=== PATIENT | male | born 1960 | race Caucasian/White ===

== ENCOUNTER → 2020-11-27 10:33 | Outpatient (BNVA) | payer MEDICARE, OTHER, SELFPAY | PROVIDERS: PCP Internal Medicine; Visit Provider Hospitalist | DX: Z13.89 Encounter for screening for other disorder (principal) | CPT/HCPCS: Q3014 ==

== ENCOUNTER → 2021-05-29 10:23 | Outpatient (BNVA) | payer MEDICARE, OTHER, SELFPAY | PROVIDERS: PCP Internal Medicine; Visit Provider Hospitalist | DX: J45.40 Moderate persistent asthma, uncomplicated (principal); G47.33 Obstructive sleep apnea (adult) (pediatric); R06.00 Dyspnea, unspecified; G25.81 Restless legs syndrome | CPT/HCPCS: Q3014 ==

== ENCOUNTER → 2021-11-28 11:20 | Outpatient (BNVA) | payer MEDICARE, OTHER, SELFPAY | PROVIDERS: PCP Internal Medicine; Visit Provider Hospitalist | DX: J45.40 Moderate persistent asthma, uncomplicated (principal); G25.81 Restless legs syndrome; G47.33 Obstructive sleep apnea (adult) (pediatric); R06.00 Dyspnea, unspecified; Z79.899 Other long term (current) drug therapy | CPT/HCPCS: Q3014 ==

== ENCOUNTER 2021-12-07 10:35 | Emergency (ER) | payer MEDICARE, OTHER, SELFPAY ==
--- NOTE | ~2021-12-07 | CT_ITS ---
EXAMINATION: CT ABDOMEN AND PELVIS WITHOUT CONTRAST CLINICAL INFORMATION: Lower abdominal pain COMPARISON: None TECHNIQUE: Multidetector volumetric imaging was performed from the superior aspect of the liver through the pubic symphysis. Sagittal and coronal reformatted images were obtained on the technologist's workstation. This CT examination was performed using dose optimization techniques as appropriate, variously including the following: *Automated exposure control *Adjustment of mA and/or kV according to patient size (this includes techniques or standardized protocols for targeted exams where dose is matched to indication/reason for exam; i.e. extremities or head) *Use of iterative reconstruction technique DLP: 967 mGy-cm FINDINGS: LUNG BASES: The visualized lung bases are unremarkable. No pleural or pericardial effusion. LIVER, GALLBLADDER, AND BILIARY TREE: The liver is normal in size, shape, and attenuation. No focal hepatic lesion or biliary ductal dilatation is present. The gallbladder is unremarkable with no evidence of radiopaque gallstones, gallbladder wall thickening, or obvious pericholecystic inflammatory changes. PANCREAS: Unremarkable. SPLEEN: Unremarkable. ADRENAL GLANDS: There is a 1.2 cm fat density nodule within the left adrenal gland. KIDNEYS AND URETERS: The kidneys are normal in size, shape, and attenuation. No hydronephrosis, hydroureter, or calculi seen. There is perinephric stranding. BLADDER: Thick walled with pericystic fat stranding with the appearance of cystitis. No calculi identified. GASTROINTESTINAL TRACT: No dilated loops of large or small bowel. No free air or free fluid. The appendix appears unremarkable. ABDOMINAL WALL: No significant hernia is appreciated. LYMPH NODES: No lymphadenopathy appreciated. VASCULAR: Unremarkable. PELVIC VISCERA: The inflammatory change around the urinary bladder is also noted to extend to the seminal vesicles bilaterally. OSSEOUS STRUCTURES: No suspicious destructive bony lesion identified. CT/CT abdomen pelvis wo con IMPRESSION: Findings consistent with cystitis with urinary bladder wall thickening and adjacent stranding within fat. No abscess formation identified. 1.2 cm fat density left adrenal gland nodule.
[2021-12-07 10:38] VITALS: BP 146/98; PULSE 93; O2SAT 99
[2021-12-07 10:41] VITALS: BP 138/75; PULSE 88; RESP 18; TEMP 36.8; O2SAT 99; BMI 32.8
--- NOTE | 2021-12-07 11:18 | ED.ABDPAIN ---
HPI - Abdominal Pain General Chief Complaint: Abdominal Pain Stated Complaint: ABD PAIN X'S 3 DAYS Time Seen by Provider: 12/07/21 10:36 Source: patient Mode of arrival: EMS History of Present Illness HPI narrative: 60-year-old male who presents via EMS with complaints of 3 days of lower abdominal discomfort and difficulties with urination, stating that his urine output has gradually decreased, he denies any nausea/vomiting/fevers/chills/history of kidney stones and denies any back pain. Patient otherwise denies any shortness of breath/chest pain/palpitations. Related Data Home Medications Medication Instructions Recorded Confirmed flu vacc [id number] 6mos up(PF) ml IM 05/28/20 11/27/20 glipizide 10 mg tablet 10 mg PO BID 05/28/20 11/27/20 insulin human U-100 NPH-regulr 20 unit SUBCUT BID 05/28/20 11/27/20 70-30 mix 100 unit/mL subcutaneous susp lorazepam 0.5 mg tablet 0 mg PO 05/28/20 11/27/20 losartan 100 mg tablet 100 mg PO DAILY 05/28/20 11/27/20 metformin 500 mg tablet mg PO 05/28/20 11/27/20 metoprolol tartrate 25 mg tablet mg PO 05/28/20 11/27/20 montelukast 10 mg tablet 10 mg PO DAILY 05/28/20 11/27/20 omeprazole 40 mg capsule,delayed 40 mg PO DAILY 05/28/20 11/27/20 release oxygen-air delivery systems #1 05/28/20 11/27/20 pneumoc 13-ruba conj-dip cr(PF) 0.5 ml IM 05/28/20 11/27/20 mL IM syringe venlafaxine 150 mg mg PO 05/28/20 11/27/20 capsule,extended release 24 hr verapamil 120 mg tablet,extended 120 mg PO DAILY 05/28/20 11/27/20 release chromium picolinate 200 mcg tablet 200 mcg PO DAILY 11/27/20 11/27/20 coenzyme Q10 100 mg capsule 100 mg PO DAILY 11/27/20 11/27/20 indapamide 1.25 mg tablet 1.25 mg PO DAILY 11/27/20 11/27/20 lutein 6 mg capsule 6 mg PO DAILY 11/27/20 11/27/20 magnesium oxide,aspartate,citr mg PO 11/27/20 11/27/20 (Triple Magnesium Complex) multivitamin 1 tab PO DAILY 11/27/20 11/27/20 gabapentin 600 mg tablet mg PO 11/28/21 Previous Rx's Medication Instructions Recorded fluticasone 500 mcg-salmeterol 50 1 inh PO BID #180 ea 04/26/21 mcg/dose blistr powdr for inhalation (Advair Diskus) albuterol sulfate 90 mcg/actuation 2 puff PO Q4-6H #20.1 g 11/07/21 aerosol inhaler cefdinir 300 mg capsule 300 mg PO BID 7 Days #14 cap 12/07/21 Allergies Allergy/AdvReac Type Severity Reaction Status Date / Time budesonide [From Symbicort] Allergy Severe Dizziness Verified 11/28/21 11:21 formoterol [From Symbicort] Allergy Severe Dizziness Verified 11/28/21 11:21 lisinopril [LISINOPRIL] Allergy Severe Nausea Verified 11/28/21 11:21 mometasone furoate Allergy Severe Nausea Verified 11/28/21 11:21 [From Dulera] ENVIRONMENTAL Allergy Severe Rash and Uncoded 11/28/21 11:21 Hives Dust Mite Allergy Intermediate Hives Uncoded 11/28/21 11:21 Seasonal Allergies Allergy Intermediate Hives and Uncoded 11/28/21 11:21 Rash Review of Systems Review of Systems Pertinent positives and negatives as stated in HPI 10 point review of systems is otherwise negative. PMFSH Past Medical History Source: nursing notes reviewed Medical History Asthma CAD (coronary artery disease) Dyspnea ASHLIE treated with BiPAP Restless leg syndrome Social History Social History Patient Tobacco Use Status: Never used Tobacco Advance Directives: Yes Advance Directives Information Provided: No Advance Directives on File: No Physical Exam ED Vital Signs: Vital Signs - 24 hr 12/07/21 10:41 Temperature 98.3 F Pulse Rate 88 Respiratory Rate 18 Blood Pressure 138/75 Pulse Oximetry 99 BMI result Body Mass Index 32.8 VITAL SIGNS: Reviewed. GENERAL: Well developed, well nourished, in no acute distress. HEAD: Normocephalic/atraumatic EYES: PERRLA, EOMI EARS: Ext canals without abnormality OROPHARYNX: no oral lesions noted, posterior pharynx clear LUNGS: Normal breath sounds, no wheeze/rhonchi/rales/tachypnea. SpO2<99> CARDIOVASCULAR: Regular rate and rhythm without noted murmurs, no JVD or lower extremity edema. ABDOMEN: Soft, suprapubic tenderness without rebound, non-distended with bowel sounds. MUSCULOSKELETAL: No tenderness, deformities, or effusions noted on gross inspection. EXTREMITIES: No cyanosis, clubbing or edema. SKIN: Inspection of the skin reveals no rashes NEUROLOGIC: Alert and oriented x 4. Strength and sensation to light touch were grossly intact x 4. Course Course Course Narrative: 60-year-old male with history and clinical presentation suggestive of possible urinary retention/BPH/UTI and less likely to be appendicitis or renal colic or diverticulitis at this point. On review of all investigations there is evidence to suggest cystitis with noted RBCs on urinalysis as well as wbc's but otherwise nitrate and leukocyte esterase negative. There is trace bacteria and on re-evaluation patient has good pain control. Patient informed of all results and will be discharged with treatment for cystitis provided with a referral to see Dr. Rivera. MDM - Abdominal Pain Lab Data Result diagrams: 12/07/21 11:32 12/07/21 11:32 Labs: Lab Results 12/07/21 12/07/21 12/07/21 Range/Units 11:32 11:32 12:19 WBC 14.6 H (4.8-10.8) X10*3/uL RBC 3.68 L (4.60-5.80) X10*6/uL Hgb 10.9 L (14.0-18.0) g/dl Hct 33.2 L (42.0-52.0) % MCV 90.2 (80.0-98.0) fL MCH 29.6 (27.0-33.0) pg MCHC 32.8 (31.0-36.0) g/dl RDW 13.1 (11.0-16.0) % Plt Count 261 (160-400) X10*3/uL MPV 9.5 (9.4-12.4) fL Immature Gran % (Auto) 0.5 H (0.0-0.4) % Neut % (Auto) 81.4 H (45-73) % Lymph % (Auto) 9.9 L (20-40) % [place] % (Auto) 7.6 (2-11) % Eos % (Auto) 0.3 (0-4) % Baso % (Auto) 0.3 (0-2) % Lymph # (Auto) 1.4 (1.2-4.9) X10*3/uL [place] # (Auto) 1.1 (0.1-1.2) X10*3/uL Eos # (Auto) 0.1 (0.0-0.4) X10*3/uL Baso # (Auto) 0.0 (0.0-0.2) X10*3/uL Abs Immat Gran (auto) 0.07 H (0.00-0.03) X10*3/uL Absolute Neuts (auto) 11.9 H (2.0-8.3) x10*3/uL Absolute Nucleated RBC 0.000 (0.0-0.012) X10*3/uL Nucleated RBC % (auto) 0.0 (0.0-0.2) /100WBC Sodium 137 (135-145) mmol/L Potassium 4.0 (3.3-5.1) mmol/L Chloride 101 (96-108) mmol/L Carbon Dioxide 26 (22-29) mmol/L Anion Gap 14 (12-20) BUN 11 (9-16) mg/dL Creatinine 0.97 (0.5-1.4) mg/dL Estim Creat Clear Calc 112.8 Estimated GFR > 60 Random Glucose 235 H (60-115) mg/dL Calcium 8.9 (8.4-10.2) mg/dL Total Bilirubin 0.5 (0.0-1.0) mg/dL AST 12 (5-37) U/L ALT 22 (0-40) U/L Alkaline Phosphatase 99 (39-117) U/L Total Protein 6.7 (6.5-8.0) g/dL Albumin 3.8 (3.5-5.0) g/dL Urine Color YELLOW Urine Appearance HAZY Urine pH 7.0 (5.0-8.0) Ur Specific [place] 1.020 (1.005-1.025) Urine Protein 2+ H (NEG-TRACE) MG/DL Urine Glucose (UA) 100 H (NEG) MG/DL Urine Ketones 5 (NEG) MG/DL Urine Blood 1+ H (NEG) Urine Nitrite NEG (NEG) Ur Leukocyte Esterase NEG (NEG) Urine RBC 10-14 H (0) /HPF Urine WBC 15-29 H (0-4) /HPF Ur Squamous Epith Cells NONE /LPF Urine Bacteria TRACE /LPF Urine Mucus 2+ /LPF Discharge Plan Discharge Clinical Impression: Cystitis Patient Disposition: Home, Self-Care Instructions: Urinary Tract Infection in Men (ED) Additional Instructions: 1. Resume all home medications as prescribed. 2. Increase the amount of water that your drinking. 3. Complete the entire course of antibiotics that you have been provided and follow-up with the urologist that we have provided a referral. 4. Follow-up with your primary care provider by calling on Thursday morning. Return to the ER for any worsening of symptoms. Prescriptions: New cefdinir 300 mg capsule 300 mg PO BID 7 Days Qty: 14 0RF No Action fluticasone propion-salmeterol [Advair Diskus] 500-50 mcg/dose blister with device 1 inh PO BID Qty: 180 5RF albuterol sulfate 90 mcg/actuation HFA aerosol inhaler 2 puff PO Q4-6H Qty: 20.1 0RF Novolin 70/30 U-100 Insulin 100 unit/mL (70-30) suspension 20 unit subcut BID 0RF metoprolol tartrate 25 mg tablet PO 0RF losartan 100 mg tablet 100 mg PO DAILY 0RF montelukast 10 mg tablet 10 mg PO DAILY 0RF omeprazole 40 mg capsule,delayed release(DR/EC) 40 mg PO DAILY 0RF venlafaxine 150 mg capsule,extended release 24hr PO 0RF glipizide 10 mg tablet 10 mg PO BID 0RF metformin 500 mg tablet PO 0RF verapamil 120 mg tablet extended release 120 mg PO DAILY 0RF lorazepam 0.5 mg tablet 0 mg PO 0RF Fluzone Quad [id number] (PF) 60 mcg (15 mcg x 4)/0.5 mL syringe IM 0RF Prevnar 13 (PF) 0.5 mL syringe IM 0RF (DME) oxygen-air delivery systems Device See Rx Instructions .ROUTE .MEDSUPPLY Qty: 1 0RF Rx Instructions: As directed indapamide 1.25 mg tablet 1.25 mg PO DAILY 0RF multivitamin Tablet 1 tab PO DAILY 0RF coenzyme Q10 100 mg capsule 100 mg PO DAILY 0RF lutein 6 mg capsule 6 mg PO DAILY 0RF Rx Instructions: give with meal/snack Triple Magnesium Complex 400 mg magnesium capsule PO 0RF chromium picolinate 200 mcg tablet 200 mcg PO DAILY 0RF gabapentin 600 mg tablet PO 0RF Referrals: Iron Garibay III, MD [Primary Care Provider] - Scott Rivera MD [Physician] -
[2021-12-07 11:34] LABS: MANUAL DIFF FLAG NO
[2021-12-07 11:36] LABS: Basophils Percent Auto 0.3 % (0-2); Eosinophils Absolute Auto 0.1 X10*3/uL (0.0-0.4); Eosinophils Percent Auto 0.3 % (0-4); Hematocrit 33.2 % (42.0-52.0); Hemoglobin 10.9 g/dl (14.0-18.0); Imm Gran Abs Auto 0.07 X10*3/uL (0.00-0.03); Imm Gran Pct Auto 0.5 % (0.0-0.4); Lymphocytes Absolute Auto 1.4 X10*3/uL (1.2-4.9); Lymphocytes Percent Auto 9.9 % (20-40); Mean Corpuscular HGB Conc 32.8 g/dl (31.0-36.0); Mean Corpuscular Hemoglobin 29.6 pg (27.0-33.0); Mean Corpuscular Volume 90.2 fL (80.0-98.0); Mean Platelet Volume 9.5 fL (9.4-12.4); Monocytes Absolute Auto 1.1 X10*3/uL (0.1-1.2); Monocytes Percent Auto 7.6 % (2-11); Neutrophils Absolute Auto 11.9 x10*3/uL (2.0-8.3); Neutrophils Percent Auto 81.4 % (45-73); Platelet Count 261 X10*3/uL (160-400); Red Blood Count 3.68 X10*6/uL (4.60-5.80); Red Cell Distribution Width 13.1 % (11.0-16.0); White Blood Count 14.6 X10*3/uL (4.8-10.8)
[2021-12-07] MEDS: 0.9 % Sodium Chloride 1,000 ML 999 ML IV (11:36)
[2021-12-07] MEDS: Ketorolac Tromethamine 30 MG/ML VIAL 15 MG IVPUSH (11:36)
[2021-12-07 11:57] LABS: Alanine Aminotransferase 22 U/L (0-40); Albumin Level 3.8 g/dL (3.5-5.0); Alkaline Phosphatase 99 U/L (39-117); Anion Gap 14 (12-20); Aspartate Amino Transferase 12 U/L (5-37); Bilirubin Total 0.5 mg/dL (0.0-1.0); Blood Urea Nitrogen 11 mg/dL (9-16); Calcium 8.9 mg/dL (8.4-10.2); Carbon Dioxide 26 mmol/L (22-29); Chloride 101 mmol/L (96-108); Creatinine Clr Calc Pharmacy 112.8; Estimated Glomerular Filt Rate > 60; Glucose Random 235 mg/dL (60-115); Sodium 137 mmol/L (135-145); Total Protein 6.7 g/dL (6.5-8.0)
[2021-12-07 12:38] LABS: Appearance Urine HAZY; Color Urine YELLOW; Glucose Urine UA 100 MG/DL (NEG); Leukocyte Esterase Urine NEG (NEG); Nitrite Urine NEG (NEG); UACC Culture Trigger NO; Urine Blood 1+ (NEG); Urine Ketones 5 MG/DL (NEG); Urine Protein 2+ MG/DL (NEG-TRACE)
[2021-12-07 12:46] LABS: Mucus Urine 2+ /LPF; UACC CULT YES
[2021-12-07 12:47] LABS: Bacteria Urine TRACE /LPF
[2021-12-07 14:21] VITALS: BP 117/87; PULSE 88; RESP 20; TEMP 37.1; O2SAT 98
== END 2021-12-07 14:25 | disposition home or self-care (01) ==
PROVIDERS: Emergency Provider Student in an Organized Health Care Education/Training Program; PCP Internal Medicine
DX: N30.90 Cystitis, unspecified without hematuria (principal); R33.9 Retention of urine, unspecified; R10.30 Lower abdominal pain, unspecified; Z79.899 Other long term (current) drug therapy
CPT/HCPCS: 36415; 51798; 74176; 80053; 81001; 85025; 87086; 87088; 87186; 96365; 96376; 99284; J1885

== ENCOUNTER 2021-12-25 19:52 | Emergency (ER) | payer MEDICARE, OTHER, SELFPAY ==
[2021-12-25 20:18] VITALS: BP 160/109; PULSE 98; RESP 16; TEMP 36.7; O2SAT 98; BMI 31.1
[2021-12-25 21:15] LABS: MANUAL DIFF FLAG NO
[2021-12-25 21:18] LABS: Basophils Absolute Auto 0.1 X10*3/uL (0.0-0.2); Basophils Percent Auto 0.5 % (0-2); Eosinophils Absolute Auto 0.3 X10*3/uL (0.0-0.4); Eosinophils Percent Auto 3.1 % (0-4); Hematocrit 35.6 % (42.0-52.0); Hemoglobin 11.7 g/dl (14.0-18.0); Imm Gran Abs Auto 0.03 X10*3/uL (0.00-0.03); Imm Gran Pct Auto 0.3 % (0.0-0.4); Lymphocytes Absolute Auto 2.7 X10*3/uL (1.2-4.9); Mean Corpuscular HGB Conc 32.9 g/dl (31.0-36.0); Mean Corpuscular Hemoglobin 29.9 pg (27.0-33.0); Mean Platelet Volume 10.6 fL (9.4-12.4); Monocytes Absolute Auto 0.7 X10*3/uL (0.1-1.2); Neutrophils Absolute Auto 6.6 x10*3/uL (2.0-8.3); Neutrophils Percent Auto 63.1 % (45-73); Platelet Count 372 X10*3/uL (160-400); Red Blood Count 3.91 X10*6/uL (4.60-5.80); Red Cell Distribution Width 13.5 % (11.0-16.0); White Blood Count 10.5 X10*3/uL (4.8-10.8)
[2021-12-25 21:21] LABS: Appearance Urine HAZY; Color Urine YELLOW; Glucose Urine UA NEG (NEG); Leukocyte Esterase Urine NEG (NEG); Nitrite Urine NEG (NEG); Specific Gravity - Urine >= 1.030 (1.005-1.025); UACC Culture Trigger NO; Urine Blood 3+ (NEG); Urine Ketones 5 MG/DL (NEG); Urine Protein 2+ MG/DL (NEG-TRACE)
[2021-12-25 21:27] LABS: Squamous Epithelial Cell Urine TRACE /LPF
[2021-12-25 21:31] LABS: UACC CULT YES; WBC Urine 30-49 /HPF (0-4)
[2021-12-25 21:33] LABS: Bacteria Urine TRACE /LPF; Calcium Oxalate Crystals Urine 1+ /LPF
[2021-12-25 21:34] LABS: Alanine Aminotransferase 26 U/L (0-40); Albumin Level 4.2 g/dL (3.5-5.0); Alkaline Phosphatase 100 U/L (39-117); Anion Gap 15 (12-20); Aspartate Amino Transferase 16 U/L (5-37); Bilirubin Total 0.3 mg/dL (0.0-1.0); Blood Urea Nitrogen 15 mg/dL (9-16); Calcium 9.8 mg/dL (8.4-10.2); Carbon Dioxide 27 mmol/L (22-29); Chloride 103 mmol/L (96-108); Creatinine Clr Calc Pharmacy 106.4; Estimated Glomerular Filt Rate > 60; Glucose Random 98 mg/dL (60-115); Potassium 4.1 mmol/L (3.3-5.1); Sodium 141 mmol/L (135-145); Total Protein 7.1 g/dL (6.5-8.0)
--- NOTE | 2021-12-26 00:29 | ED.MALEGU ---
HPI - Male Genitourinary General Chief complaint: Urogenital-Male Stated complaint: ? UTI Time Seen by Provider: 12/25/21 22:21 Source: patient Mode of arrival: ambulatory Limitations: no limitations History of Present Illness HPI Narrative: 61-year-old male with a history of diabetes on insulin, ASHLIE on BiPAP, asthma, CAD, restless leg, recent visit to the ER 12/07 for UTI who presents back to the ER with acute onset of dysuria that started yesterday. He reports burning upon urination along with increased frequency and urgency. He states it feels similar to when he had a UTI earlier this month. He did have resolution of his symptoms with the antibiotics that were previously prescribed. He does not usually get UTIs and has never seen a urologist before. He denies any fever or chills at home. He denies any nausea, vomiting, abdominal pain, back pain, flank pain. He is worried about his blood sugar because he has been in the waiting room for 5 hours. He has been compliant with his insulin. MD Complaint: dysuria Onset (ago): day(s) (1) Duration: intermittent Location: penis and abdomen Severity: moderate Severity scale (1-10): 5 Quality: burning Relieving factors: none Exacerbating factors: urination Associated symptoms: Reports dysuria Related Data Sexually active: No Home Medications Medication Instructions Recorded Confirmed flu vacc [id number] 6mos up(PF) ml IM 05/28/20 11/27/20 glipizide 10 mg tablet 10 mg PO BID 05/28/20 11/27/20 insulin human U-100 NPH-regulr 20 unit subcut BID 05/28/20 11/27/20 70-30 mix 100 unit/mL subcutaneous susp lorazepam 0.5 mg tablet 0 mg PO 05/28/20 11/27/20 losartan 100 mg tablet 100 mg PO DAILY 05/28/20 11/27/20 metformin 500 mg tablet mg PO 05/28/20 11/27/20 metoprolol tartrate 25 mg tablet mg PO 05/28/20 11/27/20 montelukast 10 mg tablet 10 mg PO DAILY 05/28/20 11/27/20 omeprazole 40 mg capsule,delayed 40 mg PO DAILY 05/28/20 11/27/20 release oxygen-air delivery systems ##1 05/28/20 11/27/20 pneumoc 13-ruba conj-dip cr(PF) 0.5 ml IM 05/28/20 11/27/20 mL IM syringe venlafaxine 150 mg mg PO 05/28/20 11/27/20 capsule,extended release 24 hr verapamil 120 mg tablet,extended 120 mg PO DAILY 05/28/20 11/27/20 release chromium picolinate 200 mcg tablet 200 mcg PO DAILY 11/27/20 11/27/20 coenzyme Q10 100 mg capsule 100 mg PO DAILY 11/27/20 11/27/20 indapamide 1.25 mg tablet 1.25 mg PO DAILY 11/27/20 11/27/20 lutein 6 mg capsule 6 mg PO DAILY 11/27/20 11/27/20 magnesium oxide,aspartate,citr mg PO 11/27/20 11/27/20 (Triple Magnesium Complex) multivitamin 1 tab PO DAILY 11/27/20 11/27/20 gabapentin 600 mg tablet mg PO 11/28/21 Previous Rx's Medication Instructions Recorded fluticasone 500 mcg-salmeterol 50 1 inh PO BID #180 ea 04/26/21 mcg/dose blistr powdr for inhalation (Advair Diskus) albuterol sulfate 90 mcg/actuation 2 puff PO Q4-6H #20.1 grams 11/07/21 aerosol inhaler cefdinir 300 mg capsule 300 mg PO BID 7 days #14 caps 12/07/21 levofloxacin 750 mg tablet 750 mg PO DAILY #7 tabs 12/26/21 Allergies Allergy/AdvReac Type Severity Reaction Status Date / Time budesonide [From Symbicort] Allergy Severe Dizziness Verified 12/25/21 20:22 formoterol [From Symbicort] Allergy Severe Dizziness Verified 12/25/21 20:22 lisinopril [LISINOPRIL] Allergy Severe Nausea Verified 12/25/21 20:22 mometasone furoate Allergy Severe Nausea Verified 12/25/21 20:22 [From Dulera] ENVIRONMENTAL Allergy Severe Rash and Uncoded 12/25/21 20:22 Hives Dust Mite Allergy Intermediate Hives Uncoded 12/25/21 20:22 Seasonal Allergies Allergy Intermediate Hives and Uncoded 12/25/21 20:22 Rash Review of Systems Review of Systems: Constitutional: No Fever, No Chills ENT/Mouth: No sore throat, No Rhinorrhea Cardiovascular: No Chest Pain, No SOB, No Orthopnea, No Edema Respiratory: No Cough, No Sputum, No Wheezing, No dyspnea Gastrointestinal: No Nausea, No Vomiting, No Diarrhea, No abdominal Pain Genitourinary: + Dysuria, + Urinary Frequency, No Hematuria Musculoskeletal: No joint pain, No Myalgias Skin: No Skin Lesions, No rash Neuro: No Weakness, +Dizziness, No Headache Psych: No Anxiety/Panic, No Depression Heme/Lymph: No Bruising, No Lymphadenopathy Endocrine: No Polyuria, No Polydipsia [facility] Past Medical History Medical History Asthma CAD (coronary artery disease) Dyspnea ASHLIE treated with BiPAP Restless leg syndrome Social History Social History Patient Tobacco Use Status: Never used Tobacco Advance Directives: No Advance Directives Information Provided: Yes Physical Exam Vital Signs: Vital Signs: Last Vital Signs Temp 98.1 F 12/25/21 20:18 Pulse 98 12/25/21 20:18 Resp 16 12/25/21 20:18 BP 160/109 H 12/25/21 20:18 Pulse Ox 98 12/25/21 20:18 O2 Del Method 12/25/21 20:18 BMI result Body Mass Index 31.1 Appearance: Alert. Oriented X3. No acute distress. Eyes: Pupils equal, round and reactive to light. ENT: Pharynx normal. Neck: Normal inspection. Neck supple. CVS: Normal heart rate and rhythm. Pulses normal. Respiratory: No respiratory distress. Breath sounds normal. Abdomen: Soft and nontender. +BS x4. No CVA tenderness. Skin: Skin warm and dry. Normal skin color. Normal skin turgor. No rashes. Extremities: No lower extremity edema. Neuro: Oriented X 3. Grossly normal, nonfocal, steady gait, speech and cognition are normal. Course Course Course Narrative: 61-year-old male with history of asthma, ASHLIE, CAD, recent UTI, DM who presents to the ER with new onset of dysuria and increased urinary frequency that started yesterday. On arrival to the ER he is afebrile, hypertensive 160/100. Basic lab workup in triage shows a normal white blood cell count. He has normal kidney function. His urinalysis is positive for white blood cells and red blood cells. Will plan to treat with oral Levaquin given recurrence. He had a urine culture on 12/07 that grew pansensitive Enterococcus, sensitive to Levaquin. Will check his sugar and give him some juice before discharge. Sugar was 98 at 20:00. MDM - Male Genitourinary Lab Data Result diagrams: 12/25/21 20:26 12/25/21 20: Labs: Lab Results 12/25/21 12/25/21 12/25/21 Range/Units 20:26 20:26 21:06 WBC 10.5 (4.8-10.8) X10*3/uL RBC 3.91 L (4.60-5.80) X10*6/uL Hgb 11.7 L (14.0-18.0) g/dl Hct 35.6 L (42.0-52.0) % MCV 91.0 (80.0-98.0) fL MCH 29.9 (27.0-33.0) pg MCHC 32.9 (31.0-36.0) g/dl RDW 13.5 (11.0-16.0) % Plt Count 372 D (160-400) X10*3/uL MPV 10.6 (9.4-12.4) fL Immature Gran % (Auto) 0.3 (0.0-0.4) % Neut % (Auto) 63.1 (45-73) % Lymph % (Auto) 26.0 (20-40) % [place] % (Auto) 7.0 (2-11) % Eos % (Auto) 3.1 (0-4) % Baso % (Auto) 0.5 (0-2) % Lymph # (Auto) 2.7 (1.2-4.9) X10*3/uL [place] # (Auto) 0.7 (0.1-1.2) X10*3/uL Eos # (Auto) 0.3 (0.0-0.4) X10*3/uL Baso # (Auto) 0.1 (0.0-0.2) X10*3/uL Abs Immat Gran (auto) 0.03 (0.00-0.03) X10*3/uL Absolute Neuts (auto) 6.6 (2.0-8.3) x10*3/uL Absolute Nucleated RBC 0.000 (0.0-0.012) X10*3/uL Nucleated RBC % (auto) 0.0 (0.0-0.2) /100WBC Sodium 141 (135-145) mmol/L Potassium 4.1 (3.3-5.1) mmol/L Chloride 103 (96-108) mmol/L Carbon Dioxide 27 (22-29) mmol/L Anion Gap 15 (12-20) BUN 15 (9-16) mg/dL Creatinine 0.99 (0.5-1.4) mg/dL Estim Creat Clear Calc 106.4 Estimated GFR > 60 Random Glucose 98 D (60-115) mg/dL Calcium 9.8 D (8.4-10.2) mg/dL Total Bilirubin 0.3 (0.0-1.0) mg/dL AST 16 (5-37) U/L ALT 26 (0-40) U/L Alkaline Phosphatase 100 (39-117) U/L Total Protein 7.1 (6.5-8.0) g/dL Albumin 4.2 (3.5-5.0) g/dL Urine Color YELLOW Urine Appearance HAZY Urine pH 6.0 (5.0-8.0) Ur Specific [place] >= 1.030 H (1.005-1.025) Urine Protein 2+ H (NEG-TRACE) MG/DL Urine Glucose (UA) NEG (NEG) MG/DL Urine Ketones 5 (NEG) MG/DL Urine Blood 3+ H (NEG) Urine Nitrite NEG (NEG) Ur Leukocyte Esterase NEG (NEG) Urine RBC 76-150 H (0) /HPF Urine WBC 30-49 H (0-4) /HPF Ur Squamous Epith Cells TRACE /LPF Calcium Oxalate Crystal 1+ /LPF Urine Bacteria TRACE /LPF Critical Care Time Critical Care Time Critical Care Time: No Discharge Plan Discharge Clinical Impression: Urinary tract infection Patient Disposition: Home, Self-Care Instructions: Urinary Tract Infection in Men (ED) Additional Instructions: Your urine test showed evidence of infection. Your given the 1st dose of antibiotics tonight in the emergency department. Recommend starting the next dose late tomorrow before you go to bed. It is once per day. Recommend following up with your primary care doctor within 1 week. Recommend following up with urology for further evaluation of recurrent urinary tract infections. If you develop new or worsening symptoms call 911 or come back to the ER for further evaluation. Prescriptions: New levofloxacin 750 mg tablet 750 mg PO DAILY Qty: 7 0RF No Action fluticasone propion-salmeterol [Advair Diskus] 500-50 mcg/dose blister with device 1 inh PO BID Qty: 180 5RF albuterol sulfate 90 mcg/actuation HFA aerosol inhaler 2 puff PO Q4-6H Qty: 20.1 0RF cefdinir 300 mg capsule 300 mg PO BID 7 Days Qty: 14 0RF Novolin 70/30 U-100 Insulin 100 unit/mL (70-30) suspension 20 unit subcut BID metoprolol tartrate 25 mg tablet PO losartan 100 mg tablet 100 mg PO DAILY montelukast 10 mg tablet 10 mg PO DAILY omeprazole 40 mg capsule,delayed release(DR/EC) 40 mg PO DAILY venlafaxine 150 mg capsule,extended release 24hr PO glipizide 10 mg tablet 10 mg PO BID metformin 500 mg tablet PO verapamil 120 mg tablet extended release 120 mg PO DAILY lorazepam 0.5 mg tablet 0 mg PO Fluzone Quad [id number] (PF) 60 mcg (15 mcg x 4)/0.5 mL syringe IM Prevnar 13 (PF) 0.5 mL syringe IM (DME) oxygen-air delivery systems Device See Rx Instructions .ROUTE .MEDSUPPLY Qty: 1 Rx Instructions: As directed indapamide 1.25 mg tablet 1.25 mg PO DAILY multivitamin Tablet 1 tab PO DAILY coenzyme Q10 100 mg capsule 100 mg PO DAILY lutein 6 mg capsule 6 mg PO DAILY Rx Instructions: give with meal/snack Triple Magnesium Complex 400 mg magnesium capsule PO chromium picolinate 200 mcg tablet 200 mcg PO DAILY gabapentin 600 mg tablet PO Referrals: Scott Rivera MD [Physician] - (recurrent UTIs)
[2021-12-26] MEDS: levoFLOXacin 750 MG TABLET PO (01:11)
[2021-12-26 07:03] LABS: Glucose, Whole Blood 119 mg/dL (60-115)
== END 2021-12-26 01:14 | disposition home or self-care (01) ==
PROVIDERS: Emergency Provider Emergency Medicine Emergency Medical Services; PCP Internal Medicine
DX: N39.0 Urinary tract infection, site not specified (principal); E11.9 Type 2 diabetes mellitus without complications; J45.909 Unspecified asthma, uncomplicated; I25.10 Atherosclerotic heart disease of native coronary artery without angina pectoris; Z79.4 Long term (current) use of insulin
CPT/HCPCS: 36415; 80053; 81001; 82947; 85025; 87086; 87088; 87186; 99283

== ENCOUNTER → 2022-01-27 09:39 | Outpatient (BNVA) | payer MEDICARE, OTHER, SELFPAY | PROVIDERS: PCP Internal Medicine | DX: N39.0 Urinary tract infection, site not specified (principal); A49.9 Bacterial infection, unspecified | CPT/HCPCS: 51798; 99202 ==

== ENCOUNTER 2022-01-27 11:21 | Outpatient (REF) | payer MEDICARE, OTHER, SELFPAY ==
[2022-01-27 14:04] LABS: PSA,Total (Free>4and<10) 1.05 ng/mL (0.00-4.00)
== END 2022-01-27 11:22 | disposition home or self-care (01) ==
LOC: HO.10HDL 11:21
DX: Z12.5 Encounter for screening for malignant neoplasm of prostate (principal); A49.9 Bacterial infection, unspecified; N39.0 Urinary tract infection, site not specified
CPT/HCPCS: 36415; 84153

== ENCOUNTER → 2022-03-11 08:32 | Outpatient (BNVA) | payer MEDICARE, OTHER, SELFPAY | PROVIDERS: PCP Internal Medicine; Visit Provider Hospitalist | DX: J45.40 Moderate persistent asthma, uncomplicated (principal); G47.33 Obstructive sleep apnea (adult) (pediatric); G25.81 Restless legs syndrome; R06.00 Dyspnea, unspecified | CPT/HCPCS: 99212 ==

== ENCOUNTER → 2022-04-30 12:55 | Outpatient (BNVA) | payer MEDICARE, SELFPAY | PROVIDERS: PCP Internal Medicine; Visit Provider Urology | DX: N39.0 Urinary tract infection, site not specified (principal); A49.9 Bacterial infection, unspecified | CPT/HCPCS: 99212 ==

== ENCOUNTER → 2022-08-01 08:14 | Outpatient (BNVA) | payer MEDICARE, MEDICAID, SELFPAY | PROVIDERS: PCP Internal Medicine; Visit Provider Psychiatry & Neurology Neurology | DX: R42 Dizziness and giddiness (principal) | CPT/HCPCS: 99202 ==

== ENCOUNTER → 2022-09-17 09:04 | Outpatient (BNVA) | payer MEDICARE, MEDICAID, SELFPAY | PROVIDERS: PCP Internal Medicine; Visit Provider Hospitalist | DX: J45.40 Moderate persistent asthma, uncomplicated (principal); R06.00 Dyspnea, unspecified; G47.33 Obstructive sleep apnea (adult) (pediatric); G25.81 Restless legs syndrome | CPT/HCPCS: Q3014 ==

== ENCOUNTER → 2022-12-24 10:35 | Outpatient (BNVA) | payer MEDICARE, MEDICAID, SELFPAY | PROVIDERS: PCP Internal Medicine; Visit Provider Psychiatry & Neurology Neurology | DX: R42 Dizziness and giddiness (principal); E11.65 Type 2 diabetes mellitus with hyperglycemia; I10 Essential (primary) hypertension | CPT/HCPCS: 99212 ==

== ENCOUNTER 2023-03-04 12:31 | Outpatient (AMB) | payer MEDICARE, MEDICAID, SELFPAY ==
--- NOTE | 2023-03-04 12:47 | MHC.OFFVIS ---
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/ Intake Note: NPV w/ EKG Prop Worker Required: No Accompanied by: Self / Same As Patient Allergies budesonide [From Symbicort] Allergy (Severe, Verified 03/04/23 12:50) Dizziness formoterol [From Symbicort] Allergy (Severe, Verified 03/04/23 12:50) Dizziness lisinopril [LISINOPRIL] Allergy (Severe, Verified 03/04/23 12:50) Nausea mometasone furoate [From Dulera] Allergy (Severe, Verified 03/04/23 12:50) Nausea amoxicillin Allergy (Mild, Verified 03/04/23 12:50) vertigo gabapentin Allergy (Mild, Verified 03/04/23 12:50) vertigo ENVIRONMENTAL Allergy (Severe, Uncoded 03/04/23 12:50) Rash and Hives Dust Mite Allergy (Intermediate, Uncoded 03/04/23 12:50) Hives Seasonal Allergies Allergy (Intermediate, Uncoded 03/04/23 12:50) Hives and Rash terazosin Allergy (Mild, Uncoded 03/04/23 12:50) vertigo Medication List - Last Reconciled 03/04/23 by Daniel Lubin MD albuterol sulfate 90 mcg/actuation 2 puffs PO Q6H PRN aspirin 81 mg PO DAILY atenolol 50 mg PO DAILY blood sugar diagnostic (Bookeruch Ultra Test strips) As directed chromium picolinate 200 mcg PO DAILY coenzyme Q10 100 mg PO DAILY dulaglutide (Trulicity) mg subcut flu vacc [id number] 6mos up(PF) mL IM fluticasone propion-salmeterol 500-50 mcg/dose (Advair Diskus) 1 inh inhalation BID indapamide 2.5 mg PO BEDTIME insulin NPH and regular human 100 unit/mL (70-30) 20 units subcut BID insulin syringe-needle U-100 As directed isosorbide dinitrate 10 mg PO BID lancets (AnystreamTouch Delica Plus Lancet) As directed lorazepam 0.5 mg PO losartan 100 mg PO DAILY lutein 6 mg PO DAILY magnesium oxide,aspartate,citr (Triple Magnesium Complex) mg PO meclizine 25 mg PO DAILY PRN metformin 1,000 mg PO BID montelukast 10 mg PO DAILY 90 days multivitamin 1 tab PO DAILY omeprazole 40 mg PO DAILY oxygen-air delivery systems As directed pneumoc 13-ruba conj-dip cr(PF) mL IM ropinirole 0.25 mg PO DAILY venlafaxine ER mg PO HPI HPI Comments History of Present Illness Details Bladimir has been referred back for evaluation. He was seen last in 2019. At that time, he was seen regarding shortness of breath. He underwent cardiac workup including cardiac catheterization but there was no significant CAD. Multiple comorbidities including obesity, diabetes, hypertension. He also has a question about on a dysfunction. Overall, main complaint is still some shortness of breath with activity but he also has asthma/COPD overlap syndrome. No angina. Chronic symptoms of vertigo which have been present for many years. They do not really sound orthostatic in nature. However, he does have labile blood pressures and goes nephrology too. 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 kidney complication Vertigo Surgical History H/O adenoidectomy History of cataract surgery Hx of tonsillectomy Family History Father Cancer Mother Cancer Sister Acute Crohn's disease Social History Alcohol intake: never Patient Tobacco Use Status: Never used Tobacco Review of Systems Const Denies chills, Denies daytime sleepiness, Denies fatigue, Denies fever(s), Denies frequent falls, Denies night sweats, Denies snoring, Denies weakness, Denies weight gain and Denies weight loss Eyes Denies loss of vision ENT Denies dizziness and Denies hearing loss Card Denies chest pain, Denies chest pain with activity, Denies syncope, Denies rapid heart rate, Denies edema, Denies claudication, Denies leg edema, Denies lightheadedness, Denies palpitations, Denies dyspnea, Denies dyspnea on exertion and Denies orthopnea Resp Denies cough, Denies excessive phlegm production, Denies dyspnea, Denies dyspnea on exertion, Denies snoring and Denies wheezing GI Denies abdominal pain, Denies hematochezia, Denies change in bowel habits, Denies change in stool character, Denies heartburn, Denies nausea and Denies vomiting Denies hematuria, Denies dysuria and Denies urinary frequency Musc Denies arthralgias, Denies muscle weakness, Denies numbness and Denies tingling Skin/Breast Denies nail changes and Denies rash Neuro Denies Abnormal speech present, Denies dizziness, Denies syncope, Denies frequent falls, Denies loss of vision, Denies memory loss, Denies numbness, Denies tingling and Denies weakness Psych Denies depression and Denies memory loss Endo Denies fatigue and Denies palpitations Aller/Immun Denies wheezing Physical Exam Vital Signs: Last Vital Signs Pulse 87 03/04/23 12:49 BP 100/60 03/04/23 12:49 BMI result Body Mass Index 34.4 Const General: comfortable and no acute distress Orientation/consciousness: patient oriented x3 HEENT Other: Unremarkable Head: Yes normal to inspection Neck Neck: Yes normal visual inspection Chest Chest palpation & inspection: normal inspection of the chest Resp Auscultation: clear to auscultation bilaterally Cardio Palpation: normal PMI Heart sounds: S1 normal heart sound present, S2 normal heart sound present, no gallops, no murmurs and no rubs GI Palpation (GI): Soft to palpation Back/Spine/Pelvis Other: unremarkable Skin General skin exam: no rashes or lesions noted Neuro General: patient oriented x3 Speech: No Abnormal speech present Extrem General: Yes normal to inspection Psych Mental Status: mental status grossly normal Office Procedures EKG Details: EKG with sinus, 87/min, no significant ST-T changes. [id number], Complete Assessment & Plan Assessment & Plan (1) CAD (coronary artery disease): Code(s): I25.10 - Atherosclerotic heart disease of red devil coronary artery without angina pectoris (2) Dyspnea: Comment: Multifactorial, may have a component of autonomic dysfuction Code(s): R06.00 - Dyspnea, unspecified Qualifiers: Dyspnea type: dyspnea on exertion Qualified Code(s): R06.00 - Dyspnea, unspecified (3) Hypertension, essential: Code(s): I10 - Essential (primary) hypertension (4) Type 2 diabetes mellitus with unspecified complications: Code(s): E11.8 - Type 2 diabetes mellitus with unspecified complications Plan Cardiac catheterization reviewed from 2019. Mid LAD with myocardial bridging. RCA with nonobstructive disease. Normal LVEDP. Echocardiogram then with LVEF of 60-65%. Indeterminate diastolic function. No valvular pathology. No evidence of pulmonary hypertension. Based on Pulmonary note, there is a diagnosis of asthma as well as obstructive sleep apnea. More than likely, shortness of breath is from pulmonary etiology. Less likely cardiac in nature. Diastolic dysfunction is possible as he has hypertension and diabetes. We will get another echocardiogram to reassess. With a mild CAD, still benefit from statins. Especially as he has diabetes. Will need to get some lipids from PCP. Then probably start him on Crestor or Lipitor. He has apparently labile hypertension but already has a Nephrology appointment and meds addressed through that. Hence no further changes here. Follow-up after testing. Orders: Orders CA echo transthoracic complete Today R06.02 - Shortness of breath Coding Level of Care Code New Pt Level 4 (49836) Diagnoses CAD (coronary artery disease) I25.10 Dyspnea R06.00 Dyspnea type: dyspnea on exertion Hypertension, essential I10 Type 2 diabetes mellitus with unspecified complications E11.8 CPT Codes EKG - CPT: 82534-[id number], Complete ([id number])
[2023-03-04 12:49] VITALS: BP 100/60; PULSE 87; BMI 34.4
== END 2023-03-04 13:18 | disposition home or self-care (01) ==
PROVIDERS: PCP Internal Medicine; Referring Provider Internal Medicine; Visit Provider Internal Medicine
DX: I25.10 Atherosclerotic heart disease of native coronary artery without angina pectoris (principal); R06.00 Dyspnea, unspecified; I10 Essential (primary) hypertension; E11.8 Type 2 diabetes mellitus with unspecified complications
CPT/HCPCS: 93010; 99204

== ENCOUNTER → 2023-03-04 12:31 | Outpatient (BNVA) | payer MEDICARE, MEDICAID, SELFPAY | PROVIDERS: PCP Internal Medicine; Referring Provider Internal Medicine; Visit Provider Internal Medicine | DX: I25.10 Atherosclerotic heart disease of native coronary artery without angina pectoris (principal); R06.00 Dyspnea, unspecified; I10 Essential (primary) hypertension; E11.8 Type 2 diabetes mellitus with unspecified complications | CPT/HCPCS: 93005; 99202 ==

== ENCOUNTER 2023-03-20 09:47 | Outpatient (AMB) | payer MEDICARE, MEDICAID, SELFPAY ==
[2023-03-20 10:02] VITALS: BP 134/68; PULSE 83; O2SAT 97; BMI 34.9
--- NOTE | 2023-03-20 10:02 | MHC.OFFVIS ---
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: No Allergies budesonide [From Symbicort] Allergy (Severe, Verified 03/20/23 10:05) Dizziness formoterol [From Symbicort] Allergy (Severe, Verified 03/20/23 10:05) Dizziness lisinopril [LISINOPRIL] Allergy (Severe, Verified 03/20/23 10:05) Nausea mometasone furoate [From Dulera] Allergy (Severe, Verified 03/20/23 10:05) Nausea amoxicillin Allergy (Mild, Verified 03/20/23 10:05) vertigo gabapentin Allergy (Mild, Verified 03/20/23 10:05) vertigo ENVIRONMENTAL Allergy (Severe, Uncoded 03/20/23 10:05) Rash and Hives Dust Mite Allergy (Intermediate, Uncoded 03/20/23 10:05) Hives Seasonal Allergies Allergy (Intermediate, Uncoded 03/20/23 10:05) Hives and Rash terazosin Allergy (Mild, Uncoded 03/20/23 10:05) vertigo HPI HPI Comments History of Present Illness Details The patient is a 62-year-old gentleman with known asthma COPD overlap syndrome in addition to obstructive sleep apnea on BiPAP. He has been having issues with significant dyspnea with minimal activity. Usually becomes significantly tachycardic. We did try to perform a cardiopulmonary stress test but only lasted a minute due to heart rates in the 150s. His heart rates have been better. He has been trying to control his sugars from 400 now to 100-200. He has been using the Advair twice a day. Unfortunately, it is very expensive. Will try to switch him over to the generic Advair. Hopefully also we can decrease the dose to just once a day to avoid the beta agonist effect. He is also taking the metoprolol. Will also try to switch the dose to 1 tablet in the morning and half at nighttime to try to regulate his heart rate better with activity. I am hoping that now that his heart rate is better that we can actually we ordered the cardiopulmonary stress test. He has been using his BiPAP at nighttime. The therapy continues to be affecting beneficial. His sugars also appeared to be better. He is tolerating the metoprolol. He recently underwent a 2nd cardiopulmonary exercise test after not able to perform on the 1 due to his significant heart rate. This time he was able to completed. Based on the reports the patient did not have any ventilatory limitations. There appears to be a decrease in the O2 pulse and also a potential metabolic derangement. The patient is not interested at this time in a referral to [place] to further evaluate the metabolic component. He has been followed by Cardiology and did not make any new recommendations based on the CPET. He did have a cardiac catheterization recently demonstrating nonocclusive coronary artery disease. We again went over his imaging studies and pulmonary function studies. He is scheduled to undergo a barium swallow for dysmotility issues and dilation of the esophagus. He also has been dealing with this high sugars. He finally was placed on insulin that he can not afford. He will follow up with his primary care doctor. 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 The may be a component of Autonomic dysfunction resulting his cardiopulmonary derangements in his dyspnea symptoms. In the meantime he is using his BiPAP BiPAP therapy has been affecting beneficial. Sometimes he gets a very dry mouth. He does have a fullface mask already. Will try to woman to water prior to using it. 09/17/2022 the patient has a telehealth visit today. The patient still complaining of significant vertigo. He is working closely with Neurology. In the meantime he continues use the BiPAP every night. He did decrease the pressures down to 10/70 in appears to be tolerating the lower pressures better. I will also request a download to make sure that he is appropriate for him. The patient however has been having some difficulties with the BiPAP. It is not working effectively. He did talk to the [facility] and they did recommend that he is due for a new BiPAP. Therefore I will request a new BiPAP replacement at this time for his mild function machine. He continues uses inhalers with good effect. He has not had to use his rescue inhaler. Otherwise patient is without any other complaints. 03/20/2023 the patient is here for a pulmonary follow-up visit. The patient overall has been doing fairly well from a respiratory status. He has been having more issues with blood pressure and heart rate. In the meantime he continues uses BiPAP. He still using the old BiPAP although is not working correctly. He is already received his new AutoPAP EPAP. The patient needs to start using it. Explained to him that the settings are different so once he start using it he let me now I have need to adjust the machine. He continues use the BiPAP every night the BiPAP therapy has been affecting beneficial he does use it for more than 4 hours a night. In regards of his breathing he does get winded with activity. [id number] severity. He usually uses rescue inhaler before any exercise activity. We did talk about optimizing his respiratory therapy to [place] but the patient at this point for consult with the Advair he does not want make any changes. The patient will continue with current therapy and will follow-up with cardiology and nephrology regarding his labile blood pressure. [facility] Medical History (Updated 03/04/23 @ 15:22 by Daniel Lubin MD) Hypertension, essential Dizziness Vertigo Acute depression Anxiety Benign prostatic hyperplasia without lower urinary tract symptoms Hyperlipidemia Type 2 diabetes mellitus with other diabetic kidney complication Diverticulosis Restless leg syndrome CAD (coronary artery disease) Dyspnea ASHLIE treated with BiPAP Asthma Surgical History History of cataract surgery H/O adenoidectomy Hx of tonsillectomy Family History Father Cancer Mother Cancer Sister Acute Crohn's disease Social History Alcohol intake: never Patient Tobacco Use Status: Never used Tobacco Review of Systems Const Reports difficulty sleeping, Reports fatigue and Denies night sweats ENT Denies change in voice, Reports vertigo, Reports dizziness, Denies lip swelling, Denies mouth pain, Reports nasal congestion, Reports nasal discharge and Denies tongue swelling Card Denies chest pain and Reports dyspnea on exertion Resp Reports cough and Reports dyspnea on exertion GI Denies abdominal pain Musc Denies no additional complaints Neuro Denies Abnormal speech present, Reports vertigo, Reports dizziness and Reports restless legs Psych Denies no additional complaints Endo Reports fatigue Juvenal/Lymph Denies easy bleeding and Denies lymphadenopathy Aller/Immun Denies lip swelling and Denies tongue swelling Physical Exam Vital Signs: Last Vital Signs Pulse 83 03/20/23 10:02 BP 134/68 09/15/23 10:02 Pulse Ox 97 03/20/23 10:02 Oxygen Delivery Method Room Air 03/20/23 10:02 BMI result Body Mass Index 34.9 Const General: comfortable and no acute distress Orientation/consciousness: patient oriented x3 HEENT Other: Unremarkable Head: Yes normal to inspection Neck Neck: Yes normal visual inspection Chest Chest palpation & inspection: normal inspection of the chest Resp Auscultation: clear to auscultation bilaterally Cardio Palpation: normal PMI Heart sounds: S1 normal heart sound present, S2 normal heart sound present, no gallops, no murmurs and no rubs GI Palpation (GI): Soft to palpation Back/Spine/Pelvis Other: unremarkable Skin General skin exam: no rashes or lesions noted Neuro General: patient oriented x3 Speech: No Abnormal speech present Extrem General: Yes normal to inspection Psych Mental Status: mental status grossly normal Assessment & Plan Assessment & Plan (1) ASHLIE treated with BiPAP: Code(s): G47.33 - Obstructive sleep apnea (adult) (pediatric) (2) Asthma: Code(s): J45.909 - Unspecified asthma, uncomplicated Qualifiers: Asthma complication type: uncomplicated Asthma persistence: persistent Asthma severity: moderate Qualified Code(s): J45.40 - Moderate persistent asthma, uncomplicated (3) Restless leg syndrome: Code(s): G25.81 - Restless legs syndrome (4) Dyspnea: Comment: Multifactorial, may have a component of autonomic dysfuction Code(s): R06.00 - Dyspnea, unspecified Qualifiers: Dyspnea type: dyspnea on exertion Qualified Code(s): R06.00 - Dyspnea, unspecified Plan start autoVPAP, will call to adjust Continue Advair 500/50 SARA as needed continue singulair Meclezine as needed F/U 8-12 months Medications: Changed From fluticasone propion-salmeterol 500-50 mcg/dose (Advair Diskus) 1 inh inhalation BID To fluticasone propion-salmeterol 500-50 mcg/dose (Advair Diskus) 1 inh inhalation BID 90 days 3 ea 3RF Refilled albuterol sulfate 90 mcg/actuation 2 puffs PO Q6H PRN 3 ea 3RF shortness of breath or wheezing Coding Level of Care Code Est Pt Level 4 (86354) Diagnoses ASHLIE treated with BiPAP G47.33 Moderate persistent asthma without complication J45.40 Asthma complication type: uncomplicated Asthma persistence: persistent Asthma severity: moderate Restless leg syndrome G25.81 Dyspnea on exertion R06.00 Dyspnea type: dyspnea on exertion Time Spent (min) 17
== END 2023-03-20 10:28 | disposition home or self-care (01) ==
PROVIDERS: PCP Internal Medicine; Visit Provider Hospitalist
DX: G47.33 Obstructive sleep apnea (adult) (pediatric) (principal); J45.40 Moderate persistent asthma, uncomplicated; G25.81 Restless legs syndrome; R06.00 Dyspnea, unspecified
CPT/HCPCS: 99214

== ENCOUNTER → 2023-03-20 09:47 | Outpatient (BNVA) | payer MEDICARE, MEDICAID, SELFPAY | PROVIDERS: Visit Provider Hospitalist | DX: J45.40 Moderate persistent asthma, uncomplicated (principal); G47.33 Obstructive sleep apnea (adult) (pediatric); G25.81 Restless legs syndrome; R06.00 Dyspnea, unspecified; Z79.899 Other long term (current) drug therapy | CPT/HCPCS: 99212 ==

== ENCOUNTER 2023-03-27 09:48 | Outpatient (AMB) | payer MEDICARE, MEDICAID, SELFPAY ==
--- NOTE | 2023-03-27 09:49 | A.OFFVIS_ITS ---
Intake Intake Visit Reasons: Follow [id number] Intake Note: F/U Vertigo Adjunct Philosophy Faculty Required: No Allergies budesonide [From Symbicort] Allergy (Severe, Verified 03/27/23 09:53) Dizziness formoterol [From Symbicort] Allergy (Severe, Verified 03/27/23 09:53) Dizziness lisinopril [LISINOPRIL] Allergy (Severe, Verified 03/27/23 09:53) Nausea mometasone furoate [From Dulera] Allergy (Severe, Verified 03/27/23 09:53) Nausea amoxicillin Allergy (Mild, Verified 03/27/23 09:53) vertigo gabapentin Allergy (Mild, Verified 03/27/23 09:53) vertigo ENVIRONMENTAL Allergy (Severe, Uncoded 03/27/23 09:53) Rash and Hives Dust Mite Allergy (Intermediate, Uncoded 03/27/23 09:53) Hives Seasonal Allergies Allergy (Intermediate, Uncoded 03/27/23 09:53) Hives and Rash terazosin Allergy (Mild, Uncoded 03/27/23 09:53) vertigo HPI HPI Comments History of Present Illness Details 61y/o male calls for follow up of vertig o. . His blood sugars are still fluctuating and porrly controlled and he is usually dizzy when the sugars are high. He follows up with generator man - for HTN He was followed up by Dr. Valenzuela who had closed his practice since. His vertigo started about 8 years ago . He describe sit as spinning sensation with quick change in head position. Its mostly in sitting or standing position . He also reports lightheadedness while standing .According to the patient he had tilt table testing and was diagnosed with orthostatic hypotension. He denies double vision, tinnitus or hearing loss. He did vestibular therapy - but was told that it was not BPV. He has dysphagia thats tarted 5 years ago, evaluate dwith barium swallow and is on therapy now. 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 he is on BiPAP for sleep apnea and followed up by Dr. Meeks. He reports mild generalized weakness. He has diabetes and is poorly controlled. His Hg A 1C 8.9 He sees a psychiatrist for depression and anxiety [facility] Medical History Hypertension, essential Dizziness Vertigo Acute depression Anxiety Benign prostatic hyperplasia without lower urinary tract symptoms Hyperlipidemia Type 2 diabetes mellitus with other diabetic kidney complication Diverticulosis Restless leg syndrome CAD (coronary artery disease) Dyspnea ASHLIE treated with BiPAP Asthma Surgical History History of cataract surgery H/O adenoidectomy Hx of tonsillectomy Family History Father Cancer Mother Cancer Sister Acute Crohn's disease Social History Alcohol intake: former Patient Tobacco Use Status: Never used Tobacco Use of substances other than those prescribed or required for medical reasons: No Physical Exam Const Other: Mood stable speech- normal General: cooperative Orientation/consciousness: patient oriented x3 Neuro General: patient oriented x3 Assessment & Plan Assessment & Plan (1) Vertigo: Comment: ? vestibular or related to mitochondrial disease Code(s): R42 - Dizziness and giddiness (2) Dizziness: Comment: orthostatic, autonomic dysfunction related to diabetes ? mitochondrial disease Code(s): R42 - Dizziness and giddiness Plan REviewed Old records from Suggested to increase meclizine bid Good diabetes control to help with autonomic dysfunction . F/u Hypertension specialist F/u Dr Meeks Telehealth Telehealth Location of provider rendering services: practice address Location of patient: address on file Patient Identification confirmed using: Name, : Yes Telehealth method: voice only Patient verbally consented to treatment: Yes Patient verbally consented to billing insurance company: Yes Patient informed of any privacy concerns related to visit: Yes Coding Level of Care Code Tele Est Pt Level 3 (86683) Diagnoses Vertigo R42 Dizziness R42 Time Spent (min) 15
== END 2023-03-27 11:49 | disposition home or self-care (01) ==
PROVIDERS: PCP Internal Medicine; Visit Provider Psychiatry & Neurology Neurology
DX: R42 Dizziness and giddiness (principal)
CPT/HCPCS: G2252

== ENCOUNTER → 2023-03-27 09:48 | Outpatient (BNVA) | payer MEDICARE, MEDICAID, SELFPAY | PROVIDERS: PCP Internal Medicine; Visit Provider Psychiatry & Neurology Neurology ==

== ENCOUNTER → 2023-04-01 07:39 | Outpatient (REF) | payer MEDICARE, MEDICAID, SELFPAY ==
--- NOTE | 2023-04-01 07:42 | CA_ITS ---
Transthoracic Echocardiogram Patient (Last, First, Middle): Bladimir Orta J Gender: Male Date of : 1960 Age: 62 Procedure Date: 04/01/2023 Procedure Type: Transthoracic Echocardiogram Location: OP Height: 193.04 cm Weight: 119.75 kg BSA: 2.49 m2 Heart Rate: 109 bpm BP: 100 / 64 mmHg Bird Cage Assembler: DANIA/LEXI Referring MD: Daniel Lubin MD Symptoms: R06.02 - Shortness of breath Study Quality: Fair ECG Rhythm: Tachycardia Conclusions: - 1. Hyperdynamic LV systolic function with LVEF of greater than 70% with mild LVH with impaired relaxation filling pattern 2. Normal cardiac valvular Dopplers 3. Mildly dilated ascending aorta at 4.3 cm 4. No gross pericardial effusion Findings Procedure Information Contrast agent, definity, is being given per protocol without apparent complications. Left Ventricle Normal left ventricular cavity size. There is mildly increased left ventricular wall thickness. The left ventricular systolic function is hyperdynamic. Spectral Doppler is indicative of an impaired relaxation filling pattern. Right Ventricle The right ventricle was not well visualized. Atria The left atrium is normal in size. Interatrial shunt cannot be excluded. The right atrium was not well visualized. Aortic Valve There is mild calcification of the aortic valve. There is no aortic valve stenosis. There is no aortic valve regurgitation. Mitral Valve The mitral valve was not well visualized. There is trace mitral valve regurgitation. There is no mitral valve stenosis. Pulmonic Valve The pulmonic valve was not well visualized. Tricuspid Valve The tricuspid valve was not well visualized. Tricuspid regurgitation envelope is inadequate for calculation of right ventricular systolic pressure. Normal right atrial pressure. Great Vessels The pulmonary artery was not well visualized. There is mild dilatation of the ascending aorta measuring 4.30 cm. Venous The inferior vena cava is normal in size and collapses greater than 50% with inspiration. Pericardium/Pleural There is no evidence of pericardial effusion. Prior Study Comparison Changes noted compared to prior study dated: 05/25/2019. Ascending aorta is measured to be enlarged on this study at 4.3 cm. mild LVH is noted Measurements 2D Linear Measurements IVSd: 1.24 0.6-0.9/0.6-1.0 cm LVIDd: 4.80 3.9-5.3/4.2-5.9 cm LVIDd Index: 1.93 2.4-3.2/2.2-3.1 cm/m2 LVIDs: 3.04 2.0-3.6 cm LVPWd: 1.25 0.7-1.1 cm LA Diam: 3.20 2.7-3.8/3.0-4.0 cm LAIDs Index: 1.29 1.5-2.3 cm/m2 LV Mass: 292.90 67-162/88-224 g LV Mass Index: 117.63 43-95/49-115 g/m2 LVOT Diam: 2.50 3.0+(-)1.3 cm 2D Systolic Function EF 4C: 70.60 >55% EF 2C: 72.50 >55% EF BiP: 71.30 >55% Mitral Valve MV Pk E: 0.57 MV PK A: 0.85 MV Decel Time: 102.00 E/A: 0.70 E'Lateral: 4.68 E'Medial: 5.00 E/E' Med: 11.40 E/E' Lat: 12.20 PHT: 30.00 MVA PHT: 7.33 Decel Desha: 5.58 Aortic Valve AoV Pk Eduardo: 1.05 AoV Pk Grad: 4.00 LVOT LVOT Pk Eduardo: 0.84 LVOT Mn Eduardo: 0.58 LVOT VTI: 0.15 LVOT Pk Grad: 3.00 LVOT Mn Grad: 2.00 LVOT Diam: 2.50 LVOT Area: 4.91 Diastolic Function MV Pk E: 0.57 MV Pk A: 0.85 E/A: 0.70 E'Medial: 5.00 E/E' Med: 11.40 E' Laterial: 4.68 E/E' Lat: 12.20 Right Ventricle TAPSE (mm): 19.80 TVS' Eduardo: 19.20 Tricuspid Valve RA Press: 3.00 Great Vessels Aorta Sinus of Valsalva: 3.80 2.0-3.5 cm Ao Asc: 4.30 2.1-3.4 cm Ao Arch: 2.80 Pulmonary Valve PV Pk Eduardo: 0.89 Peak PV Grad: 3.00 Updated in Other Vendor System with Status of Final Robin Villalpando MD electronically signed on 04/01/2023 3:39:55 PM with status of Final
== END ==
LOC: HO.CARD 07:39
PROVIDERS: PCP Internal Medicine; Visit Provider Internal Medicine
DX: R06.02 Shortness of breath (principal)
CPT/HCPCS: 93306; Q9957

== ENCOUNTER → 2023-04-01 07:42 | Outpatient (BNV) | payer MEDICARE, MEDICAID, SELFPAY | PROVIDERS: PCP Internal Medicine; Visit Provider Internal Medicine Cardiovascular Disease | DX: R06.02 Shortness of breath (principal); R00.0 Tachycardia, unspecified | CPT/HCPCS: 93306 ==

== ENCOUNTER 2023-04-28 08:13 | Outpatient (AMB) | payer MEDICARE, MEDICAID, SELFPAY ==
--- NOTE | 2023-04-28 08:17 | MHC.OFFVIS ---
Intake Intake Visit Reasons: 1Y PVR Intake Note: Patient is Present for Telephone Follow Up Urology Med: None Antibiotic Allergy: Amoxicillin Blood Thinner: Aspirin Pharamcy: [facility] Allergies budesonide [From Symbicort] Allergy (Severe, Verified 04/28/23 08:19) Dizziness formoterol [From Symbicort] Allergy (Severe, Verified 04/28/23 08:19) Dizziness lisinopril [LISINOPRIL] Allergy (Severe, Verified 04/28/23 08:19) Nausea mometasone furoate [From Dulera] Allergy (Severe, Verified 04/28/23 08:19) Nausea amoxicillin Allergy (Mild, Verified 04/28/23 08:19) vertigo gabapentin Allergy (Mild, Verified 04/28/23 08:19) vertigo ENVIRONMENTAL Allergy (Severe, Uncoded 04/28/23 08:19) Rash and Hives Dust Mite Allergy (Intermediate, Uncoded 04/28/23 08:19) Hives Seasonal Allergies Allergy (Intermediate, Uncoded 04/28/23 08:19) Hives and Rash terazosin Allergy (Mild, Uncoded 04/28/23 08:19) vertigo Medication List - Last Reconciled 04/28/23 by Scott Rivera MD albuterol sulfate 90 mcg/actuation 2 puffs PO Q6H PRN aspirin 81 mg PO DAILY atenolol 50 mg PO DAILY blood sugar diagnostic (Thumb Readinguch Ultra Test strips) As directed chromium picolinate 200 mcg PO DAILY coenzyme Q10 100 mg PO DAILY flu vacc [id number] 6mos up(PF) mL IM fluticasone propion-salmeterol 500-50 mcg/dose (Advair Diskus) 1 inh inhalation BID 90 days indapamide 2.5 mg PO BEDTIME insulin NPH and regular human 100 unit/mL (70-30) 20 units subcut BID insulin syringe-needle U-100 As directed isosorbide dinitrate 10 mg PO BID lancets (OneTouch Delica Plus Lancet) As directed lorazepam 0.5 mg PO losartan 100 mg PO DAILY lutein 6 mg PO DAILY magnesium oxide,aspartate,citr (Triple Magnesium Complex) mg PO meclizine 25 mg PO DAILY PRN metformin 1,000 mg PO .Am and PM montelukast 10 mg PO DAILY 90 days multivitamin 1 tab PO DAILY omeprazole 40 mg PO DAILY pneumoc 13-ruba conj-dip cr(PF) mL IM ropinirole 0.25 mg PO DAILY venlafaxine ER mg PO HPI HPI Comments History of Present Illness Details Bladimir is a pleasant male. He is a patient of Dr. Garibay. He is seen for the following urologic conditions - recurrent UTI - BPH Telemedicine Evaluation 15 min Consultation Doximity Cristhian Video attempted Minimal issues with urination No for the UTI Has had issues with autonomic dysfunction Poorly managed diabetes BiPAP Will check baseline testosterone labs Recurring UTI Diabetic male Presented to emergency room and was treated with Levaquin 01/24 Had been treated previously with terazosin but unable to tolerate due to vertigo No reported bowel issues Normal CAROLYN PFSH Medical History Hypertension, essential Dizziness Vertigo Acute depression Anxiety Benign prostatic hyperplasia without lower urinary tract symptoms Hyperlipidemia Type 2 diabetes mellitus with other diabetic kidney complication Diverticulosis Restless leg syndrome CAD (coronary artery disease) Dyspnea ASHLIE treated with BiPAP Asthma Surgical History History of cataract surgery H/O adenoidectomy Hx of tonsillectomy Family History Father Cancer Mother Cancer Sister Acute Crohn's disease Social History Alcohol intake: former Patient Tobacco Use Status: Never used Tobacco Review of Systems Const All systems reviewed & are unremarkable except as noted in HPI and below Reports no additional complaints Resp Reports no additional complaints GI Reports no additional complaints Reports as per HPI Musc Reports no additional complaints Physical Exam Telemedicine evaluation Appropriate responses Regular breathing rate and rhythm HEENT Head: Yes normal to inspection Ears: hearing grossly normal bilaterally Eyes General: appearance normal, both eyes and all related structures Neck Neck: Yes normal visual inspection Chest Chest palpation & inspection: normal inspection of the chest Resp Effort & Inspection: normal respiratory effort and able to speak in complete sentences Assessment & Plan Assessment & Plan (1) Low energy: Code(s): R53.83 - Other fatigue (2) UTI (urinary tract infection), bacterial: Code(s): N39.0 - Urinary tract infection, site not specified; A49.9 - Bacterial infection, unspecified Plan Four week follow-up Orders: Orders Testosterone, Free/Total Today R68.82 - Decreased libido Follicle Stimulating Hormone Today R53.83 - Other fatigue, R68.82 - Decreased libido Lutenizing Hormone Today E11.69 - Type 2 diabetes mellitus with other specified complication, N52.1 - Erectile dysfunction due to diseases classified elsewhere, R53.83 - Other fatigue Patient Instructions: Imaging studies, laboratory and physical exam results were discussed and reviewed in detail. No major barriers to patient understanding were identified. An opportunity to ask questions regarding the treatment plan was provided. All questions were answered. The patient expressed understanding and agreement with the above treatment plan. The patient is aware they should contact our office by phone for worsening of their current condition or the appearance of new urologic symptoms. Compliance is encouraged with any medications and followup testing that is ordered. It is a privilege to participate in the urologic care of your patient. If you have any questions or concerns regarding treatment for the above conditions, or other urologic issues, please do not hesitate to contact me. The office telephone contact is [phone]. This note is constructed using voice recognition software. While every effort has been made to ensure accuracy swimming pool maintenance errors may have been included. Yours sincerely, Dr Scott Rivera MD, [facility] - Urology Providers of Expert, Compassionate Care for the Genitourinary System Telehealth Telehealth Location of provider rendering services: practice address Location of patient: address on file Patient Identification confirmed using: Name, : Yes Telehealth method: video Patient verbally consented to treatment: Yes Patient verbally consented to billing insurance company: Yes Patient informed of any privacy concerns related to visit: Yes Coding Level of Care Code Tele Est Pt Level 4 (85855) Diagnoses Low energy R53.83 UTI (urinary tract infection), bacterial N39.0; A49.9
== END 2023-04-28 09:15 | disposition home or self-care (01) ==
LOC: HO.HUSH 08:13
PROVIDERS: PCP Internal Medicine; Visit Provider Urology
DX: R53.83 Other fatigue (principal); N39.0 Urinary tract infection, site not specified; A49.9 Bacterial infection, unspecified
CPT/HCPCS: 99213

== ENCOUNTER → 2023-04-28 08:13 | Outpatient (BNVA) | payer MEDICARE, MEDICAID, SELFPAY | PROVIDERS: PCP Internal Medicine; Visit Provider Urology ==

== ENCOUNTER 2023-06-03 09:04 | Outpatient (AMB) | payer MEDICARE, MEDICAID, SELFPAY ==
--- NOTE | 2023-06-03 09:11 | MHC.OFFVIS ---
Intake Vital Signs 06/03/23 09:12 Height 6 ft 1 in Weight 260 lb 2.327 oz BMI 34.3 BP 126/76 Blood Pressure Location Lt brachial Position Sitting Pulse 66 Pulse Source Palpation Intake Visit Reasons: 3 mth f/up echo Intake Note: 3 month follow up Handkerchief Cutter Required: No Accompanied by: Self / Same As Patient Allergies budesonide [From Symbicort] Allergy (Severe, Verified 06/03/23 09:16) Dizziness formoterol [From Symbicort] Allergy (Severe, Verified 06/03/23 09:16) Dizziness lisinopril [LISINOPRIL] Allergy (Severe, Verified 06/03/23 09:16) Nausea mometasone furoate [From Dulera] Allergy (Severe, Verified 06/03/23 09:16) Nausea amoxicillin Allergy (Mild, Verified 06/03/23 09:16) vertigo gabapentin Allergy (Mild, Verified 06/03/23 09:16) vertigo ENVIRONMENTAL Allergy (Severe, Uncoded 06/03/23 09:16) Rash and Hives Dust Mite Allergy (Intermediate, Uncoded 06/03/23 09:16) Hives Seasonal Allergies Allergy (Intermediate, Uncoded 06/03/23 09:16) Hives and Rash terazosin Allergy (Mild, Uncoded 06/03/23 09:16) vertigo Medication List - Last Reconciled 06/03/23 by Daniel Lubin MD Advair Diskus 500-50 mcg/dose (fluticasone propion-salmeterol) 1 inh inhalation BID 90 days NS albuterol sulfate 90 mcg/actuation 2 puffs PO Q6H PRN aspirin 81 mg PO DAILY atenolol 50 mg PO DAILY blood sugar diagnostic (goviral Ultra Test strips) As directed chromium picolinate 200 mcg PO DAILY coenzyme Q10 100 mg PO DAILY flu vacc [id number] 6mos up(PF) mL IM indapamide 2.5 mg PO BEDTIME insulin NPH and regular human 100 unit/mL (70-30) 20 units subcut BID insulin syringe-needle U-100 As directed isosorbide dinitrate 10 mg PO BID PRN lancets (SiNode SystemsTouch Delica Plus Lancet) As directed lorazepam 0.5 mg PO losartan 100 mg PO DAILY lutein 6 mg PO DAILY magnesium oxide,aspartate,citr (Triple Magnesium Complex) mg PO meclizine 25 mg PO DAILY PRN metformin 2,000 mg PO .Am and PM montelukast 10 mg PO DAILY 90 days multivitamin 1 tab PO DAILY omeprazole 40 mg PO DAILY ropinirole 0.25 mg PO DAILY venlafaxine ER mg PO HPI HPI Comments History of Present Illness Details Bladimir returns for follow-up. He was recently seen and prior to that in 2019. In 2019, he underwent a comprehensive workup including an echocardiogram as well as cardiac catheterization. There is no significant CAD. Many comorbidities including obesity, diabetes, hypertension. He has had chronic shortness of breath with activity but he also has asthma/COPD overlap syndrome. According to him, shortness of breath is actually better now than in the past. No anginal-type symptoms. He also has chronic vertigo. They do not really sound orthostatic in nature. However, he does have labile blood pressures and goes nephrology too. [facility] Medical History Hypertension, essential Dizziness Vertigo Acute depression Anxiety Benign prostatic hyperplasia without lower urinary tract symptoms Hyperlipidemia Type 2 diabetes mellitus with other diabetic kidney complication Diverticulosis Restless leg syndrome CAD (coronary artery disease) Dyspnea ASHLIE treated with BiPAP Asthma Surgical History History of cataract surgery H/O adenoidectomy Hx of tonsillectomy Family History Father Cancer Mother Cancer Sister Acute Crohn's disease Social History Alcohol intake: former Patient Tobacco Use Status: Never used Tobacco Review of Systems Const Denies weakness ENT Denies dizziness Card Denies chest pain, Denies chest pain with activity, Denies syncope, Denies rapid heart rate, Denies pedal edema, Denies edema, Denies leg edema, Denies lightheadedness, Denies palpitations, Denies dyspnea, Denies dyspnea on exertion and Denies orthopnea Resp Denies cough, Denies dyspnea and Denies dyspnea on exertion GI Denies hematochezia and Denies change in stool character Musc Denies abnormal gait, Denies muscle cramps, Denies muscle weakness, Denies numbness, Denies radiating pain into limb and Denies tingling Neuro Denies abnormal gait, Denies dizziness, Denies syncope, Denies numbness, Denies tingling and Denies weakness Endo Denies palpitations Physical Exam Vital Signs: Last Vital Signs Pulse 66 06/03/23 09:12 BP 126/76 06/03/23 09:12 BMI result Body Mass Index 34.3 Const General: comfortable and no acute distress Orientation/consciousness: patient oriented x3 HEENT Other: Unremarkable Head: Yes normal to inspection Neck Neck: Yes normal visual inspection Chest Chest palpation & inspection: normal inspection of the chest Resp Auscultation: clear to auscultation bilaterally Cardio Palpation: normal PMI Heart sounds: S1 normal heart sound present, S2 normal heart sound present, no gallops, no murmurs and no rubs GI Palpation (GI): Soft to palpation Back/Spine/Pelvis Other: unremarkable Skin General skin exam: no rashes or lesions noted Neuro General: patient oriented x3 Extrem General: Yes normal to inspection Psych Mental Status: mental status grossly normal Assessment & Plan Assessment & Plan (1) CAD (coronary artery disease): Code(s): I25.10 - Atherosclerotic heart disease of [place] coronary artery without angina pectoris Qualifiers: Associated angina: without angina Coronary Disease-Associated Artery/Lesion type: [place] artery [place] vs. transplanted heart: [place] heart Qualified Code(s): I25.10 - Atherosclerotic heart disease of [place] coronary artery without angina pectoris (2) Dyspnea: Comment: Multifactorial, may have a component of autonomic dysfuction Code(s): R06.00 - Dyspnea, unspecified Qualifiers: Dyspnea type: dyspnea on exertion Qualified Code(s): R06.00 - Dyspnea, unspecified (3) Hypertension, essential: Code(s): I10 - Essential (primary) hypertension (4) Type 2 diabetes mellitus with unspecified complications: Code(s): E11.8 - Type 2 diabetes mellitus with unspecified complications (5) Ascending aorta dilatation: Code(s): I77.810 - Thoracic aortic ectasia Plan Cardiac data reviewed. Cardiac catheterization reviewed from 2019. Mid LAD with myocardial bridging. RCA with nonobstructive disease. Normal LVEDP. Echocardiogram then with LVEF of 60-65%. Indeterminate diastolic function. No valvular pathology. No evidence of pulmonary hypertension. Repeat echocardiogram with LVEF of > 70%; mild LVH and mild diastolic dysfunction. No significant valvular issues. Ascending aortic size was 4.3 cm. Based on Pulmonary note, there is a diagnosis of asthma as well as obstructive sleep apnea. Overall, based on the above, no clear cardiac basis for his shortness of breath. Exercise induced diastolic dysfunction is possible and may play some role. However, clinically does not have any overt heart failure and hence diuretics probably want help. Aggressive risk factor modification only and if able, lose some weight. With regard to mild CAD, no specific management. Do not see statins listed in his med list but LDL is only 68 mg/dL. He has apparently labile hypertension but already has a Nephrology appointment and meds addressed through that. Hence no further changes here. With regard to the ascending aortic dilatation, probably acceptable considering his height and weight. We can do another echocardiogram in 1 year for follow-up. Total time spent including review of data, counseling, documentation, coordination of care-32 minutes. Orders: Orders CA echo transthoracic complete 51 Weeks I77.810 - Thoracic aortic ectasia Coding Level of Care Code Est Pt Level 4 (21493) Diagnoses Coronary artery disease involving [place] coronary artery of [place] heart without angina pectoris I25.10 Associated angina: without angina Coronary Disease-Associated Artery/Lesion type: [place] artery [place] vs. transplanted heart: [place] heart Dyspnea on exertion R06.00 Dyspnea type: dyspnea on exertion Hypertension, essential I10 Type 2 diabetes mellitus with unspecified complications E11.8 Ascending aorta dilatation I77.810
[2023-06-03 09:12] VITALS: BP 126/76; PULSE 66; BMI 34.3
== END 2023-06-03 09:34 | disposition home or self-care (01) ==
PROVIDERS: PCP Internal Medicine; Visit Provider Internal Medicine
DX: I25.10 Atherosclerotic heart disease of native coronary artery without angina pectoris (principal); R06.00 Dyspnea, unspecified; I10 Essential (primary) hypertension; E11.8 Type 2 diabetes mellitus with unspecified complications; I77.810 Thoracic aortic ectasia
CPT/HCPCS: 99214

== ENCOUNTER → 2023-06-03 09:04 | Outpatient (BNVA) | payer MEDICARE, MEDICAID, SELFPAY | PROVIDERS: PCP Internal Medicine; Visit Provider Internal Medicine | DX: I25.10 Atherosclerotic heart disease of native coronary artery without angina pectoris (principal); I77.810 Thoracic aortic ectasia; I10 Essential (primary) hypertension; R06.00 Dyspnea, unspecified; E11.8 Type 2 diabetes mellitus with unspecified complications | CPT/HCPCS: 99212 ==

== ENCOUNTER 2023-06-05 13:55 | Outpatient (AMB) | payer MEDICARE, MEDICAID, SELFPAY ==
--- NOTE | 2023-06-05 13:56 | A.OFFVIS_ITS ---
Intake Intake Visit Reasons: follow up/labs (muir) Intake Note: Patient is Present for Telephone Follow Up labs Urology Med: Terazosin, Antibiotic Allergy: Amoxicillin, Blood Thinner:Aspirin Allergies budesonide [From Symbicort] Allergy (Severe, Verified 06/03/23 09:16) Dizziness formoterol [From Symbicort] Allergy (Severe, Verified 06/03/23 09:16) Dizziness lisinopril [LISINOPRIL] Allergy (Severe, Verified 06/03/23 09:16) Nausea mometasone furoate [From Dulera] Allergy (Severe, Verified 06/03/23 09:16) Nausea amoxicillin Allergy (Mild, Verified 06/03/23 09:16) vertigo gabapentin Allergy (Mild, Verified 06/03/23 09:16) vertigo ENVIRONMENTAL Allergy (Severe, Uncoded 06/03/23 09:16) Rash and Hives Dust Mite Allergy (Intermediate, Uncoded 06/03/23 09:16) Hives Seasonal Allergies Allergy (Intermediate, Uncoded 06/03/23 09:16) Hives and Rash terazosin Allergy (Mild, Uncoded 06/03/23 09:16) vertigo Medication List - Last Reconciled 06/05/23 by Scott Rivera MD Advair Diskus 500-50 mcg/dose (fluticasone propion-salmeterol) 1 inh inhalation BID 90 days NS albuterol sulfate 90 mcg/actuation 2 puffs PO Q6H PRN aspirin 81 mg PO DAILY atenolol 50 mg PO DAILY blood sugar diagnostic ([employer] Ultra Test strips) As directed chromium picolinate 200 mcg PO DAILY coenzyme Q10 100 mg PO DAILY flu vacc [id number] 6mos up(PF) mL IM indapamide 2.5 mg PO BEDTIME insulin NPH and regular human 100 unit/mL (70-30) 20 units subcut BID insulin syringe-needle U-100 As directed isosorbide dinitrate 10 mg PO BID PRN lancets (OneTouch Delica Plus Lancet) As directed lorazepam 0.5 mg PO losartan 100 mg PO DAILY lutein 6 mg PO DAILY magnesium oxide,aspartate,citr (Triple Magnesium Complex) mg PO meclizine 25 mg PO DAILY PRN metformin 2,000 mg PO .Am and PM montelukast 10 mg PO DAILY 90 days multivitamin 1 tab PO DAILY omeprazole 40 mg PO DAILY ropinirole 0.25 mg PO DAILY tadalafil 5 mg PO DAILY 90 days venlafaxine ER mg PO HPI HPI Comments History of Present Illness Details Bladimir is a pleasant male. He is a patient of Dr. Garibay. He is seen for the following urologic conditions - recurrent UTI - BPH Telemedicine Evaluation 15 min Consultation [facility] attempted Working on his diabetes Testosterone 04/29 191 Will start 5 mg daily tadalafil to stabilized bladder and see if this can help with testosterone levels Poorly managed diabetes Continue with BiPAP Recurring UTI Diabetic male Presented to emergency room and was treated with Levaquin 01/24 Had been treated previously with terazosin but unable to tolerate due to vertigo No reported bowel issues Normal CAR[facility] Medical History (Updated 06/05/23 @ 14:20 by Scott Rivera MD) Hypertension, essential Dizziness Vertigo Acute depression Anxiety Benign prostatic hyperplasia without lower urinary tract symptoms Hyperlipidemia Type 2 diabetes mellitus with other diabetic kidney complication Diverticulosis Restless leg syndrome CAD (coronary artery disease) Dyspnea ASHLIE treated with BiPAP Asthma Surgical History History of cataract surgery H/O adenoidectomy Hx of tonsillectomy Family History Father Cancer Mother Cancer Sister Acute Crohn's disease Social History Alcohol intake: former Patient Tobacco Use Status: Never used Tobacco Review of Systems Const All systems reviewed & are unremarkable except as noted in HPI and below Reports no additional complaints Resp Reports no additional complaints GI Reports no additional complaints Reports as per HPI Musc Reports no additional complaints Physical Exam Telemedicine evaluation Appropriate responses Regular breathing rate and rhythm HEENT Head: Yes normal to inspection Ears: hearing grossly normal bilaterally Eyes General: appearance normal, both eyes and all related structures Neck Neck: Yes normal visual inspection Chest Chest palpation & inspection: normal inspection of the chest Resp Effort & Inspection: normal respiratory effort and able to speak in complete sentences Assessment & Plan Assessment & Plan (1) UTI (urinary tract infection), bacterial: Code(s): N39.0 - Urinary tract infection, site not specified; A49.9 - Bacterial infection, unspecified (2) Benign prostatic hyperplasia without lower urinary tract symptoms: Code(s): N40.0 - Benign prostatic hyperplasia without lower urinary tract symptoms Plan 3 month follow-up labs office Orders: Orders Testosterone, Free/Total 3 Months N40.0 - Benign prostatic hyperplasia without lower urinary tract symptoms Prostate Specific Antigen 3 Months N40.0 - Benign prostatic hyperplasia without lower urinary tract symptoms Medications: New tadalafil 5 mg PO DAILY 90 tabs 1RF sexual activity 90 days N40.0 - Benign prostatic hyperplasia without lower urinary tract symptoms Patient Instructions: Imaging studies, laboratory and physical exam results were discussed and reviewed in detail. No major barriers to patient understanding were identified. An opportunity to ask questions regarding the treatment plan was provided. All questions were answered. The patient expressed understanding and agreement with the above treatment plan. The patient is aware they should contact our office by phone for worsening of their current condition or the appearance of new urologic symptoms. Compliance is encouraged with any medications and followup testing that is ordered. It is a privilege to participate in the urologic care of your patient. If you have any questions or concerns regarding treatment for the above conditions, or other urologic issues, please do not hesitate to contact me. The office telephone contact is [phone]. This note is constructed using voice recognition software. While every effort has been made to ensure accuracy framework developer errors may have been included. Yours sincerely, Dr Scott Rivera MD, [facility] - Urology Providers of Expert, Compassionate Care for the Genitourinary System Telehealth Telehealth Location of provider rendering services: practice address Location of patient: address on file Patient Identification confirmed using: Name, : Yes Telehealth method: video Patient verbally consented to treatment: Yes Patient verbally consented to billing insurance company: Yes Patient informed of any privacy concerns related to visit: Yes Coding Level of Care Code Tele Est Pt Level 4 (28162) Diagnoses UTI (urinary tract infection), bacterial N39.0; A49.9 Benign prostatic hyperplasia without lower urinary tract symptoms N40.0
== END 2023-06-05 14:26 | disposition home or self-care (01) ==
LOC: HO.HUSH 13:55
PROVIDERS: PCP Internal Medicine; Visit Provider Urology
DX: N39.0 Urinary tract infection, site not specified (principal); A49.9 Bacterial infection, unspecified; N40.0 Benign prostatic hyperplasia without lower urinary tract symptoms
CPT/HCPCS: 99214

== ENCOUNTER → 2023-06-05 13:55 | Outpatient (BNVA) | payer MEDICARE, MEDICAID, SELFPAY | PROVIDERS: PCP Internal Medicine; Visit Provider Urology ==

== ENCOUNTER 2023-09-10 09:04 | Outpatient (AMB) | payer MEDICARE, MEDICAID, SELFPAY ==
--- NOTE | 2023-09-10 09:16 | A.OFFVIS_ITS ---
Intake Intake Visit Reasons: 3m psa/Testosterone(set)Portal Confirmed Intake Note: Patient presents today for a follow-up Labs Meds- Tadalafil Allergies to Antibiotic- Amoxicillin Blood Thinner- Aspirin Post Void Residual: 39ml Grey Percher Required: No Accompanied by: Self / Same As Patient Allergies budesonide [From Symbicort] Allergy (Severe, Verified 09/10/23 09:29) Dizziness formoterol [From Symbicort] Allergy (Severe, Verified 09/10/23 09:29) Dizziness lisinopril [LISINOPRIL] Allergy (Severe, Verified 09/10/23 09:29) Nausea mometasone furoate [From Dulera] Allergy (Severe, Verified 09/10/23 09:29) Nausea amoxicillin Allergy (Mild, Verified 09/10/23 09:29) vertigo gabapentin Allergy (Mild, Verified 09/10/23 09:29) vertigo ENVIRONMENTAL Allergy (Severe, Uncoded 09/10/23 09:29) Rash and Hives Dust Mite Allergy (Intermediate, Uncoded 09/10/23 09:29) Hives Seasonal Allergies Allergy (Intermediate, Uncoded 09/10/23 09:29) Hives and Rash terazosin Allergy (Mild, Uncoded 09/10/23 09:29) vertigo Medication List - Last Reconciled 09/10/23 by Scott Rivera MD Advair Diskus 500-50 mcg/dose (fluticasone propion-salmeterol) 1 inh inhalation BID 90 days NS albuterol sulfate 90 mcg/actuation 2 puffs PO Q6H PRN aspirin 81 mg PO DAILY atenolol 50 mg PO DAILY blood sugar diagnostic ([employer] Ultra Test strips) As directed chromium picolinate 200 mcg PO DAILY coenzyme Q10 100 mg PO DAILY flu vacc [id number] 6mos up(PF) mL IM fludrocortisone 0.1 mg PO DAILY indapamide 2.5 mg PO BEDTIME insulin NPH and regular human 100 unit/mL (70-30) 20 units subcut BID insulin syringe-needle U-100 As directed isosorbide dinitrate 10 mg PO BID PRN lancets (OneTouch Delica Plus Lancet) As directed lorazepam 0.5 mg PO losartan 100 mg PO DAILY lutein 6 mg PO DAILY magnesium oxide,aspartate,citr (Triple Magnesium Complex) mg PO meclizine 25 mg PO DAILY PRN metformin 2,000 mg PO .Am and PM montelukast 10 mg PO DAILY 90 days multivitamin 1 tab PO DAILY omeprazole 40 mg PO DAILY ropinirole 0.25 mg PO DAILY tadalafil 5 mg PO DAILY 90 days venlafaxine ER mg PO HPI HPI Comments History of Present Illness Details Bladimir is a pleasant male. He is a patient of Dr. Garibay. He is seen for the following urologic conditions - recurrent UTI - BPH - borderline hypogonadism Working on his diabetes Slow improvement of testosterone with tadalafil Poorly managed diabetes Continue with BiPAP Continue daily tadalafil Hypogonadism Labs - 04/27 190, 08/29 T 200 F 4.8, Bioavaila ble 100 Recurring UTI Diabetic male Presented to emergency room and was treated with Levaquin 01/24 Had been treated previously with terazosin but unable to tolerate due to vertigo No reported bowel issues Normal CAROLYN PF[facility] Medical History Hypertension, essential Dizziness Vertigo Acute depression Anxiety Benign prostatic hyperplasia without lower urinary tract symptoms Hyperlipidemia Type 2 diabetes mellitus with other diabetic kidney complication Diverticulosis Restless leg syndrome CAD (coronary artery disease) Dyspnea ASHLIE treated with BiPAP Asthma Surgical History History of cataract surgery H/O adenoidectomy Hx of tonsillectomy Family History Father Cancer Mother Cancer Sister Acute Crohn's disease Social History Alcohol intake: former Patient Tobacco Use Status: Never used Tobacco Review of Systems Const Denies chills and Denies fever(s) Card Reports no additional complaints and Denies syncope Resp Denies cough GI Denies abdominal pain and Denies heartburn Reports as per HPI and Denies change in libido Neuro Denies syncope Psych Denies change in libido Endo Denies change in libido Physical Exam Const General: cooperative, healthy appearing, comfortable and no acute distress Orientation/consciousness: patient oriented x3 HEENT Face and sinus: Yes normal facial exam Mouth: moist mucous membranes Neck Neck: Yes normal visual inspection, Yes full ROM and Yes trachea midline Chest Chest palpation & inspection: normal inspection of the chest Resp Effort & Inspection: normal respiratory effort, able to speak in complete sentences and no respiratory distress GI Inspection: Yes normal to inspection Back/Spine/Pelvis Cervical Spine: normal cervical lordosis Thoracic/Lumbar Spine: thoracic and lumbar spine normal to inspection Skin General skin exam: no rashes or lesions noted Neuro General: patient oriented x3, gait normal, tone normal and moves all extremities Extrem General: Yes normal to inspection and Yes capillary refill normal Office Procedures Post Void Residual Post Residual Void Post Void Residual (PVR): 39 13825-Bsbi Void Residual by ultrasound Assessment & Plan Assessment & Plan (1) Hypogonadism in male: Code(s): E29.1 - Testicular hypofunction Plan Six-month follow-up lab work Orders: Orders Testosterone, Free/Total 6 Months E29.1 - Testicular hypofunction, R68.82 - Decreased libido AMB Post Void Residual by ultrasound Today R33.9 - Retention of urine, unspecified Medications: Refilled tadalafil 5 mg PO DAILY 90 tabs 1RF sexual activity 90 days N40.0 - Benign prostatic hyperplasia without lower urinary tract symptoms Patient Instructions: Imaging studies, laboratory and physical exam results were discussed and reviewed in detail. No major barriers to patient understanding were identified. An opportunity to ask questions regarding the treatment plan was provided. All questions were answered. The patient expressed understanding and agreement with the above treatment plan. The patient is aware they should contact our office by phone for worsening of their current condition or the appearance of new urologic symptoms. Compliance is encouraged with any medications and followup testing that is ordered. It is a privilege to participate in the urologic care of your patient. If you have any questions or concerns regarding treatment for the above conditions, or other urologic issues, please do not hesitate to contact me. The office telephone contact is [phone]. This note is constructed using voice recognition software. While every effort has been made to ensure accuracy implant coordinator errors may have been included. Yours sincerely, Dr Scott Rivera MD, [facility] - Urology Providers of Expert, Compassionate Care for the Genitourinary System Coding Level of Care Code Est Pt Level 3 (57269) Diagnoses Hypogonadism in male E29.1 CPT Codes Post Residual Void - PVR CPT Code: 28381-Eqkv Void Residual by ultrasound ([id number])
== END 2023-09-10 10:05 | disposition home or self-care (01) ==
PROVIDERS: PCP Internal Medicine; Visit Provider Urology
DX: E29.1 Testicular hypofunction (principal)
CPT/HCPCS: 99213

== ENCOUNTER → 2023-09-10 09:04 | Outpatient (BNVA) | payer MEDICARE, MEDICAID, SELFPAY | PROVIDERS: PCP Internal Medicine; Visit Provider Urology | DX: E29.1 Testicular hypofunction (principal) | CPT/HCPCS: 51798; 99212 ==

== ENCOUNTER → 2023-09-23 08:35 | Outpatient (BNVA) | payer MEDICARE, MEDICAID, SELFPAY | PROVIDERS: PCP Internal Medicine; Visit Provider Psychiatry & Neurology Neurology ==

== ENCOUNTER 2023-09-23 09:09 | Outpatient (AMB) | payer MEDICARE, MEDICAID, SELFPAY ==
--- NOTE | 2023-09-23 08:36 | A.OFFVIS_ITS ---
Intake Intake Visit Reasons: follow up-CONF ([phone]) Intake Note: Pt presents for follow up via telehealth for dizziness. Lye Bath Operator Required: No Allergies budesonide [From Symbicort] Allergy (Severe, Verified 09/10/23 09:29) Dizziness formoterol [From Symbicort] Allergy (Severe, Verified 09/10/23 09:29) Dizziness lisinopril [LISINOPRIL] Allergy (Severe, Verified 09/10/23 09:29) Nausea mometasone furoate [From Dulera] Allergy (Severe, Verified 09/10/23 09:29) Nausea amoxicillin Allergy (Mild, Verified 09/10/23 09:29) vertigo gabapentin Allergy (Mild, Verified 09/10/23 09:29) vertigo ENVIRONMENTAL Allergy (Severe, Uncoded 09/10/23 09:29) Rash and Hives Dust Mite Allergy (Intermediate, Uncoded 09/10/23 09:29) Hives Seasonal Allergies Allergy (Intermediate, Uncoded 09/10/23 09:29) Hives and Rash terazosin Allergy (Mild, Uncoded 09/10/23 09:29) vertigo Medication List - Last Reconciled 09/23/23 by Raven Andrade MD albuterol sulfate 90 mcg/actuation 2 puffs PO Q6H PRN aspirin 81 mg PO DAILY atenolol 50 mg PO DAILY blood sugar diagnostic (OneTouch Ultra Test strips) As directed chromium picolinate 200 mcg PO DAILY coenzyme Q10 100 mg PO DAILY flu vacc [id number] 6mos up(PF) mL IM fludrocortisone 0.1 mg PO DAILY fluticasone propion-salmeterol 500-50 mcg/dose ([employer]) 1 inh inhalation BID 90 days indapamide 2.5 mg PO BEDTIME insulin NPH and regular human 100 unit/mL (70-30) 20 units subcut BID insulin syringe-needle U-100 As directed isosorbide dinitrate 10 mg PO BID PRN lancets (OneTouch Delica Plus Lancet) As directed lorazepam 0.5 mg PO losartan 100 mg PO DAILY lutein 6 mg PO DAILY magnesium oxide,aspartate,citr (Triple Magnesium Complex) mg PO meclizine 25 mg PO DAILY PRN metformin 2,000 mg PO .Am and PM montelukast 10 mg PO DAILY 90 days multivitamin 1 tab PO DAILY omeprazole 40 mg PO DAILY ropinirole 0.25 mg PO DAILY ropinirole 1 tab at betdime and 1 tab at midnight orally 2 times a day; tadalafil 5 mg PO DAILY 90 days venlafaxine ER mg PO HPI HPI Comments History of Present Illness Details 61y/o male calls for follow up of vertig o and restless legs syndrome . His blood sugars are still fluctuating and poorly controlled and he is usually dizzy when the sugars are high.His HgA1C is 9. He still has frequent episodes of vertigo .He takes meclizine 25 mg bid .He cabrera snot notive any difference .He also has restless legs and is on requip 0.5 mg qhs . He still has frequent bedtime arousals . 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 Valenzuela who had closed his practice since. His vertigo started about 8 years ago . He describe sit as spinning sensation with quick change in head position. Its mostly in sitting or standing position . He also reports lightheadedness while standing .According to the patient he had tilt table testing and was diagnosed with orthostatic hypotension. He denies double vision, tinnitus or hearing loss. He did vestibular therapy - but was told that it was not BPV. He has dysphagia thats tarted 5 years ago, evaluate dwith barium swallow and is on therapy now. 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 he is on BiPAP for sleep apnea and followed up by Dr. Meeks. He reports mild generalized weakness. He has diabetes and is poorly controlled. His Hg A 1C 8.9 He sees a psychiatrist for depression and anxiety [facility] Medical History (Updated 09/23/23 @ 09:17 by Ravne Andrade MD) Restless legs syndrome (RLS) Hypertension, essential Dizziness Vertigo Acute depression Anxiety Benign prostatic hyperplasia without lower urinary tract symptoms Hyperlipidemia Type 2 diabetes mellitus with other diabetic kidney complication Diverticulosis Restless leg syndrome CAD (coronary artery disease) Dyspnea ASHLIE treated with BiPAP Asthma Surgical History History of cataract surgery H/O adenoidectomy Hx of tonsillectomy Family History Father Cancer Mother Cancer Sister Acute Crohn's disease Social History Alcohol intake: former Patient Tobacco Use Status: Never used Tobacco Physical Exam Const Other: Mood stable speech- normal General: cooperative Orientation/consciousness: patient oriented x3 Neuro General: patient oriented x3 Assessment & Plan Assessment & Plan (1) Vertigo: Comment: ? vestibular or related to mitochondrial disease Code(s): R42 - Dizziness and giddiness (2) Dizziness: Comment: orthostatic, autonomic dysfunction related to diabetes ? mitochondrial disease Code(s): R42 - Dizziness and giddiness (3) Restless legs syndrome (RLS): Code(s): G25.81 - Restless legs syndrome Plan Increase ropinirole 0.5 mg 1 at bedtime an d1 at midnight Suggested to increase meclizine bid Good diabetes control to help with autonomic dysfunction . F/u Hypertension specialist F/u Dr Meeks Medications: New ropinirole 1 tab at bedtime and 1 tab at midnight orally 2 times a day; 180 tabs 6RF ropinirole 1 tab at betdime and 1 tab at midnight orally 2 times a day; 60 tabs 6RF Coding Level of Care Code Tele Est Pt Level 4 (91072) Diagnoses Vertigo R42 Dizziness R42 Restless legs syndrome (RLS) G25.81 Time Spent (min) 25
== END 2023-09-23 10:27 | disposition home or self-care (01) ==
PROVIDERS: PCP Internal Medicine; Visit Provider Psychiatry & Neurology Neurology
DX: R42 Dizziness and giddiness (principal); G25.81 Restless legs syndrome
CPT/HCPCS: 99442

== ENCOUNTER 2023-11-11 08:25 | Outpatient (AMB) | payer MEDICARE, MEDICAID, SELFPAY ==
--- NOTE | 2023-11-11 08:26 | MHC.OFFVIS ---
Intake Visit Reasons: COPD follow-up Allergies budesonide [From Symbicort] Allergy (Severe, Verified 09/10/23 09:29) Dizziness formoterol [From Symbicort] Allergy (Severe, Verified 09/10/23 09:29) Dizziness lisinopril [LISINOPRIL] Allergy (Severe, Verified 09/10/23 09:29) Nausea mometasone furoate [From Dulera] Allergy (Severe, Verified 09/10/23 09:29) Nausea amoxicillin Allergy (Mild, Verified 09/10/23 09:29) vertigo gabapentin Allergy (Mild, Verified 09/10/23 09:29) vertigo ENVIRONMENTAL Allergy (Severe, Uncoded 09/10/23 09:29) Rash and Hives Dust Mite Allergy (Intermediate, Uncoded 09/10/23 09:29) Hives Seasonal Allergies Allergy (Intermediate, Uncoded 09/10/23 09:29) Hives and Rash terazosin Allergy (Mild, Uncoded 09/10/23 09:29) vertigo HPI Comments Details: The patient is a 62-year-old gentleman with known asthma COPD overlap syndrome in addition to obstructive sleep apnea on BiPAP. He has been having issues with significant dyspnea with minimal activity. Usually becomes significantly tachycardic. We did try to perform a cardiopulmonary stress test but only lasted a minute due to heart rates in the 150s. His heart rates have been better. He has been trying to control his sugars from 400 now to 100-200. He has been using the Advair twice a day. Unfortunately, it is very expensive. Will try to switch him over to the generic Advair. Hopefully also we can decrease the dose to just once a day to avoid the beta agonist effect. He is also taking the metoprolol. Will also try to switch the dose to 1 tablet in the morning and half at nighttime to try to regulate his heart rate better with activity. I am hoping that now that his heart rate is better that we can actually we ordered the cardiopulmonary stress test. He has been using his BiPAP at nighttime. The therapy continues to be affecting beneficial. His sugars also appeared to be better. He is tolerating the metoprolol. He recently underwent a 2nd cardiopulmonary exercise test after not able to perform on the 1 due to his significant heart rate. This time he was able to completed. Based on the reports the patient did not have any ventilatory limitations. There appears to be a decrease in the O2 pulse and also a potential metabolic derangement. The patient is not interested at this time in a referral to [place] to further evaluate the metabolic component. He has been followed by Cardiology and did not make any new recommendations based on the CPET. He did have a cardiac catheterization recently demonstrating nonocclusive coronary artery disease. We again went over his imaging studies and pulmonary function studies. He is scheduled to undergo a barium swallow for dysmotility issues and dilation of the esophagus. He also has been dealing with this high sugars. He finally was placed on insulin that he can not afford. He will follow up with his primary care doctor. 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 The may be a component of Autonomic dysfunction resulting his cardiopulmonary derangements in his dyspnea symptoms. In the meantime he is using his BiPAP BiPAP therapy has been affecting beneficial. Sometimes he gets a very dry mouth. He does have a fullface mask already. Will try to woman to water prior to using it. 09/17/2022 the patient has a telehealth visit today. The patient still complaining of significant vertigo. He is working closely with Neurology. In the meantime he continues use the BiPAP every night. He did decrease the pressures down to 10/70 in appears to be tolerating the lower pressures better. I will also request a download to make sure that he is appropriate for him. The patient however has been having some difficulties with the BiPAP. It is not working effectively. He did talk to the [email or web address] company and they did recommend that he is due for a new BiPAP. Therefore I will request a new BiPAP replacement at this time for his mild function machine. He continues uses inhalers with good effect. He has not had to use his rescue inhaler. Otherwise patient is without any other complaints. 03/20/2023 the patient is here for a pulmonary follow-up visit. The patient overall has been doing fairly well from a respiratory status. He has been having more issues with blood pressure and heart rate. In the meantime he continues uses BiPAP. He still using the old BiPAP although is not working correctly. He is already received his new AutoPAP EPAP. The patient needs to start using it. Explained to him that the settings are different so once he start using it he let me now I have need to adjust the machine. He continues use the BiPAP every night the BiPAP therapy has been affecting beneficial he does use it for more than 4 hours a night. In regards of his breathing he does get winded with activity. [id number] severity. He usually uses rescue inhaler before any exercise activity. We did talk about optimizing his respiratory therapy to [place] but the patient at this point for consult with the Advair he does not want make any changes. The patient will continue with current therapy and will follow-up with cardiology and nephrology regarding his labile blood pressure. 11/11/2023 the patient has a telehealth visit today. Unfortunately he had a bad fall because of his vertigo and filling the kitchen hurting self. Therefore we do a telehealth visit. From a BiPAP standpoint the patient is doing very well. The pressures are currently 10/9 and his AHI is well below 1. Seems to be affecting beneficial. He does use it every night for more than 4 hours. Will continue to use it accordingly. In the meantime he is breathing has been okay. We switched him from Advair to Wixela. He had tried Wixela in the past but did not respond well to it. Although now the insurance company is not making the Advair anymore so we have to try him again on it. He still has some adverse so he will let me know how he responds to this time. If he has any issues he will call we can always changes something else. The patient also barium significant dizziness spells. Significant vertigo. Will try to simplify his medical regimen to make sure is not getting any adverse effects from any medications we are prescribing. Therefore will see about weaning off the singular that has a potential side effect of dizziness. Once he is off that if he continues have dizziness we can work on other medications that he may be taking we can try to simplify his medication regimen. Otherwise patient is doing well from respiratory status will go ahead and follow-up in the springtime. If he has any issues prior to that from call for an earlier assessment. [facility] Medical History (Updated 09/23/23 @ 09:17 by Raven Andrade MD) Restless legs syndrome (RLS) Hypertension, essential Dizziness Vertigo Acute depression Anxiety Benign prostatic hyperplasia without lower urinary tract symptoms Hyperlipidemia Type 2 diabetes mellitus with other diabetic kidney complication Diverticulosis Restless leg syndrome CAD (coronary artery disease) Dyspnea ASHLIE treated with BiPAP Asthma Surgical History History of cataract surgery H/O adenoidectomy Hx of tonsillectomy Family History Father Cancer Mother Cancer Sister Acute Crohn's disease Social History Alcohol intake: former Patient Tobacco Use Status: Never used Tobacco Review of Systems Const Reports difficulty sleeping, Reports fatigue, Reports frequent falls and Denies night sweats ENT Denies change in voice, Reports vertigo, Reports dizziness, Denies lip swelling, Denies mouth pain, Reports nasal congestion, Reports nasal discharge and Denies tongue swelling Card Denies chest pain Resp Reports cough GI Denies abdominal pain Musc Denies no additional complaints Neuro Denies Abnormal speech present, Reports vertigo, Reports dizziness, Reports frequent falls and Reports restless legs Psych Denies no additional complaints Endo Reports fatigue Juvenal/Lymph Denies easy bleeding and Denies lymphadenopathy Aller/Immun Denies lip swelling and Denies tongue swelling Physical Exam Const General: alert Orientation/consciousness: patient oriented x3 Resp Effort & Inspection: normal respiratory effort and able to speak in complete sentences Neuro General: patient oriented x3 Speech: No Abnormal speech present Telehealth Telehealth Telehealth Platform: Telephone Location of provider rendering services: practice address Location of patient: address on file Patient verbally consented to treatment: Yes Patient verbally consented to billing insurance company: Yes Patient informed of any privacy concerns related to visit: Yes Assessment & Plan Assessment & Plan (1) ASHLIE treated with BiPAP: Code(s): G47.33 - Obstructive sleep apnea (adult) (pediatric) Category: Medical (2) Asthma: Code(s): J45.909 - Unspecified asthma, uncomplicated Category: Medical Qualifiers: Asthma complication type: uncomplicated Asthma persistence: persistent Asthma severity: moderate Qualified Code(s): J45.40 - Moderate persistent asthma, uncomplicated (3) Restless leg syndrome: Code(s): G25.81 - Restless legs syndrome Category: Medical (4) Dyspnea: Comment: Multifactorial, may have a component of autonomic dysfuction Code(s): R06.00 - Dyspnea, unspecified Category: Medical Qualifiers: Dyspnea type: dyspnea on exertion Qualified Code(s): R06.00 - Dyspnea, unspecified Plan continue VPAP, will call to adjust Continue Wixela 500/50 SARA as needed wean off singulair Meclezine as needed F/U 8-12 months Coding Level of Care Code Tele Est Pt Level 4 (41828) Diagnoses ASHLIE treated with BiPAP G47.33 Moderate persistent asthma without complication J45.40 Asthma complication type: uncomplicated Asthma persistence: persistent Asthma severity: moderate Restless leg syndrome G25.81 Dyspnea on exertion R06.00 Dyspnea type: dyspnea on exertion Time Spent (min) 15
== END 2023-11-11 08:41 | disposition home or self-care (01) ==
LOC: HO.HPS 08:25
PROVIDERS: PCP Internal Medicine; Visit Provider Hospitalist
DX: G47.33 Obstructive sleep apnea (adult) (pediatric) (principal); J45.40 Moderate persistent asthma, uncomplicated; G25.81 Restless legs syndrome
CPT/HCPCS: G2252

== ENCOUNTER → 2023-11-11 08:25 | Outpatient (BNVA) | payer MEDICARE, MEDICAID, SELFPAY | PROVIDERS: PCP Internal Medicine; Visit Provider Hospitalist ==

== ENCOUNTER 2024-03-29 07:40 | Outpatient (AMB) | payer MEDICARE, MEDICAID, SELFPAY ==
--- NOTE | 2024-03-29 07:41 | MHC.OFFVIS ---
Intake Visit Reasons: 6 months tele per MD Intake Note: Pt presents for 6 month follow up for dizziness via telehealth. Allergies budesonide [From Symbicort] Allergy (Severe, Verified 03/29/24 07:41) Dizziness formoterol [From Symbicort] Allergy (Severe, Verified 03/29/24 07:41) Dizziness lisinopril [LISINOPRIL] Allergy (Severe, Verified 03/29/24 07:41) Nausea mometasone furoate [From Dulera] Allergy (Severe, Verified 03/29/24 07:41) Nausea amoxicillin Allergy (Mild, Verified 03/29/24 07:41) vertigo gabapentin Allergy (Mild, Verified 03/29/24 07:41) vertigo ENVIRONMENTAL Allergy (Severe, Uncoded 03/29/24 07:41) Rash and Hives Dust Mite Allergy (Intermediate, Uncoded 03/29/24 07:41) Hives Seasonal Allergies Allergy (Intermediate, Uncoded 03/29/24 07:41) Hives and Rash terazosin Allergy (Mild, Uncoded 03/29/24 07:41) vertigo Medication List - Last Reconciled 03/29/24 by Raven Andrade MD albuterol sulfate 90 mcg/actuation 2 puffs PO Q6H PRN aspirin 81 mg PO DAILY atenolol 50 mg PO DAILY blood sugar diagnostic ([employer] Ultra Test strips) As directed chromium picolinate 200 mcg PO DAILY coenzyme Q10 100 mg PO DAILY flu vacc [id number] 6mos up(PF) mL IM fludrocortisone 0.1 mg PO DAILY fluticasone propion-salmeterol 500-50 mcg/dose (Wixela Inhub) 1 inh inhalation BID 90 days indapamide 2.5 mg PO BEDTIME insulin NPH and regular human 100 unit/mL (70-30) 20 units subcut BID insulin syringe-needle U-100 As directed isosorbide dinitrate 10 mg PO BID PRN lancets (Star[employer]Touch Delica Plus Lancet) As directed lorazepam 0.5 mg PO losartan 100 mg PO DAILY lutein 6 mg PO DAILY magnesium aspart,citrate,oxide (Triple Magnesium Complex) mg PO meclizine 25 mg PO DAILY PRN metformin 2,000 mg PO .Am and PM montelukast 10 mg PO DAILY 90 days multivitamin 1 tab PO DAILY omeprazole 40 mg PO DAILY ropinirole 1 tab at bedtime and 1 tab at midnight orally 2 times a day; tadalafil 5 mg PO DAILY 90 days venlafaxine ER mg PO HPI Comments Details: 63y/o male calls for follow up of vertigo and restless legs syndrome . . He still has frequent episodes of vertigo .He takes meclizine 25 mg bid .He has poorly controlled diabetes.He does not notice any difference .He has restless legs and is on requip 0.5 mg 1-3 tabs qhs and it helps . 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 Valenzuela who had closed his practice since. His vertigo started about 8 years ago . He describe sit as spinning sensation with quick change in head position. Its mostly in sitting or standing position . He also reports lightheadedness while standing .According to the patient he had tilt table testing and was diagnosed with orthostatic hypotension. He denies double vision, tinnitus or hearing loss. He did vestibular therapy - but was told that it was not BPV. He has dysphagia that started 5 years ago, evaluated with barium swallow and is on therapy now. 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 he is on BiPAP for sleep apnea and followed up by Dr. Meeks. He reports mild generalized weakness. He has diabetes and is poorly controlled. His Hg A 1C 8.9 He sees a psychiatrist for depression and anxiety [facility], [facility] Medical History Restless legs syndrome (RLS) Hypertension, essential Dizziness Vertigo Acute depression Anxiety Benign prostatic hyperplasia without lower urinary tract symptoms Hyperlipidemia Type 2 diabetes mellitus with other diabetic kidney complication Diverticulosis Restless leg syndrome CAD (coronary artery disease) Dyspnea ASHLIE treated with BiPAP Asthma Surgical History History of cataract surgery H/O adenoidectomy Hx of tonsillectomy Family History Father Cancer Mother Cancer Sister Acute Crohn's disease Social History Alcohol intake: former Patient Tobacco Use Status: Never used Tobacco Physical Exam Const Other: Mood stable speech- normal General: cooperative Orientation/consciousness: patient oriented x3 Neuro General: patient oriented x3 Telehealth Telehealth Telehealth Platform: Telephone Location of provider rendering services: practice address Location of patient: address on file Patient Identification confirmed using: Name, : Yes Telehealth method: voice only Patient verbally consented to treatment: Yes Patient verbally consented to billing insurance company: Yes Patient informed of any privacy concerns related to visit: Yes Minutes spent on Phone/Video with Pt.: 18 Assessment & Plan Assessment & Plan (1) Vertigo: Comment: ? vestibular or related to mitochondrial disease Code(s): R42 - Dizziness and giddiness Category: Medical (2) Dizziness: Comment: orthostatic, autonomic dysfunction related to diabetes ? mitochondrial disease Code(s): R42 - Dizziness and giddiness Category: Medical (3) Restless legs syndrome (RLS): Code(s): G25.81 - Restless legs syndrome Category: Medical Plan Increase Ropinirole 0.5 mg 4 tabs qhs meclizine as needed Good diabetes control to help with autonomic dysfunction . F/u Hypertension specialist F/u Dr Meeks Medications: Changed From ropinirole 1 tab at bedtime and 1 tab at midnight orally 2 times a day; 180 tabs 6RF To ropinirole 1 -4 tab at bedtime 360 tabs 6RF Coding Level of Care Code Tele Est Pt Level 4 (99752) Diagnoses Vertigo R42 Dizziness R42 Restless legs syndrome (RLS) G25.81
== END 2024-03-29 12:08 | disposition home or self-care (01) ==
LOC: HO.HSMS 07:40
PROVIDERS: PCP Internal Medicine; Visit Provider Psychiatry & Neurology Neurology
DX: R42 Dizziness and giddiness (principal); G25.81 Restless legs syndrome
CPT/HCPCS: 99442

== ENCOUNTER → 2024-03-29 07:40 | Outpatient (BNVA) | payer MEDICARE, MEDICAID, SELFPAY | PROVIDERS: PCP Internal Medicine; Visit Provider Psychiatry & Neurology Neurology ==

== ENCOUNTER 2024-04-11 12:04 | Outpatient (REF) | payer MEDICARE, MEDICAID, SELFPAY ==
[2024-04-11 12:13] LABS: Appearance Urine Clear; Color Urine Yellow; Glucose Urine UA >=1000 mg/dL (Negative); Leukocyte Esterase Urine Trace (Negative); Nitrite Urine Negative (Negative); PH 6.5 (5.0-9.0); Specific Gravity - Urine >= 1.030 (1.005-1.025); UMIC TRIGGER UA YES; Urine Blood Negative (Negative); Urine Ketones Negative (Negative); Urine Protein 30 (1+) mg/dL (Neg-Trace)
[2024-04-11 12:25] LABS: Bacteria Urine 1+ (None Seen); Hyaline Casts Urine 0-2 /LPF (0-2); RBC Urine 0-2 /HPF (0-2); Squamous Epithelial Cell Urine 0-2 /HPF (0-2); WBC Urine 21-50 /HPF (0-5)
== END 2024-04-11 12:05 | disposition home or self-care (01) ==
LOC: HO.LNP 12:04
PROVIDERS: Visit Provider Nurse Practitioner Family
DX: N39.0 Urinary tract infection, site not specified (principal); A49.9 Bacterial infection, unspecified
CPT/HCPCS: 81001

== ENCOUNTER 2024-05-11 10:11 | Outpatient (AMB) | payer MEDICARE, MEDICAID, SELFPAY ==
--- NOTE | 2024-05-11 10:05 | A.OFFVIS_ITS ---
Intake Visit Reasons: Testosterone Follow Up(set) Intake Note: Patient is present for testosterone f/u Urology Medication:tadalafil Antibiotic Allergy:amoxicillin,gabapentin Blood Thinner:aspirin Cell Tower Climber Required: No Allergies budesonide [From Symbicort] Allergy (Severe, Verified 05/11/24 10:07) Dizziness formoterol [From Symbicort] Allergy (Severe, Verified 05/11/24 10:07) Dizziness lisinopril [LISINOPRIL] Allergy (Severe, Verified 05/11/24 10:07) Nausea mometasone furoate [From Dulera] Allergy (Severe, Verified 05/11/24 10:07) Nausea amoxicillin Allergy (Mild, Verified 05/11/24 10:07) vertigo gabapentin Allergy (Mild, Verified 05/11/24 10:07) vertigo ENVIRONMENTAL Allergy (Severe, Uncoded 05/11/24 10:07) Rash and Hives Dust Mite Allergy (Intermediate, Uncoded 05/11/24 10:07) Hives Seasonal Allergies Allergy (Intermediate, Uncoded 05/11/24 10:07) Hives and Rash terazosin Allergy (Mild, Uncoded 05/11/24 10:07) vertigo Medication List - Last Reconciled 05/11/24 by Scott Rivera MD albuterol sulfate 90 mcg/actuation 2 puffs PO Q6H PRN aspirin 81 mg PO DAILY atenolol 50 mg PO DAILY blood sugar diagnostic ([employer]Touch Ultra Test strips) As directed chromium picolinate 200 mcg PO DAILY coenzyme Q10 100 mg PO DAILY flu vacc [id number] 6mos up(PF) mL IM fludrocortisone 0.1 mg PO DAILY fluticasone propion-salmeterol 500-50 mcg/dose (Wixela Inhub) 1 inh inhalation BID 90 days indapamide 2.5 mg PO BEDTIME insulin NPH and regular human 100 unit/mL (70-30) 20 units subcut BID insulin syringe-needle U-100 As directed isosorbide dinitrate 10 mg PO BID PRN lancets (OneTouch Delica Plus Lancet) As directed lorazepam 0.5 mg PO losartan 100 mg PO DAILY lutein 6 mg PO DAILY magnesium aspart,citrate,oxide (Triple Magnesium Complex) mg PO meclizine 25 mg PO DAILY PRN metformin 2,000 mg PO .Am and PM montelukast 10 mg PO DAILY 90 days multivitamin 1 tab PO DAILY omeprazole 40 mg PO DAILY ropinirole 1 -4 tab at bedtime tadalafil 5 mg PO DAILY 90 days testosterone 1 packet transdermal DAILY 30 days venlafaxine ER mg PO HPI Comments Details: Bladimir is a pleasant male. He is a patient of Dr. Garibay. 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 Telemedicine Evaluation 15 min Consultation [employer] Video Diabetic management challenging Testosterone low and normal range Based on T4DM study will initiate testosterone gel with target 400-600 Prescription provided Continue with BiPAP Continue daily tadalafil Hypogonadism Labs - 04/27 190, 08/29 T 200 F 4.8, Bioavailable 100, 04/28 T 236 Bio 110 Recurring UTI Diabetic male Presented to emergency room and was treated with Levaquin 01/24 Had been treated previously with terazosin but unable to tolerate due to vertigo No reported bowel issues Normal CAROLYN PFSH Medical History Restless legs syndrome (RLS) Hypertension, essential Dizziness Vertigo Acute depression Anxiety Benign prostatic hyperplasia without lower urinary tract symptoms Hyperlipidemia Type 2 diabetes mellitus with other diabetic kidney complication Diverticulosis Restless leg syndrome CAD (coronary artery disease) Dyspnea ASHLIE treated with BiPAP Asthma Surgical History History of cataract surgery H/O adenoidectomy Hx of tonsillectomy Family History Father Cancer Mother Cancer Sister Acute Crohn's disease Social History Alcohol intake: former Patient Tobacco Use Status: Never used Tobacco Review of Systems Const All systems reviewed & are unremarkable except as noted in HPI and below Reports no additional complaints Resp Reports no additional complaints GI Reports no additional complaints Reports as per HPI Musc Reports no additional complaints Physical Exam Telemedicine evaluation Appropriate responses Regular breathing rate and rhythm HEENT Head: Yes normal to inspection Ears: hearing grossly normal bilaterally Eyes General: appearance normal, both eyes and all related structures Neck Neck: Yes normal visual inspection Chest Chest palpation & inspection: normal inspection of the chest Resp Effort & Inspection: normal respiratory effort and able to speak in complete sentences Telehealth Telehealth Location of provider rendering services: practice address Location of patient: address on file Patient Identification confirmed using: Name, : Yes Telehealth method: voice only Patient verbally consented to treatment: Yes Patient verbally consented to billing insurance company: Yes Patient informed of any privacy concerns related to visit: Yes Assessment & Plan Assessment & Plan (1) Benign prostatic hyperplasia without lower urinary tract symptoms: Code(s): N40.0 - Benign prostatic hyperplasia without lower urinary tract symptoms Category: Medical (2) Hypogonadism in male: Code(s): E29.1 - Testicular hypofunction Category: Medical Plan Three-month follow-up lab work Orders: Orders Testosterone, Free/Total 10 Weeks E29.1 - Testicular hypofunction Medications: New testosterone Apply to shoulder and rub in until dry - 1 packet per day 1 packet transdermal DAILY 30 days 150 grams 5RF E29.1 - Testicular hypofunction Patient Instructions: Imaging studies, laboratory and physical exam results were discussed and reviewed in detail. No major barriers to patient understanding were identified. An opportunity to ask questions regarding the treatment plan was provided. All questions were answered. The patient expressed understanding and agreement with the above treatment plan. The patient is aware they should contact our office by phone for worsening of their current condition or the appearance of new urologic symptoms. Compliance is encouraged with any medications and followup testing that is ordered. It is a privilege to participate in the urologic care of your patient. If you have any questions or concerns regarding treatment for the above conditions, or other urologic issues, please do not hesitate to contact me. The office telephone contact is [phone]. This note is constructed using voice recognition software. While every effort has been made to ensure accuracy associate merchant errors may have been included. Yours sincerely, Dr Scott Rivera MD, [facility] - Urology Providers of Expert, Compassionate Care for the Genitourinary System Coding Level of Care Code Tele Est Pt Level 4 (30935) Diagnoses Benign prostatic hyperplasia without lower urinary tract symptoms N40.0 Hypogonadism in male E29.1
== END 2024-05-11 11:20 | disposition home or self-care (01) ==
LOC: HO.HUSH 10:11
PROVIDERS: PCP Internal Medicine; Visit Provider Urology
DX: N40.0 Benign prostatic hyperplasia without lower urinary tract symptoms (principal); E29.1 Testicular hypofunction
CPT/HCPCS: 99442

== ENCOUNTER → 2024-05-25 07:54 | Outpatient (REF) | payer MEDICARE, MEDICAID, SELFPAY ==
--- NOTE | 2024-05-25 07:56 | CA_ITS ---
Transthoracic Echocardiogram Patient (Last, First, Middle): Bladimir Orta J Gender: Male Date of : 1960 Age: 63 Procedure Date: 05/25/2024 Procedure Type: Transthoracic Echocardiogram Location: OP Height: 193.04 cm Weight: 115.67 kg BSA: 2.46 m2 Heart Rate: bpm BP: 130 / 80 mmHg Food Service Team Member: Referring MD: Daniel Lubin MD Curtain Mender: Robin Villalpando MD Symptoms: I77.810 - Thoracic aortic ectasia Study Quality: Adequate ECG Rhythm: Sinus Conclusions: - 1. Normal LV ejection fraction of 60 65% with moderately increased left ventricular wall thickness with impaired relaxation filling pattern 2. Trivial aortic regurgitation 3. Mildly dilated ascending aorta at 4.2 cm 4. Normal RV systolic pressure 5. No gross pericardial effusion Findings Left Ventricle Normal left ventricular size and systolic function. There is moderately increased left ventricular wall thickness. The visually estimated ejection fraction is between 60-65%. Spectral Doppler is indicative of an impaired relaxation filling pattern. E/E prime ratio is between 8 and 15 consistent with indeterminate filling pressures. Right Ventricle Normal right ventricular cavity size and systolic function. Atria The left atrium is normal in size. There is lipomatous hypertrophy of the interatrial septum. There is no evidence of interatrial shunt. The right atrium is normal in size. Aortic Valve Normal aortic valve structure and function. There is no aortic valve stenosis. There is trace (trivial) aortic valve regurgitation. Mitral Valve Likely normal mitral valve structure and function. There is trace mitral valve regurgitation. There is no mitral valve stenosis. Pulmonic Valve The pulmonic valve is likely normal. There is trace pulmonic valve regurgitation. Tricuspid Valve Normal tricuspid valve structure. There is trace tricuspid valve regurgitation. The right ventricular systolic pressure is normal. The right ventricular systolic pressure is 19 mmHg. Normal right atrial pressure. There is no evidence of pulmonary hypertension. Great Vessels The pulmonary artery was not well visualized. There is mild dilatation of the ascending aorta measuring 4.20 cm. There is no evidence of plaque in the aorta. Venous The inferior vena cava is normal in size and collapses greater than 50% with inspiration. Pericardium/Pleural There is no evidence of pericardial effusion. Prior Study Comparison Changes noted compared to prior study dated: 04/01/2023. moderate LVH noted Measurements 2D Linear Measurements IVSd: 1.54 0.6-0.9/0.6-1.0 cm LVIDd: 4.06 3.9-5.3/4.2-5.9 cm LVIDd Index: 1.65 2.4-3.2/2.2-3.1 cm/m2 LVIDs: 2.66 2.0-3.6 cm LVPWd: 1.51 0.7-1.1 cm Ao Root: 3.80 2.1-3.5 cm LA Diam: 3.60 2.7-3.8/3.0-4.0 cm LAIDs Index: 1.46 1.5-2.3 cm/m2 LV Mass: 304.20 67-162/88-224 g LV Mass Index: 123.66 43-95/49-115 g/m2 LVOT Diam: 2.30 3.0+(-)1.3 cm Mitral Valve MV Pk E: 0.53 MV PK A: 0.88 MV Decel Time: 278.00 E/A: 0.60 E'Lateral: 4.79 E'Medial: 5.00 E/E' Med: 10.50 E/E' Lat: 11.00 PHT: 81.00 MVA PHT: 2.72 Decel [place]: 1.90 Aortic Valve AoV Pk Eduardo: 1.28 AoV Mn Eduardo: 0.85 AoV VTI: 0.27 AoV Pk Grad: 7.00 Aov Mn Grad: 3.00 AGATA Cont.VTI: 3.02 LVOT LVOT Pk Eduardo: 0.89 LVOT Mn Eduardo: 0.62 LVOT VTI: 0.20 LVOT Pk Grad: 3.00 LVOT Mn Grad: 2.00 LVOT Diam: 2.30 LVOT Area: 4.15 Diastolic Function MV Pk E: 0.53 MV Pk A: 0.88 E/A: 0.60 E'Medial: 5.00 E/E' Med: 10.50 E' Laterial: 4.79 E/E' Lat: 11.00 Right Ventricle TAPSE (mm): 30.00 TVS' Eduardo: 14.00 Tricuspid Valve TR Pk Eduardo: 2.00 TR Pk Grad: 16.00 RA Press: 3.00 RVSP: 19.00 Great Vessels Aorta Ao Root-2D: 3.80 2.0-3.7 cm Ao Asc: 4.20 2.1-3.4 cm Pulmonary Valve PV Pk Eduardo: 1.24 Peak PV Grad: 6.00 Updated in Other Vendor System with Status of Final Robin Villalpando MD electronically signed on 05/26/2024 4:59:50 PM with status of Final
== END ==
LOC: HO.CARD 07:54
PROVIDERS: PCP Internal Medicine; Visit Provider Internal Medicine
DX: I77.810 Thoracic aortic ectasia (principal)
CPT/HCPCS: 93306

== ENCOUNTER → 2024-05-25 07:56 | Outpatient (BNV) | payer MEDICARE, MEDICAID, SELFPAY | PROVIDERS: PCP Internal Medicine; Visit Provider Internal Medicine Cardiovascular Disease | DX: I35.1 Nonrheumatic aortic (valve) insufficiency (principal) | CPT/HCPCS: 93306 ==

== ENCOUNTER 2024-06-06 07:32 | Outpatient (AMB) | payer MEDICARE, MEDICAID, SELFPAY ==
--- NOTE | 2024-06-06 08:37 | A.OFFVIS_ITS ---
Vital Signs 06/06/24 08:38 Height 6 ft 1 in Weight 268 lb 1.314 oz BMI 35.4 BP 104/68 Blood Pressure Location Rt brachial Position Sitting Pulse 87 Intake Visit Reasons: 1 yr f/up s/p echo Franchise Consultant Required: No Accompanied by: Self / Same As Patient Allergies budesonide [From Symbicort] Allergy (Severe, Verified 05/11/24 10:07) Dizziness formoterol [From Symbicort] Allergy (Severe, Verified 05/11/24 10:07) Dizziness lisinopril [LISINOPRIL] Allergy (Severe, Verified 05/11/24 10:07) Nausea mometasone furoate [From Dulera] Allergy (Severe, Verified 05/11/24 10:07) Nausea amoxicillin Allergy (Mild, Verified 05/11/24 10:07) vertigo gabapentin Allergy (Mild, Verified 05/11/24 10:07) vertigo ENVIRONMENTAL Allergy (Severe, Uncoded 05/11/24 10:07) Rash and Hives Dust Mite Allergy (Intermediate, Uncoded 05/11/24 10:07) Hives Seasonal Allergies Allergy (Intermediate, Uncoded 05/11/24 10:07) Hives and Rash terazosin Allergy (Mild, Uncoded 05/11/24 10:07) vertigo Medication List - Last Reconciled 06/06/24 by Daniel Lubin MD albuterol sulfate 90 mcg/actuation 2 puffs PO Q6H PRN aspirin 81 mg PO DAILY atenolol 50 mg PO DAILY blood sugar diagnostic (Railpoduch Ultra Test strips) As directed chromium picolinate 200 mcg PO DAILY coenzyme Q10 100 mg PO DAILY fludrocortisone 0.1 mg PO DAILY fluticasone propion-salmeterol 500-50 mcg/dose (Wixela Inhub) 1 inh inhalation BID 90 days indapamide 2.5 mg PO BEDTIME insulin NPH and regular human 100 unit/mL (70-30) 20 units subcut BID insulin syringe-needle U-100 As directed isosorbide dinitrate 10 mg PO BID PRN lancets (OneTouch Delica Plus Lancet) As directed lorazepam 0.5 mg PO losartan 100 mg PO DAILY lutein 6 mg PO DAILY magnesium aspart,citrate,oxide (Triple Magnesium Complex) mg PO meclizine 25 mg PO DAILY PRN metformin 2,000 mg PO .Am and PM montelukast 10 mg PO DAILY 90 days multivitamin 1 tab PO DAILY omeprazole 40 mg PO DAILY ropinirole 1 -4 tab at bedtime tadalafil 5 mg PO DAILY 90 days testosterone 1 packet transdermal DAILY 30 days venlafaxine ER mg PO HPI Comments Details: Bladimir returns for follow-up. He was initially seen in 2019 and then again in 2022. In 2019, he underwent a comprehensive workup including an echocardiogram as well as cardiac catheterization. There was no significant CAD. Many comorbidities including obesity, diabetes, hypertension. He has had chronic shortness of breath with activity but he also has asthma/COPD overlap syndrome. He also has chronic vertigo. They do not really sound orthostatic in nature. However, he does have labile blood pressures and goes nephrology too. Otherwise, no new concerns since last seen. [facility] Medical History Restless legs syndrome (RLS) Hypertension, essential Dizziness Vertigo Acute depression Anxiety Benign prostatic hyperplasia without lower urinary tract symptoms Hyperlipidemia Type 2 diabetes mellitus with other diabetic kidney complication Diverticulosis Restless leg syndrome CAD (coronary artery disease) Dyspnea ASHLIE treated with BiPAP Asthma Surgical History History of cataract surgery H/O adenoidectomy Hx of tonsillectomy Family History Father Cancer Mother Cancer Sister Acute Crohn's disease Social History Alcohol intake: former Patient Tobacco Use Status: Never used Tobacco Review of Systems Const Denies chills, Denies fatigue, Denies fever(s), Denies weight gain and Denies weight loss ENT Denies dizziness Card Denies chest pain, Denies leg edema, Denies lightheadedness, Denies palpitations, Denies dyspnea on exertion, Denies orthopnea and Denies other Resp Denies cough and Denies dyspnea on exertion GI Denies hematochezia and Denies change in stool character Musc Denies abnormal gait, Denies muscle weakness, Denies numbness, Denies radiating pain into limb and Denies tingling Neuro Denies abnormal gait, Denies dizziness, Denies numbness and Denies tingling Endo Denies fatigue and Denies palpitations Physical Exam Vital Signs: Last Vital Signs Pulse 87 06/06/24 08:38 BP 104/68 06/06/24 08:38 BMI result Body Mass Index 35.4 Const General: comfortable and no acute distress Orientation/consciousness: patient oriented x3 HEENT Other: Unremarkable Head: Yes normal to inspection Neck Neck: Yes normal visual inspection Chest Chest palpation & inspection: normal inspection of the chest Resp Auscultation: clear to auscultation bilaterally Cardio Palpation: normal PMI Heart sounds: S1 normal heart sound present, S2 normal heart sound present, no gallops, no murmurs and no rubs GI Palpation (GI): Soft to palpation Back/Spine/Pelvis Other: unremarkable Skin General skin exam: no rashes or lesions noted Neuro General: patient oriented x3 Extrem General: Yes normal to inspection Psych Mental Status: mental status grossly normal Office Procedures EKG Details: EKG with underlying sinus rhythm at 87/Min; no significant ST-T changes and otherwise [place]remark[place] [address]-[id number], Complete Assessment & Plan Assessment & Plan (1) CAD (coronary artery disease): Code(s): I25.10 - Atherosclerotic heart disease of [place] coronary artery without angina pectoris Category: Medical Qualifiers: Associated angina: without angina Coronary Disease-Associated Artery/Lesion type: [place] artery [place] vs. transplanted heart: [place] heart Qualified Code(s): I25.10 - Atherosclerotic heart disease of [place] coronary artery without angina pectoris (2) Dyspnea: Code(s): R06.00 - Dyspnea, unspecified Category: Medical Qualifiers: Dyspnea type: dyspnea on exertion Qualified Code(s): R06.00 - Dyspnea, unspecified (3) Hypertension, essential: Code(s): I10 - Essential (primary) hypertension Category: Medical (4) Ascending aorta dilatation: Code(s): I77.810 - Thoracic aortic ectasia Category: Medical (5) Vertigo: Comment: ? vestibular or related to mitochondrial disease Code(s): R42 - Dizziness and giddiness Category: Medical Plan Cardiac data reviewed. Cardiac catheterization reviewed from 2019. Mid LAD with myocardial bridging. RCA with nonobstructive disease. Normal LVEDP. Echocardiogram then with LVEF of 60-65%. Indeterminate diastolic function. No valvular pathology. No evidence of pulmonary hypertension. In the most recent echocardiogram, LVEF 60-65%; mild diastolic dysfunction; ascending aortic size 4.2 cm. In 202, it was 4.3 cm. Based on Pulmonary note, there is a diagnosis of asthma as well as obstructive sleep apnea. Overall, based on the above, no clear cardiac basis for his shortness of breath. Exercise induced diastolic dysfunction is possible and may play some role. However, clinically does not have any overt heart failure and hence diuretics probably won't help. Aggressive risk factor modification only and if able, lose some weight. With regard to mild CAD, no specific management. Do not see statins listed in his med list, but last avaialble LDL is only 68 mg/dL. He has apparently labile hypertension but already has goes to Nephrology and meds addressed through that. Hence no further changes here. With regard to the ascending aortic dilatation, probably acceptable considering his height and weight. We can repeat an echocardiogram in about 2 years for follow-up. If that is also relatively unchanged, then may decrease the monitoring interval further. Coding Level of Care Code Est Pt Level 3 (68236) Diagnoses Coronary artery disease involving [place] coronary artery of [place] heart without angina pectoris I25.10 Associated angina: without angina Coronary Disease-Associated Artery/Lesion type: [place] artery [place] vs. transplanted heart: [place] heart Dyspnea on exertion R06.00 Dyspnea type: dyspnea on exertion Hypertension, essential I10 Ascending aorta dilatation I77.810 Vertigo R42 CPT Codes EKG - CPT: 19665-[id number], Complete ([id number])
[2024-06-06 08:38] VITALS: BP 104/68; PULSE 87; BMI 35.4
== END 2024-06-06 09:11 | disposition home or self-care (01) ==
PROVIDERS: PCP Internal Medicine; Visit Provider Internal Medicine
DX: I25.10 Atherosclerotic heart disease of native coronary artery without angina pectoris (principal); R06.00 Dyspnea, unspecified; I10 Essential (primary) hypertension; I77.810 Thoracic aortic ectasia; R42 Dizziness and giddiness
CPT/HCPCS: 93010; 99213

== ENCOUNTER → 2024-06-06 07:32 | Outpatient (BNVA) | payer MEDICARE, MEDICAID, SELFPAY | PROVIDERS: PCP Internal Medicine; Visit Provider Internal Medicine | DX: I25.10 Atherosclerotic heart disease of native coronary artery without angina pectoris (principal); I10 Essential (primary) hypertension; I77.810 Thoracic aortic ectasia; R42 Dizziness and giddiness; E66.9 Obesity, unspecified; R06.00 Dyspnea, unspecified; Z68.35 Body mass index [BMI] 35.0-35.9, adult | CPT/HCPCS: 93005; 99212 ==

== ENCOUNTER 2024-06-07 12:46 | Outpatient (AMB) | payer MEDICARE, MEDICAID, SELFPAY ==
--- NOTE | 2024-06-07 12:48 | MHC.OFFVIS ---
Vital Signs 06/07/24 12:50 Height 6 ft 1 in Weight 268 lb BMI 35.4 Intake Visit Reasons: ER follow Intake Note: patient presents for follow up. Allergies budesonide [From Symbicort] Allergy (Severe, Verified 06/07/24 12:55) Dizziness formoterol [From Symbicort] Allergy (Severe, Verified 06/07/24 12:55) Dizziness lisinopril [LISINOPRIL] Allergy (Severe, Verified 06/07/24 12:55) Nausea mometasone furoate [From Dulera] Allergy (Severe, Verified 06/07/24 12:55) Nausea amoxicillin Allergy (Mild, Verified 06/07/24 12:55) vertigo gabapentin Allergy (Mild, Verified 06/07/24 12:55) vertigo ENVIRONMENTAL Allergy (Severe, Uncoded 06/07/24 12:55) Rash and Hives Dust Mite Allergy (Intermediate, Uncoded 06/07/24 12:55) Hives Seasonal Allergies Allergy (Intermediate, Uncoded 06/07/24 12:55) Hives and Rash terazosin Allergy (Mild, Uncoded 06/07/24 12:55) vertigo Medication List - Last Reconciled 06/07/24 by Raven Andrade MD albuterol sulfate 90 mcg/actuation 2 puffs PO Q6H PRN aspirin 81 mg PO DAILY atenolol 50 mg PO DAILY blood sugar diagnostic (Wedge BusterTouch Ultra Test strips) As directed chromium picolinate 200 mcg PO DAILY coenzyme Q10 100 mg PO DAILY fludrocortisone 0.1 mg PO DAILY fluticasone propion-salmeterol 500-50 mcg/dose (Wixela Inhub) 1 inh inhalation BID 90 days indapamide 2.5 mg PO BEDTIME insulin NPH and regular human 100 unit/mL (70-30) 20 units subcut BID insulin syringe-needle U-100 As directed isosorbide dinitrate 10 mg PO BID PRN lancets (OneTouch Delica Plus Lancet) As directed lorazepam 0.5 mg PO losartan 100 mg PO DAILY lutein 6 mg PO DAILY magnesium aspart,citrate,oxide (Triple Magnesium Complex) mg PO meclizine 25 mg PO DAILY PRN metformin 2,000 mg PO .Am and PM montelukast 10 mg PO DAILY 90 days multivitamin 1 tab PO DAILY omeprazole 40 mg PO DAILY ropinirole 1 -4 tab at bedtime tadalafil 5 mg PO DAILY 90 days testosterone 1 packet transdermal DAILY 30 days venlafaxine ER mg PO HPI Comments Details: 63y/o male calls for follow up of vertigo and restless legs syndrome.His diabetes is poorly controlled.He reports shooting pain in his head . ( he feels like neuropathy in his head) he went to ER- no diagnosis . . He still has frequent episodes of vertigo .He takes meclizine 25 mg bid .He has restless legs and is on requip 1mg qhs and it helps .His restless legs are moderately controlled. He follows up with airborne and air delivery specialist - for HTN History from his initial visit -He was followed up by Dr. Valenzuela who had closed his practice since. His vertigo started about 8 years ago . He describe sit as spinning sensation with quick change in head position. Its mostly in sitting or standing position . He also reports lightheadedness while standing .According to the patient he had tilt table testing and was diagnosed with orthostatic hypotension. He denies double vision, tinnitus or hearing loss. He did vestibular therapy - but was told that it was not BPV. He has dysphagia that started 5 years ago, evaluated with barium swallow and is on therapy now. 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 he is on BiPAP for sleep apnea and followed up by Dr. Meeks. He reports mild generalized weakness. He has diabetes and is poorly controlled. His Hg A 1C 8.9 He sees a psychiatrist for depression and anxiety [facility] Medical History Restless legs syndrome (RLS) Hypertension, essential Dizziness Vertigo Acute depression Anxiety Benign prostatic hyperplasia without lower urinary tract symptoms Hyperlipidemia Type 2 diabetes mellitus with other diabetic kidney complication Diverticulosis Restless leg syndrome CAD (coronary artery disease) Dyspnea ASHLIE treated with BiPAP Asthma Surgical History History of cataract surgery H/O adenoidectomy Hx of tonsillectomy Family History Father Cancer Mother Cancer Sister Acute Crohn's disease Social History Alcohol intake: former Patient Tobacco Use Status: Never used Tobacco Physical Exam Vital Signs: BMI result Body Mass Index 35.4 Const Other: Mood stable speech- normal General: cooperative, healthy appearing and comfortable Nutritional Appearance: average body habitus Orientation/consciousness: patient oriented x3 Neuro General: patient oriented x3, gait normal, tone normal, moves all extremities and no focal motor deficits Cranial nerves: Yes Facial sensation intact/muscles of mastication intact, Yes Bilaterally intact EOM present, Yes Nystagmus not present, Yes Normal facial strength present and Yes Midline tongue present Gait exam (Neuro): Normal gait present Motor exam (neuro): 5/5 motor strength present throughout and Normal motor muscle tone present throughout Assessment & Plan Assessment & Plan (1) Vertigo: Comment: ? vestibular or related to mitochondrial disease Code(s): R42 - Dizziness and giddiness Category: Medical (2) Dizziness: Comment: orthostatic, autonomic dysfunction related to diabetes ? mitochondrial disease Code(s): R42 - Dizziness and giddiness Category: Medical (3) Restless legs syndrome (RLS): Code(s): G25.81 - Restless legs syndrome Category: Medical Plan Increase Ropinirole 2 mg qhs Vestibular therapy meclizine as needed Good diabetes control to help with autonomic dysfunction . F/u Hypertension specialist F/u Dr Meeks Orders: Orders PT Evaluation and Treatment Today R42 - Dizziness and giddiness Medications: Changed From ropinirole 1 -4 tab at bedtime 360 tabs 6RF To ropinirole 2 mg PO BEDTIME 30 tabs 6RF Coding Level of Care Code Est Pt Level 4 (71559) Complex EM visit Add On G2211 Diagnoses Vertigo R42 Dizziness R42 Restless legs syndrome (RLS) G25.81
[2024-06-07 12:50] VITALS: BMI 35.4
== END 2024-06-07 13:21 | disposition home or self-care (01) ==
PROVIDERS: PCP Internal Medicine; Visit Provider Psychiatry & Neurology Neurology
DX: R42 Dizziness and giddiness (principal); G25.81 Restless legs syndrome
CPT/HCPCS: 99214; G2211

== ENCOUNTER → 2024-06-07 12:46 | Outpatient (BNVA) | payer MEDICARE, MEDICAID, SELFPAY | PROVIDERS: PCP Internal Medicine; Visit Provider Psychiatry & Neurology Neurology | DX: R42 Dizziness and giddiness (principal); G25.81 Restless legs syndrome | CPT/HCPCS: 99212 ==

== ENCOUNTER 2024-08-05 11:00 | Outpatient (RCR) | payer MEDICARE, MEDICAID, SELFPAY ==
[2024-07-08 08:02] VITALS: BP 130/68; PULSE 79; O2SAT 98
--- NOTE | 2024-07-08 09:43 | MHC.PT.EP ---
[facility] [place] Office [place] Office [place] Office [address] [phone] F: [phone] F: [phone] F: [phone] F: [phone] Physical Therapy Plan of Care Date of Evaluation: 07/08/24 Date of Surgery: Diagnosis: vertigo of central origin vestibular therapy for giddiness/ dizziness Assessment: 63 y/o male referred to PT vertigo of central origin. Pt reports 'vertigo; for 11 years that is progressively worsening described as 'walking like a drunk, and bumps into [place], cannot walk a straight line, and feels like he will pass out if he transitions quickly. Sx are spontaneous and vary in length from hours to days. Denies tinnitus, diplopia, falling. History was nonlinear and confusing; pt needed constant redirection to stay on task. Examination shows impaired saccades, no resting nystagmus, normal [id number], normal rapid alternating movements, impaired static balance especially on foam surface and with eyes closed situations, and negative for BPPV (?orthostaic hypotension however). At this time, recommend he f/u with neurologist regarding dizziness from central origin and BPPV ruled out. He would benefit from PT for balance and gait to help prevent falls however. Frequency and Duration: The patient will be seen 1x/week for 4 weeks Short Term Goals: 2 weeks I with HEP Jail Goals: 4 weeks I with HEP and self management of sx Pt will be able to balance on foam for 20 seconds without LOB to facilitate daily activities Pt will be able to walk 50' maintaining linear line and no evidence of imbalance Treatment Plan: Modalities to reduce pain, spasms and effusion. Manual therapy to restore motion and function. Therapeutic exercise to improve strength and flexibility. Neuromuscular re-education for posture and balance. Therapeutic activities to return to functional activities of daily living. Electronically signed by: Jessica Boyer PT Please sign and return to therapist. Thank you for your referral.
--- NOTE | 2024-08-05 12:14 | MHC.PT.DC ---
[facility] [place] [facility] [place] [facility] [place] Office [address] Monzon [address] [phone] F: [phone] F: [phone] F: [phone] F: [phone] Physical Therapy Discharge Report Diagnosis: vertigo of central origin vestibular therapy for giddiness/ dizziness Date of Surgery: Date of Evaluation: 07/08/24 Date of Discharge: 08/05/24 Treatments to Date: 3 Cancellations to Date: 0 No Shows to Date: 0 Discharge Status: Improved Function Independent with HEP Insurance Declined Tx Discharge Summary: His static balance with eyes open and eyes closed appears to have improved with less postural sway noted and he is able to stand on airex without UE support now. His dizziness described as drunk feeling is still present and intermittent, possibly less constant.. At this time, we will d/c to I HEP as pt insurance end date is today. Reviewed recommendation that pt f/u with neurologist and/or PCP as his sx appear neurological and more central than peripheral. Pt reports he has upcoming appointments with MD. He also asks several questions about cause of anemia, DM, pulmonary care, and medication side effects - directed pt to f/u with MD for this as well. Electronically signed by: Jessica Boyer PT Please sign and return to therapist. Thank you for your referral.
== END 2024-08-05 12:14 | disposition home or self-care (01) ==
LOC: HO.PTCHIC 11:00
PROVIDERS: PCP Internal Medicine; Visit Provider Psychiatry & Neurology Neurology
DX: H81.4 Vertigo of central origin (principal)
CPT/HCPCS: 97110; 97112; 97163

== ENCOUNTER 2024-08-15 09:23 | Outpatient (REF) | payer MEDICARE, MEDICAID, SELFPAY ==
--- OUTSIDE RECORDS SUMMARY | 2024-08-15 09:59 | XMS_ITS | Encounter Summary ---
Author Organization [facility] Address [address] [place] [address] [address] [place] [address] Care Team Providers Care Pr Specialist Name Role Phone Unavailable Primary Care Provider Unavailabl e Reason for Visit * Reason Comments endodontic Encounter Details Date Type Department Care Team ([facility] st Contact Info) Description 08/01/2024 8:00 AM EST Office Visit [facility] [address] [place] [address] Carroll Stevens DMD [address] [place] [address] Dental abscess (Primary Dx) Social History Tobacco Use Types Packs/Day Years Used Date Smoking Tobacco: Never Passive Smoke Exposure: Never Smokeless Tobacco: Never Sex and Gender Information Value Date Recorded Sex Assigned at Male 05/05/2022 10:18 AM EDT Legal Sex Male 10:18 AM EDT Gender Identity Male 05/05/2022 10:18 AM EDT Sexual Orientation Straight 05/05/2022 10 :18 AM EDT documented as of this encounter Progress Notes * Carroll Stevens DMD - 08/01/2024 8:00 AM EST Patient is here for a rct # 7 Rct procedure explained and consent taken for # 7. Confirmed profound anesthesia. Septocaine 1 carpule Infiltration given. Isolation: Rub[place] Found 1 canal Canals located: 1 Wl: 22 mm Cleaning and shaping done only f2 Cone fit x-rays taken Obturation done with bc sealer. Restorative Material: cotton pellet and ketac placed. Patient tolerated procedure well, no complications. Post op instructions given. . NV: Permanent filling on # 7 documented in this encounter Plan of Treatment Upcoming Encounters Date Type Department Care Team (Late st Contact Info) Description 08/15/2024 3:00 PM EST Office Visit [facility]ULT [facility] [address] [place] [address] Jennifer Butterfield, DDS [address] [place] [address] Scheduled Orders Name Type Priority Associated Diagnoses Orde r Schedule 7 7 RESTORATIVE - OTHER RESTORATIVE SERVICES - CORE BUILDUP, INCLUDING ANY PINS WHEN REQUIRED Dental Routine 1 Occurr ences starting 08/01/2024 documented as of this encounter Procedures Procedure Name Priority Date/Time Associated Diagnosis Comments 7 ENDODONTICS - ENDODONTIC THERAPY (INCLUDING TREATMENT PLAN, CLINICAL PROCEDURES AND FOLLOW-UP CARE) - ENDODONTIC THERAPY, ANTERIOR TOOTH (EXCLUDING FINAL MU-ISM) Routine 08/01/2024 8:00 AM EST ADJUNCTIVE GENERAL SERVICES - PROFESSIONAL VISITS - CASE PRESENTATION, SUBSEQUENT TO DETAILED AND EXTENSIVE TREATMENT PLANNING Routine 08/01/2024 8:00 AM EST documented in this encounter Visit Diagnoses Diagnosis Dental abscess- Primary Periapical abscess without sinus documented in this encounter
--- OUTSIDE RECORDS SUMMARY | 2024-08-15 09:59 | XMS_ITS | Encounter Summary ---
Author Organization [facility] Address [address] [facility] [address] [place] [address] Phone Care Team Providers Care Developer Programmer Name Role Phone Iron Garibay MD Primary Care Provider [phone] Reason for Visit * Reason Comments Med Refill Encounter Details Date Type Department Care Team (Late st Contact Info) Description 08/05/2024 Refill [facility] [address] [facility] [address] [place] [address] Yasir Santamaria MD [address] [address] Social History Tobacco Use Types Packs/Day Years Used Date Smoking Tobacco: Never Smokeless Tobacco: Never Alcohol Use Standard Drinks/Week Comments Not Currently 0 (1 standard drink = 0.6 oz pur e alcohol) Sex and Gender Information Value Date Recorded Sex Assigned at Not on file Legal Sex Male 8:43 AM EDT Gender Identity Not on file Sexual Orientation Not on file documented as of this encounter Plan of Treatment Upcoming Encounters Date Type Department Care Team (Late st Contact Info) Description 09/28/2024 3:15 PM EDT Office Visit [facility] [address] [facility] [address] [place] [address] Yasir Santamaria MD [address] [facility] [address] [place] [address] documented as of this encounter Visit Diagnoses Not on filedocumented in this encounter Care Teams Developer Programmer Relationship Specialty Start Date End Date Iron Garibay MD [address] [place] [address] PCP - General Internal Medicine 04/30/23 documented as of this encounter
--- OUTSIDE RECORDS SUMMARY | 2024-08-15 09:59 | XMS_ITS | Clinical Summary ---
Author Organization [facility] Address [address] [address] Phone Care Team Providers Care Exerciser Name Role Phone Iron Garibay MD Primary Care Provider [phone] Allergies Active Allergy Reactions Criticality Noted Date Comments Hydrochlorothiazide 05/26/2018 Other reaction(s): OTHER Excessive urination Levofloxacin 04/29/2022 Lisinopril 04/30/2023 Mometasone Furo-Formoterol Fum 04/29 Pramipexole 04/29/2022 Terazosin 04/29/2022 Medications venlafaxine XR (EFFEXOR-XR) 150 MG 24 hr capsule Take 150 mg by mouth 1 (one) time each day Active rOPINIRole (REQUIP) 0.25 MG tablet 03/27/20 23 Active omeprazole (PriLOSEC) [address] capsule Take 40 mg by mouth 06/15/20 19 Active Multiple Vitamin (Multi-Vitami n Daily) tablet Take by mouth 1 (one) time each day Active montelukast (SINGULAIR) 10 MG tablet Take 1 tablet by mouth at bed time 04/29/20 23 Active metFORMIN (GLUCOPHAGE) 500 MG tablet 03/27/20 23 Active meclizine (ANTIVERT) 25 MG tablet Take 25 mg by mouth in the morning and 25 mg in the evening. 03/30/20 23 Active losartan (COZAAR) 100 MG tablet 03/27/20 23 Active Lutein 6 MG capsule Take 1 capsule by mouth 1 (one) time each day Active Magnesium Oxide (DIASENSE MAGNESIUM PO) Take 400 mg by mouth 1 (one) time each day Active LORazepam (ATIVAN) 0.5 MG tablet TAKE 1 TABLET BY MOUTH EVERY MORNING AND 2 TABLETS AT BEDTIME 04/03/20 Active insulin NPH-insulin regular (NovoLIN 70/30 RELION) (70-30) 100 UNIT/ML injection INJECT 32 UNITS SUBCUTANEOUSLY TWICE DAILY BEFORE MEALS 03/25/20 Active RELION INSULIN SYR 0.3ML/31G 31G X 5/16 0.3 ML misc USE 1 SYRINGE DIRECTED TWICE DAILY 04/01/20 Active NovoLIN 70/30 RELION (70-30) 100 UNIT/ML injection INJECT 28 UNITS SUBCUTANEOUSLY TWICE DAILY BEFORE MEAL(S) 03/03/20 Active coenzyme Q-10 100 MG capsule Take 100 mg by mouth 1 (one) time each day Active diphenhydrAMI NE (Benadryl Allergy) 25 MG tablet Take 25 mg by mouth 06/15/20 19 Active Arginine 1000 MG tablet Take 1,000 mg by mouth 1 (one) time each day Active aspirin (ST EBEN) 81 MG EC tablet Take 81 mg by mouth 1 (one) time each day Active atenolol (TENORMIN) 50 MG tablet 03/27/20 23 Active Ashwagandha 500 MG capsule Take 500 mg by mouth 1 (one) time each day Active albuterol HFA (PROVENTIL HFA;VENTOLIN HFA) 108 (90 Base) MCG/ACT inhaler Inhale 2 puffs every 6 (six) hours if needed 06/20/20 11 Active fludrocortiso ne 0.1 MG tabletIndicat ions:Hyperten morris,Proteinu jaime, not otherwise specified TAKE 1 TABLET BY MOUTH EVERY DAY 90 tablet 1 04/11/20 24 Active indapamide (LOZOL) 2.5 MG tablet TAKE 1 TABLET BY MOUTH EVERY DAY IN THE EVENING 90 tablet 3 08/07/19 25 Active indapamide (LOZOL) 2.5 MG tablet Take 1 tablet (2.5 mg total) by mouth 1 (one) time each day in the evening 90 tablet 3 06/23/20 23 2024 Discontinued Active Problems Problem Noted Date Diagnosed Date Orthostatic hypotension 08/19/2023 Obstructive sleep apnea syndrome 04/30/2023 04/30/2023 Overview (04/30/2023): Follows with [facility] Pulm Hypertension 04/30/2023 04/30/2023 Overview (04/30/2023): Cardiac cath 02/2009 Depressive disorder 04/30/2023 04/30/2023 Asthma 04/30/2023 04/30/2023 Anxiety 04/30/2023 04/30/2023 Non-alcoholic fatty liver disease 10/03/2021 04/30/2023 Overview (04/30/2023): US Abdomen 09/23/21 Ascending aorta dilatation 09/26/202104/30 Vertigo 06/26/2021 04/30/2023 Overview (04/30/2023): Following with neurology (Brandie). Til test ordered. 06/2021 Last Assessment & Plan: I reviewed the MRI findings in detail with Marivel and there are no acute findings. Specifically, there is no mass lesion at the CP angle that may typically cause vertigo, no hydrocephalus and the region in question at the proximal aqueduct looks like the normal position of the veins. I reviewed this by phone with Dr. Valenzuela as this was his area of concern. The patient is pretty much at his wits end having gone through multiple tests and specialists without a diagnosis and the problem is not improving. Today he was markedly unsteady but not diaphoretic which typically accompanies the episodes. I reassured him that there was nothing that I could address based on that MRI and he plans to follow-up with his other treating physicians. 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 04/30/2023 Overview (04/30/2023): Polypoid lesion on trachea , repeat CT warranted, No additional information available on transferred notes from Dr Meeks 04/11/2016 Hyperlipidemia 02/14/2014 04/30/2023 Obesity 05/11/2013 04/30/2023 Benign prostatic hyperplasia 08/06/2012 Spermatocele of epididymis 04/27/201204/30 Overview (04/30/2023): Us 04/14 Encounters Date Type Department Care Team Description 08/05/2024 Refill [facility] [address] [place] [address] Yasir Santamaria MD from Last 3 Months Immunizations Name Administration Dates Next Due Influenza, MDCK, Quadrivalen t, with preservative 04/23/2022,03/22/2021,03/16/2020 Influenza, Unspecified 03/22/2021,05/09/2005 Wendy SARS-COV-2 06/16/2021,10/10/2020 Pfizer SARS-CoV-2 Bivalent 30 mcg/0.3 mL 023 Pneumococcal Conjugate 04/23/2022 Pneumococcal Conjugate 13-Valent 03/16/2020 Pneumococcal Polysaccharide 04/03/2021, 9 Shingrix 10/17/2022,07/19/2022 Td 09/21/2020 Tdap 09/12/2010 Family History Medical History Relation Comments Cancer Father Diabetes Mother Hypertension Mother Cancer Sister Relation Status Comments Father Mother Sister Social History Tobacco Use Types Packs/Day Years Used Date Smoking Tobacco: Never Smokeless Tobacco: Never Tobacco Cessation:Counseling Given: Not Answered Alcohol Use Standard Drinks/Week Comments Not Currently 0 (1 standard drink = 0.6 oz pur e alcohol) Sex and Gender Information Value Date Recorded Sex Assigned at Not on file Legal Sex Male 8:43 AM EDT Gender Identity Not on file Sexual Orientation Not on file Last Filed Vital Signs Vital Sign Reading Time Taken Comments Blood Pressure 130/84 04/30/2023 10:35 AM EDT Pulse 121 04/30/2023 10:35 AM EDT Temperature - - Respiratory Rate - - Oxygen Saturation - - Inhaled Oxygen Concentration - - Weight 120 kg (264 lb) 04/30/2023 10:35 AM EDT Height - - Body Mass Index - - Plan of Treatment Upcoming Encounters Date Type Department Care Team (Late st Contact Info) Description 09/28/2024 3:15 PM EDT Office Visit [facility] [address] [address] Yasir Santamaria MD [address] [address] Health Maintenance Due Date Last Done Comments Colorectal Cancer Screening: Annual FOBT 12/26/2007 Colorectal Cancer Screening: Colonoscopy 12/26/2007 Colorectal Cancer Screening: Sigmoidoscopy 12/26/2007 Diabetes: Ophthalmology Exam 12/22/2022 Diabetes: Pedal Pulse Checked 12/22/2022 Diabetes: Sensory Foot Exam 12/22/2022 Diabetes: Visual Foot Exam 12/22/2022 Influenza Vaccine (#1) 2024 2, 03/22/2021, 03/22/2021, Additional history exists Diabetes: Hemoglobin A1C 10/27/2024 025, 04/14/2024, 07/30/2023, Additional history exists Pneumococcal Vaccine: 65+ Years (4 of 4 - PPSV23 or PCV20) 04/03/2026 04/23/2022, 04/03/2021, 03/16/2020, Additional history exists Pneumococcal Vaccine: Pediatrics (0 to 5 Years) and At-Risk Patients (6 to 64 Years) (4 of 4 - PPSV23 or PCV20) 04/03/2026 04/23/2022, 04/03/2021, 03/16/2020, Additional history exists Hepatitis B Vaccine Aged Out No longe r eligible based on patient's age to complete this topic Insurance MEDICARE Member Subscriber Plan / Payer (Ef fective 2022-Present) Name:Marivel Bladimir Relation to Subscriber:Self Name:Bladimir Orta Payer ID:[id number] (NAIC) Type:Not on file Address: [place] [id number] Care Teams Exerciser Relationship Specialty Start Date End Date Iron Garibay MD [address] [place] [id number] PCP - General Internal Medicine 04/30/23
--- OUTSIDE RECORDS SUMMARY | 2024-08-15 09:59 | XMS_ITS | Encounter Summary ---
Author Organization [employer] [facility] Address [address] [place] [address] [address] [place] [address] Care Team Providers Care Beater Room Supervisor Name Role Phone Unavailable Primary Care Provider Unavailabl e Reason for Visit * Reason Onset Date Comments appt 01/20/2024 Encounter Details Date Type Department Care Team (Late st Contact Info) Description 01/20/2024 Telephone [facility] ADULT DENTAL [address] [place] [address] Jennifer Butterfield DDS [address] [place], [place] [phone] appt Social History Tobacco Use Types Packs/Day Years Used Date Smoking Tobacco: Never Passive Smoke Exposure: Never Smokeless Tobacco: Never Sex and Gender Information Value Date Recorded Sex Assigned at Male 05/05/2022 10:18 AM EDT Legal Sex Male 10:18 AM EDT Gender Identity Male 05/05/2022 10:18 AM EDT Sexual Orientation Straight 05/05/2022 10 :18 AM EDT documented as of this encounter Miscellaneous Notes * Telephone Encounter - Jeanne Garcia - 01/20/2024 12:46 PM EDT Patient is calling in checking in on the status of his appt. He'd like to be scheduling for his bahai appts. Morning or afternoon does not matter to him DR documented in this encounter Plan of Treatment Upcoming Encounters Date Type Department Care Team (Late st Contact Info) Description 08/15/2024 3:00 PM EST Office Visit [facility] ADULT [facility]AL [address] [place] [address] Jennifer Butterfield DDS [address] [place] [address] documented as of this encounter Visit Diagnoses Not on filedocumented in this encounter
--- OUTSIDE RECORDS SUMMARY | 2024-08-15 09:59 | XMS_ITS | Encounter Summary ---
Author Organization [facility] Address [address] [place] [address] Care Team Providers Care Riprap Worker Name Role Phone Iron Garibay MD Primary Care Provider [phone] Reason for Visit * Reason Onset Date Comments referral 07/08/2024 Encounter Details Date Type Department Care Team ([facility] st Contact Info) Description 07/08/2024 Telephone [facility] [address] [place] [phone] Trinh Meeks PA [address] [place] [address] referral Social History Tobacco Use Types Packs/Day Years Used Date Smoking Tobacco: Never Smokeless Tobacco: Never Alcohol Use Standard Drinks/Week Comments Yes 0 (1 standard drink = 0.6 oz pur e alcohol) Sex and Gender Information Value Date Recorded Sex Assigned at Male 05/19/2024 12:25 PM EST Legal Sex Male 8:33 PM EST Gender Identity Male 05/19/2024 12:25 PM EST Sexual Orientation Straight 05/19/2024 12 :25 PM EST documented as of this encounter Progress Notes * Giselle Ca RN - 08/01/2024 1:30 PM EST See TE dated 07/25 * Kristi Alvarez RN - 07/25/2024 8:44 AM EST I left a message for the pt to call the office at . * Iron Garibay MD - 07/24/2024 6:55 PM EST This is not a referral but basically a preop, he should have received a form from the dentist can we contact him to see if he has a dental procedure clearance form * Concepcion Silva RN - 07/11/2024 2:56 PM EST [facility] 04/14/24 NOV not scheduled Component Latest Ref Rng 04/14/2024 Hemoglobin A1C 6.5 % 10.3 ! (E) Legend: ! Abnormal (E) External lab result Pt requesting a dental letter, clearing him to have a root canal Please advise * MARNIE Nelson - 07/11/2024 2:55 PM EST This needs to be done by PCP * Batsheva Mendez - 07/08/2024 10:44 AM EST Patient is calling to get a referral to his dentist. He needs a referral saying he is ok to have a root canal. The dentist is:Jennifer Jackson [address] [place] [address] fax#[phone] documented in this encounter Plan of Treatment Upcoming Encounters Date Type Department Care Team (Late st Contact Info) Description 08/18/2024 9:40 AM EST Consult Gastroenterology - [place] [address] [place] [phone] Kavita Dodge, [place] [address] [facility] [address] [place] [address] 08/29/2024 1:00 PM EST Telemedicine [address] [phone] Trinh Meeks PA [address] [place] [address] 09/20/2024 8:00 AM EDT Office Visit Adult Medicine [address] [phone] Iron Garibay MD [address] [place] [place] [address] documented as of this encounter Visit Diagnoses Not on filedocumented in this encounter Care Teams Riprap Worker Relationship Specialty Start Date End Date Iron Garibay MD [address] [place] [address] PCP - General Internal Medicine 05/11/24 documented as of this encounter
--- OUTSIDE RECORDS SUMMARY | 2024-08-15 09:59 | XMS_ITS | Clinical Summary ---
Author Organization [facility] [address] [place] [address] [place] [phone] Phone Care Team Providers Care Fruit And Vegetable Classer Name Role Phone Iron Garibay MD Primary Care Provider [phone] Allergies Active Allergy Reactions Criticality Noted Date Comments Budesonide 10/15/2021 Formoterol 10/15/2021 Gabapentin 04/29/2022 Hydrochlorothiazide Other 05/26/2018 Excessive urination Levofloxacin 04/29/2022 Lisinopril Cough 09/19/2014 Mometasone-Formoterol 04/29/2022 Other 09/12/2010 Amoxicillin-k Clavulanate-saccharin Dust Mite Symbicort [Budesonide-formoterol Fumarate Dihydrate Pramipexole 04/29/2022 Terazosin 04/29/2022 Medications ashwagandha extract 500 mg capsule Take 500 mg by mouth daily. Active Autolet lancing device Use to test blood sugars once daily Active chromium picolinate 200 mcg tablet tablet Take 200 mcg by mouth. Active blood-glucose meter,continuo us (FreeStyle Manny 3 Powderhorn) misc 1 Device by Does not apply route daily. Dx Code E11.29 Active blood-glucose sensor (FREESTYLE MANNY 3 SENSOR MISC) 1 Device by Does not apply route every 14 days. Dx Code E11.29 Active UNABLE TO FIND 13 cm by Nasal route at bedtime. [employer]/bipap Active insulin syringe-needle U-100 1/2 mL 30 gauge syringe Use to administer insulin twice a day Active insulin syringe-needle U-100 0.5 mL 29 gauge x 1/2 syringe To using with insulin bid Active insulin syringe-needle U-100 0.3 mL 31 gauge x 5/16 syringe USE 1 SYRINGE DIRECTED TWICE DAILY Active lancets 33 gauge [facility] 2 Devices by Does not apply route daily. Use To test sugars twice a day Active magnesium oxide (MAG-OX) 400 mg magnesium tablet Take 1 Cap by mouth daily. Active DAILY MULTI-VITAMIN ORAL Take by mouth daily. Active blood sugar diagnostic (ONETOUCH ULTRA BLUE TEST STRIP [facility] [place]) Use to test blood sugar once daily. Active albuterol HFA (PROAIR HFA ; PROVENTIL HFA ; VENTOLIN HFA) 90 mcg/actuation inhaler Inhale 2 Puffs into the lungs every 4 hours as needed for Cough or Wheezing. Active arginine HCl, L-arginine, 1,000 mg tablet Take 1,000 mg by mouth daily. Active aspirin 81 mg EC tablet Take 81 mg by mouth daily. Active atenoloL (TENORMIN) 50 mg tablet Take 1 Tablet by mouth daily. [facility] Active diphenhydrAMIN E (BENADRYL) 25 mg capsule Take 25 mg by mouth daily. Active fluticasone propion-salmet Bradley (ADVAIR DISKUS) 500-50 mcg/dose diskus inhaler Inhale 1 Puff into the lungs every 12 hours for 90 days. Active indapamide (LOZOL) 2.5 mg tablet Take 1 Tablet by mouth at bedtime. Active losartan (COZAAR) 100 mg tablet Take 1 Tablet by mouth daily. Active lutein 6 mg capsule Take 1 Cap by mouth daily. Active montelukast (SINGULAIR) 10 mg tablet Take 1 Tablet by mouth at bedtime. Active tadalafiL (CIALIS) 5 mg tablet Take 1 Tablet by mouth once as needed. For sexual activity Active venlafaxine 150 mg 24 hr tablet Take 2 Tablets by mouth daily. Active coenzyme Q-10 100 mg capsule Take 100 mg by mouth daily. Active insulin NPH-insulin regular (HumuLIN,NovoL IN 70/30) 100 unit/mL (70-30) injection Inject 50 units SC Active rOPINIRole (REQUIP) 2 mg tablet Take 1 tablet (2 mg total) by mouth at bedtime. Active pregabalin (LYRICA) 75 mg capsule Take 1 capsule (75 mg total) by mouth 2 (two) times a day. Max Daily Amount: 150 mg 60 each 5 06/08/20 24 025 Active isosorbide dinitrate (ISORDIL) 10 mg tablet Take 1 tablet (10 mg total) by mouth 2 (two) times a day. 12/21/19 23 Active metFORMIN (GLUCOPHAGE) 500 mg tablet TAKE 2 TABLETS BY MOUTH TWICE DAILY WITH MEALS 240 tablet 1 06/13/20 24 Active omeprazole (PriLOSEC) [address] capsule TAKE 1 CAPSULE BY MOUTH DAILY 90 capsule 1 06/22/20 24 Active flash glucose sensor (FreeStyle Manny 2 Sensor) kit Change sensor every 14 days 2 EA 11 07/14/19 25 Active glucose blood test stripIndicatio ns:Type 2 diabetes mellitus with diabetic microalbuminur ia, with long-term current use of insulin ([facility]) Use to test blood sugar twice a day.E11.29 300 each 2 07/20/19 25 026 Active lancets 30 gauge miscIndication s:Type 2 diabetes mellitus with diabetic microalbuminur ia, with long-term current use of insulin ([facility]) Check blood sugar three times a day.E11.29 100 each 11 07/20/19 25 Active ferrous sulfate 325 mg (65 mg iron) EC tabletIndicati ons:Iron deficiency anemia, unspecified iron deficiency anemia type Take 1 tablet (325 mg total) by mouth 1 (one) time each day with breakfast. Do not crush, chew, or split. 90 each 1 08/01/19 25 025 Active docusate sodium (Colace) 100 mg capsuleIndicat ions:Iron deficiency anemia, unspecified iron deficiency anemia type Take 1 capsule (100 mg total) by mouth 1 (one) time each day. 90 each 1 08/01/19 25 025 Active diazePAM (VALIUM) 5 mg tablet TAKE 1 TABLET BY MOUTH TWICE A DAY 60 tablet 08/10/19 25 Active meclizine (ANTIVERT) 25 mg tablet Take 1 tablet (25 mg total) by mouth 3 (three) times a day if needed for dizziness. 30 tablet 1 08/11/19 25 025 Active fluticasone propion-salmet Bradley (ADVAIR DISKUS) 500-50 mcg/dose diskus inhaler Inhale into the lungs. 025 Discontinued(Du plicate order) meclizine (ANTIVERT) 25 mg tablet Take 1 Tablet by mouth 2 times daily as needed for Other (dizziness). 025 Discontinued(Re order) rOPINIRole (REQUIP) 0.5 mg tablet Take 1 Tablet by mouth every evening for 360 days. 025 Discontinued(Du plicate order) LORazepam (ATIVAN) 0.5 mg tablet Take 1 tablet (0.5 mg total) by mouth 3 (three) times a day. TAKE 1 TABLET BY MOUTH EVERY DAY IN THE MORNING AND TAKE 2 TABLETS BY MOUTH AT BEDTIME Max Daily Amount: 1.5 mg 84 tablet 05/11/20 24 025 Discontinued(Th erapy completed) rOPINIRole (REQUIP) 1 mg tablet TAKE 1 TABLET BY MOUTH IN THE EVENING 90 tablet 05/29/20 025 Discontinued(Fo rmulary change) diazePAM (VALIUM) 5 mg tablet TAKE 1 TABLET (5 MG TOTAL) BY MOUTH 2 (TWO) TIMES A DAY. MAX DAILY AMOUNT: 10 MG 60 tablet 07/11/19 025 Discontinued Active Problems Problem Noted Date Diagnosed Date Iron deficiency anemia 08/01/2024 Mild CAD 07/30/2024 Assessment & Plan (07/30/2024 9:11 AM EST): Continue cardiology follow up Continue isosorbide dinitrate BID and aspirin 81mg daily ASHLIE (obstructive sleep apnea) 04/22/2024 Overview (04/22/2024): Follows with [facility] Pulm Assessment & Plan (07/30/2024 9:11 AM EST): Continue BIPAP nightly Anxiety 04/22/2024 Depression 04/22/2024 Hypertension 04/22/2024 Overview (04/22/2024): Cardiac cath 02/2009 Assessment & Plan (07/30/2024 9:11 AM EST): Well controlled. Continue losartan 100mg daily, atenolol 50mg daily and indapamide 2.5 mg casandra GERD (gastroesophageal reflux disease) 4 Asthma 04/22/2024 Assessment & Plan (07/30/2024 9:11 AM EST): He follows with pulmonology. Continue advair BID , albuterol prn and montelukast nightly Fatty liver disease, nonalcoholic 10/03/2021 Overview (04/22/2024): US Abdomen 09/23/21 Ascending aorta dilatation 09/26/2021 RLS (restless legs syndrome) 06/26/2021 Overview (04/22/2024): Followsw [facility] neurology (josué) Assessment & Plan (07/30/2024 9:11 AM EST): continue ropinirole nightly Vertigo 06/26/2021 Overview (04/22/2024): Following with neurology (Brandie). Til test ordered. [...] to follow-up with his other treating physicians. Allergic rhinitis 02/03/2018 Hiatal hernia 02/03/2018 Diverticulosis 02/03/2018 Type 2 diabetes mellitus with renal manifestatio ns 07/30/2017 Assessment & Plan (07/30/2024 9:11 AM EST): continue humulin 70/30 45 U BID and metformin 1000mg BID. Continue follow up with Endocrinology A1c is 10.8. his diabetes is poorly controlled. 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 Overview (04/22/2024): Polypoid lesion on trachea , repeat CT warranted, No additional information available on transferred notes from Dr Meeks 04/11/2016 Hyperlipidemia 02/14/2014 Obesity 05/11/2013 BPH (benign prostatic hyperplasia) 08/06/2012 Spermatocele of epididymis 04/27/2012 Overview (04/22/2024): 04/14 Encounters Date Type Department Care Team Description 08/12/[address] [phone] Concepcion Silva, SHOSHANA 08/01/2024 Telephone Adult [address] [phone] Kristi Alvarez RN 07/29/2024 10:00 AM EST Consult Adult [address] [phone] Hermilo Hargrove MD Preop cardiovascular exam (Primary Dx); Type 2 diabetes mellitus with diabetic microalbuminuria, with long-term current use of insulin ([facility]); Normocytic anemia; Hypomagnesemia; ASHLIE (obstructive sleep apnea); Primary hypertension; Mild CAD; RLS (restless legs syndrome); Mild persistent asthma without complication 07/28/[address] [phone] Iron Garibay MD Pre-op Exam (RESCHEDULE from 07/28/24/Root Canal @ [facility] on 08/03/24) 07/25/[address] [phone] Iron Garibay MD returning triage phone call 07/15/[address] [phone] Iron Garibay MD Fitting for DME (Glucose Moniter) 07/08/[address] [phone] Trinh Meeks PA referral 07/05/[address] [phone] Chnaelle Rodrigues PA Blood Sugar Problem 06/27/[address] [phone] Trinh Meeks PA PROVIDER CALL BACK 06/08/2024 9:00 AM EST Office Visit Adult Medicine [address] [phone] Iron Garibay MD Vertigo (Primary Dx); Electric shock-type pain 06/08/2024 Telephone Adult Medicine [address] [phone] Iron Garibay MD PT-1 05/25/2024 Nurse Triage Adult [address] [phone] Iron Garibay MD Medication Reaction; Vertigo (ER visit 05/19 ) 05/19/2024 11:12 AM EST - 05/19/2024 3:06 PM [facility] [address] [place] [address] Dizziness (Primary Dx) Discharge Disposition: Home or Self Care 05/19/2024 Nurse Triage Adult Medicine [address] [phone] Iron Garibay MD Vertigo (Shocking of the Brain ) from Last 3 Months Immunizations Name Administration Dates Next Due Influenza Quadravalent, MDCK , 0.5ml, with preservative (Flucelvax) 6mo and older 04/23/2022,03/22/2021,03/16/2020 Influenza trivalent, 0.5mL, preservative free (Fluarix; FluLaval; Fluzone) ages 6mo and older (Afluria) 3 years and older 05/09/2005 Pfizer (ages 12 & older) Bivalent, COVID-19 11/2022 Pneumococcal conjugate 13 va lent (Prevnar 13, PCV13) 2mo and older 03/16/2020 Pneumococcal conjugate 20 va lent (Prevnar 20, PCV 20) 2mo and older 04/23/2022 Pneumococcal polysaccharide 23 valent (Pneumovax 23) 2yo and older 04/03/2021 Td Tetanus diptheria (Tdvax) 7yo and older 09/21 Tdap Tetanus diptheria acell ular pertussis (Boostrix; Adacel) 7yo and older 09/12/2010 Zoster recombinant (Shingrix ) 19yo and older 10/17/2022,07/19/2022 Surgical History Surgery Date Site/Laterality Comments CARDIAC CATHETERIZATION PROCEDURE: HISTORICAL CARDIAC CATH OTHER SURGICAL HISTORY 10/05/2019 PROCEDURE: RADIOLOGIC EXAM ESOPHAGUS SINGLE CONTRAST STUDY; COMMENT: [facility] - ? minimal schatzki ring distal esophagus, GERD, normal gastric emptying COLONOSCOPY 01/21/2010 PROCEDURE: HISTORICAL COLONOSCOPY; COMMENT: Dr Perez - mild sigmoid tics, internal hemorrhoids, o/w normal UPPER GASTROINTESTINAL ENDOSCOPY 01/21/2010 PROCEDURE: AR UPPER GI ENDOSCOPY PERFORMED; COMMENT: Dr Perez - erosive esophagitis, HH, otherwise normal OTHER SURGICAL HISTORY 10/07/2011 PROCEDURE: HISTORY OTHER; COMMENT: UPPP and T & A CATARACT EXTRACTION 2014 Bilateral PROCEDURE: HISTORICAL CATARACT REMOVAL HAND SURGERY 11/2015 Left PROCEDURE: HISTORICAL HAND SURGERY ESOPHAGOGASTRODUODENOSCOPY 05/20/2018 PROCEDURE: AR EGD TRANSORAL BIOPSY SINGLE/MULTIPLE; COMMENT: Esophagus suspicious for EOE. Esophagus dilated to 60 Albanian. Normal duodenum and stomach. Biopsies obtained. Pathology normal. Medical History Medical History Date Comments ASHLIE (obstructive sleep apnea) DX :ASHLIE (obstructive sleep apnea) Anxiety DX:Anxiety Depression DX:Depression GERD (gastroesophageal reflu x disease) DX:GERD (gastroesophageal re flux disease) Asthma DX:Asthma Spermatocele of epididymis 04/27/2012 DX:Sp ermatocele of epididymis DM (diabetes mellitus) type II controlled, neurological manifestation (CMS/HCC) 05/27/2013 DX:DM (diabetes mellitus) ty pe II controlled, neurological manifestation (HCC) Hypertension DX:Hypertension Obesity 05/11/2013 DX:Obesity Type 2 diabetes mellitus wit h renal manifestations (CMS/HCC) 07/30/2017 DX:Type 2 diabetes mellitus with renal manifestations (HCC) Chronic sinusitis 01/16/2017 DX:Chronic sin usitis Diverticulosis 02/03/2018 DX:Diverticulosi s Hiatal hernia 02/03/2018 DX:Hiatal hernia 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 DX:Mass of trach ea; COMMENT: Polypoid lesion on trachea , No additional information available on transferred notes Hyperlipidemia 02/14/2014 DX:Hyperlipidemi a Allergic rhinitis 02/03/2018 DX:Allergic rh initis Family History Medical History Relation Name Comments Diabetes Aunt Diabetes Mother Diabetes Paternal Grandmother Breast cancer Sister 1 Crohn's disease Sister 2 Relation Name Status Comments Aunt Mother Paternal Grandmother Sister 1 Sister 2 Social History Tobacco Use Types Packs/Day Years Used Date Smoking Tobacco: Never Smokeless Tobacco: Never Tobacco Cessation:Counseling Given: Not Answered Alcohol Use Standard Drinks/Week Comments Yes 0 (1 standard drink = 0.6 oz pur e alcohol) Sex and Gender Information Value Date Recorded Sex Assigned at Male 05/19/2024 12:25 PM EST Legal Sex Male 8:33 PM EST Gender Identity Male 05/19/2024 12:25 PM EST Sexual Orientation Straight 05/19/2024 12 :25 PM EST Obstetrics History Last Filed Vital Signs Vital Sign Reading Time Taken Comments Blood Pressure 126/76 07/29/2024 10:24 AM EST Pulse 67 07/29/2024 10:24 AM EST Temperature 36.4 ??C (97.6 ??F) 07/29/2024 10:[address] Respiratory Rate 16 07/29/2024 10:24 AM EST Oxygen Saturation 95% 05/19/2024 12:44 PM EST Inhaled Oxygen Concentration - - Weight 118 kg (260 lb) 07/29/2024 10:24 AM EST Height 193 cm (6' 4 ) 07/29/2024 10:24 AM EST Body Mass Index 31.65 07/29/2024 10:24 AM EST Plan of Treatment Upcoming Encounters Date Type Department Care Team (Late st Contact Info) Description 08/18/2024 9:40 AM EST Consult Gastroenterology - [place] [address] [place] [phone] Kavita Dodge, DALLIN [address] [facility] [address] [place] [address] 08/29/2024 1:00 PM EST Telemedicine Endocrinology [address] [phone] Trinh Meeks PA [address] [place] [address] 09/20/2024 8:00 AM EDT Office Visit Adult [facility] [place] - [address] [phone] Iron Garibay MD [address] [place] [address] Health Maintenance Due Date Last Done Comments Diabetes: Annual Foot Exam 1968 Diabetes: Annual Retina Eye Exam 1968 Hepatitis A Vaccines (1 of 2 - Risk 2-dose series) 1977 Hepatitis B Vaccines (1 of 3 - Risk 3-dose series) 2018 RSV Immunization Patients 60+ Years Old (1 - Risk 60-74 years 1-dose series) 2018 Depression Screening 06/14/2022 Medicare Annual Wellness Visit 06/14/2022 Social Influencers of Health Screening 06/14/2022 Falls Risk Assessment 12/26/2023 Diabetes: Annual Urine Albumin-Creatinine Ratio (uACR) 12/06/2024 12/07/2023 Colorectal Cancer Screening: Colonoscopy 01/02/2025 10/03/2019 Diabetes: Blood Sugar Control Test (HGBA1C) 01/26/2025 07/29/2024, 04/14/2024, 04/14/2024, Additional history exists Diabetes: Annual GFR (Glomerular Filtration Rate) 07/29/2025 07/29/2024, 05/19/2024, 12/07/2023, Additional history exists Hypertension/CHF/CAD Annual BMP Blood Test 07/29/2025 07/29/2024, 05/19/2024, 12/07/2023, Additional history exists Cholesterol Screening (Lipid Panel) 12/06/2028 12/07/2023, 12/07/2023 DTaP,Tdap,and Td Vaccines (4 - Td or Tdap) 02/25/2034 02/26/2024, 09/21/2020, 09/12/2010 Hepatitis C Screening Completed 03/01/2020 Pneumococcal Vaccine: 50+ Years Completed 04/23/2022, 04/03/2021, 03/16/2020, Additional history exists Pneumococcal Vaccine: Pediatrics (0 to 5 Years) and At-Risk Patients (6 to 64 Years) Completed 04/23/2022, 04/03/2021, 03/16/2020, Additional history exists Zoster Vaccines Completed 10/17/2022, 07/19/2022 COVID-19 Vaccine Completed 06/15/2024, , 03/23/2023, Additional history exists Influenza Vaccine Completed 06/15/2024, , 03/23/2023, Additional history exists HIB Vaccines Aged Out No longer eligi ble based on patient's age to complete this topic HPV Vaccines Aged Out No longer eligi ble based on patient's age to complete this topic IPV Vaccines Aged Out No longer eligi ble based on patient's age to complete this topic MMR Vaccines Aged Out No longer eligi ble based on patient's age to complete this topic Meningococcal ACWY Vaccine Aged Out N o longer eligible based on patient's age to complete this topic Meningococcal B Vacine Aged Out No lo nger eligible based on patient's age to complete this topic RSV Immunization Patients Under 20 months Aged Out No longer eligible based on patient's age to complete this topic Varicella Vaccines Aged Out No longer eligible based on patient's age to complete this topic Procedures Procedure Name Priority Date/Time Associated Diagnosis Comments CBC WITH AUTO DIFFERENTIAL Routine 07/29/2024 11:29 AM EST Normocytic anemia HEMOGLOBIN A1C Routine 07/29/2024 11:29 AM EST Type 2 diabetes mellitus with diabetic microalbuminuria, with long-term current use of insulin ([facility]) BASIC METABOLIC PANEL Routine 07/29/2024 11:29 AM EST Preop cardiovascular exam CBC AND DIFFERENTIAL Routine 07/29/2024 11:29 AM EST Normocytic anemia MAGNESIUM Routine 07/29/2024 11:29 AM EST Hypomagnesemia IRON AND TIBC Routine 07/29/2024 11:29 AM EST Normocytic anemia FERRITIN Routine 07/29/2024 11:29 AM EST Normocytic anemia VITAMIN B12 Routine 07/29/2024 11:29 AM EST Normocytic anemia FOLATE Routine 07/29/2024 11:29 AM EST Normocytic anemia ECG 12-LEAD Routine 07/29/2024 9:[address] HEAD WO CONTRAST STAT 05/19/2024 1 :55 PM EST POCT GLUCOSE BLOOD Routine 05/19/2024 11 :54 AM EST CBC WITH AUTO DIFFERENTIAL STAT 05/19/2024 11:50 AM EST MAGNESIUM STAT 05/19/2024 11:50 AM EST BASIC METABOLIC PANEL STAT 05/19/2024 11:50 AM EST CBC AND DIFFERENTIAL STAT 05/19/2024 11:50 AM EST ECG 12-LEAD STAT 05/19/2024 11:38 AM EST ECG ANNOTATED 05/19/2024 HM URINE ALBUMIN CREATININE RATIO Routine 12/07/2023 LIPID PANEL Routine 12/07/2023 HM HEPATITIS C SCREENING Routine 03/01/2020 HM COLONOSCOPY Routine 10/03/2019 from Last 3 Months or Most Recently Relevant to Health Maintenance Results * (ABNORMAL) CBC auto differential (07/29/2024 11:29 AM EST) Only the most recent of2 resultswithin the time period is included. WBC 7.5 4.8 - 10.8 K/mcL LAB HEMETOLOGY METHOD 07/29/2024 2:06 PM [facility] RBC 4.10(L) 4.50 - 5.50 M/mcL LAB HEMETOLOGY METHOD 07/29/2024 2:06 PM [facility] Hemoglobin 11.7(L) 13.5 - 17.5 g/dL LAB HEMETOLOGY METHOD 07/29/2024 2:06 PM [facility] Hematocrit 37.1(L) 42.0 - 54.0 % LAB HEMETOLOGY METHOD 07/29/2024 2:06 PM [facility] MCV 90.7 79.0 - 98.0 FL LAB HEMETOLOGY METHOD 07/29/2024 2:06 PM [facility] MCH 28.6 27.0 - 32.0 pcg LAB HEMETOLOGY METHOD 07/29/2024 2:06 PM [facility] MCHC 31.5(L) 32.0 - 37.0 g/dL LAB HEMETOLOGY METHOD 07/29/2024 2:06 PM [facility] RDW 13.9 11.0 - 15.0 % LAB HEMETOLOGY METHOD 07/29/2024 2:06 PM [facility] Platelets 341 130 - 400 K/mcL LAB HEMETOLOGY METHOD 07/29/2024 2:06 PM [facility] MPV 10.5 7.0 - 11.0 FL LAB HEMETOLOGY METHOD 07/29/2024 2:06 PM [facility] NRBC 0.0 <1.0 % LAB HEMETOLOGY METHOD 07/29/2024 2:06 PM [facility] NRBC Absolute 0.00 <0.10 K/mcL LAB HEMETOLOGY METHOD 07/29/2024 2:06 PM [facility] Neutrophils Relative 62.8 % LAB HEMETOLOGY METHOD 07/29/2024 2:06 PM [facility] Lymphocytes Relative 24.6 % LAB HEMETOLOGY METHOD 07/29/2024 2:06 PM [facility] Monocytes Relative 7.8 % LAB HEMETOLOGY METHOD 07/29/2024 2:06 PM [facility] Eosinophils Relative 3.8 % LAB HEMETOLOGY METHOD 07/29/2024 2:06 PM [facility] Basophils Relative 0.5 % LAB HEMETOLOGY METHOD 07/29/2024 2:06 PM [facility] Immature Granulocytes Relative 0.5 % LAB HEMETOLOGY METHOD 07/29/2024 2:06 PM [facility] Neutrophils Absolute 4.68 1.50 - 7.00 K/mcL LAB HEMETOLOGY METHOD 07/29/2024 2:06 PM [facility] Lymphocytes Absolute 1.83 1.00 - 5.00 K/mcL LAB HEMETOLOGY METHOD 07/29/2024 2:06 PM [facility] Monocytes Absolute 0.58 0.20 - 1.00 K/mcL LAB HEMETOLOGY METHOD 07/29/2024 2:06 PM [facility] Eosinophils Absolute 0.28 0.00 - 0.50 K/mcL LAB HEMETOLOGY METHOD 07/29/2024 2:06 PM [facility] Basophils Absolute 0.04 0.00 - 0.20 K/mcL LAB HEMETOLOGY METHOD 07/29/2024 2:06 PM [facility] Immature Granulocytes Absolute 0.04(H) 0.00 - 0.03 K/mcL LAB HEMETOLOGY METHOD 07/29/2024 2:06 PM EST [facility] Blood Venous blood specimen / Unknown Venipuncture / Unknown 07/29/2024 11:29 AM EST 07/29/2024 11:29 AM EST Hermilo Hargrove MD LAB BLOOD ORDERA BLES Final Result Performing Organization Address City/[facility]/ZIP Co de Phone Number [facility] [address] [place] [address], [place] [phone] * (ABNORMAL) Iron and TIBC (07/29/2024 11:29 AM EST) Iron 52 50 - 160 mcg/dL LAB CHEMISTRY METHOD 07/29/2024 4:58 PM [facility] TIBC 496(H) 250 - 450 mcg/dL LAB CHEMISTRY METHOD 07/29/2024 4:58 PM [facility] Iron Saturation 10(L) 20 - 50 % LAB CHEMISTRY METHOD 07/29/2024 4:58 PM EST [facility] Blood Venous blood specimen / Unknown Venipuncture / Unknown 07/29/2024 11:29 AM EST 07/29/2024 11:29 AM EST Hermilo Hargrove MD LAB BLOOD ORDERA BLES Final Result Performing Organization Address City/[facility]/ZIP Co de Phone Number [facility] [address] [place] [address], [place] [phone] * Magnesium (07/29/2024 11:29 AM EST) Only the most recent of2 resultswithin the time period is included. Magnesium 1.9 1.9 - 2.6 mg/dL LAB CHEMISTRY METHOD 07/29/2024 4:58 PM EST [facility] Blood Venous blood specimen / Unknown Venipuncture / Unknown 07/29/2024 11:29 AM EST 07/29/2024 11:29 AM EST Hermilo Hargrove MD LAB BLOOD ORDERA BLES Final Result Performing Organization Address City/[facility]/ZIP Co de Phone Number [facility] [address] [place] [address], [place] [phone] * (ABNORMAL) Hemoglobin A1c (07/29/2024 11:29 AM EST) Pathologist [facility] Hemoglobin A1C 10.8(H) <6.5 % LAB CHEMISTRY METHOD 07/29/2024 9:46 PM EST [facility] Mean Bld Glu Estim. 263 mg/dL LAB CHEMISTRY METHOD 07/29/2024 9:46 PM EST [facility] Blood Venous blood specimen / Unknown Venipuncture / Unknown 07/29/2024 11:29 AM EST 07/29/2024 11:29 AM EST Hermilo Hargrove MD LAB BLOOD ORDERA BLES Final Result Performing Organization Address [facility] Co de Phone Number [facility] [address] [place] [address], [place] [phone] * (ABNORMAL) Folate (07/29/2024 11:29 AM EST) Pathologist [facility] Folate >20.0(H) 2.8 - 17.0 ng/ml LAB CHEMISTRY METHOD 07/29/2024 5:21 PM EST [facility] Blood Venous blood specimen / Unknown Venipuncture / Unknown 07/29/2024 11:29 AM EST 07/29/2024 11:29 AM EST Hermilo Hargrove MD LAB BLOOD ORDERA BLES Final Result [facility] [address] [place] [address], [place] [phone] * (ABNORMAL) Ferritin (07/29/2024 11:29 AM EST) [facility] Ferritin 24(L) 26 - 388 ng/mL LAB CHEMISTRY METHOD 07/29/2024 5:21 PM EST [facility] Blood Venous blood specimen / Unknown Venipuncture / Unknown 07/29/2024 11:29 AM EST 07/29/2024 11:29 AM EST Hermilo Hargrove MD LAB BLOOD ORDERA BLES Final Result Performing Organization Address City/[facility]/ZIP Co de Phone Number [facility] [address] [place] [address], [place] [phone] * (ABNORMAL) Vitamin B12 (07/29/2024 11:29 AM EST) [facility] Vitamin B-12 1,661(H) 250 - 900 pcg/mL LAB CHEMISTRY METHOD 07/29/2024 5:21 PM EST [facility] Blood Venous blood specimen / Unknown Venipuncture / Unknown 07/29/2024 11:29 AM EST 07/29/2024 11:29 AM EST Hermilo Hargrove MD LAB BLOOD ORDERA BLES Final Result [facility] [address] [place] [address], [place] [phone] * (ABNORMAL) Basic metabolic panel (07/29/2024 11:29 AM EST) Only the most recent of2 resultswithin the time period is included. [facility] Sodium 135 133 - 145 mmol/L LAB CHEMISTRY METHOD 07/29/2024 4:58 PM EST [facility] Potassium 4.1 3.5 - 5.5 mmol/L LAB CHEMISTRY METHOD 07/29/2024 4:58 PM [facility] Chloride 99 96 - 110 mmol/L LAB CHEMISTRY METHOD 07/29/2024 4:58 PM [facility] CO2 32 21 - 32 mmol/L LAB CHEMISTRY METHOD 07/29/2024 4:58 PM [facility] Anion Gap 4 3 - 11 LAB CHEMISTRY METHOD 07/29/2024 4:58 PM [facility] Glucose 127(H) 70 - 100 mg/dL LAB CHEMISTRY METHOD 07/29/2024 4:58 PM [facility] BUN 24 5 - 25 mg/dL LAB CHEMISTRY METHOD 07/29/2024 4:58 PM [facility] Creatinine 1.10 0.70 - 1.30 mg/dL LAB CHEMISTRY METHOD 07/29/2024 4:58 PM [facility] eGFR 74 >=60 mL/min/1. 73m2 LAB CHEMISTRY METHOD 07/29/2024 4:58 PM [facility] Comment:Calculation based on the??Chronic Kidney Disease Epidemiology Collaboration (CKD-EPI) equation refit??without adjustment for race. BUN/Creatinine Ratio 21.8 LAB CHEMISTRY METHOD 07/29/2024 4:58 PM [facility] Calcium 9.4 8.5 - 10.5 mg/dL LAB CHEMISTRY METHOD 07/29/2024 4:58 PM [facility] Blood Venous blood specimen / Unknown Venipuncture / Unknown 07/29/2024 11:29 AM EST 07/29/2024 11:29 AM EST Hermilo Hargrove MD LAB BLOOD ORDERA BLES Final Result [facility] [address] [place] [address], * ECG 12 lead (07/29/2024 9:49 AM EST) Hermilo Hargrove MD ECG ORDERABLES Final Result * CT Head wo Contrast (05/19/2024 1:55 PM EST) Anatomical Region Laterality Modality Head and Neck Computed Tomogra phy 05/19/2024 1:59 PM EST Impressions 05/19/2024 2:03 PM EST No acute intracranial findings. -------- FINAL REPORT -------- Dictated By: Satinder Fabian Dictated Date: 05/19/2024 13:59 ET Assigned Physician: Satinder Fabian Reviewed and Electronically Signed By: Satinder Fabian Signed Date: 05/19/2024 14:03 ET Workstation ID: [id number] Transcribed By: Self Edit Transcribed Date: 05/19/2024 13:59 ET Narrative 05/19/2024 2:[address] dated 05/19/2024. HISTORY: Dizziness, non-specific. COMPARISON: None. TECHNIQUE: Noncontrast head CT with coronal and sagittal reformats. Dose length product: 901 mGy-cm. FINDINGS: Brain: No hemorrhage, edema, mass, or extra-axial fluid collection. ??No CT evidence of an acute large vessel infarct. ??Ventricles and sulci are age commensurate. ??Atherosclerotic calcifications of the vertebral arteries and carotid siphons. Sinuses/mastoids: Small amount of layering fluid in the left sphenoid sinus. ??The anterior clinoids are pneumatized and communicate with the sphenoid sinuses. Orbits: Lens implants. Calvarium: Mild hyperostosis frontalis interna. Other: The skull base soft tissues are normal. Procedure Note Satinder Fabian MD - 05/19/[address] dated 05/19/2024. HISTORY: Dizziness, non-specific. COMPARISON: None. TECHNIQUE: Noncontrast head CT with coronal and sagittal reformats. Dose length product: 901 mGy-cm. FINDINGS: Brain: No hemorrhage, edema, mass, or extra-axial fluid collection. No CTevidence of an acute large vessel infarct. Ventricles and sulci are agecommensurate. Atherosclerotic calcifications of the vertebral arteriesand carotid siphons. Sinuses/mastoids: Small amount of layering fluid in the left sphenoidsinus. The anterior clinoids are pneumatized and communicate with thesphenoid sinuses. Orbits: Lens implants. Calvarium: Mild hyperostosis frontalis interna. Other: The skull base soft tissues are normal. IMPRESSION: No acute intracranial findings. -------- FINAL REPORT -------- Dictated By: Satinder Fabian Dictated Date: 05/19/2024 13:59 ET Assigned Physician: Satinder Fabian Reviewed and Electronically Signed By: Satinder Fabian Signed Date: 05/19/2024 14:03 ET Workstation ID: [id number] Transcribed By: Self Edit Transcribed Date: 05/19/2024 13:59 ET [facility] D[facility] IMG CT PROCEDURES Final Resul t * (ABNORMAL) POCT Glucose, blood (05/19/2024 11:54 AM EST) [facility] Glucose POCT 201(H) 70 - 100 mg/dL 05/19/2024 11:55 AM EST [facility] Blood Capillary blood specimen / Unknown 05/19/2024 11:54 AM EST 05/19/2024 11:56 AM EST us Generic Provider Poct LAB POINT OF CARE TEST DOCKED DEVICE UNSOLICITED RESULTS Final Result [facility]) [facility] [address] [place] [address], [place] [phone] * ECG 12 lead (05/19/2024 11:38 AM EST) Ventricular Rate ECG 73 BPM GEMUSE Atrial Rate 73 BPM GEMUSE P-R Interval 202 ms GEMUSE QRS Duration 94 ms GEMUSE Q-T Interval 416 ms GEMUSE QTc 458 ms GEMUSE P Wave [place] 84 degrees GEMUSE R [place] 20 degrees GEMUSE T [place] 35 degrees GEMUSE ECG Interpretation Normal sinus rhythm Nonspecific T wave abnormality Abnormal ECG When compared with ECG of 18-DEC-2022 09:49, No significant change was found Confirmed by MD Soto Christopher ([id number]) on 05/19/2024 11:10:36 PM GEMUSE 05/19/2024 11:3 8 AM EST 05/19/2024 11:10 PM EST Nitza DYE ECG ORDERABLES Final Result GEMUSE * ECG-Annotated (05/19/2024) Result [facility] Provider Onbase ECG ORDERABLES Final Result * Urine Albumin Creatinine Ratio (12/07/2023) Pathologist [facility] Urine Albumin Creatinine Ratio abstracted Result [facility] Historical Provider HEALTH MAINTENANCE Final Result * (ABNORMAL) Lipid panel (12/07/2023) [facility] LDL/HDL Ratio 5(A) 0 - 4 Triglycerides 232(A) 0 - 150 mg/dL Cholesterol 186 0 - 200 mg/dL HDL 40 >=40 mg/dL LDL Cholesterol 100 0 - 100 mg/dL Blood Venous blood specimen / Unknown Result [facility] Provider LAB BLOOD ORDERABLES Catarina l Result * Hepatitis C Screening (03/01/2020) Pathologist [facility] Hepatitis C Screening abstracted Result [facility] Provider HEALTH MAINTENANCE Final Result * Colonoscopy (10/03/2019) [facility] Colonoscopy no interpretation abstracted Anatomical Region Laterality Modality Other Result [facility] Historical Provider HEALTH MAINTENANCE Final Result from Last 3 Months or Most Recently Relevant to Health Maintenance Insurance [employer] MEDICARE MEDICAID - [place] Advance Directives Documents on File Type Date Recorded Patient Patient Liaison Expl anation Health Care Decision (hx) 12/22/2022 AD TIM DIRECTIVE Health Care Decision (hx) 12/22/2022 AD TIM DIRECTIVE Care Teams Fruit And Vegetable Classer Relationship Specialty Start Date End Date Iron Garibay MD [address] [place] [id number] PCP - General Internal Medicine 05/11/24
--- OUTSIDE RECORDS SUMMARY | 2024-08-15 09:59 | XMS_ITS | Encounter Summary ---
Author Organization [facility] Address [address] [place] [address] Care Team Providers Care Paintings Conservator Name Role Phone Iron Garibay MD Primary Care Provider [phone] Reason for Visit * Reason Onset Date Comments returning triage phone call 07/25/2024 Encounter Details Date Type Department Care Team (Late st Contact Info) Description 07/25/2024 Telephone Adult Medicine [address] [phone] Iron Garibay MD [address] [place] [phone] returning triage phone call Social History Tobacco Use Types Packs/Day Years [...] as of this encounter Progress Notes * Gale Hughes - 07/25/2024 1:58 PM EST Pre-op appointment scheduled and confirmed with patient * Kristi Alvarez RN - 07/25/2024 11:23 AM EST Called and spoke to pt. He states he is scheduled to have a root canal on 08/01/24 and is in need of medical clearance priorto this procedure. Will send to pre-op pool. * Bhumi Rob - 07/25/2024 10:43 AM EST Patient states he is returning a phone call from Kristi. States she called him this morning while hewas out shoveling. I don't see any message from Kristi ??? documented in this encounter Plan of Treatment Upcoming Encounters Date Type Department Care Team (Late st Contact Info) Description 08/18/2024 9:40 AM EST Consult Gastroenterology - [place] 175 [facility] 175 [facility] [address] [place] [address] Kavita Dodge NP 175 [facility] [address] [place] [address] 08/29/2024 1:00 PM EST Telemedicine Endocrinology [address] [phone] Trinh Meeks PA [facility] [place] [address] 09/20/2024 8:00 AM EDT Office Visit Adult Medicine [address] [phone] Iron Garibay MD [address] [place] [address] documented as of this encounter Visit Diagnoses Not on filedocumented in this encounter Care Teams Paintings Conservator Relationship Specialty Start Date End Date Iron Garibay MD [address] [place] [address] PCP - General Internal Medicine 05/11/24 documented as of this encounter
--- OUTSIDE RECORDS SUMMARY | 2024-08-15 09:59 | XMS_ITS | Clinical Summary ---
Author Organization [employer] Address [address] [place] [address] [address] [place] [address] Care Team Providers Care Technical Sme Name Role Phone Unavailable Primary Care Provider Unavailabl e Allergies Active Allergy Reactions Criticality Noted Date Comments Amoxicillin 11/25/2023 Gabapentin 11/25/2023 Levofloxacin 04/29/2022 Lisinopril Cough 05/21/2017 Pramipexole 04/29/2022 Terazosin 04/29/2022 Medications albuterol 108 (90 Base) MCG/ACT inhaler INHALE 2 PUFFS BY MOUTH EVERY 6 HORUS NEEDED FOR SHORTNESS OF BREATH OR WHEEZING Active ASHWAGANDHA PO Take 500 mg by mouth Once per day. Active aspirin 81 MG EC tablet Take 81 mg by mouth Once per day. Active arginine 1000 MG tablet Take 1,000 mg by mouth Once per day. Active diphenhydrAMINE (BENADryl) 25 MG tablet Take 25 mg by mouth. 9 Active fludrocortisone (Florinef) 0.1 MG tablet Take 0.1 mg by mouth Once per day. 4 Active Wixela Inhub 500-50 MCG/ACT aerosol powder Inhale 1 puff 2 times daily. Active indapamide (Lozol) 2.5 MG tablet Take 2.5 mg by mouth in the evening. Active BD Insulin Syringe U/F 30G X 1/2 0.5 ML misc USE TO ADMINISTER INSULIN TWICE A DAY 4 Active LORazepam (Ativan) 0.5 MG tablet TAKE 1 TABLET BY MOUTH EVERY DAY IN THE MORNING AND TAKE 2 TABLETS BY MOUTH AT BEDTIME Active losartan (Cozaar) 100 MG tablet 6 Active Lutein 6 MG capsule Take 1 capsule by mouth Once per day. Active meclizine (Antivert) 12.5 MG tablet Take 2 tablets by mouth every 8 (eight) hours. 4 Active metFORMIN (Glucophage) 500 MG tablet 6 Active Multiple Vitamin (Multi-Vitamin Daily) tablet Take by mouth Once per day. Active rOPINIRole (Requip) 0.5 MG tablet TAKE 1 TABLET BY MOUTH EVERY NIGHT AT BEDTIME AND 1 TABLET AT MIDNIGHT 4 Active tadalafil (Cialis) 5 MG tablet TAKE ONE TABLET BY MOUTH ONCE DAILY FOR SEXUAL ACTIVITY. 4 Active venlafaxine XR (Effexor XR) 150 MG 24 hr capsule Take 150 mg by mouth Once per day. Active Sodium Fluoride (PreviDent 5000 Booster Plus) 1.1 % paste Valmy for two minute rinse but dont spit and do not eat or drink for the next 30mint 112 g 3 4 Active Encounters Date Type Department Care Team Description 08/01/2024 8:00 AM EST Office Visit [facility] ADULT DENTAL [address] [place] [address] Carroll Stevens, [place] Dental abscess (Primary Dx) 07/29/2024 Telephone [facility] ADULT DENTAL [address] [place] [address] Jennifer Butterfield DDS 06/23/2024 10:00 AM EST Office Visit [facility] ADULT [facility] [address] [place] [address] Jennifer Butterfield DDS from Last 3 Months Social History Tobacco Use Types Packs/Day Years Used Date Smoking Tobacco: Never Passive Smoke Exposure: Never Smokeless Tobacco: Never Tobacco Cessation:Counseling Given: Not Answered Sex and Gender Information Value Date Recorded Sex Assigned at Male 05/05/2022 10:18 AM EDT Legal Sex Male 10:18 AM EDT Gender Identity Male 05/05/2022 10:18 AM EDT Sexual Orientation Straight 05/05/2022 10 :18 AM EDT Last Filed Vital Signs Vital Sign Reading Time Taken Comments Blood Pressure 136/82 02/25/2024 9:02 AM EDT Pulse 65 11/25/2023 2:04 PM EDT Temperature - - Respiratory Rate - - Oxygen Saturation - - Inhaled Oxygen Concentration - - Weight - - Height - - Body Mass Index - - Plan of Treatment Upcoming Encounters Date Type Department Care Team (Late st Contact Info) Description 08/15/2024 3:00 PM EST Office Visit [facility] ADULT [facility] [address] [place] [address] Jennifer Butterfield, DDS [address] [place] [address] Health Maintenance Due Date Last Done Comments CT Colonography 1958 Colonoscopy 1958 Colorectal Cancer Screening 1958 Depression Screening 1958 FIT DNA/Cologuard 1958 FIT 1958 FOBT 1958 Lipid Panel 1958 SDOH Screening 1958 Sigmoidoscopy 1958 Alcohol/Substance Use Screening 1970 Hepatitis C Screening 1976 Hepatitis A Vaccines (1 of 2 - Risk 2-dose series) 1977 Hepatitis B Vaccines (1 of 3 - Risk 3-dose series) 2018 RSV Patients and Patients Aged 60 years or older (1 - Risk 60-74 years 1-dose series) 2018 Dental Oral Exam 05/28/2024 11/25/2023, , 12/20/2018, Additional history exists Dental Prophylaxis 05/28/2024 11/25/2023, 0 01/29/2021, 07/18/2019, Additional history exists Dental X-Ray: Bitewings 11/25/2024 11/25/19 24, 01/29/2021, 12/20/2018, Additional history exists Tobacco Screening 03/18/2025 03/18/2024 Dental X-Ray: Full Mouth 11/25/2026 11/25/2023, 12/05 DTaP/Tdap/Td Vaccines (4 - Td or Tdap) 02/25/2034 02/26/2024, 09/21/2020, 09/12/2010 Pneumococcal Vaccine: 50+ Years Completed 04/23/2022, 04/23/2022, 04/03/2021, Additional history exists Zoster Vaccines Completed 10/17/2022, [...] patient's age to complete this topic Meningococcal Vaccine Aged Out No jai chan eligible based on patient's age to complete this topic RSV under 20 months Aged Out No longe r eligible based on patient's age to complete this topic Rotavirus Vaccines Aged Out No longer eligible based on patient's age to complete this topic Procedures Procedure Name Priority Date/Time Associated Diagnosis Comments ADJUNCTIVE GENERAL SERVICES - PROFESSIONAL VISITS - CASE PRESENTATION, SUBSEQUENT TO DETAILED AND EXTENSIVE TREATMENT PLANNING Routine 08/01/2024 8:00 AM EST 7 ENDODONTICS - ENDODONTIC THERAPY (INCLUDING TREATMENT PLAN, CLINICAL PROCEDURES AND FOLLOW-UP CARE) - ENDODONTIC THERAPY, ANTERIOR TOOTH (EXCLUDING FINAL AMISH) Routine 08/01/2024 8:00 AM EST CONSULTATION - DIAGNOSTIC SERVICE PROVIDED BY DENTIST OR PHYSICIAN OTHER THAN REQUESTING DENTIST OR PHYSICIAN Routine 06/23/2024 10:00 AM EST PROPHYLAXIS - ADULT Routine 11/25/2023 2 :00 PM EDT DIAGNOSTIC - DIAGNOSTIC IMAGING - INTRAORAL - COMPREHENSIVE SERIES OF RADIOGRAPHIC IMAGES Routine 11/25/2023 2:00 PM EDT PERIODIC ORAL EVALUATION - ESTABLISHED PATIENT Routine 11/25/2023 2:00 PM EDT from Last 3 Months or Most Recently Relevant to Health Maintenance Insurance [facility] MEDICAID STAND ADULT
--- OUTSIDE RECORDS SUMMARY | 2024-08-15 09:59 | XMS_ITS | Clinical Summary ---
Author Organization [facility] Address [address] [place] [address] Care Team Providers Care Grey Stock Recorder Name Role Phone Iron Garibay MD Primary Care Provider [phone] Allergies Active Allergy Reactions Criticality Noted Date Comments Dust Mite Extract 05/21/2017 Lisinopril 05/21/2017 Seasonal 05/21/2017 Medications Medication Sig Dispensed Refills Start Date End Date Status indapamide (LOZOL) 1.25 MG tablet Take 1.25 mg by mouth every morning. 0 Active metFORMIN (GLUCOPHAGE) tablet 500 mg Take 500 mg by mouth 2 (two) times a day with meals. 0 Active losartan (COZAAR) 100 MG tablet Take 100 mg by mouth daily. 0 Active omeprazole (PRILOSEC) 20 MG capsule Take 20 mg by mouth daily. 0 Active montelukast (SINGULAIR) 10 MG tablet Take 10 mg by mouth every night at bedtime. 0 Active naproxen (NAPROSYN) 500 MG tablet Take 500 mg by mouth 2 (two) times a day with meals. 0 Active methocarbamol (ROBAXIN) 750 MG tablet Take 750 mg by mouth every night at bedtime as needed. 0 Active verapamil (CALAN-SR) 120 MG CR tablet Take 120 mg by mouth every night at bedtime. 0 Active Magnesium Oxide 400 (241.3 MG) MG TABS tablet Take 400 mg by mouth daily. 0 Active [place]-3 Fatty Acids (FISH OIL) 1200 MG CAPS Take by mouth. 0 Active B Complex Vitamins (B COMPLEX PO) Take by mouth. 0 Active Lutein 6 MG TABS Take 6 mg by mouth daily. 0 Active albuterol (PROVENTIL HFA;VENTOLIN HFA) 108 (90 BASE) MCG/ACT inhaler Inhale 2 puffs into the lungs every 6 (six) hours as needed for wheezing. 0 Active LORazepam (ATIVAN) 0.5 MG tablet Take 0.5 mg by mouth 2 (two) times a day. 0 Active fluticasone-salmeter ol (ADVAIR DISKUS) 500-50 MCG/DOSE DISKUS 1 inhalation by Inhaled route every 12 (twelve) hours. 0 Active venlafaxine (EFFEXOR-XR) 150 MG 24 hr capsule Take 150 mg by mouth daily. 0 Active Active Problems Problem Noted Date Diagnosed Date Anemia in other chronic diseases classified else where 05/22/2017 Type 2 diabetes mellitus without complication Family History Medical History Relation Name Comments Diabetes Maternal Aunt Diabetes Mother Diabetes Paternal Grandmother Cancer Sister breast Relation Name Status Comments Maternal Aunt Mother Paternal Grandmother Sister Social History Tobacco Use Types Packs/Day Years Used Date Smoking Tobacco: Never Smokeless Tobacco: Never Alcohol Use Standard Drinks/Week Comments Yes 4 (1 standard drink = 0.6 oz pur e alcohol) Sex and Gender Information Value Date Recorded Sex Assigned at Not on file Gender Identity Not on file Sexual Orientation Not on file Last Filed Vital Signs Vital Sign Reading Time Taken Comments Blood Pressure 150/89 05/22/2017 9:57 AM EST Pulse 72 05/22/2017 9:57 AM EST Temperature - - Respiratory Rate - - Oxygen Saturation - - Inhaled Oxygen Concentration - - Weight 120 kg (264 lb 9.6 oz) 05/22/2017 9:57 AM EST Height 193 cm (6' 4 ) 05/22/2017 9:57 AM EST Body Mass Index 32.21 05/22/2017 9:57 AM EST Plan of Treatment Health Maintenance Due Date Last Done Comments Hepatitis C Screening 1958 COVID-19 Vaccine (#1) 06/26/1959 Pneumococcal Vaccine (1 of 2 - PCV) 1964 Pneumococcal Vaccine (1 of 2 - PCV) 1964 Depression Screening 1970 Preventative Health Evaluation 1976 DTap / Tdap / Td (1 - Tdap) 1977 Colon Cancer Screening (Colonoscopy) 12/26/2003 Shingrix-Zoster Vaccine (1 of 2) 2008 Fall Risk Assessment 12/26/2023 Influenza Vaccine (#1) 2024 RSV Adult > 60+ Yrs or Pregn ant (1 - 1-dose 75+ series) 2033 Hepatitis B Vaccines Aged Out No long er eligible based on patient's age to complete this topic RSV Ped < 20 months Aged Out No longe r eligible based on patient's age to complete this topic Care Teams Grey Stock Recorder Relationship Specialty Start Date End Date Iron Garibay MD PCP - General Internal Medicine 05/22/17
--- OUTSIDE RECORDS SUMMARY | 2024-08-15 09:59 | XMS_ITS | Encounter Summary ---
Author Organization [facility] Address [address] [place] [address] Care Team Providers Care Webmethods Consultant Name Role Phone Iron Garibay MD Primary Care Provider [phone] Reason for Visit * Reason Onset Date Comments Fitting for DME 07/15/2024 Glucose Moniter Encounter Details Date Type Department Care Team ([facility] st Contact Info) Description 07/15/2024 Telephone Adult Medicine [address] [phone] Iron Garibay MD [address] [place] [phone] Fitting for DME (Glucose Moniter) Social History Tobacco Use Types Packs/Day Years [...] as of this encounter Progress Notes * Concepcion Silva RN - 07/22/2024 9:24 AM EST Called and spoke with patient Message from provider read Pt verbalizes understanding Hypoglycemia plan discussed * Radha Del Valle - 07/22/2024 9:08 AM EST Patient returning missed call to Concepcion * Concepcion Silva RN - 07/22/2024 9:03 AM EST Called patient, Vm left to return my call * MARNIE Nelson - 07/21/2024 5:03 PM EST Patient to decrease insulin Per record she is doing 50 units twice a day If this is correct did decrease to 46 units twice a day Go over hypoglycemia treatment plan and have him reach out to us if he continues with hypoglycemia episodes * Radha Del Valle - 07/21/2024 4:41 PM EST Patient is calling, asking if Concepcion can please call him re: sensors. [phone] * Concepcion Silva RN - 07/21/2024 8:17 AM EST [facility] 04/14/24 NOV not scheduled Lab Results Component Value Date HGBA1C 10.3 (A) 04/14/2024 CHOL 186 12/07/2023 LDL 100 12/07/2023 HDL 40 12/07/2023 TRIG 232 (A) 12/07/2023 Called and spoke with patient Pt had two episodes of hypoglycemia last week 55 or less. He did cross check with fingerstick Pt sts he had burning sensation in bilat legs along with not feeling himself. Treated with resolve FBS today: Sensor 184 Finger stick: 229 FBS yesterday 137 Pt requesting decrease in insulin Please advise * Radha Del Valle - 07/20/2024 1:12 PM EST Patient is calling back to speak with Concepcion with a question re: his Manny 2. He also wants to report symptoms he has had today. When he was doing errands, he states his sugar was 100 and he felt burning in legs. He feels he may be taking too much insulin as he states his insulin was recently increased. [phone] * Concepcion Silva RN - 07/19/2024 4:20 PM EST Called and spoke with patient Pt has the Manny 2 reader Pt is awaiting Manny 2 sensors, should be delivered in 3-5 days Pt is all set and does not need any further assistance. * Mary Lou Tate - 07/19/2024 3:29 PM EST Patient is returning the call, please try him again. * Concepcion Silva RN - 07/19/2024 3:02 PM EST Called patient, no answer, VM left * Lalitha Bob LPN - 07/18/2024 8:09 AM EST ? Is this a freestyle manny Looks like the freestyle manny 2 reader ordered 07/15/2024 Freestyle manny 3 was ordered 04/22/2024 Both put in historical abstraction Both were ordered by Trinh Meeks PA-C endocrine This message is forwarded to Endocrine pool to review and process Thank you Lalitha DELGADO * Ana Santacruz - 07/15/2024 3:02 PM EST Please call patient at [phone] with any questions * Ana Santacruz - 07/15/2024 3:00 PM EST DME REQUEST Name of Product: Glucose Monitor Specific information about product Freestyle #2 (covered by insurance) # Needed 1 Reason patient is asking for this supply? Patients current device is bottoming out Have you received this supply before? If yes , when?: Yes. Have you discussed the need for this supply with a provider at a recent visit? If yes, with who andwhen? Yes. When completed: Will continuous pickling line pickler helper-call when completed: (home) Have you told the patient it will take 7-10 days for completion of this request? Yes documented in this encounter Plan of Treatment Upcoming Encounters Date Type Department Care Team (Late st Contact Info) Description 08/18/2024 9:40 AM EST Consult Gastroenterology - [place] 175 [facility] [address] [address] Kavita Dodge, [place] [address] [address] 08/29/2024 1:00 PM EST Telemedicine Endocrinology - [address] [phone] Trinh Meeks PA [facility] [place] [address] 09/20/2024 8:00 AM EDT Office Visit Adult Medicine [facility] - [address] [phone] Iron Garibay MD [address] [place] [address] documented as of this encounter Visit Diagnoses Not on filedocumented in this encounter Care Teams Webmethods Consultant Relationship Specialty Start Date End Date Iron Garibay MD [address] [place] [address] PCP - General Internal Medicine 05/11/24 documented as of this encounter
--- OUTSIDE RECORDS SUMMARY | 2024-08-15 09:59 | XMS_ITS | Encounter Summary ---
Author Organization [facility] Address [address] [place] [address] Care Team Providers Care Truck Manager Name Role Phone Iron Garibay MD Primary Care Provider [phone] Reason for Visit * Reason Onset Date Comments Pre-op Exam 07/28/2024 RESCHEDULE from 07/28/24Root Canal @ [facility] on 08/03/24 Encounter Details Date Type Department Care Team (Late st Contact Info) Description 07/28/2024 Telephone Adult Medicine [address] [phone] Iron Garibay MD [address] [place] [phone] Pre-op Exam (RESCHEDULE from 07/28/24/Root Canal @ [facility] on 08/03/24) Social History Tobacco Use Types Packs/Day Years [...] as of this encounter Progress Notes * Ana Santacruz - 07/28/2024 7:34 AM EST Patient had appt scheduled for today 07/28/24- provider is out of office. This needs to be rescheduled. Please call patient at [phone] documented in this encounter Plan of Treatment Upcoming Encounters Date Type Department Care Team (Late st Contact Info) Description 08/18/2024 9:40 AM EST Consult Gastroenterology - [place] 175 [facility] 175 [facility] [address] [place] [address] Kavita Dodge NP 175 [facility] [address] [place] [address] 08/29/2024 1:00 PM EST Telemedicine Endocrinology - [address] [phone] Trinh Meeks PA [address] [place] [address] 09/20/2024 8:00 AM EDT Office Visit Adult Medicine [facility] - [address] [phone] Iron Garibay MD [address] [place] [address] documented as of this encounter Visit Diagnoses Not on filedocumented in this encounter Care Teams Truck Manager Relationship Specialty Start Date End Date Iron Garibay MD [address] [place] [address] PCP - General Internal Medicine 05/11/24 documented as of this encounter
--- OUTSIDE RECORDS SUMMARY | 2024-08-15 09:59 | XMS_ITS | Encounter Summary ---
Author Organization [facility] Address [address] [place] [address] Care Team Providers Care Conservator Artifacts Name Role Phone Iron Garbiay MD Primary Care Provider [phone] Reason for Visit * Reason Onset Date Comments Blood Sugar Problem 07/05/2024 Encounter Details Date Type Department Care Team ([facility] st Contact Info) Description 07/05/2024 Telephone [facility] [address] [place] [address] Chanelle Rodrigues PA [address] [place] [address] Blood Sugar Problem Social History Tobacco Use Types Packs/Day Years [...] Progress Notes * Concepcion Silva RN - 07/08/2024 3:52 PM EST Called and spoke with patient Message from provider read Pt verbalizes understanding * MARNIE Randle - 07/08/2024 3:27 PM EST Glucose readings reviewed. No change to insulin regimen. Please inform patient that sensor readings can be by at least 20 points of glucose and therefore I suggest he uses fingerstick to crosscheck sugars increase of discrepancy. He is also due for follow-up with Trinh that he can call to schedule. * Bere Lizama MA - 07/08/2024 3:12 PM EST Chanelle, Please review for provider and advise if any action needs to be taken or routed to triage. Thank you. * Raven Grayson - 07/08/2024 2:54 PM EST Patient is calling with his numbers 07/05/24 night time; finger stick 242 sensor was 231 07/06/24 morning: finger stick 187 sensor was 163 07/06/24 Night time: finger stick 376 sensor was 330 07/07/24 morning finger stick 185 sensor was 170 07/07/24 night finger stick 232 sensor was 250 07/08/24 morning finger stick 171 sensor was 159 59 units twice a day // Patient is seeing Raven Schofield / neurologist Any questions call patient at [phone] * Bere Lizama MA - 07/07/2024 11:38 AM EST What is PT calling about as it appears he spoke with Concepcion on 07/05/24? * Concepcion Silva RN - 07/05/2024 2:06 PM EST Called and spoke with patient Message from provider read Pt verbalizes understanding BS now 110, cross check with fingerstick 116 * MARNIE Randle - 07/05/2024 1:44 PM EST Please reach out to patient. I would like him to always crosscheck glucose readings on fingerstick which is a more accurate reading versus CGM reading. I would like him to eliminate sugary snacks and drinks, add more protein to diet along with healthyfats and fiber. Eat in regular intervals. Continue using insulin as prescribed. He can update us with a glucose log in 3 to 4 days. * Mary Lou Tate - 07/05/2024 11:38 AM EST Patient called to let Chanelle know about his recent problems with his blood sugar. Yesterday patient was told to increase insulin from 47 to 49 ml, had worst day, legs numb and painful, felt on fire, could not walk, meter was below zero. He ate food and extra cookies to get sugar back up. He did not go by ambulance, just went home and ate more. The finger stick said 326 and the meter said below zero, so called the [employer] and they will send him a new sensor. Right now his sugar is 164 and heading down. Also mentions highest reading was 535 sometime last week, but did not goto hospital and woke up and sugar was normal. Patient wanted to discuss further details, please call patient after 1 pm. documented in this encounter Plan of Treatment Upcoming Encounters Date Type Department Care Team (Late st Contact Info) Description 08/18/2024 9:40 AM EST Consult Gastroenterology - [place] 175 [facility] 175 [facility] [address] [place] [phone] Kavita Dodge NP 175 [facility] [address] [place] [address] 08/29/2024 1:00 PM EST Telemedicine Endocrinology - [address] [phone] Trinh Meeks PA [address] [place] [address] 09/20/2024 8:00 AM EDT Office Visit Adult Medicine [address] [phone] Iron Garibay MD [address] [place] [address] documented as of this encounter Visit Diagnoses Not on filedocumented in this encounter Care Teams Conservator Artifacts Relationship Specialty Start Date End Date Iron Garibay MD [address] [place] [address] PCP - General Internal Medicine 05/11/24 documented as of this encounter
--- OUTSIDE RECORDS SUMMARY | 2024-08-15 09:59 | XMS_ITS | Encounter Summary ---
Author Organization [facility] Address [address] [place] [address] [address] [place] [address] Care Team Providers Care Teamcenter Consultant Name Role Phone Unavailable Primary Care Provider Unavailabl e Encounter Details Date Type Department Care Team (Late st Contact Info) Description 07/29/2024 Telephone [facility] ADULT DENTAL [address] [place] [address] Jennifer Butterfield DDS [address] [place] [address] Social History Tobacco Use Types Packs/Day Years Used Date Smoking Tobacco: Never Passive Smoke Exposure: Never Smokeless Tobacco: Never Sex and Gender Information Value Date Recorded Sex Assigned at Male 05/05/2022 10:18 AM EDT Legal Sex Male 10:18 AM EDT Gender Identity Male 05/05/2022 10:18 AM EDT Sexual Orientation Straight 05/05/2022 10 :18 AM EDT documented as of this encounter Plan of Treatment Upcoming Encounters Date Type Department Care Team (Late st Contact Info) Description 08/15/2024 3:00 PM EST Office Visit [facility] ADULT DENTAL [address] [place] [address] Jennifer Butterfield DDS [address] [place] [address] documented as of this encounter Visit Diagnoses Not on filedocumented in this encounter
--- OUTSIDE RECORDS SUMMARY | 2024-08-15 10:00 | XMS_ITS | Encounter Summary ---
Author Organization [facility] Address [address] [place] [address] 7 [place] [address] Care Team Providers Care Treatment Coordinator Name Role Phone Unavailable Primary Care Provider Unavailabl e Encounter Details Date Type Department Care Team (Latest Contact Info) Description 12/20/2018 Abstract [facility] CONVERSIONS Dental, Provider, DDS Social History Tobacco Use Types Packs/Day Years Used Date Smoking Tobacco: Never Assessed Sex and Gender Information Value Date Recorded Sex Assigned at Male 05/05/2022 10:18 AM EDT Legal Sex Male 10:18 AM EDT Gender Identity Male 05/05/2022 10:18 AM EDT Sexual Orientation Straight 05/05/2022 10 :18 AM EDT documented as of this encounter Plan of Treatment Upcoming Encounters Date Type Department Care Team (Late st Contact Info) Description 08/15/2024 3:00 PM EST Office Visit [facility] CHC ADULT DENTAL [address] [place] [address] Jennifer Butterfield DDS [address] [place] [address] documented as of this encounter Visit Diagnoses Not on filedocumented in this encounter
--- OUTSIDE RECORDS SUMMARY | 2024-08-15 10:00 | XMS_ITS | Encounter Summary ---
Author Organization [employer] [facility] Address [address] [place] [address] 7 [place] [address] Care Team Providers Care Loom Checker Name Role Phone Unavailable Primary Care Provider Unavailabl e Reason for Visit * Reason Onset Date Comments appt details 12/31/2023 Encounter Details Date Type Department Care Team (Late st Contact Info) Description 12/31/2023 Telephone [facility] ADULT DENTAL [address] [place] [address] Jennifer Butterfield DDS [address] [place], [place] [phone] appt details Social History Tobacco Use Types Packs/Day Years [...] encounter Miscellaneous Notes * Telephone Encounter - Mary Vaughan - 12/31/2023 9:41 AM EDT Patient called and left message a few days ago that he will like to be seen as soon as possible. 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 ADULT DENTAL [address] [place] [address] Jennifer Butterfield DDS [address] [place] [address] documented as of this encounter Visit Diagnoses Not on filedocumented in this encounter
--- OUTSIDE RECORDS SUMMARY | 2024-08-15 10:00 | XMS_ITS | Encounter Summary ---
Author Organization [facility] Address [address] [place] [address] Care Team Providers Care Supervisor Assembly Stock Name Role Phone Iron Garibay MD Primary Care Provider [phone] Encounter Details Date Type Department Care Team ([facility] st Contact Info) Description 08/01/2024 Telephone Adult Medicine [address] [phone] Kristi Alvarez RN Social History Tobacco Use Types Packs/Day Years [...] as of this encounter Progress Notes * Kristi Alvarez RN - 08/01/2024 8:38 AM EST Called pt to inform him per Dr. Hargrove; Please call to inform patient with an A1c of 10.8, his diabetes remains uncontrolled. 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 This was noted when he was in the hospital 2months ago. His iron levels are also somewhat low. I recommend evaluation by the calender wind up helper and I have placed a referral for him to rule out GI causes of there anemia. I also recommend iron supplements daily which I have sent to his pharmacy. Iron can cause constipation so he needs to use this with a stool softener called colace, also sent to his pharmacy. Pt did not answer the pone. I left a message for him to call the office at . documented in this encounter Plan of Treatment Upcoming Encounters Date Type Department Care Team (Late st Contact Info) Description 08/18/2024 9:40 AM EST Consult Gastroenterology - [place] 175 [place] [address] [facility] [address] [place] [phone] Kavita Dodge NP 175 [facility] [address] [place] [address] 08/29/2024 1:00 PM EST Telemedicine Endocrinology [address] [phone] Trinh Meeks PA [facility] [place] [address] 09/20/2024 8:00 AM EDT Office Visit Adult Medicine [address] [phone] Iron Garibay MD [address] [place] [address] documented as of this encounter Visit Diagnoses Not on filedocumented in this encounter Care Teams Supervisor Assembly Stock Relationship Specialty Start Date End Date Iron Garibay MD [address] [place] [address] PCP - General Internal Medicine 05/11/24 documented as of this encounter
--- OUTSIDE RECORDS SUMMARY | 2024-08-15 10:00 | XMS_ITS | Encounter Summary ---
Author Organization [facility] [place] Address [address] [place] [address] Care Team Providers Care Metal Flow Coordinator Name Role Phone Iron Garibay MD Primary Care Provider [phone] Encounter Details Date Type Department Care Team (Late st Contact Info) Description 08/12/2024 Telephone Endocrinology - [place] [address] [place] [phone] Concepcion Silva RN Social History Tobacco Use Types Packs/Day [...] Progress Notes * Concepcion Silva RN - 08/12/2024 9:50 AM EST Called and spoke with patient Message from provider read Pt verbalizes understanding * MARNIE Nelson - 08/12/2024 9:34 AM EST If patient is at home and blood sugars above 400 and cannot reach the office he should go to the ER. Have him increase his insulin to 48 units twice a day as long he is not having any hypoglycemia * Concepcion Silva RN - 08/12/2024 8:49 AM EST Called and spoke with patient Last night dinner:chicken,rice,milk cookies BS was 500 last night fingerstick- took scheduled 70/30 insulin FBS have been high 200's - 300's x 1 week Today FBS 395 fingerstick, 350 sensor Breakfast today:eggs/milk took insulin at 7 am BS at 9:15 am 429 fingerstick + polyuria + polydipsia Denies n/v Denies dizziness Denies abd pain NYLA 04/14/24 NOV 08/29 Telemed Please advise Taking NPH 70/30 45 units BID Metformin 1000 mg BID documented in this encounter Plan of Treatment Upcoming Encounters Date Type Department Care Team (Late st Contact Info) Description 08/18/2024 9:40 AM EST Consult Gastroenterology - [place] 175 [facility] [address] [phone] Kavita Dodge NP [address] [address] 08/29/2024 1:00 PM EST Telemedicine Endocrinology [address] [phone] Trinh Meeks PA [facility] [place] [address] 09/20/2024 8:00 AM EDT Office Visit Adult Medicine [address] [phone] Iron Garibay MD [address] [place] [address] documented as of this encounter Visit Diagnoses Not on filedocumented in this encounter Care Teams Metal Flow Coordinator Relationship Specialty Start Date End Date Iron Garibay MD [address] [place] [address] PCP - General Internal Medicine 05/11/24 documented as of this encounter
--- OUTSIDE RECORDS SUMMARY | 2024-08-15 10:00 | XMS_ITS | Encounter Summary ---
Author Organization [facility] Address [address] [place] [address] [address] [place] [address] Care Team Providers Care Corporate Strategy Analyst Name Role Phone Unavailable Primary Care Provider Unavailabl e Encounter Details Date Type Department Care Team (Latest Contact Info) Description 01/29/2021 Abstract [facility] CONVERSIONS Dental, Provider, DDS Social History Tobacco [...] Description 08/15/2024 3:00 PM EST Office Visit [facility] CHC ADULT DENTAL [address] [place] [address] Jennifer Butterfield DDS [address] [place] [address] documented as of this encounter Visit Diagnoses Not on filedocumented in this encounter
--- OUTSIDE RECORDS SUMMARY | 2024-08-15 10:00 | XMS_ITS | Encounter Summary ---
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 Name Role Phone Iron Garibay MD Primary Care Provider Reason for Visit * Reason Comments Pre-op Exam Pre-op clearance and EKG for dental work,root canal at [facility] on 08/03/2024 Encounter Details Date Type Department Care Team (Late st Contact Info) Description 07/29/2024 10:00 AM EST Consult Adult Medicine [address] [phone] Hermilo Hargrove MD [address] [place] [id number] Preop cardiovascular exam (Primary Dx); Type 2 diabetes mellitus with diabetic microalbuminuria, with long-term current use of insulin ([facility]); Normocytic anemia; Hypomagnesemia; ASHLIE (obstructive sleep apnea); Primary hypertension; Mild CAD; RLS (restless legs syndrome); Mild persistent asthma without complication Social History Tobacco Use Types Packs/Day Years [...] PM EST documented as of this encounter Last Filed Vital Signs Vital Sign Reading Time Taken Comments Blood Pressure 126/76 07/29/2024 10:24 AM EST Pulse 67 07/29/2024 10:24 AM EST Temperature 36.4 ??C (97.6 ??F) 07/29/2024 10:[address] Respiratory Rate 16 07/29/2024 10:24 AM EST Oxygen Saturation - - Inhaled Oxygen Concentration - - Weight 118 kg (260 lb) 07/29/2024 10:24 AM EST Height 193 cm (6' 4 ) 07/29/2024 10:24 AM EST Body Mass Index 31.65 07/29/2024 10:24 AM EST documented in this encounter Patient Instructions * Attachments The following attachments cannot be sent through Care Everywhere. * ERAS: Enhanced Recovery After Surgery: After Surgery: General Info (Hungarian) documented in this encounter Progress Notes * Hermilo Hargrove MD - 07/29/2024 10:00 AM ESTAssociated Problem(s): Type 2 diabetes mellitus with renal manifestations (CMS/HCC) continue humulin 70/30 45 U BID and metformin 1000mg BID. Continue follow up with Endocrinology A1c is 10.8. his diabetes is poorly controlled. Orders: Hemoglobin A1c; Future * Hermilo Hargrove MD - 07/29/2024 10:00 AM ESTAssociated Problem(s): ASHLIE (obstructive sleep apnea) Continue BIPAP nightly * Hermilo Hargrove MD - 07/29/2024 10:00 AM ESTAssociated Problem(s): Hypertension Well controlled. Continue losartan 100mg daily, atenolol 50mg daily and indapamide 2.5 mg casandra * Hermilo Hargrove MD - 07/29/2024 10:00 AM ESTAssociated Problem(s): RLS (restless legs syndrome) continue ropinirole nightly * Hermilo Hargrove MD - 07/29/2024 10:00 AM ESTAssociated Problem(s): Asthma He follows with pulmonology. Continue advair BID , albuterol prn and montelukast nightly * Hermilo Hargrove MD - 07/29/2024 10:00 AM ESTAssociated Problem(s): Mild CAD Continue cardiology follow up Continue isosorbide dinitrate BID and aspirin 81mg daily * Hermilo Hargrove MD - 07/29/2024 10:00 AM EST NO medications on the morning of procedure Use half of your insulin dose the night before yoru procedure No aspirin, ibuprofen or other NSAIDS from today * Hermilo Hargrove MD - 07/29/2024 10:00 AM EST Images from the original note were not included. Pre-Operative Note Subjective Bladimir Orta is a 63 y.o. male presenting for Pre-Operative Visit. Surgery/Procedure: Root canal Surgeon: Jennifer Butterfield DDS Planned anesthesia is Unknown Date of procedure: 08/01/24 Location of procedure: High Risk Pre-Operative Medical Conditions: Sleep Apnea, Asthma , Diabetes , and Obesity History of DVT/PE in the past []Yes [x]No History of VRE, Hepatitis C, MRSA []Yes [x]No Risk Factors: [] No [x]Yes Asthma [x] No []Yes Coronary Artery Disease [x] No []Yes Renal Insufficiency [] No [x]Yes Diabetes Mellitus Bleeding Risk: [] No [x]Yes History of Severe Bleeding or Easy Bruising [] No [x]Yes Difficulty with Bleeding after Loss of Teeth or Dental Extractions [] No [x]Yes Difficulty with Bleeding after previous Surgery Medication Review: [] Not Taking [x] Taking Aspirin or Ibuprofen products [x] Not Taking [] Taking Blood Thinners Anesthesia Risk: [x] No []Yes History of Problems with Anesthesia [] No [x]Yes History of Sleep Apnea Functional capacity [] Can take care of self, such as eat, dress, or use the toilet (1 MET) [x] Can walk up a flight of steps or a hill or walk on level ground at 3 to 4 mph (4 METs) [] Can do heavy work around the house, such as scrubbing floors or lifting or moving heavy furniture, or climb two flights of stairs (between 4 and 10 METs) [] Can participate in strenuous sports such as swimming, singles tennis, football, basketball, and skiing (>10 METs) Type 2 diabetes: continues on humulin 70/30 45 U BID and metformin 1000mg BID. His last A1c was 10.8. he follows with endocrinology HTN/mild CAD: BP is 126/76. He continues on losartan 100mg daily, atenolol 50mg daily and ,indapamide 2.5 mg daily. Also on isosorbide dinitrate BID and aspirin 81mg daily. 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 Lubin He has chronic SOB with exertion Hypomagnesemia: continues on magnesium 400mg daily Noted to have mild anemia on blood work done in the ER in May. Will repeat CBC He has sleep apnea and notes he uses his BIPAP machine nightly Asthma: notes this is well controlled. He follows with pulmonology. Continues on advair BID , albuterol prn and montelukast nightly RLS: continues on ropinirole nightly with good effect The patient has a history of: [] easy bruising [] easy bleeding [] bleeding into joints [] bleeding into muscles [] frequent nosebleeds [] bleeding with the loss of teeth or dental extractions [] bleeding with previous surgery or injury [] family history of bleeding disorders [x] no history of bleeding problems The patient has: [] coronary artery disease [] history of a recent myocardial infarction [] unstable angina [] history of a drug eluding cardiac stent [] CHF [] cardiac arrhythmias [] valvular heart disease [x] history of CVA [] renal failure [x] asthma [x] sleep apnea [x] diabetes that requires insulin to treat [] no significant medical history The patient has: [] a defibrillator/pacemaker [] a pain pump [x] no implantable device The patient can: [] take care of self, such as eat, dress, or use the toilet (1 MET) [x] walk up a flight of steps or a hill or walk on level ground at 3 to 4 mph (4 METs) [] do heavy work around the house such as scrubbing floors or lifting or moving heavy furniture or climb two flights of stairs or walk four blocks (between 4 and 10 METs) [] participate in strenuous sports such as swimming, singles tennis, football, basketball, and skiing (>10 METs) The patient has: [] a history of difficulty with anesthesia [] a history of excessive postop nausea and vomiting [] a history of sensitivity to narcotics [] a history of sleep apnea [] a history of family history of malignant hyperthermia or adverse reaction to anesthesia [x] no history of difficulty with anesthesia, excessive postop nausea and vomiting, sensitivity to narcotics, sleep apnea or family history of malignant hyperthermia or sensitivity to anesthesia. He has sleep apnea and uses a BIPAP machine Subjective History of Present Illness Comprehensive Medical and Social History: Patient Active Problem List Diagnosis ASHLIE (obstructive sleep apnea) Anxiety Depression Hypertension GERD (gastroesophageal reflux disease) Asthma BPH (benign prostatic hyperplasia) Spermatocele of epididymis Type 2 diabetes mellitus with renal manifestations (CMS/HCC) Obesity Microalbuminuria Mass of trachea Chronic sinusitis Allergic rhinitis Hiatal hernia Hyperlipidemia Diverticulosis Ascending aorta dilatation (CMS/HCC) Fatty liver disease, nonalcoholic RLS (restless legs syndrome) Vertigo Mild CAD Allergies Allergen Reactions Budesonide Formoterol Gabapentin Hydrochlorothiazide Other Excessive urination Levofloxacin Lisinopril Cough Mometasone-Formoterol Other Amoxicillin-k Clavulanate-saccharin Dust Mite Symbicort [Budesonide-formoterol Fumarate Dihydrate Pramipexole Terazosin Current Outpatient Medications Medication Instructions albuterol HFA (PROAIR HFA ; PROVENTIL HFA ; VENTOLIN HFA) 90 mcg/actuation inhaler Inhale 2 Puffs into the lungs every 4 hours as needed for Cough or Wheezing. arginine HCl, L-arginine, 1,000 mg tablet Take 1,000 mg by mouth daily. ashwagandha extract 500 mg capsule Take 500 mg by mouth daily. aspirin 81 mg EC tablet Take 81 mg by mouth daily. atenoloL (TENORMIN) 50 mg tablet Take 1 Tablet by mouth daily. [facility] Autolet lancing device Use to test blood sugars once daily blood sugar diagnostic (ONETOUCH ULTRA BLUE TEST STRIP [facility] Use to test blood sugar once daily. blood-glucose meter,continuous (FreeStyle Manny 3 [place]) [facility] 1 Device by Does not apply route daily. Dx Code E11.29 blood-glucose sensor (FREESTYLE MANNY 3 SENSOR [facility] 1 Device by Does not apply route every 14 days. Dx Code E11.29 chromium picolinate 200 mcg tablet tablet Take 200 mcg by mouth. coenzyme Q-10 100 mg capsule Take 100 mg by mouth daily. DAILY MULTI-VITAMIN ORAL Take by mouth daily. diazePAM (VALIUM) 5 mg, oral, 2 times daily diphenhydrAMINE (BENADRYL) 25 mg capsule Take 25 mg by mouth daily. flash glucose sensor (FreeStyle Manny 2 Sensor) kit Change sensor every 14 days fluticasone propion-salmeteroL (ADVAIR DISKUS) 500-50 mcg/dose diskus inhaler Inhale 1 Puff into the lungs every 12 hours for 90 days. glucose blood test strip Use to test blood sugar twice a day.E11.29 indapamide (LOZOL) 2.5 mg tablet Take 1 Tablet by mouth at bedtime. insulin NPH-insulin regular (HumuLIN,NovoLIN 70/30) 100 unit/mL (70-30) injection Inject 50 units SC insulin syringe-needle U-100 0.3 mL 31 gauge x 5/16 syringe USE 1 SYRINGE DIRECTED TWICE DAILY insulin syringe-needle U-100 0.5 mL 29 gauge x 1/2 syringe To using with insulin bid insulin syringe-needle U-100 1/2 mL 30 gauge syringe Use to administer insulin twice a day isosorbide dinitrate (ISORDIL) 10 mg tablet 1 tablet, oral, 2 times daily lancets 30 gauge misc Check blood sugar three times a day.E11.29 lancets 33 gauge misc 2 Devices by Does not apply route daily. Use To test sugars twice a day losartan (COZAAR) 100 mg tablet Take 1 Tablet by mouth daily. lutein 6 mg capsule Take 1 Cap by mouth daily. magnesium oxide (MAG-OX) 400 mg magnesium tablet Take 1 Cap by mouth daily. meclizine (ANTIVERT) 25 mg tablet Take 1 Tablet by mouth 2 times daily as needed for Other (dizziness). metFORMIN (GLUCOPHAGE) 500 mg tablet TAKE 2 TABLETS BY MOUTH TWICE DAILY WITH MEALS montelukast (SINGULAIR) 10 mg tablet Take 1 Tablet by mouth at bedtime. omeprazole (PriLOSEC) [address] capsule TAKE 1 CAPSULE BY MOUTH DAILY pregabalin (LYRICA) 75 mg, oral, 2 times daily rOPINIRole (REQUIP) 2 mg, oral, Nightly tadalafiL (CIALIS) 5 mg tablet Take 1 Tablet by mouth once as needed. For sexual activity UNABLE TO FIND 13 cm by Nasal route at bedtime. [employer]/bipap venlafaxine 150 mg 24 hr tablet Take 2 Tablets by mouth daily. Past Medical History: Diagnosis Date Allergic rhinitis 02/03/2018 DX:Allergic rhinitis Anxiety DX:Anxiety Asthma DX:Asthma Chronic sinusitis 01/16/2017 DX:Chronic sinusitis Depression DX:Depression Diverticulosis 02/03/2018 DX:Diverticulosis DM (diabetes mellitus) type II controlled, neurological manifestation (CMS/HCC) 05/27/2013 DX:DM (diabetes mellitus) type II controlled, neurological manifestation (HCC) GERD (gastroesophageal reflux disease) DX:GERD (gastroesophageal reflux disease) Hiatal hernia 02/03/2018 DX:Hiatal hernia Hyperlipidemia 02/14/2014 DX:Hyperlipidemia Hypertension DX:Hypertension 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 DX:Mass of trachea; COMMENT: Polypoid lesion on trachea , No additional information available on transferred notes Obesity 05/11/2013 DX:Obesity ASHLIE (obstructive sleep apnea) DX:ASHLIE (obstructive sleep apnea) Spermatocele of epididymis 04/27/2012 DX:Spermatocele of epididymis Type 2 diabetes mellitus with renal manifestations (CMS/HCC) 07/30/2017 DX:Type 2 diabetes mellitus with renal manifestations (HCC) Past Surgical History: Procedure Laterality Date CARDIAC CATHETERIZATION PROCEDURE: HISTORICAL CARDIAC CATH CATARACT EXTRACTION Bilateral 2014 PROCEDURE: HISTORICAL CATARACT REMOVAL COLONOSCOPY 01/21/2010 PROCEDURE: HISTORICAL COLONOSCOPY; COMMENT: Dr Perez - mild sigmoid tics, internal hemorrhoids, o/wnormal ESOPHAGOGASTRODUODENOSCOPY 05/20/2018 PROCEDURE: ME EGD TRANSORAL BIOPSY SINGLE/MULTIPLE; COMMENT: Esophagus suspicious for EOE. Esophagus dilated to 60 Danish. Normal duodenum and stomach. Biopsies obtained. Pathology normal. HAND SURGERY Left 11/2015 PROCEDURE: HISTORICAL HAND SURGERY OTHER SURGICAL HISTORY 10/05/2019 PROCEDURE: RADIOLOGIC EXAM ESOPHAGUS SINGLE CONTRAST STUDY; COMMENT: [facility] - ? minimal schatzki ring distal esophagus, GERD, normal gastric emptying OTHER SURGICAL HISTORY 10/07/2011 PROCEDURE: HISTORY OTHER; COMMENT: UPPP and T & A UPPER GASTROINTESTINAL ENDOSCOPY 01/21/2010 PROCEDURE: ME UPPER GI ENDOSCOPY PERFORMED; COMMENT: Dr Perez - erosive esophagitis, HH, otherwise normal Social History Socioeconomic History Marital status: Spouse name: None Number of children: None Years of education: None Highest education level: None Occupational History None Tobacco Use Smoking status: Never Smokeless tobacco: Never Substance and Sexual Activity Alcohol use: Yes Drug use: No Sexual activity: None Other Topics Concern None Social History Narrative None Family History Problem Relation Name Age of Onset Diabetes Mother Diabetes Paternal Grandmother Breast cancer Sister Diabetes Aunt Crohn's disease Sister Immunization History Administered Date(s) Administered COVID-19 (Moderna/Spikevax) 12yo and older 03/23/2023, 09/22/2023 COVID-19 (Pfizer/Comirnaty) 12yo and older 06/15/2024 Influenza Quadravalent, MDCK, 0.5ml, with preservative (Flucelvax) 6mo and older 03/16/2020, 03/22/2021, 04/23/2022 Influenza trivalent, 0.5mL, preservative free (Fluarix; FluLaval; Fluzone) ages 6mo and older (Afluria) 3 years and older 05/09/2005 DEWEY/Blazent SARS-CoV-2 COVID-19, vector-nr, rS-Ad26, preservative free 10/10/2020, 06/16/2021 Pfizer (ages 12 & older) Bivalent, COVID-19 07/10/2022 Pneumococcal conjugate 13 valent (Prevnar 13, PCV13) 2mo and older 03/16/2020 Pneumococcal conjugate 20 valent (Prevnar 20, PCV 20) 2mo and older 04/23/2022 Pneumococcal polysaccharide 23 valent (Pneumovax 23) 2yo and older 04/03/2021 Td Tetanus diptheria (Tdvax) 7yo and older 09/21/2020 Tdap Tetanus diptheria acellular pertussis (Boostrix; Adacel) 7yo and older 09/12/2010 Zoster recombinant (Shingrix) 19yo and older 07/19/2022, 10/17/2022 Review of Systems Respiratory: Negative for chest tightness and wheezing. Chronic SOB w exertion due to asthma/obesity Cardiovascular: Negative for chest pain. Gastrointestinal: Negative for abdominal pain, nausea and vomiting. Neurological: Negative for weakness. IMAGING/LABORATORY: Lab Results Component Value Date WBC 7.5 07/29/2024 HGB 11.7 (L) 07/29/2024 HCT 37.1 (L) 07/29/2024 PLT 341 07/29/2024 CHOL 186 12/07/2023 TRIG 232 (A) 12/07/2023 HDL 40 12/07/2023 NA 135 07/29/2024 K 4.1 07/29/2024 CL 99 07/29/2024 CREATININE 1.10 07/29/2024 BUN 24 07/29/2024 CO2 32 07/29/2024 HGBA1C 10.8 (H) 07/29/2024 EKG: Encounter Date: 05/19/24 ECG 12 lead Result Value Ventricular Rate ECG 73 Atrial Rate 73 P-R Interval 202 QRS Duration 94 Q-T Interval 416 QTc 458 P Wave [place] 84 R [place] 20 T [place] 35 ECG Interpretation Normal sinus rhythm Nonspecific T wave abnormality Abnormal ECG When compared with ECG of 18-DEC-2022 09:49, No significant change was found Confirmed by MD Charles, [place] ([id number]) on 05/19/2024 11:10:36 PM *Note: Due to a large number of results and/or encounters for the requested time period, some results have not been displayed. A complete set of results can be found in Results Review. ECG done at visit today showed sinus rhythm, mildly prolonged ME interval to 225(likely related to atenolol use) Objective BP 126/76 Pulse 67 Temp 36.4 ??C (97.6 ??F) (Temporal) Resp 16 Ht 1.93 m (76 ) Wt 118 kg (260 lb) BMI 31.65 kg/m?? Physical Exam Constitutional: Appearance: Normal appearance. He is obese. HENT: Head: Normocephalic and atraumatic. Right Ear: External ear normal. Left Ear: External ear normal. Mouth/Throat: Mouth: Mucous membranes are moist. Pharynx: No oropharyngeal exudate or posterior oropharyngeal erythema. Eyes: General: No scleral icterus. Right eye: No discharge. Left eye: No discharge. Pupils: Pupils are equal, round, and reactive to light. Cardiovascular: Rate and Rhythm: Normal rate and regular rhythm. Pulses: Normal pulses. Heart sounds: Normal heart sounds. No murmur heard. Pulmonary: Effort: Pulmonary effort is normal. No respiratory distress. Breath sounds: Normal breath sounds. Abdominal: Palpations: Abdomen is soft. Tenderness: There is no abdominal tenderness. Comments: Obese abdomen with large pannus Musculoskeletal: Right lower leg: No edema. Left lower leg: No edema. Neurological: General: No focal deficit present. Mental Status: He is alert and oriented to person, place, and time. Psychiatric: Mood and Affect: Mood normal. Assessment & Plan Preop cardiovascular exam Revised Cardiac Risk Index (RCRI) [] The patient is having a high-risk type of surgery (examples include suprainguinal vascular, openintraperitoneal or intrathoracic). [] They do have a history of ischemic heart disease (history of VA or a positive exercise test, current complaint of chest pain considered to be secondary to myocardial ischemia, use of nitrate therapy, or ECG with pathological Q waves). [] They do have a history of CHF (Pulmonary edema, bilateral rales or S3 gallop; paroxysmal nocturnal dyspnea; chest x-ray (CXR) showing pulmonary vascular redistribution). [] They do have a history of cerebrovascular disease(Prior transient ischemic attack (TIA) or stroke). [x] They do have diabetes mellitus requiring treatment with insulin. [] They do have a preoperative serum creatinine >2.0 mg/dL. [] No risk factors RCRI score is 1, indicative of a 6% risk of major cardiac event The patient was advised to use half of his regular insulin dose the night before the procedure and no insulin on the morning of the procedure if he is asked to be NPO the morning of surgery. No aspirin or other medications on the morning of surgery if he is to be NPO. His diabetes is poorly controlled with an A1c of 10.8. This will lead to poor healing with any procedure. It will be at the discretion of the dentist to proceed with root canal Orders: Basic metabolic panel; Future CBC and differential; Future Type 2 diabetes mellitus with diabetic microalbuminuria, with long-term current use of insulin ([facility]) continue humulin 70/30 45 U BID and metformin 1000mg BID. Continue follow up with Endocrinology A1c is 10.8. his diabetes is poorly controlled. Orders: Hemoglobin A1c; Future Normocytic anemia Will obtain Anemia panel Orders: CBC and differential; Future Iron and TIBC; Future Ferritin; Future Vitamin B12; Future Folate; Future Hypomagnesemia Noted on labs done in the ER. Will repeat Mg level. Continue mg 400mg daily Orders: Magnesium; Future ASHLIE (obstructive sleep apnea) Continue BIPAP nightly Primary hypertension Well controlled. Continue losartan 100mg daily, atenolol 50mg daily and indapamide 2.5 mg casandra Mild CAD Continue cardiology follow up Continue isosorbide dinitrate BID and aspirin 81mg daily RLS (restless legs syndrome) continue ropinirole nightly Mild persistent asthma without complication He follows with pulmonology. Continue advair BID , albuterol prn and montelukast nightly Hermilo Hargrove MD ADULT MEDICINE [address] documented in this encounter Plan of Treatment Upcoming Encounters Date Type Department Care Team (Late st Contact Info) Description 08/18/2024 9:40 AM EST Consult Gastroenterology - [place] 175 [facility] [address] [phone] Kavita Dodge NP 175 [facility] 200 [place] [address] 08/29/2024 1:00 PM EST Telemedicine Endocrinology [address] [phone] Trinh Meeks PA [address] [place] [address] 09/20/2024 8:00 AM EDT Office Visit Adult [address] [phone] Iron Garibay MD [address] [place] [address] documented as of this encounter Results * (ABNORMAL) Folate (07/29/2024 11:29 AM EST) [facility] Folate >20.0(H) 2.8 - 17.0 ng/ml LAB CHEMISTRY METHOD 07/29/2024 5:21 PM EST [facility] ([facility] Blood Venous blood specimen / Unknown Venipuncture / Unknown 07/29/2024 11:29 AM EST 07/29/2024 11:29 AM EST Hermilo Hargrove MD LAB BLOOD ORDERA BLES Final Result Performing Organization Address City/[facility]/ZIP Co de Phone Number [facility] [address] [place] [address], [place] [phone] * (ABNORMAL) Vitamin B12 (07/29/2024 11:29 AM EST) [facility] Vitamin B-12 1,661(H) 250 - 900 pcg/mL LAB CHEMISTRY METHOD 07/29/2024 5:21 PM EST [facility] Blood Venous blood specimen / Unknown Venipuncture / Unknown 07/29/2024 11:29 AM EST 07/29/2024 11:29 AM EST Hermilo Hargrove MD LAB BLOOD ORDERA BLES Final Result Performing Organization Address [facility] Co de Phone Number [facility] [address] [place] [address], [place] [phone] * (ABNORMAL) Ferritin (07/29/2024 11:29 AM EST) [facility] Ferritin 24(L) 26 - 388 ng/mL LAB CHEMISTRY METHOD 07/29/2024 5:21 PM EST [facility] Blood Venous blood specimen / Unknown Venipuncture / Unknown 07/29/2024 11:29 AM EST 07/29/2024 11:29 AM EST Hermilo Hargrove MD LAB BLOOD ORDERA BLES Final Result Performing Organization Address City/[facility]/ZIP Co de Phone Number [facility] [address] [place] [address], [place] [phone] * (ABNORMAL) Iron and TIBC (07/29/2024 11:29 AM EST) [facility] Iron 52 50 - 160 mcg/dL LAB CHEMISTRY METHOD 07/29/2024 4:58 PM EST [facility] TIBC 496(H) 250 - 450 mcg/dL LAB CHEMISTRY METHOD 07/29/2024 4:58 PM [facility] Iron Saturation 10(L) 20 - 50 % LAB CHEMISTRY METHOD 07/29/2024 4:58 PM EST [facility] Blood Venous blood specimen / Unknown Venipuncture / Unknown 07/29/2024 11:29 AM EST 07/29/2024 11:29 AM EST Hermilo Hargrove MD LAB BLOOD ORDERA BLES Final Result Performing Organization Address City/[facility]/ZIP Co de Phone Number [facility] [address] [place] [address], [place] [phone] * Magnesium (07/29/2024 11:29 AM EST) [facility] Magnesium 1.9 1.9 - 2.6 mg/dL LAB CHEMISTRY METHOD 07/29/2024 4:58 PM [facility] Blood Venous blood specimen / Unknown Venipuncture / Unknown 07/29/2024 11:29 AM EST 07/29/2024 11:29 AM EST Hermilo Hargrove MD LAB BLOOD ORDERA BLES Final Result [facility] [address] [place] [address], [place] [phone] * (ABNORMAL) Basic metabolic panel (07/29/2024 11:29 AM EST) [facility] Sodium 135 133 - 145 mmol/L LAB CHEMISTRY METHOD 07/29/2024 4:58 PM EST [facility] Potassium 4.1 3.5 - 5.5 mmol/L LAB CHEMISTRY METHOD 07/29/2024 4:58 PM [facility] Chloride 99 96 - 110 mmol/L LAB CHEMISTRY METHOD 07/29/2024 4:58 PM [facility] CO2 32 21 - 32 mmol/L LAB CHEMISTRY METHOD 07/29/2024 4:58 PM [facility] Anion Gap 4 3 - 11 LAB CHEMISTRY METHOD 07/29/2024 4:58 PM [facility] Glucose 127(H) 70 - 100 mg/dL LAB CHEMISTRY METHOD 07/29/2024 4:58 PM [facility] BUN 24 5 - 25 mg/dL LAB CHEMISTRY METHOD 07/29/2024 4:58 PM [facility] [facility] Creatinine 1.10 0.70 - 1.30 mg/dL LAB CHEMISTRY METHOD 07/29/2024 4:58 PM [facility] eGFR 74 >=60 mL/min/1. 73m2 LAB CHEMISTRY METHOD 07/29/2024 4:58 PM [facility] Comment:Calculation based on the??Chronic Kidney Disease Epidemiology Collaboration (CKD-EPI) equation refit??without adjustment for race. BUN/Creatinine Ratio 21.8 LAB CHEMISTRY METHOD 07/29/2024 4:58 PM [facility] Calcium 9.4 8.5 - 10.5 mg/dL LAB CHEMISTRY METHOD 07/29/2024 4:58 PM [facility] Blood Venous blood specimen / Unknown Venipuncture / Unknown 07/29/2024 11:29 AM EST 07/29/2024 11:29 AM EST Hermilo Hargrove MD LAB BLOOD ORDERA BLES Final Result [facility] [address] [place] [address], * (ABNORMAL) Hemoglobin A1c (07/29/2024 11:29 AM EST) Hemoglobin A1C 10.8(H) <6.5 % LAB CHEMISTRY METHOD 07/29/2024 9:46 PM EST [facility] Mean Bld Glu Estim. 263 mg/dL LAB CHEMISTRY METHOD 07/29/2024 9:46 PM EST [facility] Blood Venous blood specimen / Unknown Venipuncture / Unknown 07/29/2024 11:29 AM EST 07/29/2024 11:29 AM EST Hermilo Hargrove MD LAB BLOOD ORDERA BLES Final Result [facility] [address] [place] [address], [place] [phone] documented in this encounter Visit Diagnoses Diagnosis Preop cardiovascular exam- Primary Pre-operative cardiovascular examination Type 2 diabetes mellitus with diabetic microalbuminuria, with long-term current use of insulin ([facility]) Normocytic anemia Unspecified anemia Hypomagnesemia Disorders of magnesium metabolism ASHLIE (obstructive sleep apnea) Obstructive sleep apnea (adult) (pediatric) Primary hypertension Unspecified essential hypertension Mild CAD RLS (restless legs syndrome) Restless legs syndrome (RLS) Mild persistent asthma without complication documented in this encounter Discontinued Medications Medication Sig Discontinue Reason Start Date End Da te rOPINIRole (REQUIP) 1 mg tablet TAKE 1 TABLET BY MOUTH IN THE EVENING Formulary change 05/29/2024 07/29/2024 fluticasone propion-salmeteroL (ADVAIR DISKUS) 500-50 mcg/dose diskus inhaler Inhale into the lungs. Duplicate order 07/29/2024 rOPINIRole (REQUIP) 0.5 mg tablet Take 1 Tablet by mouth every evening for 360 days. Duplicate order 07/29/2024 LORazepam (ATIVAN) 0.5 mg tablet Take 1 tablet (0.5 mg total) by mouth 3 (three) times a day. TAKE 1 TABLET BY MOUTH EVERY DAY IN THE MORNING AND TAKE 2 TABLETS BY MOUTH AT BEDTIME Max Daily Amount: 1.5 mg Therapy completed 05/11/2024 07/30/2024 documented as of this encounter Care Teams Hack Saw Operator Relationship Specialty Start Date End Date Iron Garibay MD [address] [place] [id number] PCP - General Internal Medicine 05/11/24 documented as of this encounter
[2024-08-20 17:19] LABS: Testosterone, Free 29.5 pg/mL (35.0-155.0); Testosterone, Total 182 ng/dL (250-1100)
== END 2024-08-15 09:24 | disposition home or self-care (01) ==
LOC: HO.HMGCLDS 09:23
PROVIDERS: PCP Internal Medicine; Visit Provider Urology
DX: E29.1 Testicular hypofunction (principal)
CPT/HCPCS: 36415; 84402; 84403

== ENCOUNTER 2024-09-12 09:20 | Outpatient (AMB) | payer MEDICARE, MEDICAID, SELFPAY ==
--- NOTE | 2024-09-12 09:37 | MHC.OFFVIS ---
Vital Signs 09/12/24 09:38 Height 6 ft 1 in Weight 270 lb 1.06 oz BMI 35.6 BP 100/66 Blood Pressure Location Lt brachial Position Sitting Pulse 76 Pulse Source Pulse Oximeter Pulse Oximetry (%) 98 Oxygen Delivery Method Room Air Intake Visit Reasons: Asthma/ASHLIE Allergies budesonide [From Symbicort] Allergy (Severe, Verified 09/12/24 09:42) Dizziness formoterol [From Symbicort] Allergy (Severe, Verified 09/12/24 09:42) Dizziness lisinopril [LISINOPRIL] Allergy (Severe, Verified 09/12/24 09:42) Nausea mometasone furoate [From Dulera] Allergy (Severe, Verified 09/12/24 09:42) Nausea amoxicillin Allergy (Mild, Verified 09/12/24 09:42) vertigo gabapentin Allergy (Mild, Verified 09/12/24 09:42) vertigo ENVIRONMENTAL Allergy (Severe, Uncoded 09/12/24 09:42) Rash and Hives Dust Mite Allergy (Intermediate, Uncoded 09/12/24 09:42) Hives Seasonal Allergies Allergy (Intermediate, Uncoded 09/12/24 09:42) Hives and Rash terazosin Allergy (Mild, Uncoded 09/12/24 09:42) vertigo HPI Comments Details: The patient is a 63-year-old gentleman with known asthma COPD overlap syndrome in addition to obstructive sleep apnea on BiPAP. He has been having issues with significant dyspnea with minimal activity. Usually becomes significantly tachycardic. We did try to perform a cardiopulmonary stress test but only lasted a minute due to heart rates in the 150s. His heart rates have been better. He has been trying to control his sugars from 400 now to 100-200. He has been using the Advair twice a day. Unfortunately, it is very expensive. Will try to switch him over to the generic Advair. Hopefully also we can decrease the dose to just once a day to avoid the beta agonist effect. He is also taking the metoprolol. Will also try to switch the dose to 1 tablet in the morning and half at nighttime to try to regulate his heart rate better with activity. I am hoping that now that his heart rate is better that we can actually we ordered the cardiopulmonary stress test. He has been using his BiPAP at nighttime. The therapy continues to be affecting beneficial. His sugars also appeared to be better. He is tolerating the metoprolol. He recently underwent a 2nd cardiopulmonary exercise test after not able to perform on the 1st 1 due to his significant heart rate. This time he was able to completed. Based on the reports the patient did not have any ventilatory limitations. There appears to be a decrease in the O2 pulse and also a potential metabolic derangement. The patient is not interested at this time in a referral to [place] to further evaluate the metabolic component. He has been followed by Cardiology and did not make any new recommendations based on the CPET. He did have a cardiac catheterization recently demonstrating nonocclusive coronary artery disease. We again went over his imaging studies and pulmonary function studies. He is scheduled to undergo a barium swallow for dysmotility issues and dilation of the esophagus. He also has been dealing with this high sugars. He finally was placed on insulin that he can not afford. He will follow up with his primary care doctor. However, he may need an bridges supervisor with very uncontrolled diabetes. The may be a component of Autonomic dysfunction resulting his cardiopulmonary derangements in his dyspnea symptoms. In the meantime he is using his BiPAP BiPAP therapy has been affecting beneficial. Sometimes he gets a very dry mouth. He does have a fullface mask already. Will try to woman to water prior to using it. 09/17/2022 the patient has a telehealth visit today. The patient still complaining of significant vertigo. He is working closely with Neurology. In the meantime he continues use the BiPAP every night. He did decrease the pressures down to 10/70 in appears to be tolerating the lower pressures better. I will also request a download to make sure that he is appropriate for him. The patient however has been having some difficulties with the BiPAP. It is not working effectively. He did talk to the [employer] and they did recommend that he is due for a new BiPAP. Therefore I will request a new BiPAP replacement at this time for his mild function machine. He continues uses inhalers with good effect. He has not had to use his rescue inhaler. Otherwise patient is without any other complaints. 03/20/2023 the patient is here for a pulmonary follow-up visit. The patient overall has been doing fairly well from a respiratory status. He has been having more issues with blood pressure and heart rate. In the meantime he continues uses BiPAP. He still using the old BiPAP although is not working correctly. He is already received his new AutoPAP EPAP. The patient needs to start using it. Explained to him that the settings are different so once he start using it he let me now I have need to adjust the machine. He continues use the BiPAP every night the BiPAP therapy has been affecting beneficial he does use it for more than 4 hours a night. In regards of his breathing he does get winded with activity. Gbzh-ij-[id number] severity. He usually uses rescue inhaler before any exercise activity. We did talk about optimizing his respiratory therapy to [facility] but the patient at this point for consult with the Advair he does not want make any changes. The patient will continue with current therapy and will follow-up with cardiology and nephrology regarding his labile blood pressure. 11/11/2023 the patient has a telehealth visit today. Unfortunately he had a bad fall because of his vertigo and filling the kitchen hurting self. Therefore we do a telehealth visit. From a BiPAP standpoint the patient is doing very well. The pressures are currently 10/9 and his AHI is well below 1. Seems to be affecting beneficial. He does use it every night for more than 4 hours. Will continue to use it accordingly. In the meantime he is breathing has been okay. We switched him from Advair to Wixela. He had tried Wixela in the past but did not respond well to it. Although now the insurance company is not making the Advair anymore so we have to try him again on it. He still has some adverse so he will let me know how he responds to this time. If he has any issues he will call we can always changes something else. The patient also barium significant dizziness spells. Significant vertigo. Will try to simplify his medical regimen to make sure is not getting any adverse effects from any medications we are prescribing. Therefore will see about weaning off the singular that has a potential side effect of dizziness. Once he is off that if he continues have dizziness we can work on other medications that he may be taking we can try to simplify his medication regimen. Otherwise patient is doing well from respiratory status will go ahead and follow-up in the springtime. If he has any issues prior to that from call for an earlier assessment. 09/12/2024 the patient is here for pulmonary follow-up visit. Overall he is doing well from a respiratory status. Continues on the generic Advair 550. He gets it from often. He has not had to use any prednisone or his rescue inhaler often. He has been dealing with issues with elevated blood sugar. Apparently he was sent to density and developed visual impairment and therefore had to stop it. Now he has been struggling with his elevated sugars. He ended up going to the ER with a blood sugar in the 700s. His baseline blood sugar varies around 300-400. Does too high. He needs to follow-up with primary care or Endocrinology RAJAT. I did ask him to call the office as soon as possible to make an appointment. I am also going to send this note to them to for them to realize the urgency of the matter with significantly elevated blood sugars. Explained to the patient that with his visual impairment the elevated sugars can resulting worsening visual impairment. In the meantime he has been using his BiPAP. The BiPAP therapy continues to be affecting beneficial. He does use it for more than 4 hours a night. His AHI is around 1. And is supplies are delivered from his local [employer] company, [employer]. Will go ahead and send a script order to them at this time. The patient follow-up in a year's time or sooner if he develops any worsening symptoms. COUNTS INCLUDE 234 BEDS AT THE [facility] Medical History Restless legs syndrome (RLS) Hypertension, essential Dizziness Vertigo Acute depression Anxiety Benign prostatic hyperplasia without lower urinary tract symptoms Hyperlipidemia Type 2 diabetes mellitus with other diabetic kidney complication Diverticulosis Restless leg syndrome CAD (coronary artery disease) Dyspnea ASHLIE treated with BiPAP Asthma Surgical History History of cataract surgery H/O adenoidectomy Hx of tonsillectomy Family History Father Cancer Mother Cancer Sister Acute Crohn's disease Social History Alcohol intake: former Patient Tobacco Use Status: Never used Tobacco Review of Systems Const Reports difficulty sleeping, Reports fatigue, Reports frequent falls and Denies night sweats Eyes Reports change in vision ENT Denies change in voice, Reports vertigo, Reports dizziness, Denies lip swelling, Denies mouth pain, Reports nasal congestion, Reports nasal discharge and Denies tongue swelling Card Denies chest pain Resp Reports cough GI Denies abdominal pain Musc Denies no additional complaints Neuro Denies Abnormal speech present, Reports vertigo, Reports dizziness, Reports frequent falls and Reports restless legs Psych Denies no additional complaints Endo Reports fatigue Juvenal/Lymph Denies easy bleeding and Denies lymphadenopathy Aller/Immun Denies lip swelling and Denies tongue swelling Physical Exam Vital Signs: Last Vital Signs Pulse 76 09/12/24 09:38 BP 100/66 09/12/24 09:38 Pulse Ox 98 09/12/24 09:38 Oxygen Delivery Method Room Air 09/12/24 09:38 BMI result Body Mass Index 35.6 Const General: alert Orientation/consciousness: patient oriented x3 HEENT Other: Unremarkable Head: Yes normal to inspection Neck Neck: Yes normal visual inspection Chest Chest palpation & inspection: normal inspection of the chest Resp Effort & Inspection: normal respiratory effort and able to speak in complete sentences Auscultation: clear to auscultation bilaterally Cardio Palpation: normal PMI Heart sounds: S1 normal heart sound present, S2 normal heart sound present, no gallops, no murmurs and no rubs GI Palpation (GI): Soft to palpation Back/Spine/Pelvis Other: unremarkable Skin General skin exam: no rashes or lesions noted Neuro General: patient oriented x3 Speech: No Abnormal speech present Extrem General: Yes normal to inspection Psych Mental Status: mental status grossly normal Assessment & Plan Assessment & Plan (1) ASHLIE treated with BiPAP: Code(s): G47.33 - Obstructive sleep apnea (adult) (pediatric) Category: Medical (2) Asthma: Code(s): J45.909 - Unspecified asthma, uncomplicated Category: Medical Qualifiers: Asthma complication type: uncomplicated Asthma persistence: persistent Asthma severity: moderate Qualified Code(s): J45.40 - Moderate persistent asthma, uncomplicated (3) Restless leg syndrome: Code(s): G25.81 - Restless legs syndrome Category: Medical (4) Dyspnea: Code(s): R06.00 - Dyspnea, unspecified Category: Medical Qualifiers: Dyspnea type: dyspnea on exertion Qualified Code(s): R06.00 - Dyspnea, unspecified Plan continue VPAP, 04/13 AHI 0.7 Continue Wixela 500/50 SARA as needed Meclezine as needed Needs to F/U with PCP or Endocrine re: critically elevated blood sugars F/U 8-12 months Medications: Refilled fluticasone propion-salmeterol 500-50 mcg/dose (Wixela Inhub) 1 inh inhalation BID 3 ea 3RF 90 days Coding Level of Care Code Est Pt Level 4 (55734) Diagnoses ASHLIE treated with BiPAP G47.33 Moderate persistent asthma without complication J45.40 Asthma complication type: uncomplicated Asthma persistence: persistent Asthma severity: moderate Restless leg syndrome G25.81 Dyspnea on exertion R06.00 Dyspnea type: dyspnea on exertion Time Spent (min) 16
[2024-09-12 09:38] VITALS: BP 100/66; PULSE 76; O2SAT 98; BMI 35.6
--- OUTSIDE RECORDS SUMMARY | 2024-09-12 09:59 | XMS_ITS | Encounter Summary ---
Author Organization [employer] [facility] Address [address] [place] [address] 7 [place] [address] Care Team Providers Care Assembly Line Driver Name Role Phone Unavailable Primary Care Provider Unavailabl e Encounter Details Date Type Department Care Team (Latest Contact Info) Description 01/29/2021 Abstract [facility] CONVERSIONS Dental, Provider, DDS Social History [...] Care Team (Late st Contact Info) Description 09/12/2024 1:00 PM EDT Office Visit [facility] ADULT DENTAL [address] [place] [address] Jennifer Butterfield DDS [address] [place] [address] documented as of this encounter Visit Diagnoses Not on filedocumented in this encounter
--- OUTSIDE RECORDS SUMMARY | 2024-09-12 10:00 | XMS_ITS | Encounter Summary ---
Author Organization [facility] Address [address] [place] [address] Care Team Providers Care Buffing Line Set Up Worker Name Role Phone Iron Garibay MD Primary Care Provider [phone] Encounter Details Date Type Department Care Team (Late st Contact Info) Description 08/12/2024 Telephone Endocrinology - [place] [address] [place] [phone] Concepcion Silva RN Social History Tobacco Use [...] Denies dizziness Denies abd pain NYLA 04/14/24 MAY 07 Telemed Please advise Taking NPH 70/30 45 units BID Metformin 1000 mg BID documented in this encounter Plan of Treatment Upcoming Encounters Date Type Department Care Team (Late st Contact Info) Description 09/20/2024 8:00 AM EDT Office Visit Adult Medicine [facility] [address] [place] [phone] Iron Garibay MD [address] [place] [address] 01/04/2025 10:00 AM EDT Appointment [facility] Endoscopy [address] [place] [phone] Aylin Mcleod MD [address] [id number] documented as of this encounter Visit Diagnoses Not on filedocumented in this encounter Care Teams Buffing Line Set Up Worker Relationship Specialty Start Date End Date Iron Garibay MD [address] [place] [address] PCP - General Internal Medicine 05/11/24 documented as of this encounter
--- OUTSIDE RECORDS SUMMARY | 2024-09-12 10:00 | XMS_ITS | Clinical Summary ---
Author Organization [facility] Address [address] [phone] Phone Care Team Providers Care Curriculum Counselor Name Role Phone Iron Garibay MD Primary Care Provider [phone] Allergies Active Allergy Reactions Criticality Noted Date Comments Hydrochlorothiazide 05/26/2018 Other reaction(s): OTHER Excessive urination Levofloxacin 04/29/2022 Lisinopril 04/30/2023 Mometasone Furo-Formoterol Fum 04/29 Pramipexole 04/29/2022 Terazosin 04/29/2022 Medications venlafaxine XR (EFFEXOR-XR) 150 MG 24 hr capsule Take 150 mg by mouth 1 (one) time each day Active rOPINIRole (REQUIP) 0.25 MG tablet 3 Active omeprazole (PriLOSEC) [address] capsule Take 40 mg by mouth 9 Active Multiple Vitamin (Multi-Vitamin Daily) tablet Take by mouth 1 (one) time each day Active montelukast (SINGULAIR) 10 MG tablet Take 1 tablet by mouth at bed time 3 Active metFORMIN (GLUCOPHAGE) 500 MG tablet 3 Active meclizine (ANTIVERT) 25 MG tablet Take 25 mg by mouth in the morning and 25 mg in the evening. 3 Active losartan (COZAAR) 100 MG tablet 3 Active Lutein 6 MG capsule Take 1 capsule by mouth 1 (one) time each day Active Magnesium Oxide (DIASENSE MAGNESIUM PO) Take 400 mg by mouth 1 (one) time each day Active LORazepam (ATIVAN) 0.5 MG tablet TAKE 1 TABLET BY MOUTH EVERY MORNING AND 2 TABLETS AT BEDTIME 3 Active insulin NPH-insulin regular (NovoLIN 70/30 RELION) (70-30) 100 UNIT/ML injection INJECT 32 UNITS SUBCUTANEOUSLY TWICE DAILY BEFORE MEALS 3 Active RELION INSULIN SYR 0.3ML/31G 31G X 5/16 0.3 ML misc USE 1 SYRINGE DIRECTED TWICE DAILY 3 Active NovoLIN 70/30 RELION (70-30) 100 UNIT/ML injection INJECT 28 UNITS SUBCUTANEOUSLY TWICE DAILY BEFORE MEAL(S) 3 Active coenzyme Q-10 100 MG capsule Take 100 mg by mouth 1 (one) time each day Active diphenhydrAMIN E (Benadryl Allergy) 25 MG tablet Take 25 mg by mouth 9 Active Arginine 1000 MG tablet Take 1,000 mg by mouth 1 (one) time each day Active aspirin (ST EBEN) 81 MG EC tablet Take 81 mg by mouth 1 (one) time each day Active atenolol (TENORMIN) 50 MG tablet 3 Active Ashwagandha 500 MG capsule Take 500 mg by mouth 1 (one) time each day Active albuterol HFA (PROVENTIL HFA;VENTOLIN HFA) 108 (90 Base) MCG/ACT inhaler Inhale 2 puffs every 6 (six) hours if needed 1 Active fludrocortison e 0.1 MG tabletIndicati ons:Hypertensi on,Proteinuria , not otherwise specified TAKE 1 TABLET BY MOUTH EVERY DAY 90 tablet 1 4 Active indapamide (LOZOL) 2.5 MG tablet TAKE 1 TABLET BY MOUTH EVERY DAY IN THE EVENING 90 tablet 3 5 Active Active Problems Problem Noted Date Diagnosed Date Orthostatic hypotension 08/19/2023 Obstructive sleep apnea syndrome 04/30/2023 04/30/2023 Overview (04/30/2023): Follows with [facility] Pulm Hypertension 04/30/2023 04/30/2023 Overview (04/30/2023): Cardiac cath 02/2009 Depressive disorder 04/30/2023 04/30/2023 Asthma 04/30/2023 04/30/2023 Anxiety 04/30/2023 04/30/2023 Non-alcoholic fatty liver disease 10/03/2021 04/30/2023 Overview (04/30/2023): US Abdomen 09/23/21 Ascending aorta dilatation 09/26/202104/30 Vertigo 06/26/2021 04/30/2023 Overview (04/30/2023): Following with neurology (Brandie). Til test ordered. 06/2021 Last Assessment & Plan: I reviewed the MRI findings in detail with Mr. Orta and there are no acute findings. Specifically, [...] Restless legs 06/26/2021 04/30/2023 Overview (04/30/2023): Followsw ith neurology (josué) Hiatal hernia 02/03/2018 04/30/2023 Diverticular [...] [facility] [address] [place] [address] Yasir Santamaria MD from Last 3 Months Immunizations Name Administration Dates Next Due Influenza, MDCK, Quadrivalen t, with preservative 04/23/2022,03/22/2021,03/16/2020 Influenza, Unspecified 03/22/2021,05/09/2005 WowOwow SARS-COV-2 06/16/2021,10/10/2020 Pfizer SARS-CoV-2 Bivalent 30 mcg/0.3 [...] Office Visit [facility] [address] [phone] Yasir Santamaria MD [address] [phone] Health Maintenance Due Date Last Done Comments Colorectal Cancer Screening: Annual FOBT 12/26/2007 Colorectal Cancer Screening: Colonoscopy 12/26/2007 Colorectal Cancer Screening: Sigmoidoscopy 12/26/2007 Diabetes: Ophthalmology Exam 12/22/2022 Diabetes: Pedal Pulse Checked 12/22/2022 Diabetes: Sensory Foot Exam 12/22/2022 Diabetes: Visual Foot Exam 12/22/2022 Influenza Vaccine (#1) 2024 , 03/22/2021, 03/22/2021, Additional history exists Diabetes: Hemoglobin [...] patient's age to complete this topic Insurance [facility] MEDICARE [id number] MEDICARE Care Teams Curriculum Counselor Relationship Specialty Start Date End Date Iron Garibay MD [address] [place] [phone] PCP - General Internal Medicine 04/30/23
--- OUTSIDE RECORDS SUMMARY | 2024-09-12 10:00 | XMS_ITS | Clinical Summary ---
Author Organization [facility] Address [address] [place] [address] Care Team Providers Care Hospitalist Program Director Name Role Phone Iron Garibay MD Primary Care Provider [phone] Allergies Active Allergy Reactions Criticality Noted Date [...] 400 mg by mouth daily. 0 Active [place]-3 Fatty Acids (FISH OIL) 1200 MG CAPS [...] age to complete this topic Care Teams Hospitalist Program Director Relationship Specialty Start Date End Date Iron Garibay MD PCP - General Internal Medicine 05/22/17
--- OUTSIDE RECORDS SUMMARY | 2024-09-12 10:00 | XMS_ITS | Encounter Summary ---
Author Organization [employer] [facility] Address [address] [place] [address] 7 [place] [address] Care Team Providers Care Spanisher Name Role Phone Unavailable Primary Care Provider Unavailabl e Encounter Details Date Type Department Care Team (Latest Contact Info) Description 12/20/2018 Abstract [facility] CONVERSIONS Dental, Provider, DDS Social History [...] Description 09/12/2024 1:00 PM EDT Office Visit [facility] CHC ADULT DENTAL [address] [place] [address] Jennifer Butterfield DDS [address] [place] [address] documented as of this encounter Visit Diagnoses Not on filedocumented in this encounter
--- OUTSIDE RECORDS SUMMARY | 2024-09-12 10:00 | XMS_ITS | Encounter Summary ---
Author Organization [facility] Address [address] [place] [address] [address] [place] [address] Care Team Providers Care Inspector Health Care Facilities Name Role Phone Unavailable Primary Care Provider Unavailabl e Reason for Visit * Reason Onset Date Comments appt details 12/31/2023 Encounter Details Date Type Department Care Team (Late st Contact Info) Description 12/31/2023 Telephone [facility] [address] [place] [address] Jennifer Butterfield DDS [address] [place], [place] [phone] appt details Social History Tobacco Use Types [...] for him and to let front end architect know that his schedule is tight CS documented in this encounter Plan of Treatment Upcoming Encounters Date Type Department Care Team (Late st Contact Info) Description 09/12/2024 1:00 PM EDT Office Visit [facility] [address] [place] [address] Jennifer Butterfield DDS [address] [place] [address] documented as of this encounter Visit Diagnoses Not on filedocumented in this encounter
--- OUTSIDE RECORDS SUMMARY | 2024-09-12 10:00 | XMS_ITS | Clinical Summary ---
Author Organization [facility] [address] [place] [address] [place] [phone] Phone Care Team Providers Care Comprehensive Advisor Name Role Phone Iron Garibay MD Primary Care Provider [phone] Allergies Active Allergy Reactions Criticality Noted Date [...] Active blood-glucose meter,continuo us (FreeStyle Manny 3 Sinai) misc 1 Device by Does not apply [...] DIRECTED TWICE DAILY Active lancets 33 gauge [facility] 2 Devices by Does not apply route daily. Use To test sugars twice a day Active magnesium oxide (MAG-OX) 400 mg magnesium tablet Take 1 Cap by mouth daily. Active DAILY MULTI-VITAMIN ORAL Take by mouth daily. Active blood sugar diagnostic (ONETOUCH ULTRA BLUE TEST STRIP [facility]) Use to test blood sugar once daily. Active albuterol HFA (PROAIR HFA ; PROVENTIL HFA ; VENTOLIN HFA) 90 mcg/actuation inhaler Inhale 2 Puffs into the lungs every 4 hours as needed for Cough or Wheezing. Active arginine HCl, L-arginine, 1,000 mg tablet Take 1,000 mg by mouth daily. Active aspirin 81 mg EC tablet Take 81 mg by mouth daily. Active diphenhydrAMIN E (BENADRYL) 25 mg capsule Take 25 mg by mouth daily. Active fluticasone propion-salmet Bradley (ADVAIR DISKUS) 500-50 mcg/dose diskus inhaler Inhale 1 Puff into the lungs every 12 hours for 90 days. Active indapamide (LOZOL) 2.5 mg tablet Take 1 Tablet by mouth at bedtime. Active lutein 6 mg capsule Take 1 Cap by mouth daily. Active tadalafiL (CIALIS) 5 mg tablet Take [...] MEALS 240 tablet 1 06/13/20 24 Active flash glucose sensor (FreeStyle Manny 2 Sensor) kit Change sensor every 14 days 2 EA 07/14/19 25 Active glucose blood test stripIndicatio ns:Type 2 diabetes mellitus with diabetic microalbuminur ia, with long-term current use of insulin ([facility]) Use to test blood sugar twice a day.E11.29 300 each 07/20/19 25 026 Active lancets 30 gauge miscIndication s:Type 2 diabetes mellitus with diabetic microalbuminur ia, with long-term current use of insulin ([facility]) Check blood sugar three times a day.E11.29 100 each 07/20/19 25 Active ferrous sulfate 325 mg (65 mg iron) EC tabletIndicati ons:Iron deficiency anemia, unspecified iron deficiency anemia type Take 1 tablet (325 mg total) by mouth 1 (one) time each day with breakfast. Do not crush, chew, or split. 90 each 08/01/19 25 025 Active docusate sodium (Colace) 100 mg capsuleIndicat ions:Iron deficiency anemia, unspecified iron deficiency anemia type Take 1 capsule (100 mg total) by mouth 1 (one) time each day. 90 each 1 08/01/19 25 025 Active diazePAM (VALIUM) 5 mg tablet TAKE 1 TABLET BY MOUTH TWICE A DAY 60 tablet 08/10/19 25 Active montelukast (SINGULAIR) 10 mg tablet Take 1 tablet (10 mg total) by mouth at bedtime. 90 tablet 3 08/23/19 25 Active atenoloL (TENORMIN) 50 mg tablet Take 1 tablet (50 mg total) by mouth 1 (one) time each day. 90 tablet 3 08/23/19 25 Active meclizine (ANTIVERT) 25 mg tablet Take 1 tablet (25 mg total) by mouth 3 (three) times a day if needed for dizziness. 30 tablet 1 08/24/19 25 Active omeprazole (PriLOSEC) [address] capsule TAKE 1 CAPSULE BY MOUTH DAILY 90 capsule 1 09/09/19 25 Active losartan (COZAAR) 100 mg tablet TAKE 1 TABLET BY MOUTH DAILY 90 tablet 1 09/09/19 25 Active atenoloL (TENORMIN) 50 mg tablet Take 1 Tablet by mouth daily. [facility] 025 Discontinued losartan (COZAAR) 100 mg tablet Take 1 Tablet by mouth daily. 025 Discontinued montelukast (SINGULAIR) 10 mg tablet Take 1 Tablet by mouth at bedtime. 025 Discontinued omeprazole (PriLOSEC) [address] capsule TAKE 1 CAPSULE BY MOUTH DAILY 90 capsule 1 06/22/20 24 025 Discontinued meclizine (ANTIVERT) 25 mg tablet Take 1 tablet (25 mg total) by mouth 3 (three) times a day if needed for dizziness. 30 tablet 1 08/11/19 25 025 Discontinued(Re order) Active Problems Problem Noted Date Diagnosed Date Iron deficiency anemia 08/01/2024 Mild CAD 07/30/2024 Assessment & Plan (07/30/2024 9:11 AM EST): Continue cardiology follow up Continue isosorbide dinitrate BID and aspirin 81mg daily ASHLEI (obstructive sleep apnea) 04/22/2024 Overview (04/22/2024): Follows with [facility] Pulm Assessment & Plan (07/30/2024 9:11 AM EST): Continue BIPAP nightly Anxiety 04/22/2024 Depression 04/22/2024 Hypertension 04/22/2024 Overview (04/22/2024): Cardiac cath 02/2009 Assessment & Plan (07/30/2024 9:11 AM EST): Well controlled. Continue losartan 100mg daily, atenolol 50mg daily and indapamide 2.5 mg casandra GERD (gastroesophageal reflux disease) Asthma 04/22/2024 Assessment & Plan (07/30/2024 9:11 AM EST): He follows with pulmonology. Continue advair BID , albuterol prn and montelukast nightly Fatty liver disease, nonalcoholic 10/03/2021 Overview (04/22/2024): US Abdomen 09/23/21 Ascending aorta dilatation 09/26/2021 RLS (restless legs syndrome) 06/26/2021 Overview (04/22/2024): Followsw [facility] neurology (josué) Assessment & Plan (07/30/2024 9:11 AM EST): continue ropinirole nightly Vertigo 06/26/2021 Overview (04/22/2024): Following with neurology (Brandie). Til test ordered. 06/2021 Last Assessment & Plan: I reviewed the MRI findings in detail with Janet Marivel and there are no acute findings. [...] 08/06/2012 Spermatocele of epididymis 04/27/2012 Overview (04/22/2024): Us 04/14 Encounters Date Type Department Care Team Description 09/09/2024 Telephone Adult Medicine [address] [phone] Iron Garibay MD Lab work (Upcoming apt 09/21/27 with [place]) 08/18/2024 9:40 AM EST Consult Gastroenterology [facility] [address] [facility] [address] [place] [phone] Kavita Dodge, DALLIN Iron deficiency anemia, unspecified iron deficiency anemia type (Primary Dx); Gastroesophageal reflux disease without esophagitis 08/18/2024 Telephone Gastroenterology [facility] [address] [phone] Kavita Dodge, DALLIN 08/12/[address] [phone] Concepcion Silva, SHOSHANA 08/01/2024 Telephone Adult Medicine [address] [phone] Kristi Alvarez, SHOSHANA 07/29/2024 10:00 AM EST Consult Adult Medicine [address] [phone] Hermilo Hargrove MD Preop cardiovascular exam (Primary Dx); Type 2 diabetes mellitus with diabetic microalbuminuria, with long-term current use of insulin ([facility]); Normocytic anemia; Hypomagnesemia; ASHLIE (obstructive sleep apnea); Primary hypertension; Mild CAD; RLS (restless legs syndrome); Mild persistent asthma without complication 07/28/2024 Telephone Adult Medicine [address] [phone] Iron Garibay MD Pre-op Exam (RESCHEDULE from 07/28/24/Root Canal @ [facility] on 08/03/24) 07/25/2024 Telephone Adult Medicine [address] [phone] Iron Garibay MD returning triage phone call 07/15/2024 Telephone Adult Medicine [address] [phone] Iron Garibay MD Fitting for DME (Glucose Moniter) 07/08/[address] [phone] Trinh Meeks PA referral 07/05/[address] [phone] Chanelle Rodrigues PA Blood Sugar Problem 06/27/[address] [phone] Trinh Meeks PA PROVIDER CALL BACK from Last 3 Months Immunizations Name Administration [...] o/w normal UPPER GASTROINTESTINAL ENDOSCOPY 01/21/2010 PROCEDURE: NV UPPER GI ENDOSCOPY PERFORMED; COMMENT: Dr Perez - erosive esophagitis, HH, otherwise normal OTHER SURGICAL HISTORY 10/07/2011 PROCEDURE: HISTORY OTHER; COMMENT: UPPP and T & A CATARACT EXTRACTION 2014 Bilateral PROCEDURE: HISTORICAL CATARACT REMOVAL HAND SURGERY 11/2015 Left PROCEDURE: HISTORICAL HAND SURGERY ESOPHAGOGASTRODUODENOSCOPY 05/20/2018 PROCEDURE: NV EGD TRANSORAL BIOPSY SINGLE/MULTIPLE; COMMENT: Esophagus suspicious for EOE. Esophagus dilated to 60 Congolese. Normal duodenum and stomach. Biopsies obtained. Pathology [...] EST Inhaled Oxygen Concentration - - Weight 121 kg (267 lb) 08/18/2024 9:02 AM EST Height 193 cm (6' 4 ) 08/18/2024 9:02 AM EST Body Mass Index 32.5 08/18/2024 9:02 AM EST Plan of Treatment Upcoming Encounters Date Type Department Care Team (Late st Contact Info) Description 09/20/2024 8:00 AM EDT Office Visit Adult Medicine [address] [phone] Iron Garibay MD [address] [place] [address] 01/04/2025 10:00 AM EDT Appointment [facility] Endoscopy [address] [place] [phone] Aylin Mcleod MD [address] [address] Health Maintenance Due Date Last Done Comments [...] Procedure Name Priority Date/Time Associated Diagnosis Comments EXTERNAL CLINICAL LAB 08/15/2024 CBC WITH AUTO DIFFERENTIAL Routine 07/29/2024 11:29 AM EST Normocytic anemia HEMOGLOBIN A1C Routine 07/29/2024 11:29 AM EST Type 2 diabetes mellitus with diabetic microalbuminuria, with long-term current use of insulin ([facility]) BASIC METABOLIC PANEL Routine 07/29/2024 11:29 AM [...] ECG 12-LEAD Routine 07/29/2024 9:49 AM EST HM URINE ALBUMIN CREATININE RATIO Routine 12/07/2023 LIPID PANEL Routine 12/07/2023 HM HEPATITIS C SCREENING Routine 03/01/2020 COLONOSCOPY Routine 10/03/2019 from Last 3 Months or Most Recently Relevant to Health Maintenance Results * External clinical lab (08/15/2024) us Provider Onbase MD LAB BLOOD ORDERABLES Final Re sult * (ABNORMAL) CBC auto differential (07/29/2024 11:29 AM EST) WBC 7.5 4.8 - 10.8 K/mcL LAB HEMETOLOGY METHOD 07/29/2024 2:06 PM [facility] RBC 4.10(L) 4.50 - 5.50 M/mcL LAB HEMETOLOGY METHOD 07/29/2024 2:06 PM [facility] Hemoglobin 11.7(L) 13.5 - 17.5 g/dL LAB HEMETOLOGY METHOD 07/29/2024 2:06 PM [facility] Hematocrit 37.1(L) 42.0 - 54.0 % LAB HEMETOLOGY METHOD 07/29/2024 2:06 PM [facility] MCV 90.7 79.0 - 98.0 FL LAB HEMETOLOGY METHOD 07/29/2024 2:06 PM [facility] MCH 28.6 27.0 - 32.0 pcg LAB HEMETOLOGY METHOD 07/29/2024 2:06 PM [facility] MCHC 31.5(L) 32.0 - 37.0 g/dL LAB HEMETOLOGY METHOD 07/29/2024 2:06 PM [facility] RDW 13.9 11.0 - 15.0 % LAB HEMETOLOGY METHOD 07/29/2024 2:06 PM [facility] Platelets 341 130 - 400 K/mcL LAB HEMETOLOGY METHOD 07/29/2024 2:06 PM [facility] MPV 10.5 7.0 - 11.0 FL LAB HEMETOLOGY METHOD 07/29/2024 2:06 PM [facility] NRBC 0.0 <1.0 % LAB HEMETOLOGY METHOD 07/29/2024 2:06 PM [facility] NRBC Absolute 0.00 <0.10 K/mcL LAB HEMETOLOGY METHOD 07/29/2024 2:06 PM [facility] Neutrophils Relative 62.8 % LAB HEMETOLOGY METHOD 07/29/2024 2:06 PM [facility] Lymphocytes Relative 24.6 % LAB HEMETOLOGY METHOD 07/29/2024 2:06 PM [facility] Monocytes Relative 7.8 % LAB HEMETOLOGY METHOD 07/29/2024 2:06 PM [facility] Eosinophils Relative 3.8 % LAB HEMETOLOGY METHOD 07/29/2024 2:06 PM [facility] Basophils Relative 0.5 % LAB HEMETOLOGY METHOD 07/29/2024 2:06 PM [facility] Immature Granulocytes Relative 0.5 % LAB HEMETOLOGY METHOD 07/29/2024 2:06 PM [facility] Neutrophils Absolute 4.68 1.50 - 7.00 K/mcL LAB HEMETOLOGY METHOD 07/29/2024 2:06 PM [facility] Lymphocytes Absolute 1.83 1.00 - 5.00 K/mcL LAB HEMETOLOGY METHOD 07/29/2024 2:06 PM [facility] Monocytes Absolute 0.58 0.20 - 1.00 K/mcL LAB HEMETOLOGY METHOD 07/29/2024 2:06 PM [facility] Eosinophils Absolute 0.28 0.00 - 0.50 K/mcL LAB HEMETOLOGY METHOD 07/29/2024 2:06 PM [facility] Basophils Absolute 0.04 0.00 - 0.20 K/mcL LAB HEMETOLOGY METHOD 07/29/2024 2:06 PM EST [facility] Immature Granulocytes Absolute 0.04(H) 0.00 - 0.03 K/mcL LAB HEMETOLOGY METHOD 07/29/2024 2:06 PM EST [facility] Blood Venous blood specimen / Unknown Venipuncture / Unknown 07/29/2024 11:29 AM EST 07/29/2024 11:29 AM EST us Hermilo Hargrove MD LAB BLOOD ORDERA BLES Final Result Performing Organization Address [facility]/ZIP Co de Phone Number [facility] [address] [place] [address], [place] [phone] * (ABNORMAL) Iron and TIBC (07/29/2024 11:29 AM EST) Iron 52 50 - 160 mcg/dL LAB CHEMISTRY METHOD 07/29/2024 4:58 PM [facility] TIBC 496(H) 250 - 450 mcg/dL LAB CHEMISTRY METHOD 07/29/2024 4:58 PM [facility] Iron Saturation 10(L) 20 - 50 % LAB CHEMISTRY METHOD 07/29/2024 4:58 PM [facility] Blood Venous blood specimen / Unknown Venipuncture / Unknown 07/29/2024 11:29 AM EST 07/29/2024 11:29 AM EST Hermilo Hargrove MD LAB BLOOD ORDERA BLES Final Result Performing Organization Address [facility]/ZIP Co de Phone Number [facility] [address] [place] [address], [place] [phone] * Magnesium (07/29/2024 11:29 AM EST) Magnesium 1.9 1.9 - 2.6 mg/dL LAB CHEMISTRY METHOD 07/29/2024 4:58 PM EST [facility] Blood Venous blood specimen / Unknown Venipuncture / Unknown 07/29/2024 11:29 AM EST 07/29/2024 11:29 AM EST Hermilo Hargrove MD LAB BLOOD ORDERA BLES Final Result Performing Organization Address City/[facility]/ZIP Co de Phone Number [facility] [address] [place] [address], [place] [phone] * (ABNORMAL) Hemoglobin A1c (07/29/2024 11:29 AM EST) Hemoglobin A1C 10.8(H) <6.5 % LAB CHEMISTRY METHOD 07/29/2024 9:46 PM EST [facility] Mean Bld Glu Estim. 263 mg/dL LAB CHEMISTRY METHOD 07/29/2024 9:46 PM EST [facility] Blood Venous blood specimen / Unknown Venipuncture / Unknown 07/29/2024 11:29 AM EST 07/29/2024 11:29 AM EST Hermilo Hargrove MD LAB BLOOD ORDERA BLES Final Result Performing Organization Address City/[facility]/ZIP Co de Phone Number [facility] [address] [place] [address], [place] [phone] * (ABNORMAL) Folate (07/29/2024 11:29 AM EST) Folate >20.0(H) 2.8 - 17.0 ng/ml LAB CHEMISTRY METHOD 07/29/2024 5:21 PM EST [facility] Blood Venous blood specimen / Unknown Venipuncture / Unknown 07/29/2024 11:29 AM EST 07/29/2024 11:29 AM EST Hermilo Hargrove MD LAB BLOOD ORDERA BLES Final Result Performing Organization Address City/[facility]/ZIP Co de Phone Number [facility] [address] [place] [address], [place] [phone] * (ABNORMAL) Ferritin (07/29/2024 11:29 AM EST) [facility] Ferritin 24(L) 26 - 388 ng/mL LAB CHEMISTRY METHOD 07/29/2024 5:21 PM EST [facility] Blood Venous blood specimen / Unknown Venipuncture / Unknown 07/29/2024 11:29 AM EST 07/29/2024 11:29 AM EST Hermilo Hargrove MD LAB BLOOD ORDERA BLES Final Result Performing Organization Address [facility] Co de Phone Number [facility] [address] [place] [address], [place] [phone] * (ABNORMAL) Vitamin B12 (07/29/2024 11:29 AM EST) [facility] Vitamin B-12 1,661(H) 250 - 900 pcg/mL LAB CHEMISTRY METHOD 07/29/2024 5:21 PM EST [facility] Blood Venous blood specimen / Unknown Venipuncture / Unknown 07/29/2024 11:29 AM EST 07/29/2024 11:29 AM EST Hermilo Hargrove MD LAB BLOOD ORDERA BLES Final Result Performing Organization Address City/[facility]/ZIP Co de Phone Number [facility] [address] [place] [address], [place] [phone] * (ABNORMAL) Basic metabolic panel (07/29/2024 11:29 AM EST) [facility] Sodium 135 133 - 145 mmol/L LAB CHEMISTRY METHOD 07/29/2024 4:58 PM [facility] Potassium 4.1 3.5 - 5.5 mmol/L LAB CHEMISTRY METHOD 07/29/2024 4:58 PM [facility] Chloride 99 96 - 110 mmol/L LAB CHEMISTRY METHOD 07/29/2024 4:58 PM [facility] CO2 32 21 - 32 mmol/L LAB CHEMISTRY METHOD 07/29/2024 4:58 PM [facility] Anion Gap 4 3 - 11 LAB CHEMISTRY METHOD 07/29/2024 4:58 PM [facility] Glucose 127(H) 70 - 100 mg/dL LAB CHEMISTRY METHOD 07/29/2024 4:58 PM [facility] BUN 24 5 - 25 mg/dL LAB CHEMISTRY METHOD 07/29/2024 4:58 PM [facility] Creatinine 1.10 0.70 - 1.30 mg/dL LAB CHEMISTRY METHOD 07/29/2024 4:58 PM [facility] eGFR 74 >=60 mL/min/1. 73m2 LAB CHEMISTRY METHOD 07/29/2024 4:58 PM [facility] Comment:Calculation based on the??Chronic Kidney Disease Epidemiology Collaboration (CKD-EPI) equation refit??without adjustment for race. BUN/Creatinine Ratio 21.8 LAB CHEMISTRY METHOD 07/29/2024 4:58 PM [facility] Calcium 9.4 8.5 - 10.5 mg/dL LAB CHEMISTRY METHOD 07/29/2024 4:58 PM [facility] Blood Venous blood specimen / Unknown Venipuncture / Unknown 07/29/2024 11:29 AM EST 07/29/2024 11:29 AM EST us Hermilo Hargrove MD LAB BLOOD ORDERA BLES Final Result [facility] [address] [place] [address], * ECG 12 lead (07/29/2024 9:49 AM EST) Hermilo Hargrove MD ECG ORDERABLES Final Result * Urine Albumin Creatinine Ratio (12/07/2023) Pathologist [facility] Urine Albumin Creatinine Ratio abstracted Historical Provider HEALTH MAINTENANCE Final Result * (ABNORMAL) Lipid panel (12/07/2023) [facility] LDL/HDL Ratio 5(A) 0 - 4 Triglycerides 232(A) 0 - 150 mg/dL Cholesterol 186 0 - 200 mg/dL HDL 40 >=40 mg/dL LDL Cholesterol 100 0 - 100 mg/dL Blood Venous blood specimen / Unknown Historical Provider LAB BLOOD ORDERABLES Catarina l Result * Hepatitis C Screening (03/01/2020) Pathologist [facility] Hepatitis C Screening abstracted Historical Provider HEALTH MAINTENANCE Final Result * Colonoscopy (10/03/2019) Pathologist [facility] Colonoscopy no interpretation abstracted Anatomical Region Laterality Modality Other Historical Provider HEALTH MAINTENANCE Final Result from Last 3 Months or Most Recently Relevant to Health Maintenance Insurance [facility] MEDICARE MEDICAID - [place] Advance Directives Documents on File Type Date Recorded 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
--- OUTSIDE RECORDS SUMMARY | 2024-09-12 10:00 | XMS_ITS | Encounter Summary ---
Author Organization [employer] Address [address] [facility] [address] [place] [address] Care Team Providers Care Gym Manager Name Role Phone Unavailable Primary Care Provider Unavailabl e Reason for Visit * Reason Comments Filling Encounter Details Date Type Department Care Team ([facility] st Contact Info) Description 09/02/2024 10:00 AM EST Office Visit [facility] [address] [place] [address] Jennifer Butterfield DDS [address] [place] [address] Social History Tobacco Use Types Packs/Day Years Used Date Smoking Tobacco: Never Passive Smoke Exposure: Never Smokeless Tobacco: Never Sex and Gender Information Value Date Recorded Sex Assigned at Male 05/05/2022 10:18 AM EDT Legal Sex Male 10:18 AM EDT Gender Identity Male 05/05/2022 10:18 AM EDT Sexual Orientation Straight 05/05/2022 10 :18 AM EDT documented as of this encounter Progress Notes * Jennifer Butterfield DDS - 09/02/2024 10:00 AM EST Dental procedures in this visit D2392 - RESIN-BASED COMPOSITE - 2 SURF, POSTERIOR 29 DO (Completed) Service provider: Jennifer Butterfield DDS Billing provider: Sierra Calderón DDS [id number] - RESIN-BASED COMPOSITE - 3 SURF, ANTERIOR 26 DFL (Completed) Service provider: Jennifer Butterfield DDS Billing provider: Sierra Calderón DDS [id number] - RESIN-BASED COMPOSITE - 3 SURF, ANTERIOR 27 MFL (Completed) Service provider: Jennifer Butterfield DDS Billing provider: Sierra Calderón DDS Patient ID: Bladimir Orta is a 63 y.o. male. Time Out: Date: 09/02/2024 Location: [facility] Tooth: #26, #27, and #29 Procedure: Religious Verified the above with patient, museum assistant, and provider. Confirmed via patient's chart, intraorally and by radiographs. Manager Farm: not applicable Composite gnosticism done on # 29, 27 [address] Jennifer Butterfield DDS Risk, benefits, and alternatives discussed with the patient. CONSENT FORM INITIALED & SIGNED BY THE PATIENT AND COUNTERSIGNED BY Dr. Jennifer Butterfield DDS Medical history: Reviewed in EHR Vitals: There were no vitals taken for this visit. Allergies: Reviewed in EHR Medications: Reviewed in EHR - [place]: 20% topical benzocaine; local infiltration with 1 carpule 4% septocaine/articaine 1:100,000 epinephrine - Existing gnosticism and recurrent decay removed - Mylar strip/Matrix band and wedge used as needed - Desensitizer: gluma - Base: quechan-lite - Etching done using 37% phosphoric acid. - special agent fbi applied. - Composite gnosticism done using Filtek body/flowable composite, shade a3 - Anatomy and margins adjusted - Proximal contact confirmed with floss. - Occlusion checked with articulating paper - Necessary reductions made. - Religious smoothed and polished. - Post op instructions given Patient satisfied, left in stable condition Patient made aware possible post op sensitivity NV: rct Provider: Dr. Jennifer Butterfield DDS Road Hogger Operator: Davonte Quintero Supervising dentist: Dr. Calderón * Sierra Calderón DDS - 09/02/2024 10:00 AM EST I have reviewed the documentation and dental procedures completed by the rendering provider, Jennifer Butterfield DDS, and approve their chart entries for this visit. OMAR Senior DDS documented in this encounter Plan of Treatment Upcoming Encounters Date Type Department Care Team (Late st Contact Info) Description 09/12/2024 1:00 PM EDT Office Visit [facility] [address] [place] [address] Jennifer Butterfield, DDS [address] [place] [address] documented as of this encounter Procedures Procedure Name Priority Date/Time Associated Diagnosis Comments 29 DO RESIN-BASED COMPOSITE - 2 SURF, POSTERIOR Routine 09/02/2024 10:00 AM EST 27 MFL RESIN-BASED COMPOSITE - 3 SURF, ANTERIOR Routine 09/02/2024 10:00 AM EST 26 DFL RESIN-BASED COMPOSITE - 3 SURF, ANTERIOR Routine 09/02/2024 10:00 AM EST documented in this encounter Visit Diagnoses Not on filedocumented in this encounter
--- OUTSIDE RECORDS SUMMARY | 2024-09-12 10:00 | XMS_ITS | Encounter Summary ---
Author Organization [facility] Address [address] [place] [address] 7 [place] [address] Care Team Providers Care Pets Salesperson Name Role Phone Unavailable Primary Care Provider Unavailabl e Reason for Visit * Reason Onset Date Comments appt 01/20/2024 Encounter Details Date Type Department Care Team (Late st Contact Info) Description 01/20/2024 Telephone [facility] ADULT DENTAL [address] [place] [address] Jennifer Butterfield DDS [address] [place], [place] [phone] appt Social History Tobacco Use Types Packs/Day [...] He'd like to be scheduling for his worship appts. Morning or afternoon does not matter to him DR documented in this encounter Plan of Treatment Upcoming Encounters Date Type Department Care Team (Late st Contact Info) Description 09/12/2024 1:00 PM EDT Office Visit [facility] ADULT DENTAL [address] [place] [address] Jennifer Butterfield DDS [address] [place] [address] documented as of this encounter Visit Diagnoses Not on filedocumented in this encounter
--- OUTSIDE RECORDS SUMMARY | 2024-09-12 10:00 | XMS_ITS | Encounter Summary ---
Author Organization [facility] Address [address] [place] [address] Care Team Providers Care Supervisor Plastics Name Role Phone Iron Garibay MD Primary Care Provider [phone] Reason for Visit * Reason Onset Date Comments Fitting for DME 07/15/2024 Glucose Moniter Encounter Details Date Type Department Care Team ([facility] st Contact Info) Description 07/15/2024 Telephone Adult Medicine [address] [phone] Iron Garibay MD [address] [place] [phone] Fitting for DME (Glucose Moniter) Social History [...] Concepcion can please call him re: sensors. [phone] * Concepcion Silva RN - 07/21/2024 8:17 [...] he states his insulin was recently increased. [phone] * Concepcion Silva RN - 07/19/2024 4:20 [...] 3:02 PM EST Please call patient at [phone] with any questions * Ana Santacruz - [...] with who andwhen? Yes. When completed: Will bead picker-call when completed: (home) Have you told the patient it will take 7-10 days for completion of this request? Yes documented in this encounter Plan of Treatment Upcoming Encounters Date Type Department Care Team (Late st Contact Info) Description 09/20/2024 8:00 AM EDT Office Visit Adult Medicine [address] [phone] Iron Garibay MD [address] [place] [address] 01/04/2025 10:00 AM EDT Appointment [facility] Endoscopy [address] [place] [phone] Aylin Mcleod MD [address] [address] documented as of this encounter Visit Diagnoses Not on filedocumented in this encounter Care Teams Supervisor Plastics Relationship Specialty Start Date End Date Iron Garibay MD [address] [place] [address] PCP - General Internal Medicine 05/11/24 documented as of this encounter
--- OUTSIDE RECORDS SUMMARY | 2024-09-12 10:00 | XMS_ITS | Encounter Summary ---
Author Organization [facility] Address [address] [place] [address] Care Team Providers Care Data Modeling Architect Name Role Phone Iron Garibay MD Primary Care Provider [phone] Reason for Visit * Reason Onset Date Comments Lab work 09/09/2024 Upcoming apt 09/03 03/02 with [facility] Encounter Details Date Type Department [facility] Description 09/09/2024 Telephone Adult Medicine [address] [phone] Iron Garibay MD [address] [place] [phone] Lab work (Upcoming apt 09/21/27 with [facility]) Social History Tobacco Use Types Packs/Day Years [...] as of this encounter Progress Notes * Mirella Reilly MA - 09/09/2024 4:55 PM EST Pt had labs done on 07/29/2024,not due for labs before 3 m. Provider message printed with Lab results and provided to patient. * Armidataurus Webb - 09/09/2024 12:04 PM EST Pt states he went to the lab and the orders need to be transfers pt has an upcoming apt on 09/20/[address] Garibay, pt wants a call back when orders are in documented in this encounter Plan of Treatment Upcoming Encounters Date Type Department Care Team (Late st Contact Info) Description 09/20/2024 8:00 AM EDT Office Visit Adult Medicine [facility] [address] [place] [phone] Iron Garibay MD [address] [place] [address] 01/04/2025 10:00 AM EDT Appointment [facility] Endoscopy [address] [place] [phone] Aylin Mcleod MD [address] [address] documented as of this encounter Visit Diagnoses Not on filedocumented in this encounter Care Teams Data Modeling Architect Relationship Specialty Start Date End Date Iron Gariaby MD [address] [place] [address] PCP - General Internal Medicine 05/11/24 documented as of this encounter
--- OUTSIDE RECORDS SUMMARY | 2024-09-12 10:00 | XMS_ITS | Encounter Summary ---
Author Organization [employer] Address [address] [place] [address] 7[address] [place] [address] Care Team Providers Care Terrazzo Worker Helper Name Role Phone Unavailable Primary Care Provider Unavailabl e Reason for Visit * Reason Comments Filling Encounter Details Date Type Department Care Team (Late st Contact Info) Description 08/15/2024 3:00 PM EST Office Visit [facility] ADULT DENTAL [address] [place] [address] Jennifer Butterfield DDS [address] [place] [address] Social History Tobacco Use Types Packs/Day Years [...] Progress Notes * Jennifer Butterfield DDS - 08/15/2024 3:00 PM EST Dental procedures in this visit [id number] - RESTORATIVE - RESIN-BASED COMPOSITE RESTORATIONS - DIRECT - RESIN-BASED COMPOSITE - THREE SURFACES, ANTERIOR 6 MDF (Completed) Service provider: Jennifer Butterfield DDS Billing provider: Ruben Iqbal DMD Patient ID: Bladimir Orta is a 63 y.o. male. Time Out: Date: 08/15/2024 Location: [facility] Tooth: #6 Procedure: Moravian Verified the above with patient, administrative library assistant, and provider. Confirmed via patient's chart, intraorally and by radiographs. Welt Drawer: not applicable Composite voodoo done on # [address] Jennifer Butterfield DDS Risk, benefits, and alternatives discussed with the patient. CONSENT FORM INITIALED & SIGNED BY THE PATIENT AND COUNTERSIGNED BY Dr. Jennifer Butterfield DDS Medical history: Reviewed in EHR Vitals: There were no vitals taken for this visit. Allergies: Reviewed in EHR Medications: Reviewed in EHR - LA: none used - Existing voodoo and recurrent decay removed - Mylar strip and wedge used as needed - Desensitizer: gluma - Etching done using 37% phosphoric acid. - internal revenue service agent applied. - Composite voodoo done using Filtek body/flowable composite, shade a3 - Anatomy and margins adjusted - Proximal contact confirmed with floss. - Occlusion checked with articulating paper - Necessary reductions made. - Moravian smoothed and polished. - Post op instructions given Patient satisfied, left in stable condition Patient made aware possible post op sensitivity NV: recall Provider: Dr. Jennifer Butterfield DDS Control Board Operator: Tri Brown Supervising dentist: Dr. Iqbal * Ruben Iqbal DMD - 08/15/2024 3:00 PM EST I have reviewed the documentation and dental procedures made by the rendering provider, Jennifer Butterfield DDS, and approve their chart entries for this visit. Ruben Iqbal DMD documented in this encounter Plan of Treatment Upcoming Encounters Date Type Department Care Team (Late st Contact Info) Description 09/12/2024 1:00 PM EDT Office Visit [facility] ADULT DENTAL [address] [place] [address] Jennifer Butterfield DDS [address] [place] [address] documented as of this encounter Procedures Procedure Name Priority Date/Time Associated Diagnosis Comments 6 MDF RESIN-BASED COMPOSITE - 3 SURF, ANTERIOR Routine 08/15/2024 3:00 PM EST documented in this encounter Visit Diagnoses Not on filedocumented in this encounter
--- OUTSIDE RECORDS SUMMARY | 2024-09-12 10:01 | XMS_ITS | Clinical Summary ---
Author Organization [employer] Address [address] [place] [address] 7[address] [place] [address] Care Team Providers Care Saddle Stitch Operator Name Role Phone Unavailable Primary Care Provider [...] mg by mouth Once per day. Active diphenhydrAMIN E (BENADryl) 25 MG tablet Take 25 mg by mouth. 9 Active fludrocortison e (Florinef) 0.1 MG tablet Take 0.1 mg [...] (PreviDent 5000 Booster Plus) 1.1 % paste Aurora for two minute rinse but dont spit and do not eat or drink for the next 30mint 112 g 3 4 Active testosterone (Androgel) 50 MG/5GM (1%) gel 1 PACKET TRANSDERMALLY DAILY FOR 30 DAYS APPLY TO SHOULDER AND RUB IN UNTIL DRY - 1 PACKET PER DAY 5 Active Active Problems Problem Noted Date Diagnosed Date Iron deficiency anemia 08/01/2024 Mild CAD 07/30/2024 Orthostatic hypotension 08/19/2023 Asthma 04/30/2023 Obstructive sleep apnea syndrome 04/30/2023 Overview (09/02/2024): [place] Nonalcoholic fatty liver disease 10/03/2021 Overview (09/02/2024): US Abdomen 09/23/21 Ascending aorta dilatation 09/26/2021 Restless legs syndrome 06/26/2021 Overview (09/02/2024): [facility] Allergic rhinitis 02/03/2018 Hiatal hernia 02/03/2018 Diverticular disease 02/03/2018 Type 2 diabetes mellitus with renal manifestatio ns 07/30/2017 Anemia in other chronic diseases classified else where 05/22/2017 Chronic sinusitis 01/16/2017 Microalbuminuria 12/18/2016 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 Overview (09/02/2024): Polypoid lesion on trachea , repeat CT warranted, No additional information available on transferred notes from Dr Meeks 04/11/2016 Hyperlipidemia 02/14/2014 Anxiety 10/20/2013 Depressive disorder 10/20/2013 Diabetes mellitus 10/20/2013 GERD (gastroesophageal reflux disease) 4 Hypertension 10/20/2013 Overview (09/02/2024): Cardiac cath 02/2009 Obesity 05/11/2013 Benign prostatic hyperplasia 08/06/2012 Spermatocele of epididymis 04/27/2012 Overview (09/02/2024): Us 04/14 Encounters Date Type Department Care Team Description 09/02/2024 10:00 AM EST Office Visit [facility] ADULT [facility] [address] [place] [address] Jennifer Butterfield, DDS 08/15/2024 3:00 PM EST Office Visit [facility] ADULT D[facility] [address] [place] [address] Jennifer Butterfield, DDS 08/01/2024 8:00 AM EST Office Visit [facility] ADULT D[facility] [address] [place] [address] Carroll Stevens, DMD Dental abscess (Primary Dx) 07/29/2024 Telephone [facility] ADULT DENT[facility] [address] [place] [address] Jennifer Butterfield, DDS 06/23/2024 10:00 AM EST Office Visit [facility] ADULT D[facility] [address] [place] [address] Jennifer Butterfield, DDS from Last 3 Months Social History [...] Description 09/12/2024 1:00 PM EDT Office Visit [facility] ADULT D[facility] [address] [place] [address] Jennifer Butterfield DDS [address] [place] [address] Health Maintenance Due Date Last Done Comments CT Colonography 1958 Colonoscopy 1958 Colorectal Cancer Screening 1958 Depression Screening 1958 Diabetes: Hemoglobin A1C 1958 FIT DNA/Cologuard 1958 FIT 1958 FOBT 1958 Lipid Panel 1958 SDOH Screening 1958 Sigmoidoscopy 1958 Diabetes: Foot Exam 1968 Eye Exam 1968 Alcohol/Substance Use Screening 1970 Hepatitis C Screening [...] 01/29/2021, 12/20/2018, Additional history exists Tobacco Screening 09/02/2025 09/02/2024 Dental X-Ray: Full Mouth 11/25/2026 11/25/2023, 12/05 [...] SURF, ANTERIOR Routine 09/02/2024 10:00 AM EST 6 MDF RESIN-BASED COMPOSITE - 3 SURF, ANTERIOR Routine 08/15/2024 3:00 PM EST CASE PRESENTATION, DETAILED AND EXTENSIVE TREATMENT PLANNING Routine 08/01/2024 8:00 AM EST 7 ENDODONTIC THERAPY, ANTERIOR TOOTH Routine 08/01/2024 8:00 AM EST CONSULTATION - DIAGNOSTIC SERVICE PROVIDED BY DENTIST OR PHYSICIAN OTHER THAN REQUESTING DENTIST OR PHYSICIAN Routine 06/23/2024 10:00 AM EST PROPHYLAXIS - ADULT Routine 11/25/2023 2 :00 PM EDT INTRAORAL - COMPLETE SERIES OF RADIOGRAPHIC IMAGES Routine 11/25/2023 2:00 PM EDT PERIODIC ORAL EVALUATION - ESTABLISHED PATIENT Routine 11/25/2023 2:00 PM EDT from Last 3 Months or Most Recently Relevant to Health Maintenance Insurance [place] [employer] [place]
--- OUTSIDE RECORDS SUMMARY | 2024-09-12 10:01 | XMS_ITS | Encounter Summary ---
Author Organization [facility] Address [address] [place] [address] 7[address] [place] [address] Care Team Providers Care Ui Software Engineer Name Role Phone Unavailable Primary Care Provider Unavailabl e Encounter Details Date Type Department Care Team (Late st Contact Info) Description 07/29/2024 Telephone [facility] ADULT DENTAL [address] [place] [address] Jennifer Butterfield DDS [address] [place] [address] Social History Tobacco Use Types Packs/Day Years [...] Description 09/12/2024 1:00 PM EDT Office Visit [facility] ADULT DENTAL [address] [place] [address] Jennifer Butterfield DDS [address] [place] [address] documented as of this encounter Visit Diagnoses Not on filedocumented in this encounter
--- OUTSIDE RECORDS SUMMARY | 2024-09-12 10:01 | XMS_ITS | Encounter Summary ---
Author Organization [facility] Address [address] [place] [address] Care Team Providers Care Buckle Frame Shaper Name Role Phone Iron Garibay MD Primary Care Provider [phone] Encounter Details Date Type Department Care Team ([facility] st Contact Info) Description 08/18/2024 Telephone Gastro[facility]ology - [place] [address] [place] [address] Kavita Dodge NP 175 [facility] [address] [place] [address] Social History Tobacco Use Types Packs/Day Years [...] as of this encounter Progress Notes * Renée Montoya MA - 08/18/2024 1:26 PM EST SCHEDULED * Kavita Dogde NP - 08/18/2024 12:12 PM EST Please schedule diagnostic EGD and colonoscopy for anemia next available. Thank you. documented in this encounter Plan of Treatment Upcoming Encounters Date Type Department Care Team (Late st Contact Info) Description 09/20/2024 8:00 AM EDT Office Visit Adult Medicine [facility] [address] [place] [address] Iron Garibay MD [address] [place] [address] 01/04/2025 10:00 AM EDT Appointment [facility] Endoscopy [address] [place] [phone] Aylin Mcleod MD [address] [address] documented as of this encounter Visit Diagnoses Not on filedocumented in this encounter Care Teams Buckle Frame Shaper Relationship Specialty Start Date End Date Iron Garibay MD [address] [place] [address] PCP - General Internal Medicine 05/11/24 documented as of this encounter
--- OUTSIDE RECORDS SUMMARY | 2024-09-12 10:01 | XMS_ITS | Encounter Summary ---
Author Organization [facility] Address [address] [place] [address] Care Team Providers Care Comic Illustrator Name Role Phone Iron Garibay MD Primary Care Provider [phone] Reason for Visit * Reason Comments Anemia Encounter Details Date Type Department Care Team ([facility] st Contact Info) Description 08/18/2024 9:40 AM EST Consult Gastroenterology - [place] [address] [place] [address] Kavita Dodge, DALLIN 175 [facility] [address] [place] [address] Iron deficiency anemia, unspecified iron deficiency anemia type (Primary Dx); Gastroesophageal reflux disease without esophagitis Social History Tobacco Use Types Packs/Day Years [...] Sign Reading Time Taken Comments Blood Pressure - - Pulse - - Temperature - - Respiratory Rate - - Oxygen Saturation - - Inhaled Oxygen Concentration - - Weight 121 kg (267 lb) 08/18/2024 9:02 AM EST Height 193 cm (6' 4 ) 08/18/2024 9:02 AM EST Body Mass Index 32.5 08/18/2024 9:02 AM EST documented in this encounter Progress Notes * Kavitakayla Dodge, RIB SAWYER - 08/18/2024 9:40 AM EST CONSULT REQUEST CHIEF COMPLAINT: Anemia HPI: Bladimir Orta is a 63 y.o. old male whose PMH includes obstructive sleep apnea, anxiety, depression,hypertension, GERD, asthma, benign prostatic hyperplasia, spermatocele of epididymis, type 2 diabetes mellitus with renal manifestations, obesity, microalbuminuria, mass of trachea, chronic sinusitis, hiatal hernia, hyperlipidemia, diverticulosis, ascending aorta dilatation, fatty liver disease, restless leg syndrome, vertigo and coronary artery disease was referred to the gastroenterology department today for evaluation of anemia. Patient reports he completed lab work for root canal. He was informed he was anemic and requested to follow-up with gastroenterology. He endorses chronic fatigue and dizziness. He has a diagnosis of vertigo for the last 11 years. He denies shortness of breath. He denies clinical blood loss including epistaxis, hemoptysis, hematuria, melena or hematochezia. He denies NSAIDs or anticoagulant use. He reports chronic GERD that is well-managed with PPIs. He denies fever or malaise, nausea, vomiting, dysphagia, odynophagia, regurgitation, loss of appetite, unintentional weight loss or change in bowel habits. Colonoscopy 01/03/2020: Preparation of colon was fair. Entire examined colon is normal. EGD 01/03/2020: Normal examined duodenum and stomach. Abnormal esophageal motility. Dilated. No specimens collected. ROS: GENERAL: No malaise, significant weight loss or fever HEENT: No changes in hearing or vision, nose bleeds or swallowing problems NECK: No lumps, goiter, pain or significant neck swelling RESPIRATORY: No cough, wheezing or shortness of breath CARDIOVASCULAR: No chest pain GI: See HPI MUSCULOSKELETAL: Chronic back pain SKIN: No lesions, rash or itching PAST MEDICAL HISTORY: Patient Active Problem List Diagnosis ASHLIE (obstructive sleep apnea) Anxiety Depression Hypertension GERD (gastroesophageal reflux disease) Asthma BPH (benign prostatic hyperplasia) Spermatocele of epididymis Type 2 diabetes mellitus with renal manifestations (CMS/HCC) Obesity Microalbuminuria Mass of trachea Chronic sinusitis Allergic rhinitis Hiatal hernia Hyperlipidemia Diverticulosis Ascending aorta dilatation (CMS/HCC) Fatty liver disease, nonalcoholic RLS (restless legs syndrome) Vertigo Mild CAD Iron deficiency anemia PAST SURGICAL HISTORY: Past Surgical History: Procedure Laterality Date CARDIAC CATHETERIZATION PROCEDURE: HISTORICAL CARDIAC CATH CATARACT EXTRACTION Bilateral 2015 PROCEDURE: HISTORICAL CATARACT REMOVAL COLONOSCOPY 01/21/2010 PROCEDURE: HISTORICAL COLONOSCOPY; COMMENT: Dr Perez - mild sigmoid tics, internal hemorrhoids, o/wnormal ESOPHAGOGASTRODUODENOSCOPY 05/20/2018 PROCEDURE: PA EGD TRANSORAL BIOPSY SINGLE/MULTIPLE; COMMENT: Esophagus suspicious for EOE. Esophagus dilated to 60 [place]. Normal duodenum and stomach. Biopsies obtained. Pathology normal. HAND SURGERY Left 11/2015 PROCEDURE: HISTORICAL HAND SURGERY OTHER SURGICAL HISTORY 10/05/2019 PROCEDURE: RADIOLOGIC EXAM ESOPHAGUS SINGLE CONTRAST STUDY; COMMENT: [facility] - ? minimal schatzki ring distal esophagus, GERD, normal gastric emptying OTHER SURGICAL HISTORY 10/07/2011 PROCEDURE: HISTORY OTHER; COMMENT: UPPP and T & A UPPER GASTROINTESTINAL ENDOSCOPY 01/21/2010 PROCEDURE: PA UPPER GI ENDOSCOPY PERFORMED; COMMENT: Dr Perez - erosive esophagitis, HH, otherwise normal SOCIAL HISTORY: Social History Tobacco Use Smoking status: Never Smokeless tobacco: Never Substance Use Topics Alcohol use: Yes Drug use: No FAMILY HISTORY: Family History Problem Relation Name Age of Onset Diabetes Mother Diabetes Paternal Grandmother Breast cancer Sister Diabetes Aunt Crohn's disease Sister MEDICATIONS: Outpatient Medications Marked as Taking for the 08/18/24 encounter (Consult) with Kavita Dodge NP Medication Sig Dispense Refill albuterol HFA (PROAIR HFA ; PROVENTIL HFA [...] tablet Take 1 Tablet by mouth daily. [facility] Autolet lancing device Use to test blood sugars once daily blood sugar diagnostic (ONETOUCH ULTRA BLUE TEST STRIP [facility]) Use to test blood sugar once daily. blood-glucose meter,continuous (FreeStyle Manny 3 [place]) [facility] 1 Device by Does not apply route daily. Dx Code E11.29 blood-glucose sensor (FREESTYLE MANNY 3 SENSOR MISC) 1 Device by Does not apply route every 14 days. Dx Code E11.29 chromium picolinate 200 mcg tablet tablet Take 200 mcg by mouth. coenzyme Q-10 100 mg capsule Take 100 mg by mouth daily. DAILY MULTI-VITAMIN ORAL Take by mouth daily. diazePAM (VALIUM) 5 mg tablet TAKE 1 TABLET BY MOUTH TWICE A DAY 60 tablet 0 diphenhydrAMINE (BENADRYL) 25 mg capsule Take 25 mg by mouth daily. docusate sodium (Colace) 100 mg capsule Take 1 capsule (100 mg total) by mouth 1 (one) time each day. 90 each 1 ferrous sulfate 325 mg (65 mg iron) EC tablet Take 1 tablet (325 mg total) by mouth 1 (one) time each day with breakfast. Do not crush, chew, or split. 90 each 1 flash glucose sensor (FreeStyle Manny 2 Sensor) kit Change sensor every 14 days 2 EA 11 fluticasone propion-salmeteroL (ADVAIR DISKUS) 500-50 mcg/dose diskus inhaler Inhale 1 Puff into the lungs every 12 hours for 90 days. glucose blood test strip Use to test blood sugar twice a day.E11.29 300 each 2 indapamide (LOZOL) 2.5 mg tablet Take 1 [...] day isosorbide dinitrate (ISORDIL) 10 mg tablet Take 1 tablet (10 mg total) by mouth 2 (two) times a day. lancets 30 gauge misc Check blood sugar three times a day.E11.29 100 each 11 lancets 33 gauge misc 2 Devices by [...] if needed for dizziness. 30 tablet 1 metFORMIN (GLUCOPHAGE) 500 mg tablet TAKE 2 TABLETS BY MOUTH TWICE DAILY WITH MEALS 240 tablet 1 montelukast (SINGULAIR) 10 mg tablet Take 1 Tablet by mouth at bedtime. omeprazole (PriLOSEC) [address] capsule TAKE 1 CAPSULE BY MOUTH DAILY 90 capsule 1 pregabalin (LYRICA) 75 mg capsule Take 1 capsule (75 mg total) by mouth 2 (two) times a day. Max Daily Amount: 150 mg 60 each 5 rOPINIRole (REQUIP) 2 mg tablet Take 1 tablet (2 mg total) by mouth at bedtime. tadalafiL (CIALIS) 5 mg tablet Take 1 Tablet by mouth once as needed. For sexual activity UNABLE TO FIND 13 cm by Nasal route at bedtime. [employer]/bipap venlafaxine 150 mg 24 hr tablet Take 2 Tablets by mouth daily. ALLERGIES: Allergies Allergen Reactions Budesonide Formoterol Gabapentin Hydrochlorothiazide Other Excessive urination Levofloxacin Lisinopril Cough Mometasone-Formoterol Other Amoxicillin-k Clavulanate-saccharin Dust Mite Symbicort [Budesonide-formoterol Fumarate Dihydrate Pramipexole Terazosin PHYSICAL EXAM: Visit Vitals Ht 1.93 m (76 ) Wt 121 kg (267 lb) BMI 32.50 kg/m?? Smoking Status Never BSA 2.5 m?? APPEARANCE: Alert and in no acute distress EYES: Conjunctiva and sclera normal. MOUTH/THROAT: No erythema, exudates or lesions noted NECK: Neck supple, no adenopathy HEART: RRR with normal S1 and S2 LUNG: Clear to auscultation ABDOMEN: soft non tender, no ascites, guarding, or rebound. RECTAL: Exam deferred NEURO: Awake, alert and oriented x 3 SKIN: Skin color, texture, turgor normal. LABS: Lab Results Component Value Date WBC 7.5 07/29/2024 HGB 11.7 (L) 07/29/2024 HCT 37.1 (L) 07/29/2024 MCV 90.7 07/29/2024 PLT 341 07/29/2024 No results found for: ALT , AST , GGT , ALKPHOS , BILITOT IMAGING: No results found for this or any previous visit from the past 365 days. IMPRESSION: 1. Iron deficiency anemia, unspecified iron deficiency anemia type 2. Gastroesophageal reflux disease without esophagitis PLAN: Bladimir Orta is a 63 y.o. old male whose PMH includes obstructive sleep apnea, anxiety, depression,hypertension, GERD, asthma, benign prostatic hyperplasia, spermatocele of epididymis, type 2 diabetes mellitus with renal manifestations, obesity, microalbuminuria, mass of trachea, chronic sinusitis, hiatal hernia, hyperlipidemia, diverticulosis, ascending aorta dilatation, fatty liver disease, restless leg syndrome, vertigo and coronary artery disease presents for evaluation of anemia. 1. Iron deficiency anemia: I reviewed anemia workup completed through his PCP on 07/29/2024: Low hemoglobin and hematocrit at 11.7 and 37.1 respectively. Iron saturation low at 10%. He was encouraged to observe an iron rich diet. May take iron ferrous sulfate with vitamin C. I will schedule diagnostic EGD and colonoscopy. If EGD/colonoscopy unremarkable, I will consider capsule endoscopy. Continue monitoring lab work through your PCP. Patient understands the risks of EGD/colonoscopy include infection, bleeding and/or bowel perforation with its own emergent surgery and complication. Polypectomy and/or tissue biopsy may be performedduring the procedure. 2. GERD: Well-managed with omeprazole. He is encouraged to identify and eliminate triggers. Maximize dietaryand lifestyle changes. Continue taking omeprazole as directed. He will benefit from weight loss. Follow-up after EGD/colonoscopy. Patient agrees with the above plan and understands the need to follow up as indicated. Please note, this note may have been created in part by using [employer] dictation software, and therefore, it may contain typographical and/or grammatical errors inherent in a voice recognition software program Patient agrees with the above plan and understands the need to follow up as indicated. Please note, this note may have been created in part by using [employer] dictation software, and therefore, it may contain typographical and/or grammatical errors inherent in a voice recognition software program No orders of the defined types were placed in this encounter. None documented in this encounter Plan of Treatment Upcoming Encounters Date Type Department Care Team (Late st Contact Info) Description 09/20/2024 8:00 AM EDT Office Visit [address] [place] [address] Iron Garibay MD [address] [place] [address] 01/04/2025 10:00 AM EDT Appointment Endoscopy [address] [place] [id number] Aylin Mcleod MD [address] [address] documented as of this encounter Visit Diagnoses Diagnosis Iron deficiency anemia, unspecified iron deficiency anemia type- Primary Gastroesophageal reflux disease without esophagitis Esophageal reflux documented in this encounter Care Teams Comic Illustrator Relationship Specialty Start Date End Date Iron Garibay MD [address] [place] [id number] PCP - General Internal Medicine 05/11/24 documented as of this encounter
== END 2024-09-12 10:04 | disposition home or self-care (01) ==
PROVIDERS: PCP Internal Medicine; Visit Provider Hospitalist
DX: G47.33 Obstructive sleep apnea (adult) (pediatric) (principal); J45.40 Moderate persistent asthma, uncomplicated; G25.81 Restless legs syndrome; R06.00 Dyspnea, unspecified
CPT/HCPCS: 99214

== ENCOUNTER → 2024-09-12 09:20 | Outpatient (BNVA) | payer MEDICARE, MEDICAID, SELFPAY | PROVIDERS: PCP Internal Medicine; Visit Provider Hospitalist | DX: J45.40 Moderate persistent asthma, uncomplicated (principal); G47.33 Obstructive sleep apnea (adult) (pediatric); G25.81 Restless legs syndrome; R06.00 Dyspnea, unspecified | CPT/HCPCS: 99212 ==

== ENCOUNTER 2024-09-28 13:24 | Outpatient (REF) | payer MEDICARE, MEDICAID, SELFPAY | END 2024-09-28 13:25 | disposition home or self-care (01) | LOC: HO.LAB 13:24 | PROVIDERS: PCP Internal Medicine; Visit Provider Urology | DX: E29.1 Testicular hypofunction (principal); N39.0 Urinary tract infection, site not specified; N40.0 Benign prostatic hyperplasia without lower urinary tract symptoms | CPT/HCPCS: 81003; 87086; 99212 ==

== ENCOUNTER 2024-09-28 13:24 | Outpatient (AMB) | payer MEDICARE, MEDICAID, SELFPAY ==
--- NOTE | 2024-09-28 13:43 | A.OFFVIS_ITS ---
Intake Visit Reasons: Followup/Testo labs Intake Note: Patient is present for TESTO F/U Urology Medication:TADALAFIL,TESTOSTERONE Antibiotic Allergy:AMOXICILLIN,GABAPENTIN Blood Thinner:ASPIRIN Community [facility] Program Coordinator Required: No Allergies budesonide [From Symbicort] Allergy (Severe, Verified 09/28/24 13:46) Dizziness formoterol [From Symbicort] Allergy (Severe, Verified 09/28/24 13:46) Dizziness lisinopril [LISINOPRIL] Allergy (Severe, Verified 09/28/24 13:46) Nausea mometasone furoate [From Dulera] Allergy (Severe, Verified 09/28/24 13:46) Nausea amoxicillin Allergy (Mild, Verified 09/28/24 13:46) vertigo gabapentin Allergy (Mild, Verified 09/28/24 13:46) vertigo ENVIRONMENTAL Allergy (Severe, Uncoded 09/28/24 13:46) Rash and Hives Dust Mite Allergy (Intermediate, Uncoded 09/28/24 13:46) Hives Seasonal Allergies Allergy (Intermediate, Uncoded 09/28/24 13:46) Hives and Rash terazosin Allergy (Mild, Uncoded 09/28/24 13:46) vertigo HPI Comments Details: Bladimir is a pleasant male. He is a patient of Dr. Garibay. 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 Has had trouble remembering medication Will try to make sure he is daily Three-month follow-up repeat lab work Continue daily tadalafil Diabetic management challenging Testosterone low Based on T4DM study will initiate testosterone gel with target 400-600 Continue with BiPAP Continue daily tadalafil Hypogonadism Labs - 04/27 190, 08/29 T 200 F 4.8, Bioavailable 100, 04/28 T 236 Bio 110, 08/30 T 182 Recurring UTI Diabetic male Presented to emergency room and was treated with Levaquin 01/24 Had been treated previously with terazosin but unable to tolerate due to vertigo No reported bowel issues Normal [facility] Medical History Restless legs syndrome (RLS) Hypertension, essential Dizziness Vertigo Acute depression Anxiety Benign prostatic hyperplasia without lower urinary tract symptoms Hyperlipidemia Type 2 diabetes mellitus with other diabetic kidney complication Diverticulosis Restless leg syndrome CAD (coronary artery disease) Dyspnea ASHLIE treated with BiPAP Asthma Surgical History History of cataract surgery H/O adenoidectomy Hx of tonsillectomy Family History Father Cancer Mother Cancer Sister Acute Crohn's disease Social History Alcohol intake: former Patient Tobacco Use Status: Never used Tobacco Review of Systems Const Denies chills and Denies fever(s) Card Reports no additional complaints and Denies syncope Resp Denies cough GI Denies abdominal pain and Denies heartburn Reports as per HPI and Denies change in libido Neuro Denies syncope Psych Denies change in libido Endo Denies change in libido Physical Exam Const General: cooperative, healthy appearing, comfortable and no acute distress Orientation/consciousness: patient oriented x3 HEENT Face and sinus: Yes normal facial exam Mouth: moist mucous membranes Neck Neck: Yes normal visual inspection, Yes full ROM and Yes trachea midline Chest Chest palpation & inspection: normal inspection of the chest Resp Effort & Inspection: normal respiratory effort, able to speak in complete sentences and no respiratory distress GI Inspection: Yes normal to inspection Back/Spine/Pelvis Cervical Spine: normal cervical lordosis Thoracic/Lumbar Spine: thoracic and lumbar spine normal to inspection Skin General skin exam: no rashes or lesions noted Neuro General: patient oriented x3, gait normal, tone normal and moves all extremities Extrem General: Yes normal to inspection and Yes capillary refill normal Results AMB Urinalysis, Automated UA Leukoctes 125 Andriy/uL Last Edit by LEIGH Kothari on 09/28/24 14:19 UA Nitrite Negative Last Edit by LEIGH Kothari on 09/28/24 14:19 UA Urobilinogen 3.5 mg/dL Last Edit by LEIGH Kothari on 09/28/24 14:1 9 UA Protein 1 mg/dL Last Edit by LEIGH Kothari on 09/28/24 14:19 UA pH 6.0 Last Edit by LEIGH Kothari on 09/28/24 14:19 UA Blood 10 Sher/uL Last Edit by LEIGH Kothari on 09/28/24 14:19 UA Specific [employer] 1.020 Last Edit by LEIGH Kothari on 09/28/24 14: 19 UA Ketone Negative Last Edit by LEIGH Kothari on 09/28/24 14:19 UA Bilirubin 0 mg/dL Last Edit by LEIGH Kothari on 09/28/24 14:19 UA Glucose 5 mg/dL Last Edit by LEIGH Kothari on 09/28/24 14:19 Results Reviewed Results Reviewed: Laboratory Last Values Urine pH (Auto) 6.0 09/28/24 14:18 [employer] (Auto) 1.020 09/28/24 14:18 Urine Protein (Auto) 1 mg/dL 09/28/24 14:18 Glucose (UA)(Auto) 5 mg/dL 09/28/24 14:18 Urine Ketones (Auto) Negative 09/28/24 14:18 Urine Blood (Auto) 10 Sher/uL 09/28/24 14:18 Urine Nitrite (Auto) Negative 09/28/24 14:18 Urine Bilirubin (Auto) 0 mg/dL 09/28/24 14:18 Urine Urobilinogen (Auto) 3.5 mg/dL 09/28/24 14:18 Leukocyte Esterase (Auto) 125 Andriy/uL 09/28/24 14:18 Assessment & Plan Assessment & Plan (1) Hypogonadism in male: Code(s): E29.1 - Testicular hypofunction Category: Medical (2) Benign prostatic hyperplasia without lower urinary tract symptoms: Code(s): N40.0 - Benign prostatic hyperplasia without lower urinary tract symptoms Category: Medical Plan Three-month follow-up check labs Orders: Orders Urine Culture Today N39.0 - Urinary tract infection, site not specified AMB Urinalysis Automated Today Z13.9 - Encounter for screening, unspecified Testosterone, Free/Total 3 Months E29.1 - Testicular hypofunction Medications: Refilled tadalafil 5 mg PO DAILY 90 tabs 1RF sexual activity 90 days N40.0 - Benign prostatic hyperplasia without lower urinary tract symptoms Patient Instructions: This note is constructed using voice recognition software. While every effort has been made to ensure accuracy health data administrator errors may have been included. Imaging studies, laboratory and physical exam results were discussed and reviewed in detail. No major barriers to patient understanding were identified. An opportunity to ask questions regarding the treatment plan was provided. All questions were answered. The patient expressed understanding and agreement with the above treatment plan. The patient is aware they should contact our office by phone for worsening of their current condition or the appearance of new urologic symptoms. Compliance is encouraged with any medications and followup testing that is ordered. It is a privilege to participate in the urologic care of your patient. If you have any questions or concerns regarding treatment for the above conditions, or other urologic issues, please do not hesitate to contact me. The office telephone contact is [phone]. Sincerely, Dr Scott Rivera MD, [facility] Compassionate Specialist Care for the Genitourinary System Coding Level of Care Code Est Pt Level 3 (41643) Diagnoses Hypogonadism in male E29.1 Benign prostatic hyperplasia without lower urinary tract symptoms N40.0
--- OUTSIDE RECORDS SUMMARY | 2024-09-28 15:58 | XMS_ITS | Encounter Summary ---
Author Organization [facility] Address [address] [place] [address] Care Team Providers Care Club Waiter/Waitress Name Role Phone Iron Garibay MD Primary Care Provider Reason for Visit * Reason Onset Date Comments cologuard test 09/26/2024 Encounter Details Date Type Department Care Team (Late st Contact Info) Description 09/26/2024 Telephone Adult Medicine [address] [phone] Iron Garibay MD [address] [place] [phone] cologuard test Social History Tobacco Use Types Packs/Day Years [...] as of this encounter Progress Notes * Evon Ellington - 09/26/2024 3:30 PM EDT The patient is asking if Dr. Garibay can order a Cologuard test for him. He is going to need to cancelhis colonoscopy appt in January due to transportation issues. He uses [facility]. Please review and advise. documented in this encounter Plan of Treatment Upcoming Encounters Date Type Department Care Team (Late st Contact Info) Description 12/08/2024 9:30 AM EDT Office Visit Endocrinology [address] [phone] Trinh Meeks PA [address] [place] [address] 01/13/2025 3:45 PM EDT Office Visit Adult Medicine [address] [phone] Iron Garibay MD [address] [place] [address] documented as of this encounter Visit Diagnoses Not on filedocumented in this encounter Care Teams Club Waiter/Waitress Relationship Specialty Start Date End Date Iron Garibay MD [address] [place] [address] PCP - General Internal Medicine 05/11/24 documented as of this encounter
--- OUTSIDE RECORDS SUMMARY | 2024-09-28 15:58 | XMS_ITS | Encounter Summary ---
Author Organization [employer] Address [address] [place] [address] 7[address] [place] [address] Care Team Providers Care Garage Supervisor Name Role Phone Unavailable Primary Care Provider Unavailabl e Reason for Visit * Reason Comments endo Encounter Details Date Type Department Care Team ([facility] st Contact Info) Description 09/12/2024 1:00 PM EDT Office Visit [facility]ULT [facility] [address] [place] [address] Jennifer Butterfield DDS [address] [place], [place] [phone] Social History Tobacco Use Types Packs/Day Years Used Date Smoking Tobacco: Never Passive Smoke Exposure: Never Smokeless Tobacco: Never Sex and Gender Information Value Date Recorded Sex Assigned at Male 05/05/2022 10:18 AM EDT Legal Sex Male 10:18 AM EDT Gender Identity Male 05/05/2022 10:18 AM EDT Sexual Orientation Straight 05/05/2022 10 :18 AM EDT documented as of this encounter Last Filed Vital Signs Vital Sign Reading Time Taken Comments Blood Pressure 132/78 09/12/2024 1:14 PM EDT Pulse - - Temperature - - Respiratory Rate - - Oxygen Saturation - - Inhaled Oxygen Concentration - - Weight - - Height - - Body Mass Index - - documented in this encounter Progress Notes * Jennifer Butterfield DDS - 09/12/2024 1:00 PM EDT Dental procedures in this visit [id number] - ENDODONTIC THERAPY, PREMOLAR TOOTH 13 (Completed) Service provider: Jennifer Butterfield DDS Billing provider: Carroll Stevens DMD Patient ID: Bladimir Orta is a 63 y.o. male. Time Out: Date: 09/12/2024 Location: [facility] Tooth: #13 Procedure: Root Canal Verified the above with patient, geriatric assistant, and provider. Confirmed via patient's chart, intraorally and by radiographs. Financial Systems Manager: not applicable Root Canal Treatment done on # [address] Jennifer Butterfield DDS Risk, benefits, and alternatives discussed with the patient. CONSENT FORM INITIALED & SIGNED BY THE PATIENT AND COUNTERSIGNED BY Dr. Jennifer Butterfield DDS Medical history: Reviewed in EHR Vitals: Blood pressure 132/78. Allergies: Reviewed in EHR Medications: Reviewed in EHR - LA: 20% topical benzocaine; local infiltration with 1 carpule 4% septocaine/articaine 1:100,000 epinephrine - Rubber dam placed and tooth isolated. - Decay removed. - Access opening done. - Canal found. - Canal length - 21 mm - Last HAND FILE used at apex: # 20 - Recapitulation done using size 8-20 hand files. - Irrigation done using Sodium Hypochlorite - Canal enlarged by CROWN DOWN TECHNIQUE/Step-back using ROTARY - RC prep (last file to apex was rotary / hand file size) - 1 PA taken of last file used. - Irrigation done using Sodium Hypochlorite - Canal dried using paper points. - Barbara-percha cone length confirmed with 1 PA - tug-back confirmed. - Canal sealed using root canal bioceramic sealer + size f1 barabra percha cone + accessory cones with lateral condensation. - Cotton pellet placed. - Temporary episcopalian done using IRM/Cavit - Post-obturation periapical radiograph taken - post op instructions given. NV: Post & Core Patient satisfied, left in stable condition Provider: Dr. Jennifer Butterfield DDS Dye Padder Operator: Davonte Quintero Supervising Dentist: Dr. Stevens * Carroll Stevens DMD - 09/12/2024 1:00 PM EDT Reviewed. Carroll Stevens DMD documented in this encounter Plan of Treatment Upcoming Encounters Date Type Department Care Team (Late st Contact Info) Description 09/29/2024 9:30 AM EDT Office Visit [facility] [address] [place] [address] Jennifer Butterfield, OMAR [address] [place] [address] Scheduled Orders Name Type Priority Associated Diagnoses Orde r Schedule 13 13 PREFABRICATED POST AND CORE IN ADDITION TO CROWN Dental Routine [address] arting 09/12/2024 CROWN PREP Dental Routine 1 Occurrences starting 09/12/2024 documented as of this encounter Procedures Procedure Name Priority Date/Time Associated Diagnosis Comments 13 ENDODONTIC THERAPY, PREMOLAR TOOTH Routine 09/12/2024 1:00 PM EDT documented in this encounter Visit Diagnoses Not on filedocumented in this encounter
--- OUTSIDE RECORDS SUMMARY | 2024-09-28 15:58 | XMS_ITS | Clinical Summary ---
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 Overview (09/02/2024): [place] [facility] [place] Nonalcoholic fatty liver disease 10/03/2021 Overview (09/02/2024): US Abdomen 09/23/21 Ascending aorta dilatation 09/26/2021 Restless legs syndrome 06/26/2021 Overview (09/02/2024): Follow[facility] neurology ([facility]) Allergic rhinitis 02/03/2018 Hiatal hernia 02/03/2018 [...] Encounters Date Type Department Care Team Description 09/12/2024 1:00 PM EDT Office Visit [facility] ADULT [facility] [address] [place] [address] Jennifer Butterfield, DDS 09/02/2024 10:00 AM EST Office Visit [facility] [address] [place] [address] Jennifer Butterfield, DDS 08/15/2024 3:00 PM EST Office Visit [facility] [address] [place] [address] Jennifer Butterfield, DDS 08/01/2024 8:00 AM EST Office Visit [facility] [address] [place] [address] Kandru, Carroll, DMD Dental abscess (Primary Dx) 07/29/2024 Telephone [facility] [address] [place] [address] Jennifer Butterfield, DDS from Last 3 Months [...] Pressure 132/78 09/12/2024 1:14 PM EDT Pulse 65 11/25/2023 2:04 PM EDT Temperature - - Respiratory Rate - - Oxygen Saturation - - Inhaled Oxygen Concentration - - Weight - - Height - - Body Mass Index - - Plan of Treatment Upcoming Encounters Date Type Department Care Team (Late st Contact Info) Description 09/29/2024 9:30 AM EDT Office Visit [facility] [address] [place] [address] Jennifer Butterfield, DEYVIS [address] [place] [address] Health Maintenance Due Date Last Done Comments [...] 01/29/2021, 12/20/2018, Additional history exists Tobacco Screening 09/12/2025 09/12/2024 Dental X-Ray: Full Mouth 11/25/2026 11/25/2023, 12/05 [...] PREMOLAR TOOTH Routine 09/12/2024 1:00 PM EDT 29 DO RESIN-BASED COMPOSITE - 2 SURF, [...] ANTERIOR TOOTH Routine 08/01/2024 8:00 AM EST PROPHYLAXIS - ADULT Routine 11/25/2023 2 :00 PM EDT INTRAORAL - COMPLETE SERIES OF RADIOGRAPHIC IMAGES Routine 11/25/2023 2:00 PM EDT PERIODIC ORAL EVALUATION - ESTABLISHED PATIENT Routine 11/25/2023 2:00 PM EDT from Last 3 Months or Most Recently Relevant to Health Maintenance Insurance [facility] MEDICAID STAND ADULT
--- OUTSIDE RECORDS SUMMARY | 2024-09-28 15:58 | XMS_ITS | Encounter Summary ---
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
--- OUTSIDE RECORDS SUMMARY | 2024-09-28 15:58 | XMS_ITS | Encounter Summary ---
Author Organization [facility] Address [address] [place] [address] Care Team Providers Care Steel Burner Name Role Phone Iron Garibay MD Primary Care Provider [phone] Reason for Visit * Reason Onset Date Comments GLUCOSE READINGS 09/12/2024 Encounter Details Date Type Department Care Team ([facility] st Contact Info) Description 09/12/2024 Telephone [facility] [address] [place] [phone] Trinh Meeks PA [address] [place] [address] GLUCOSE READINGS Social History Tobacco Use Types Packs/Day Years [...] Progress Notes * Concepcion Silva RN - 09/12/2024 3:37 PM EDT Called and spoke with patient Lab Results Component Value Date HGBA1C 10.8 (H) 07/29/2024 HGBA1C 10.3 (A) 04/14/2024 Pt taking Metformin 1000 mg BID 70/30 59 units BID Pt eats meals on wheels FBS this past week 250-345, pt does cross check with finger stick and BS remains elevated BS now 264 + polyuria + polydipsia Denies n/v Denies abd pain Denies headache/dizziness Appt scheduled 09/14 at 7:45 am * Concepcion Silva RN - 09/12/2024 2:27 PM EDT Called patient,no answer,VM left * Omar Judge - 09/12/2024 10:46 AM EDT Pt calling to report to provider that he has been experiencing high glucose readings. He says he has been reading between 350 and above 400. Please call pt at [phone] documented in this encounter Plan of Treatment Upcoming Encounters Date Type Department Care Team (Late st Contact Info) Description 12/08/2024 9:30 AM EDT Office Visit [facility] - [address] [phone] Trinh Meeks PA [address] [place] [phone] 01/13/2025 3:45 PM EDT Office Visit Adult Medicine [facility] - [address] [phone] Iron Garibay MD [address] [place] [address] documented as of this encounter Visit Diagnoses Not on filedocumented in this encounter Care Teams Steel Burner Relationship Specialty Start Date End Date Iron Garibay MD [address] [place] [address] PCP - General Internal Medicine 05/11/24 documented as of this encounter
--- OUTSIDE RECORDS SUMMARY | 2024-09-28 15:58 | XMS_ITS | Encounter Summary ---
Author Organization [employer] [facility] Address [address] [place] [address] 7 [place] [address] Care Team Providers Care Marionette Performer Name Role Phone Unavailable Primary Care Provider Unavailabl e Encounter Details Date Type Department Care Team (Latest Contact Info) Description 01/29/2021 Abstract [facility] CONVERSIONS Dental, Provider, DDS Social History [...] Description 09/29/2024 9:30 AM EDT Office Visit [facility] ADULT DENTAL [address] [place] [address] Jennifer Butterfield DDS [address] [place] [address] documented as of this encounter Visit Diagnoses Not on filedocumented in this encounter
--- OUTSIDE RECORDS SUMMARY | 2024-09-28 15:58 | XMS_ITS | Encounter Summary ---
Author Organization [email or web address] [facility] Address [address] [place] [address] 7 [place] [address] Care Team Providers Care General Labor Name Role Phone Unavailable Primary Care Provider Unavailabl e Reason for Visit * Reason Onset Date Comments appt 01/20/2024 Encounter Details Date Type Department Care Team (Late st Contact Info) Description 01/20/2024 Telephone [facility] [address] [place] [address] Jennifer Butterfield DDS [address] [place], [place] [phone] appt Social History Tobacco Use Types Packs/Day [...] He'd like to be scheduling for his pentecostalism appts. Morning or afternoon does not matter to him DR documented in this encounter Plan of Treatment Upcoming Encounters Date Type Department Care Team (Late st Contact Info) Description 09/29/2024 9:30 AM EDT Office Visit [facility] [address] [place] [address] Jennifer Butterfield DDS [address] [place] [address] documented as of this encounter Visit Diagnoses Not on filedocumented in this encounter
--- OUTSIDE RECORDS SUMMARY | 2024-09-28 15:58 | XMS_ITS | Encounter Summary ---
Author Organization [facility] Address [address] [place] [address] Care Team Providers Care Wind Farm Designer Name Role Phone Iron Garibay MD Primary Care Provider [phone] Reason for Visit * Reason Comments Follow-up Diabetes 120 blood glucose to day at 7: 00 am Hyperlipidemia Hypertension Encounter Details Date Type Department Care Team (Late st Contact Info) Description 09/20/2024 8:00 AM EDT Office Visit Adult Medicine [address] [address] Iron Garibay MD [address] [place] [phone] Type 2 diabetes mellitus with diabetic microalbuminuria, with long-term current use of insulin ([facility]) (Primary Dx); Primary hypertension; Vertigo Social History Tobacco Use Types Packs/Day Years [...] Sign Reading Time Taken Comments Blood Pressure 112/64 09/20/2024 8:10 AM EDT Pulse 65 09/20/2024 8:10 AM EDT Temperature 36 ??C (96.8 ??F) 09/20/2024 8:10 AM EDT Respiratory Rate 19 09/20/2024 8:10 AM EDT Oxygen Saturation - - Inhaled Oxygen Concentration - - Weight 122 kg (270 lb) 09/20/2024 8:10 AM EDT Height 193.7 cm (6' 4.26 ) 09/20/2024 8:10 AM ED T Body Mass Index 32.64 09/20/2024 8:10 AM EDT documented in this encounter Ordered Prescriptions Prescription Sig Dispense Quantity Refills Last Filled Start Date End Date meclizine (ANTIVERT) 25 mg tablet Take 1 tablet (25 mg total) by mouth 3 (three) times a day if needed for dizziness. 90 tablet 1 09/20/2024 diazePAM (VALIUM) 5 mg tablet Take 1 tablet (5 mg total) by mouth 2 (two) times a day. 60 tablet 09/20/2024 documented in this encounter Progress Notes * Iron Garibay MD - 09/20/2024 8:00 AM EDT CHIEF COMPLAINT: Follow-up, Diabetes (120 blood glucose today at 7: 00 am ), Hyperlipidemia, and Hypertension IDENTIFIER: Bladimir Orta is a 63 y.o. old male. HPI: Pt with diabetes Pt follows with endo seen last 09/14/2024 A1c noted to have worsened I spent a lot of this and trying to convince patient try to switch his regimen. NPH insulin is notworking for him and blood sugars continue to worsen Suggested switching to a long short acting regimen. He is adamant he does not want to change his medications We cannot use SGLT2's due to frequent UTI history. Reaction to Trulicity. He is adamant this because his vision issues. So this eliminates GLP-1's He has already been on sulfide areas. He is on metformin. This mostly leaves us with insulin pt noted he was going to see retail sales vitamin consultant but was told this will not improve his A1c. Nph increased to 62 units bid and plan to increased by 2 units every week for sugars >150 Pt is on currently on NPH 62 bid and metformin 1gm po bid Pt last a1c 10.8 07/2024 up from previous value of 10.3 Pt pt with cgm 30 day average 293 Pt last ldl 100 12/2023 Pt is not on statin Pt last microalb/cr ratio 47.5 12/2023 Gfr 74 07/2024 Pt follows with renal next appointment 09/28/2024 Pt is on arb Pt has f/u with endo 12/08/2024 Pt with htn pt is on atenolol 50mg,indapamide 2.5mg,losartan 100mg Bp today is at goal@112/64 Pt denies light head/dizziness, shortness of breath , chest pain or cough. Pt as noted above with long hx of vertigo attributed to autonomic dysfunction Pt is following with neuro(artheyra) pt has f/u scheduled with 10/31/2024 Pt notes vertigo stable not improved Pt is on diazepam pt is meclizine symptoms ROS: GENERAL: Negative for malaise, significant weight loss and fever RESPIRATORY: No cough, wheezing or shortness of breath CARDIOVASCULAR: Negative for chest pain, leg swelling and palpitations NEURO: See HPI PAST MEDICAL HISTORY: Patient Active Problem List Diagnosis Date Noted Iron deficiency anemia 08/01/2024 Mild CAD 07/30/2024 ASHLIE (obstructive sleep apnea) 04/22/2024 Anxiety 04/22/2024 Depression 04/22/2024 Hypertension 04/22/2024 GERD (gastroesophageal reflux disease) 04/22/2024 Asthma 04/22/2024 Fatty liver disease, nonalcoholic 10/03/2021 Ascending aorta dilatation (CMS/HCC) 09/26/2021 RLS (restless legs syndrome) 06/26/2021 Vertigo 06/26/2021 Allergic rhinitis 02/03/2018 Hiatal hernia 02/03/2018 Diverticulosis 02/03/2018 Type 2 diabetes mellitus with renal manifestations (CMS/HCC) 07/30/2017 Chronic sinusitis 01/16/2017 Microalbuminuria 12/18/2016 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 Hyperlipidemia 02/14/2014 Obesity 05/11/2013 BPH (benign prostatic hyperplasia) 08/06/2012 Spermatocele of epididymis 04/27/2012 SOCIAL HISTORY: Social History Tobacco Use Smoking status: Never Smokeless tobacco: Never Substance Use Topics Alcohol use: Yes FAMILY HISTORY: Family Status Relation Name Status Mother (Not Specified) PGM (Not Specified) Sister (Not Specified) Aunt (Not Specified) Sister (Not Specified) No partnership data on file Family History Problem Relation Name Age of Onset Diabetes Mother Diabetes Paternal Grandmother Breast cancer Sister Diabetes Aunt Crohn's disease Sister ACTIVE MEDICATIONS: Outpatient Medications Marked as Taking for the 09/20/24 encounter (Office Visit) with Iron Garibay MD Medication Sig Dispense Refill albuterol HFA (PROAIR [...] (one) time each day. 90 tablet 3 Autolet lancing device Use to test blood sugars once daily blood sugar diagnostic (ONETOUCH ULTRA BLUE TEST STRIP MISC) Use to test blood sugar once daily. blood-glucose meter,continuous (FreeStyle Manny 3 [place]) misc 1 Device by Does not apply [...] (HumuLIN,NovoLIN 70/30) 100 unit/mL (70-30) injection Inject 62 Units under the skin 2 (two) times a day before meals. 30 mL 5 insulin syringe-needle U-100 0.3 mL 31 gauge [...] a day losartan (COZAAR) 100 mg tablet TAKE 1 TABLET BY MOUTH DAILY 90 tablet 1 lutein 6 mg capsule Take 1 Cap [...] by mouth at bedtime. 90 tablet 3 omeprazole (PriLOSEC) [address] capsule TAKE [...] mouth once as needed. For sexual activity testosterone (ANDROGEL) 1 % (50 mg/5 gram) gel in packet Place 1 packet (50 mg of testosterone total) on the skin 1 (one) time each day. UNABLE TO FIND 13 cm by Nasal route at bedtime. [employer]/bipap venlafaxine 150 mg 24 hr tablet Take 2 Tablets by mouth daily. ALLERGIES: Budesonide, Formoterol, Gabapentin, Hydrochlorothiazide, Levofloxacin, Lisinopril, Mometasone-formoterol, Other, Pramipexole, and Terazosin PHYSICAL EXAM: Blood pressure 112/64, pulse 65, temperature 36 ??C (96.8 ??F), temperature source Temporal, resp. rate 19, height 1.937 m (76.26 ), weight 122 kg (270 lb). There is no height or weight on file to calculate BMI. Plan is deferred until next visit APPEARANCE: Alert and in no acute distress EYES: PERRLA, conjunctiva and sclera normal HEART: RRR with normal S1 and S2, no murmurs, no gallops, no JVD appreciated LUNG: clear to auscultation bilaterally EXTREMITIES: Extremities warm and well perfused without clubbing, cyanosis, or edema LABS: none IMPRESSION: 1. Type 2 diabetes mellitus with diabetic microalbuminuria, with long-term current use of insulin ([facility]) 2. Primary hypertension 3. Vertigo PLAN: Pt with diabetes not controlled pt has been resistant to adjustment of his current regimen pt has had side effects with a number of diabetic medications. Pt currently titrating his nph. Last A1c elevated at 10.3 I will defer management to endo pt has f/u scheduled for 12/2024 pt with microalbuminuria and has f/u with renal next week. Pt with htn well controlled pt will continue current regimen of atenolol 50mg,indapamide 2.5mg,losartan 100mg recent gfr 74 and lytes wnl Pt with vertigo attributed to autonomic dysfunction pt follows with neuro pt is on diazepam and meclizine pt is on csc for ativan I will change to diazapam 5mg po bid Pt to f/I with me in 4months Myself and my colleagues have maintained a long-term, longitudinal relationship with this patient, overseeing care of chronic conditions including diabetes and htn. This care relationship has significantly influenced my decision making and treatment plans during today's encounter. No orders of the defined types were placed in this encounter. ADDITIONAL ORDERS: None Iron Garibay MD on 09/20/2024 at 7:10 AM EDT documented in this encounter Plan of Treatment Upcoming Encounters Date Type Department Care Team (Late st Contact Info) Description 12/08/2024 9:30 AM EDT Office Visit Endocrinology [address] [phone] Trinh Meeks PA [address] [place] [address] 01/13/2025 3:45 PM EDT Office Visit [facility] - [address] [phone] Iron Garibay MD [address] [place] [address] documented as of this encounter Visit Diagnoses Diagnosis Type 2 diabetes mellitus with diabetic microalbuminuria, with long-term current use of insulin ([facility])- Primary Primary hypertension Unspecified essential hypertension Vertigo Dizziness and giddiness documented in this encounter Discontinued Medications Medication Sig Discontinue Reason Start Date End Da te diazePAM (VALIUM) 5 mg tablet TAKE 1 TABLET BY MOUTH TWICE A DAY Reorder 08/10/2024 09/20/2024 meclizine (ANTIVERT) 25 mg tablet Take 1 tablet (25 mg total) by mouth 3 (three) times a day if needed for dizziness. Reorder 08/24/2024 09/20/2024 documented as of this encounter Care Teams Wind Farm Designer Relationship Specialty Start Date End Date Iron Garibay MD [address] [place] [address] PCP - General Internal Medicine 05/11/24 documented as of this encounter
--- OUTSIDE RECORDS SUMMARY | 2024-09-28 15:58 | XMS_ITS | Encounter Summary ---
Author Organization [facility] Address [address] [place] [address] Care Team Providers Care Alkylation Operator Name Role Phone Iron Garibay MD Primary Care Provider [phone] Reason for Visit * Reason Onset Date Comments special procedure 09/26/2024 Encounter Details Date Type Department Care Team (Late st Contact Info) Description 09/26/2024 Telephone Gastroenterology - [place] [address] [facility] [address] [facility] [address] [place] [address] Aylin Mcleod MD [address] [place] [address] special procedure Social History Tobacco Use Types Packs/Day Years [...] as of this encounter Progress Notes * Lucero Fry - 09/26/2024 3:52 PM EDT Cx procedures * Sully Barnard - 09/26/2024 3:43 PM EDT Patient calling would like to cancel colonoscopy & EGD, patient is trying to stabilize his anemia on his own & will call back if needed to reschedule. documented in this encounter Plan of Treatment Upcoming Encounters Date Type Department Care Team (Late st Contact Info) Description 12/08/2024 9:30 AM EDT Office Visit Endocrinology - [address] [phone] Trinh Meeks PA [address] [place] [address] 01/13/2025 3:45 PM EDT Office Visit [facility] - [address] [phone] Iron Garibay MD [address] [place] [address] documented as of this encounter Visit Diagnoses Not on filedocumented in this encounter Care Teams Alkylation Operator Relationship Specialty Start Date End Date Iron Garibay MD [address] [place] [address] PCP - General Internal Medicine 05/11/24 documented as of this encounter
--- OUTSIDE RECORDS SUMMARY | 2024-09-28 15:58 | XMS_ITS | Encounter Summary ---
Author Organization [employer] Address [address] [place] [address] Care Team Providers Care Ax Survey Worker Name Role Phone Unavailable Primary Care Provider Unavailabl e Reason for Visit * Reason Comments Filling Encounter Details Date Type Department Care Team ([facility] st Contact Info) Description 09/02/2024 10:00 AM EST Office Visit [facility] [address] [place] [address] Jennifer Butterfield DDS [address] [place] [address] Social History Tobacco Use Types Packs/Day Years [...] y.o. male. Time Out: Date: 09/02/2024 Location: [facility] Tooth: #26, #27, and #29 Procedure: Rastafari Verified the above with patient, veterinary technician assistant, and provider. Confirmed via patient's chart, intraorally and by radiographs. Silk Winding Machine Operator: not applicable Composite shinto done on # 29, 27 & 26 [...] carpule 4% septocaine/articaine 1:100,000 epinephrine - Existing shinto and recurrent decay removed - Mylar strip/Matrix band and wedge used as needed - Desensitizer: gluma - Base: port gamble-lite - Etching done using 37% phosphoric acid. - advance agent applied. - Composite shinto done using Filtek body/flowable composite, shade a3 - Anatomy and margins adjusted - Proximal contact confirmed with floss. - Occlusion checked with articulating paper - Necessary reductions made. - Rastafari smoothed and polished. - Post op instructions given Patient satisfied, left in stable condition Patient made aware possible post op sensitivity NV: rct Provider: Dr. Jennifer Butterfield DDS [employer] Account Executive: Davonte Quintero Supervising dentist: Dr. Calderón * [...] Description 09/29/2024 9:30 AM EDT Office Visit [facility] [address] [place] [address] Jennifer Butterfield, DDS [address] [place] [address] documented as of this encounter Procedures Procedure [...]
--- OUTSIDE RECORDS SUMMARY | 2024-09-28 15:58 | XMS_ITS | Clinical Summary ---
Author Organization [facility] Address [address] [place] [address] Care Team Providers Care Race Car Mechanic Name Role Phone Iron Garibay MD Primary Care Provider [phone] Allergies Active Allergy Reactions Criticality Noted Date [...] 400 mg by mouth daily. 0 Active Merritt-3 Fatty Acids (FISH OIL) 1200 MG CAPS [...] age to complete this topic Care Teams Race Car Mechanic Relationship Specialty Start Date End Date Iron Garibay MD PCP - General Internal Medicine 05/22/17
--- OUTSIDE RECORDS SUMMARY | 2024-09-28 15:58 | XMS_ITS | Clinical Summary ---
Author Organization [facility] [address] [place] [address] [place] [phone] Phone Care Team Providers Care Office Support Clerk Name Role Phone Iron Garibay MD Primary Care Provider [phone] Allergies Active Allergy Reactions Criticality Noted Date [...] Active blood-glucose meter,continuo us (FreeStyle Manny 3 [place]) misc 1 Device by Does not apply [...] DIRECTED TWICE DAILY Active lancets 33 gauge [facility] [place] 2 Devices by Does not apply route daily. Use To test sugars twice a day Active magnesium oxide (MAG-OX) 400 mg magnesium tablet Take 1 Cap by mouth daily. Active DAILY MULTI-VITAMIN ORAL Take by mouth daily. Active blood sugar diagnostic (ONETOUCH ULTRA BLUE TEST STRIP [facility] [place] Use to test blood [...] Take 100 mg by mouth daily. Active rOPINIRole (REQUIP) 2 mg tablet Take 1 tablet (2 mg total) by mouth at bedtime. Active pregabalin (LYRICA) 75 mg capsule Take 1 capsule (75 mg total) by mouth 2 (two) times a day. Max Daily Amount: 150 mg 60 each 5 06/08/20 24 2024 Active isosorbide dinitrate (ISORDIL) 10 mg tablet [...] ia, with long-term current use of insulin ([facility]) Use to test blood sugar twice a day.E11.29 300 each 07/20/19 25 2025 Active lancets 30 gauge miscIndication s:Type 2 diabetes mellitus with diabetic microalbuminur ia, with long-term current use of insulin ([facility]) Check blood sugar three times a day.E11.29 100 each 11 07/20/19 25 Active ferrous sulfate 325 mg (65 mg iron) EC tabletIndicati ons:Iron deficiency anemia, unspecified iron deficiency anemia type Take 1 tablet (325 mg total) by mouth 1 (one) time each day with breakfast. Do not crush, chew, or split. 90 each 1 08/01/19 25 2024 Active docusate sodium (Colace) 100 mg capsuleIndicat ions:Iron deficiency anemia, unspecified iron deficiency anemia type Take 1 capsule (100 mg total) by mouth 1 (one) time each day. 90 each 1 08/01/19 25 2024 Active montelukast (SINGULAIR) 10 mg tablet Take 1 tablet (10 mg total) by mouth at bedtime. 90 tablet 3 08/23/19 25 Active atenoloL (TENORMIN) 50 mg tablet Take 1 tablet (50 mg total) by mouth 1 (one) time each day. 90 tablet 3 08/23/19 25 Active omeprazole (PriLOSEC) [address] capsule TAKE 1 CAPSULE BY MOUTH DAILY 90 capsule 1 09/09/19 25 Active losartan (COZAAR) 100 mg tablet TAKE 1 TABLET BY MOUTH DAILY 90 tablet 1 09/09/19 25 Active testosterone (ANDROGEL) 1 % (50 mg/5 gram) gel in packet Place 1 packet (50 mg of testosterone total) on the skin 1 (one) time each day. 09/08/19 25 Active insulin NPH-insulin regular (HumuLIN,NovoL IN 70/30) 100 unit/mL (70-30) injection Inject 62 Units under the skin 2 (two) times a day before meals. 30 mL 5 03/12/20 25 Active diazePAM (VALIUM) 5 mg tablet Take 1 tablet (5 mg total) by mouth 2 (two) times a day. 60 tablet 09/21/19 25 Active meclizine (ANTIVERT) 25 mg tablet Take 1 tablet (25 mg total) by mouth 3 (three) times a day if needed for dizziness. 90 tablet 1 09/21/19 25 Active losartan (COZAAR) 100 mg tablet Take 1 Tablet by mouth daily. 2024 Discontinued insulin NPH-insulin regular (HumuLIN,NovoL IN 70/30) 100 unit/mL (70-30) injection Inject 59 Units under the skin 2 (two) times a day before meals. Inject 50 units SC 2024 Discontinued(R eorder) omeprazole (PriLOSEC) [address] capsule TAKE 1 CAPSULE BY MOUTH DAILY 90 capsule 1 06/22/20 24 2024 Discontinued diazePAM (VALIUM) 5 mg tablet TAKE 1 TABLET BY MOUTH TWICE A DAY 60 tablet 08/10/19 25 2024 Discontinued(R eorder) meclizine (ANTIVERT) 25 mg tablet Take 1 tablet (25 mg total) by mouth 3 (three) times a day if needed for dizziness. 30 tablet 1 08/24/19 25 2024 Discontinued(R eorder) Active Problems Problem Noted Date Diagnosed Date Iron deficiency anemia 08/01/2024 Mild CAD 07/30/2024 Assessment & Plan (07/30/2024 9:11 AM EST): Continue cardiology follow up Continue isosorbide dinitrate BID and aspirin 81mg daily ASHLIE (obstructive sleep apnea) 04/22/2024 Overview (04/22/2024): Follows with [facility] Pulm Assessment & Plan (07/30/2024 9:11 AM [...] (restless legs syndrome) 06/26/2021 Overview (04/22/2024): Followsw [facility] neurology (josué) Assessment & Plan [...] Encounters Date Type Department Care Team Description 09/26/2024 Telephone Gastroenterology - [place] [address] [facility] 175 [facility] 200 [place] [phone] Aylin Mcleod MD special procedure 09/26/2024 Telephone Adult Medicine [address] [phone] Iron Garibay MD cologuard test 09/20/2024 8:00 AM EDT Office Visit Adult [address] [phone] Iron Garibay MD Type 2 diabetes mellitus with diabetic microalbuminuria, with long-term current use of insulin ([facility]) (Primary Dx); Primary hypertension; Vertigo 09/14/2024 7:45 AM EDT Office Visit Endocrinology [address] [phone] Trinh Meeks PA Type 2 diabetes mellitus with diabetic chronic kidney disease, unspecified CKD stage, unspecified whether vice president of operations insulin use (CMS/HCC) (Primary Dx) 09/12/2024 Telephone Endocrinology [address] [phone] Trinh Meeks PA GLUCOSE READINGS 09/09/2024 Telephone Adult Medicine [address], [place] [phone] Iron Garibay MD Lab work (Upcoming apt 09/21/27 with [place]) 08/18/2024 9:40 AM EST Consult Gastroenterology [facility] 175 [facility] [address] [phone] Kavita Dodge, TINTER PHOTOGRAPH Iron deficiency anemia, unspecified iron deficiency anemia type (Primary Dx); Gastroesophageal reflux disease without esophagitis 08/18/2024 Telephone Gastroenterology [facility] 175 [facility] [address] [phone] Kavita Dodge, DALLIN 08/12/[address] [phone] Concepcion Silva, SHOSHANA 08/01/2024 Telephone Adult [address] [phone] Kristi Alvarez, SHOSHANA 07/29/2024 10:00 AM EST Consult [address] [phone] Hermilo Hargrove MD Preop cardiovascular exam (Primary Dx); Type 2 diabetes mellitus with diabetic microalbuminuria, with long-term current use of insulin ([facility]); Normocytic anemia; Hypomagnesemia; ASHLIE (obstructive sleep apnea); Primary hypertension; Mild CAD; RLS (restless legs syndrome); Mild persistent asthma without complication 07/28/2024 Telephone Adult [address] [phone] Iron Garibay MD Pre-op Exam (RESCHEDULE from 07/28/24/Root Canal @ [facility] on 08/03/24) 07/25/2024 Telephone Adult [address] [phone] Iron Garibay MD returning triage phone call 07/15/2024 Telephone Adult Medicine [address] [place], [place] [phone] Iron Garibay MD Fitting for DME (Glucose Moniter) 07/08/2024 Telephone Endocrinology - [address] [phone] Trinh Meeks PA referral 07/05/2024 Telephone Endocrinology - [address] [phone] Chanelle Rodrigues PA Blood Sugar Problem from Last 3 Months Immunizations Name Administration [...] o/w normal UPPER GASTROINTESTINAL ENDOSCOPY 01/21/2010 PROCEDURE: MO UPPER GI ENDOSCOPY PERFORMED; COMMENT: Dr Perez - erosive esophagitis, HH, otherwise normal OTHER SURGICAL HISTORY 10/07/2011 PROCEDURE: HISTORY OTHER; COMMENT: UPPP and T & A CATARACT EXTRACTION 2014 Bilateral PROCEDURE: HISTORICAL CATARACT REMOVAL HAND SURGERY 11/2015 Left PROCEDURE: HISTORICAL HAND SURGERY ESOPHAGOGASTRODUODENOSCOPY 05/20/2018 PROCEDURE: MO EGD TRANSORAL BIOPSY SINGLE/MULTIPLE; COMMENT: Esophagus suspicious for EOE. Esophagus dilated to 60 Tongan. Normal duodenum and stomach. Biopsies obtained. Pathology [...] 19 09/20/2024 8:10 AM EDT Oxygen Saturation 98% 09/14/2024 8:07 AM EDT Inhaled Oxygen Concentration - - Weight 122 kg (270 lb) 09/20/2024 8:10 AM EDT Height 193.7 cm (6' 4.26 ) 09/20/2024 8:10 AM ED T Body Mass Index 32.64 09/20/2024 8:10 AM EDT Plan of Treatment Upcoming Encounters Date Type Department Care Team (Late st Contact Info) Description 12/08/2024 9:30 AM EDT Office Visit [address] [phone] Trinh Meeks PA [address] [place] [address] 01/13/2025 3:45 PM EDT Office Visit Adult Medicine [address] [phone] Iron Garibay MD [address] [place] [address] Health Maintenance Due Date Last Done Comments Diabetes: Annual Foot Exam 1970 Hepatitis A Vaccines (1 of [...] 04/14/2024, 04/14/2024, Additional history exists Diabetes: Annual Retina Eye Exam 06/14/2025 06/14/2024 Diabetes: Annual GFR (Glomerular Filtration Rate) 07/29/2025 [...] Procedure Name Priority Date/Time Associated Diagnosis Comments TESTOSTERONE FREE, BIOAVAILABLE AND TOTAL Routine 09/20/2024 9:23 AM EDT Decreased libido Testicular hypofunction EXTERNAL CLINICAL LAB 08/15/2024 CBC WITH AUTO DIFFERENTIAL Routine 07/29/2024 11:29 AM EST Normocytic anemia HEMOGLOBIN A1C Routine 07/29/2024 11:29 AM EST Type 2 diabetes mellitus with diabetic microalbuminuria, with long-term current use of insulin ([facility]) BASIC METABOLIC PANEL Routine 07/29/2024 11:29 AM [...] Relevant to Health Maintenance Results * (ABNORMAL) Testosterone free, bioavailable and total (09/20/2024 9:23 AM EDT) Testosterone 210(L) 229 - 902 ng/dL LAB CHEMISTRY METHOD 09/20/2024 1:39 PM EDT [facility] Testosterone, Free 4.0(L) 4.6 - 22.4 ng/dL LAB CHEMISTRY METHOD 09/20/2024 1:39 PM EDT [facility] Testosterone, Bioavailable 75(L) 110 - 575 ng/dL LAB CHEMISTRY METHOD 09/20/2024 1:39 PM EDT [facility] Sex Hormone Binding 37.8 See Comment nmol/L LAB CHEMISTRY METHOD 09/20/2024 1:39 PM EDT [facility] Comment: FEMALES: ??pre-menopausal ?? 10.8 - >180 ??post-menopausal ??23.2 - 159.1 MALES: ?? 21-49 years ? 14.6 - 94.6 ?? 50-89 years ? 21.6 - 113.1 CHILDREN: ??No established reference range Over the counter supplements containing high doses of biotin may interfere with this assay. ??If interference is suspected, patients should be retested after refraining from biotin supplements for 72 hours. Albumin 3.4 3.2 - 5.0 g/dL LAB CHEMISTRY METHOD 09/20/2024 1:39 PM T [facility] Blood Venous blood specimen / Unknown Venipuncture / Unknown 09/20/2024 9:23 AM EDT 09/20/2024 9:23 AM EDT us Scott Rivera MD LAB BLOOD ORDERABLES Final Re sult [facility] [address] [place] [address], * External clinical lab (08/15/2024) us Provider Onbase LAB BLOOD ORDERABLES Final Re sult * (ABNORMAL) CBC auto differential (07/29/2024 11:29 AM EST) [facility] WBC 7.5 4.8 - 10.8 K/mcL LAB HEMETOLOGY METHOD 07/29/2024 2:06 PM [facility] RBC 4.10(L) 4.50 - 5.50 M/mcL LAB HEMETOLOGY METHOD 07/29/2024 2:06 PM [facility] Hemoglobin 11.7(L) 13.5 - 17.5 g/dL LAB HEMETOLOGY METHOD 07/29/2024 2:06 PM [facility] Hematocrit 37.1(L) 42.0 - 54.0 % LAB HEMETOLOGY METHOD 07/29/2024 2:06 PM [facility] MCV 90.7 79.0 - 98.0 FL LAB HEMETOLOGY METHOD 07/29/2024 2:06 PM [facility] MCH 28.6 27.0 - 32.0 pcg LAB HEMETOLOGY METHOD 07/29/2024 2:06 PM [facility] MCHC 31.5(L) 32.0 - 37.0 g/dL LAB HEMETOLOGY METHOD 07/29/2024 2:06 PM [facility] RDW 13.9 11.0 - 15.0 % LAB HEMETOLOGY METHOD 07/29/2024 2:06 PM [facility] Platelets 341 130 - 400 K/mcL LAB HEMETOLOGY METHOD 07/29/2024 2:06 PM [facility] MPV 10.5 7.0 - 11.0 FL LAB HEMETOLOGY METHOD 07/29/2024 2:06 PM [facility] NRBC 0.0 <1.0 % LAB HEMETOLOGY METHOD 07/29/2024 2:06 PM [facility] NRBC Absolute 0.00 <0.10 K/mcL LAB HEMETOLOGY METHOD 07/29/2024 2:06 PM [facility] Neutrophils Relative 62.8 % LAB HEMETOLOGY METHOD 07/29/2024 2:06 PM [facility] Lymphocytes Relative 24.6 % LAB HEMETOLOGY METHOD 07/29/2024 2:06 PM [facility] Monocytes Relative 7.8 % LAB HEMETOLOGY METHOD 07/29/2024 2:06 PM [facility] Eosinophils Relative 3.8 % LAB HEMETOLOGY METHOD 07/29/2024 2:06 PM [facility] Basophils Relative 0.5 % LAB HEMETOLOGY METHOD 07/29/2024 2:06 PM [facility] Immature Granulocytes Relative 0.5 % LAB HEMETOLOGY METHOD 07/29/2024 2:06 PM [facility] Neutrophils Absolute 4.68 1.50 - 7.00 K/mcL LAB HEMETOLOGY METHOD 07/29/2024 2:06 PM [facility] Lymphocytes Absolute 1.83 1.00 - 5.00 K/mcL LAB HEMETOLOGY METHOD 07/29/2024 2:06 PM [facility] Monocytes Absolute 0.58 0.20 - 1.00 K/mcL LAB HEMETOLOGY METHOD 07/29/2024 2:06 PM [facility] Eosinophils Absolute 0.28 0.00 - 0.50 K/mcL LAB HEMETOLOGY METHOD 07/29/2024 2:06 PM [facility] Basophils Absolute 0.04 0.00 - 0.20 K/mcL LAB HEMETOLOGY METHOD 07/29/2024 2:06 PM [facility] Immature Granulocytes Absolute 0.04(H) 0.00 - 0.03 K/mcL LAB HEMETOLOGY METHOD 07/29/2024 2:06 PM [facility] Blood Venous blood specimen / Unknown Venipuncture / Unknown 07/29/2024 11:29 AM EST 07/29/2024 11:29 AM EST us Hermilo Hargrove MD LAB BLOOD ORDERA BLES Final Result [facility] [address] [place] [address], [place] [phone] * (ABNORMAL) Iron and TIBC (07/29/2024 11:29 AM EST) Iron 52 50 - 160 mcg/dL LAB CHEMISTRY METHOD 07/29/2024 4:58 PM EST [facility] TIBC 496(H) 250 - 450 mcg/dL LAB CHEMISTRY METHOD 07/29/2024 4:58 PM EST [facility] Iron Saturation 10(L) 20 - 50 % LAB CHEMISTRY METHOD 07/29/2024 4:58 PM EST [facility] Blood Venous blood specimen / Unknown Venipuncture / Unknown 07/29/2024 11:29 AM EST 07/29/2024 11:29 AM EST Hermilo Hargrove MD LAB BLOOD ORDERA BLES Final Result Performing Organization Address City/[facility]/ZIP Co de Phone Number [facility] [address] [place] [address], [place] [phone] * Magnesium (07/29/2024 11:29 AM EST) Magnesium 1.9 1.9 - 2.6 mg/dL LAB CHEMISTRY METHOD 07/29/2024 4:58 PM EST [facility] Blood Venous blood specimen / Unknown Venipuncture / Unknown 07/29/2024 11:29 AM EST 07/29/2024 11:29 AM EST us Hermilo Hargrove MD LAB BLOOD ORDERA BLES Final Result [facility] [address] [place] [address], [place] [phone] * (ABNORMAL) Hemoglobin A1c (07/29/2024 11:29 AM EST) [facility] Hemoglobin A1C 10.8(H) <6.5 % LAB CHEMISTRY METHOD 07/29/2024 9:46 PM EST [facility] Mean Bld Glu Estim. 263 mg/dL LAB CHEMISTRY METHOD 07/29/2024 9:46 PM EST [facility] Blood Venous blood specimen / Unknown Venipuncture / Unknown 07/29/2024 11:29 AM EST 07/29/2024 11:29 AM EST Hermilo Hargrove MD LAB BLOOD ORDERA BLES Final Result [facility] [address] [place] [address], [place] [phone] * (ABNORMAL) Folate (07/29/2024 11:29 AM EST) [facility] Folate >20.0(H) 2.8 - 17.0 ng/ml LAB CHEMISTRY METHOD 07/29/2024 5:21 PM EST [facility] Blood Venous blood specimen / Unknown Venipuncture / Unknown 07/29/2024 11:29 AM EST 07/29/2024 11:29 AM EST Hermilo Hargrove MD LAB BLOOD ORDERA BLES Final Result [facility] [address] [place] [address], [place] [phone] * (ABNORMAL) Ferritin (07/29/2024 11:29 AM EST) [facility] Ferritin 24(L) 26 - 388 ng/mL LAB CHEMISTRY METHOD 07/29/2024 5:21 PM EST [facility] Blood Venous blood specimen / Unknown Venipuncture / Unknown 07/29/2024 11:29 AM EST 07/29/2024 11:29 AM EST Hermilo Hargrove MD LAB BLOOD ORDERA BLES Final Result Performing Organization Address [facility]/ZIP Co de Phone Number [facility] [address] [place] [address], [place] [phone] * (ABNORMAL) Vitamin B12 (07/29/2024 11:29 AM EST) [facility] Vitamin B-12 1,661(H) 250 - 900 pcg/mL LAB CHEMISTRY METHOD 07/29/2024 5:21 PM EST [facility] Blood Venous blood specimen / Unknown Venipuncture / Unknown 07/29/2024 11:29 AM EST 07/29/2024 11:29 AM EST Hermilo Hargrove MD LAB BLOOD ORDERA BLES Final Result Performing Organization Address [facility]/ZIP In de Phone Number [facility] [address] [place] [address], [place] [phone] * (ABNORMAL) Basic metabolic panel (07/29/2024 11:29 AM EST) [facility] Sodium 135 133 - 145 mmol/L LAB CHEMISTRY METHOD 07/29/2024 4:58 PM [facility] Potassium 4.1 3.5 - 5.5 mmol/L LAB CHEMISTRY METHOD 07/29/2024 4:58 PM [facility] Chloride 99 96 - 110 mmol/L LAB CHEMISTRY METHOD 07/29/2024 4:58 PM [facility] CO2 32 21 - 32 mmol/L LAB CHEMISTRY METHOD 07/29/2024 4:58 PM [facility] Anion Gap 4 3 - 11 LAB CHEMISTRY METHOD 07/29/2024 4:58 PM [facility] Glucose 127(H) 70 - 100 mg/dL LAB CHEMISTRY METHOD 07/29/2024 4:58 PM [facility] BUN 24 5 - 25 mg/dL LAB CHEMISTRY METHOD 07/29/2024 4:58 PM [facility] Creatinine 1.10 0.70 - 1.30 mg/dL LAB CHEMISTRY METHOD 07/29/2024 4:58 PM [facility] eGFR 74 >=60 mL/min/1. 73m2 LAB CHEMISTRY METHOD 07/29/2024 4:58 PM [facility] Comment:Calculation based on the??Chronic Kidney Disease Epidemiology Collaboration (CKD-EPI) equation refit??without adjustment for race. BUN/Creatinine Ratio 21.8 LAB CHEMISTRY METHOD 07/29/2024 4:58 PM [facility] Calcium 9.4 8.5 - 10.5 mg/dL LAB CHEMISTRY METHOD 07/29/2024 4:58 PM [facility] Blood Venous blood specimen / Unknown Venipuncture / Unknown 07/29/2024 11:29 AM EST 07/29/2024 11:29 AM EST Hermilo Hargrove MD LAB BLOOD ORDERA BLES Final Result [facility] [address] [place] [address], [place] [phone] * ECG 12 lead (07/29/2024 9:49 AM EST) us Hermilo Hargrove MD ECG ORDERABLES Final Result * HM Urine Albumin Creatinine Ratio (12/07/2023) [facility] Urine Albumin Creatinine Ratio abstracted [facility] Provider HEALTH MAINTENANCE Final Result * (ABNORMAL) Lipid panel (12/07/2023) [facility] LDL/HDL Ratio 5(A) 0 - 4 Triglycerides 232(A) 0 - 150 mg/dL Cholesterol 186 0 - 200 mg/dL HDL 40 >=40 mg/dL LDL Cholesterol 100 0 - 100 mg/dL Blood Venous blood specimen / Unknown Result [facility] Provider LAB BLOOD ORDERABLES Catarina l Result * Hepatitis C Screening (03/01/2020) [facility] Hepatitis C Screening abstracted Result [facility] Provider HEALTH MAINTENANCE Final Result * Colonoscopy (10/03/2019) [facility] Colonoscopy no interpretation abstracted Anatomical Region Laterality Modality Other [facility] Provider HEALTH MAINTENANCE Final Result from Last 3 Months or Most Recently Relevant to Health Maintenance Insurance [employer] [place] [id number] Advance Directives Documents on File Type Date Recorded Patient Court Administrator Expl anation Health Care Decision (hx) 12/22/2022 AD TIM DIRECTIVE Health Care Decision (hx) 12/22/2022 AD TIM DIRECTIVE Care Teams Office Support Clerk Relationship Specialty Start Date End Date Iron Garibay MD [address] [place] [address] PCP - General Internal Medicine 05/11/24
--- OUTSIDE RECORDS SUMMARY | 2024-09-28 15:58 | XMS_ITS | Encounter Summary ---
Author Organization [employer] [facility] Address [address] [place] [address] [address] [place] [address] Care Team Providers Care Electronic Transaction Implementer Name Role Phone Unavailable Primary Care Provider Unavailabl e Encounter Details Date Type Department Care Team (Latest Contact Info) Description 12/20/2018 Abstract [facility] CONVERSIONS Dental, Provider, DDS Social [...] Description 09/29/2024 9:30 AM EDT Office Visit [facility] CHC ADULT DENTAL [address] [place] [address] Jennifer Butterfield DDS [address] [place] [address] documented as of this encounter Visit Diagnoses Not on filedocumented in this encounter
--- OUTSIDE RECORDS SUMMARY | 2024-09-28 15:58 | XMS_ITS | Encounter Summary ---
Author Organization [facility] Address [address] [place] [address] Care Team Providers Care Break Out Man Name Role Phone Iron Garibay MD Primary Care Provider [phone] Reason for Visit * Reason Comments Diabetes Encounter Details Date Type Department Care Team ([facility] st Contact Info) Description 09/14/2024 7:45 AM EDT Office Visit Endocrinology [address] [phone] Trinh Meeks PA [address] [place] [address] Type 2 diabetes mellitus with diabetic chronic kidney disease, unspecified CKD stage, unspecified whether exterminator insulin use ([facility]) (Primary Dx) Social History Tobacco Use Types [...] Sign Reading Time Taken Comments Blood Pressure 118/70 09/14/2024 8:07 AM EDT C Pulse 78 09/14/2024 8:07 AM EDT Temperature 36.6 ??C (97.8 ??F) 09/14/2024 8:07 AM ED T Respiratory Rate - - Oxygen Saturation 98% 09/14/2024 8:07 AM EDT Inhaled Oxygen Concentration - - Weight 122 kg (268 lb 3.2 oz) 09/14/2024 8:07 AM EDT Height 193.7 cm (6' 4.25 ) 09/14/2024 8:07 AM ED T Body Mass Index 32.43 09/14/2024 8:07 AM EDT documented in this encounter Ordered Prescriptions Prescription Sig Dispense Quantity Refills Last Filled Start Date End Date insulin NPH-insulin regular (HumuLIN,NovoLIN 70/30) 100 unit/mL (70-30) injection Inject 62 Units under the skin 2 (two) times a day before meals. 30 mL 5 09/14/2024 documented in this encounter Progress Notes * Bere Lizama MA - 09/14/2024 7:45 AM EDT BS - 300 - Per CGM - Non fasting * MARNIE Nelson - 09/14/2024 7:45 AM EDT CHIEF COMPLAINT: Diabetes IDENTIFIER: Bladimir Orta is a 63 y.o. old male. HPI: Patient presents for follow-up on diabetes. Past medical history for diabetes type 2, obstructive sleep apnea, obesity, hypertension, hyperlipidemia, GERD, depression, diverticulosis, BPH, asthma, anxiety, allergic rhinitis. Diabetes is complicated by microalbumin. Type 2 diabetes: Hemoglobin A1c: Lab Results Component Value Date HGBA1C 10.8 (H) 07/29/2024 HGBA1C 10.3 (A) 04/14/2024 CGM data downloaded Average glucose 319 Time in range is 1% Time above 12% Time above 250 87% Diabetes medication: Metformin 1000 mg twice a day NPH insulin 70/30 he was supposed to be doing 59 units twice a day Continue to worsen In the past Trulicity was discontinued side effect of blurry vision He has history of frequent UTIs He is up-to-date with his eye exam He has been on sulfonylureas Diabetic is complicated by microalbuminuria Blood sugar in the office [facility] blood sugars have been between 601 19 He does admit he does not eat healthy. Eats Meals on Wheels and eating a lot of cookies Wt Readings from Last 3 Encounters: 09/14/24 122 kg (268 lb 3.2 oz) 08/18/24 121 kg (267 lb) 07/29/24 118 kg (260 lb) ROS: GENERAL: No malaise, significant weight loss or fever HEENT: No changes in hearing or vision, nose bleeds or other nasal problems RESPIRATORY: No cough, wheezing or shortness of breath CARDIOVASCULAR: No chest pain, leg swelling or palpitations GI: No abdominal discomfort, blood in stools or black stools ENDOCRINE: See HPI MUSCULOSKELETAL: No joint pain or swelling, back pain, or muscle pain. NEURO: No persistent headache, syncope, seizures, weakness or numbness PAST MEDICAL HISTORY: Patient Active Problem List [...] Outpatient Medications Marked as Taking for the 09/14/24 encounter (Office Visit) with MARNIE Nelson Medication Sig Dispense Refill albuterol HFA (PROAIR [...] sugar diagnostic (ONETOUCH ULTRA BLUE TEST STRIP [facility]) Use to test blood sugar once daily. blood-glucose meter,continuous (FreeStyle Manny 3 [place]) misc 1 Device by Does not apply [...] the skin 1 (one) time each day. Max Daily Amount: 50 mg of testosterone UNABLE TO FIND 13 cm by Nasal route at bedtime. [employer]/bipap venlafaxine 150 mg 24 hr tablet Take 2 Tablets by mouth daily. [DISCONTINUED] insulin NPH-insulin regular (HumuLIN,NovoLIN 70/30) 100 unit/mL (70-30) injection Inject 59 Units under the skin 2 (two) times a day before meals. Inject 50 units SC ALLERGIES: Budesonide, Formoterol, Gabapentin, Hydrochlorothiazide, Levofloxacin, Lisinopril, Mometasone-formoterol, Other, Pramipexole, and Terazosin PHYSICAL EXAM: Blood pressure 118/70, pulse 78, temperature 36.6 ??C (97.8 ??F), temperature source Temporal, height 1.937 m (76.25 ), weight 122 kg (268 lb 3.2 oz), SpO2 98%. Body mass index is 32.43 kg/m??. BMI is greater than 25.0 (above the normal range) - see Plan APPEARANCE: Alert and in no acute distress NEURO: Awake, alert and oriented x 3 LABS: Lab Results Component Value Date HGBA1C 10.8 (H) 07/29/2024 CHOL 186 12/07/2023 LDL 100 12/07/2023 HDL 40 12/07/2023 TRIG 232 (A) 12/07/2023 Lab Results Component Value Date GLUCOSE 127 (H) 07/29/2024 No results found for: TSH IMAGING: IMPRESSION: 1. Type 2 diabetes mellitus with diabetic chronic kidney disease, unspecified CKD stage, unspecified whether retirement insulin use ([facility]) PLAN: Patient presents to the office for follow-up on diabetes A1c worsen, CGM data demonstrates worsening blood sugars I spent a lot of this and trying to convince patient try to switch his regimen. NPH insulin is not working for him and blood sugars continue to [...] metformin. This mostly leaves us with insulin I spent the whole visit trying to explain to him and we do not control his sugars complications of diabetes which include including increased risk of heart attacks, strokes, congestive heart failure, and other cardiovascular issues. I explain to the patient that DM is the number once cause of vision loss due to non acute injury. Other eye complications reviewed. Also talked to the patient that it can lead to kidney injury, chronic kidney disease and the need of dialysis treatment. We discussed it can cause PAD, neuropathy, non healing ulcers, and increase risk of non traumatic leg amputations. Other complications also reviewed. He states that hebecause of his diet. That he is going to see school age program teacher and work on lowering hissugar intake. I explained to him this is an excellent idea, but this will not get his A1c to come down to the level we needed to come down to the in order to prevent these complications. Strongly strongly told him we need to change what we are doing, but patient absolutely refused He wants to stay with NPH. He is going to go up to 62 units twice a day. Told him to keep adding 2 units twice a day every week if sugars still above 150 he wants to follow-up in 3 months All questions and concerns were addressed. Patient understands and agrees with this treatment plan.Patient was reminded to call or return to the office if any new or existing problems arise This document was made using voice recognition software. It may contain some errors in grammar or syntax Medication and lab orders: Type 2 diabetes mellitus with diabetic chronic kidney disease, unspecified CKD stage, unspecified whether exterminator insulin use ([facility]) (Primary) Other orders - insulin NPH-insulin regular (HumuLIN,NovoLIN 70/30) 100 unit/mL (70-30) injection; Inject 62 Units under the skin 2 (two) times a day before meals. Dispense: 30 mL; Refill: 5 MARNIE Nelson on 09/14/2024 at 8:31 AM EDT documented in this encounter Plan of Treatment Upcoming Encounters Date Type Department Care Team (Late st Contact Info) Description 12/08/2024 9:30 AM EDT Office Visit [address] [phone] Trinh Meeks PA [address] [place] [phone] 01/13/2025 3:45 PM EDT Office Visit Adult Medicine [facility] - [address] [phone] Iron Garibay MD [address] [place] [address] Scheduled Orders Name Type Priority Associated Diagnoses Orde r Schedule Hemoglobin A1c Lab Routine Type 2 diabetes mellitus with diabetic chronic kidney disease, unspecified CKD stage, unspecified whether retirement insulin use ([facility]) 1 Occurrences starting 09/14/2024 until 09/14/2025 documented as of this encounter Visit Diagnoses Diagnosis Type 2 diabetes mellitus with diabetic chronic kidney disease, unspecified CKD stage, unspecified whether retirement insulin use ([facility])- Primary documented in this encounter Discontinued Medications Medication Sig Discontinue Reason Start Date End Da te insulin NPH-insulin regular (HumuLIN,NovoLIN 70/30) 100 unit/mL (70-30) injection Inject 59 Units under the skin 2 (two) times a day before meals. Inject 50 units SC Reorder 09/14/2024 documented as of this encounter Historical Medications * This list may reflect changes made after this encounter. testosterone (ANDROGEL) 1 % (50 mg/5 gram) gel in packet Place 1 packet (50 mg of testosterone total) on the skin 1 (one) time each day. 09/07/2024 added in this encounter Care Teams Break Out Man Relationship Specialty Start Date End Date Iron Garibay MD [address] [place] [id number] PCP - General Internal Medicine 05/11/24 documented as of this encounter
--- OUTSIDE RECORDS SUMMARY | 2024-09-28 15:58 | XMS_ITS | Encounter Summary ---
Author Organization [facility] Address [address] [place] [address] [address] [place] [address] Care Team Providers Care City Editor Name Role Phone Unavailable Primary Care Provider Unavailabl e Encounter Details Date Type Department Care Team (Late st Contact Info) Description 07/29/2024 Telephone [facility] [address] [place] [address] Jennifer Butterfield DDS [address] [place] [address] Social History Tobacco Use Types Packs/Day Years [...] Description 09/29/2024 9:30 AM EDT Office Visit [facility] [address] [place] [address] Jennifer Butterfield DDS [address] [place] [address] documented as of this encounter Visit Diagnoses Not on filedocumented in this encounter
--- OUTSIDE RECORDS SUMMARY | 2024-09-28 15:58 | XMS_ITS | Clinical Summary ---
Author Organization [facility] Address [address] [address] Phone Care Team Providers Care Pile Operator Name Role Phone Iron Garibay MD Primary Care Provider [phone] Allergies Active Allergy Reactions Criticality Noted Date [...] syndrome 04/30/2023 04/30/2023 Overview (04/30/2023): Follows with [facility]pertension 04/30/2023 04/30/2023 Overview (04/30/2023): Cardiac [...] Of [place] [address] [place] [address] Yasir Santamaria MD from Last 3 Months Immunizations Name Administration Dates Next Due Influenza, MDCK, Quadrivalen t, with preservative 04/23/2022,03/22/2021,03/16/2020 Influenza, Unspecified 03/22/2021,05/09/2005 ACE SARS-COV-2 06/16/2021,10/10/2020 Pfizer SARS-CoV-2 Bivalent 30 mcg/0.3 [...] Mass Index - - Plan of Treatment Health Maintenance Due Date [...] patient's age to complete this topic Insurance UHC MEDICARE [facility] MEDICARE Care Teams Pile Operator Relationship Specialty Start Date End Date Iron Garibay MD [address] [place] [phone] PCP - General Internal Medicine 04/30/23
--- OUTSIDE RECORDS SUMMARY | 2024-09-28 15:58 | XMS_ITS | Encounter Summary ---
Author Organization [facility] Address [address] [place] [address] Care Team Providers Care Supervisor Lamp Shades Name Role Phone Iron Garibay MD Primary Care Provider [phone] Reason for Visit * Reason Onset Date Comments Lab work 09/09/2024 Upcoming apt 09/03 03/02 with [facility] Encounter Details Date Type Department Care Team ([facility] Contact Info) Description 09/09/2024 Telephone Adult Medicine [address] [phone] Iron Garibay MD [address] [place] [phone] Lab work (Upcoming apt 09/21/27 with [facility]) Social History Tobacco Use Types Packs/Day Years [...] Description 12/08/2024 9:30 AM EDT Office Visit [address] [phone] Trinh Meeks PA [address] [place], [place] [address] [address] 01/13/2025 3:45 PM EDT [facility] [address] [phone] Iron Garibay MD [address] [place] [address] documented as of this encounter Visit Diagnoses Not on filedocumented in this encounter Care Teams Supervisor Lamp Shades Relationship Specialty Start Date End Date Iron Garibay MD [address] [place] [address] PCP - General Internal Medicine 05/11/24 documented as of this encounter
== END 2024-09-28 14:28 | disposition home or self-care (01) ==
LOC: HO.HUSH 13:25
PROVIDERS: PCP Internal Medicine; Visit Provider Urology
DX: E29.1 Testicular hypofunction (principal); N40.0 Benign prostatic hyperplasia without lower urinary tract symptoms; Z13.9 Encounter for screening, unspecified
CPT/HCPCS: 99213

== ENCOUNTER 2024-12-07 07:49 | Outpatient (AMB) | payer MEDICARE, MEDICAID, SELFPAY ==
--- OUTSIDE RECORDS SUMMARY | 2024-12-07 07:52 | XMS_ITS | Encounter Summary ---
Author Organization [facility] Address [address] [place] [address] Care Team Providers Care Clinical Research Analyst Name Role Phone Unavailable Primary Care Provider Unavailabl e Encounter Details Date Type Department Care Team (Latest Contact Info) Description 01/29/2021 Abstract [facility] Dental, Provider, DDS Social History Tobacco Use Types Packs/Day Years Used Date Smoking Tobacco: Never Assessed Sex and Gender Information Value Date Recorded Sex Assigned at Male 05/05/2022 10:18 AM EDT Legal Sex Male 10:18 AM EDT Gender Identity Male 05/05/2022 10:18 AM EDT Sexual Orientation Straight 05/05/2022 10 :18 AM EDT documented as of this encounter Plan of Treatment Not on file documented as of this encounter Visit Diagnoses Not on filedocumented in this encounter
[2024-12-07 07:54] VITALS: BP 130/82; BMI 35.0
--- NOTE | 2024-12-07 07:54 | A.OFFVIS_ITS ---
Vital Signs 12/07/24 07:54 Height 6 ft 1 in Weight 265 lb BMI 35.0 BP 130/82 Blood Pressure Location Rt brachial Position Sitting Intake Visit Reasons: Follow up Intake Note: Patient presents for follow up PT done 08/05/24. med trial ropinirole Allergies budesonide [From Symbicort] Allergy (Severe, Verified 12/07/24 07:56) Dizziness formoterol [From Symbicort] Allergy (Severe, Verified 12/07/24 07:56) Dizziness lisinopril [LISINOPRIL] Allergy (Severe, Verified 12/07/24 07:56) Nausea mometasone furoate [From Dulera] Allergy (Severe, Verified 12/07/24 07:56) Nausea amoxicillin Allergy (Mild, Verified 12/07/24 07:56) vertigo gabapentin Allergy (Mild, Verified 12/07/24 07:56) vertigo ENVIRONMENTAL Allergy (Severe, Uncoded 12/07/24 07:56) Rash and Hives Dust Mite Allergy (Intermediate, Uncoded 12/07/24 07:56) Hives Seasonal Allergies Allergy (Intermediate, Uncoded 12/07/24 07:56) Hives and Rash terazosin Allergy (Mild, Uncoded 12/07/24 07:56) vertigo HPI Comments Details: 63y/o male comes for follow up of vertigo and restless legs syndrome.His diabetes is better controlled now-he has a CGM now. He sees Trinh OLMEDO .He denies nay head pain now- resolved since last visit. . He still has daily episodes of vertigo - usually mild .He takes meclizine 25 mg bid .He has restless legs and is on requip 1mg qhs and it helps .His restless legs are moderately controlled. He is doing well on BiPAP - f/u Dr. Meeks.But he has severe nocturia which affects his sleep. He follows up with chief commercial officer - for HTN History from his initial visit -He was followed up by Dr. Valenzuela who had closed his practice since. His vertigo started about 8 years ago . He describe sit as spinning sensation with quick change in head position. Its mostly in sitting or standing position . He also reports lightheadedness while standing .According to the patient he had tilt table testing and was diagnosed with orthostatic hypotension. He denies double vision, tinnitus or hearing loss. He did vestibular therapy - but was told that it was not BPV. He has dysphagia that started 5 years ago, evaluated with barium swallow and is on therapy now. 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 he is on BiPAP for sleep apnea and followed up by Dr. Meeks. He reports mild generalized weakness. He has diabetes and is poorly controlled. His Hg A 1C 8.9 He sees a psychiatrist for depression and anxiety [facility] Medical History Restless legs syndrome (RLS) Hypertension, essential Dizziness Vertigo Acute depression Anxiety Benign prostatic hyperplasia without lower urinary tract symptoms Hyperlipidemia Type 2 diabetes mellitus with other diabetic kidney complication Diverticulosis Restless leg syndrome CAD (coronary artery disease) Dyspnea ASHLIE treated with BiPAP Asthma Surgical History History of cataract surgery H/O adenoidectomy Hx of tonsillectomy Family History Father Cancer Mother Cancer Sister Acute Crohn's disease Social History Alcohol intake: former Patient Tobacco Use Status: Never used Tobacco Physical Exam Vital Signs: Last Vital Signs BP 130/82 12/07/24 07:54 BMI result Body Mass Index 35.0 Const Other: Mood stable speech- normal General: cooperative, healthy appearing and comfortable Nutritional Appearance: average body habitus Orientation/consciousness: patient oriented x3 Neuro General: patient oriented x3, gait normal, tone normal, moves all extremities and no focal motor deficits Cranial nerves: Yes Facial sensation intact/muscles of mastication intact, Yes Bilaterally intact EOM present, Yes Nystagmus not present, Yes Normal facial strength present and Yes Midline tongue present Gait exam (Neuro): Normal gait present Motor exam (neuro): 5/5 motor strength present throughout and Normal motor muscle tone present throughout Assessment & Plan Assessment & Plan (1) Vertigo: Comment: ? vestibular or related to mitochondrial disease Code(s): R42 - Dizziness and giddiness Category: Medical (2) Dizziness: Comment: orthostatic, autonomic dysfunction related to diabetes ? mitochondrial disease Code(s): R42 - Dizziness and giddiness Category: Medical (3) Restless legs syndrome (RLS): Code(s): G25.81 - Restless legs syndrome Category: Medical Plan Continue Ropinirole 2 mg qhs meclizine as needed Good diabetes control to help with autonomic dysfunction . F/u Hypertension specialist F/u Dr Meeks F/U as needed Medications: Refilled ropinirole 2 mg PO BEDTIME 30 tabs 6RF Coding Level of Care Code Est Pt Level 4 (60478) Diagnoses Vertigo R42 Dizziness R42 Restless legs syndrome (RLS) G25.81
== END 2024-12-07 08:21 | disposition home or self-care (01) ==
LOC: HO.HSMS 07:50
PROVIDERS: PCP Internal Medicine; Visit Provider Psychiatry & Neurology Neurology
DX: R42 Dizziness and giddiness (principal); G25.81 Restless legs syndrome
CPT/HCPCS: 99214

== ENCOUNTER → 2024-12-07 07:49 | Outpatient (BNVA) | payer MEDICARE, MEDICAID, SELFPAY | PROVIDERS: PCP Internal Medicine; Visit Provider Psychiatry & Neurology Neurology | DX: R42 Dizziness and giddiness (principal); G25.81 Restless legs syndrome | CPT/HCPCS: 99212 ==

== ENCOUNTER 2024-12-08 11:15 | Outpatient (AMB) | payer MEDICARE, MEDICAID, SELFPAY ==
[2024-12-08 11:16] VITALS: BP 132/76; PULSE 77; O2SAT 96; BMI 34.9
--- NOTE | 2024-12-08 11:16 | A.OFFVIS_ITS ---
Vital Signs 12/08/24 11:16 Height 6 ft 1 in Weight 264 lb 8.875 oz BMI 34.9 BP 132/76 Blood Pressure Location Rt brachial Position Sitting Pulse 77 Pulse Source Pulse Oximeter Pulse Oximetry (%) 96 Oxygen Delivery Method Room Air Intake Visit Reasons: asthma/ashlie Rod Cup Filler Required: No Accompanied by: Self / Same As Patient Allergies budesonide [From Symbicort] Allergy (Severe, Verified 12/08/24 11:19) Dizziness formoterol [From Symbicort] Allergy (Severe, Verified 12/08/24 11:19) Dizziness lisinopril [LISINOPRIL] Allergy (Severe, Verified 12/08/24 11:19) Nausea mometasone furoate [From Dulera] Allergy (Severe, Verified 12/08/24 11:19) Nausea amoxicillin Allergy (Mild, Verified 12/08/24 11:19) vertigo gabapentin Allergy (Mild, Verified 12/08/24 11:19) vertigo ENVIRONMENTAL Allergy (Severe, Uncoded 12/07/24 07:56) Rash and Hives Dust Mite Allergy (Intermediate, Uncoded 12/07/24 07:56) Hives Seasonal Allergies Allergy (Intermediate, Uncoded 12/07/24 07:56) Hives and Rash terazosin Allergy (Mild, Uncoded 12/07/24 07:56) vertigo HPI Comments Details: The patient is a 63-year-old gentleman with known asthma COPD overlap syndrome in addition to obstructive sleep apnea on BiPAP. He has been having issues with significant dyspnea with minimal activity. Usually becomes significantly tachycardic. We did try to perform a cardiopulmonary stress test but only lasted a minute due to heart rates in the 150s. His heart rates have been better. He has been trying to control his sugars from 400 now to 100-200. He has been using the Advair twice a day. Unfortunately, it is very expensive. Will try to switch him over to the generic Advair. Hopefully also we can decrease the dose to just once a day to avoid the beta agonist effect. He is also taking the metoprolol. Will also try to switch the dose to 1 tablet in the morning and half at nighttime to try to regulate his heart rate better with activity. I am hoping that now that his heart rate is better that we can actually we ordered the cardiopulmonary stress test. He has been using his BiPAP at nighttime. The therapy continues to be affecting beneficial. His sugars also appeared to be better. He is tolerating the metoprolol. He recently underwent a 2nd cardiopulmonary exercise test after not able to perform on the 1 due to his significant heart rate. This time he was able to completed. Based on the reports the patient did not have any ventilatory limitations. There appears to be a decrease in the O2 pulse and also a potential metabolic derangement. The patient is not interested at this time in a referral to [place] to further evaluate the metabolic component. He has been followed by Cardiology and did not make any new recommendations based on the CPET. He did have a cardiac catheterization recently demonstrating nonocclusive coronary artery disease. We again went over his imaging studies and pulmonary function studies. He is scheduled to undergo a barium swallow for dysmotility issues and dilation of the esophagus. He also has been dealing with this high sugars. He finally was placed on insulin that he can not afford. He will follow up with his primary care doctor. However, he may need an sales order administrator with very uncontrolled diabetes. The may be a component of Autonomic dysfunction resulting his cardiopulmonary derangements in his dyspnea symptoms. In the meantime he is using his BiPAP BiPAP therapy has been affecting beneficial. Sometimes he gets a very dry mouth. He does have a fullface mask already. Will try to woman to water prior to using it. 09/17/2022 the patient has a telehealth visit today. The patient still complaining of significant vertigo. He is working closely with Neurology. In the meantime he continues use the BiPAP every night. He did decrease the pressures down to 10/70 in appears to be tolerating the lower pressures better. I will also request a download to make sure that he is appropriate for him. The patient however has been having some difficulties with the BiPAP. It is not working effectively. He did talk to the [facility] and they did recommend that he is due for a new BiPAP. Therefore I will request a new BiPAP replacement at this time for his mild function machine. He continues uses inhalers with good effect. He has not had to use his rescue inhaler. Otherwise patient is without any other complaints. 03/20/2023 the patient is here for a pulmonary follow-up visit. The patient overall has been doing fairly well from a respiratory status. He has been having more issues with blood pressure and heart rate. In the meantime he continues uses BiPAP. He still using the old BiPAP although is not working correctly. He is already received his new AutoPAP EPAP. The patient needs to start using it. Explained to him that the settings are different so once he start using it he let me now I have need to adjust the machine. He continues use the BiPAP every night the BiPAP therapy has been affecting beneficial he does use it for more than 4 hours a night. In regards of his breathing he does get winded with activity. [id number] severity. He usually uses rescue inhaler before any exercise activity. We did talk about optimizing his respiratory therapy to [facility] but the patient at this point for consult with the Adv he does not want make any changes. The patient will continue with current therapy and will follow-up with cardiology and nephrology regarding his labile blood pressure. 11/11/2023 the patient has a telehealth visit today. Unfortunately he had a bad fall because of his vertigo and filling the kitchen hurting self. Therefore we do a telehealth visit. From a BiPAP standpoint the patient is doing very well. The pressures are currently 10/9 and his AHI is well below 1. Seems to be affecting beneficial. He does use it every night for more than 4 hours. Will continue to use it accordingly. In the meantime he is breathing has been okay. We switched him from Advair to Wixela. He had tried Wixela in the past but did not respond well to it. Although now the insurance company is not making the Advair anymore so we have to try him again on it. He still has some adverse so he will let me know how he responds to this time. If he has any issues he will call we can always changes something else. The patient also barium significant dizziness spells. Significant vertigo. Will try to simplify his medical regimen to make sure is not getting any adverse effects from any medications we are prescribing. Therefore will see about weaning off the singular that has a potential side effect of dizziness. Once he is off that if he continues have dizziness we can work on other medications that he may be taking we can try to simplify his medication regimen. Otherwise patient is doing well from respiratory status will go ahead and follow-up in the springtime. If he has any issues prior to that from call for an earlier assessment. 09/12/2024 the patient is here for pulmonary follow-up visit. Overall he is doing well from a respiratory status. Continues on the generic Advair 550. He gets it from often. He has not had to use any prednisone or his rescue inhaler often. He has been dealing with issues with elevated blood sugar. Apparently he was sent to density and developed visual impairment and therefore had to stop it. Now he has been struggling with his elevated sugars. He ended up going to the ER with a blood sugar in the 700s. His baseline blood sugar varies around 300-400. Does too high. He needs to follow-up with primary care or Endocrinology [facility]. I did ask him to call the office as soon as possible to make an appointment. I am also going to send this note to them to for them to realize the urgency of the matter with significantly elevated blood sugars. Explained to the patient that with his visual impairment the elevated sugars can resulting worsening visual impairment. In the meantime he has been using his BiPAP. The BiPAP therapy continues to be affecting beneficial. He does use it for more than 4 hours a night. His AHI is around 1. And is supplies are delivered from his local DME company, [employer]. Will go ahead and send a script order to them at this time. The patient follow-up in a year's time or sooner if he develops any worsening symptoms. 12/08/2024 the patient is here for pulmonary follow-up visit. Overall the patient has been doing a lot better. He has done a really good job working with his sales order administrator to control his triggers. His triggers are significantly improved in his hemoglobin A1c also has improved dramatically. He is doing well from a respiratory status. He continues on the Wixela. Seems to be tolerating it better as it initially caused diarrhea had to switch him back to Advair. But seems to be doing better so therefore will continue to monitoring closely on the Wixela 500/50. If he has any issues or any adverse effects will call and we can see about finding at substitution for it. He continues use the BiPAP. The BiPAP therapy has been affecting beneficial he does use it for more than 4 hours a night. He has been closely working with his DME company, [employer] since he is changing insurance will go ahead and send another script for his supplies to the [employer] company. Otherwise patient is doing well on the current respiratory therapy doing well on the BiPAP so therefore follow-up in a year's time. If he has any issues prior to that he will coughing earlier assessment. [facility] Medical History Restless legs syndrome (RLS) Hypertension, essential Dizziness Vertigo Acute depression Anxiety Benign prostatic hyperplasia without lower urinary tract symptoms Hyperlipidemia Type 2 diabetes mellitus with other diabetic kidney complication Diverticulosis Restless leg syndrome CAD (coronary artery disease) Dyspnea ASHLIE treated with BiPAP Asthma Surgical History History of cataract surgery H/O adenoidectomy Hx of tonsillectomy Family History Father Cancer Mother Cancer Sister Acute Crohn's disease Social History Alcohol intake: former Patient Tobacco Use Status: Never used Tobacco Review of Systems Const Denies chills, Denies fatigue, Denies fever(s), Denies weight gain and Denies weight loss Eyes Reports change in vision ENT Denies dizziness, Denies lip swelling and Denies tongue swelling Card Denies chest pain, Denies leg edema, Denies lightheadedness, Denies palpitations, Denies dyspnea on exertion, Denies orthopnea and Denies other Resp Denies cough and Denies dyspnea on exertion GI Denies hematochezia and Denies change in stool character Musc Denies abnormal gait, Denies muscle weakness, Denies numbness, Denies radiating pain into limb and Denies tingling Neuro Denies Abnormal speech present, Denies abnormal gait, Denies dizziness, Denies numbness and Denies tingling Psych Denies no additional complaints Endo Denies fatigue and Denies palpitations Juvenal/Lymph Denies easy bleeding and Denies lymphadenopathy Aller/Immun Denies lip swelling and Denies tongue swelling Physical Exam Vital Signs: Last Vital Signs Pulse 77 12/08/24 11:16 BP 132/76 12/08/24 11:16 Pulse Ox 96 12/08/24 11:16 Oxygen Delivery Method Room Air 12/08/24 11:16 BMI result Body Mass Index 34.9 Const General: alert Orientation/consciousness: patient oriented x3 HEENT Other: Unremarkable Head: Yes normal to inspection Neck Neck: Yes normal visual inspection Chest Chest palpation & inspection: normal inspection of the chest Resp Effort & Inspection: normal respiratory effort and able to speak in complete sentences Auscultation: clear to auscultation bilaterally Cardio Palpation: normal PMI Heart sounds: S1 normal heart sound present, S2 normal heart sound present, no gallops, no murmurs and no rubs GI Palpation (GI): Soft to palpation Back/Spine/Pelvis Other: unremarkable Skin General skin exam: no rashes or lesions noted Neuro General: patient oriented x3 Speech: No Abnormal speech present Extrem General: Yes normal to inspection Psych Mental Status: mental status grossly normal Assessment & Plan Assessment & Plan (1) ASHLIE treated with BiPAP: Code(s): G47.33 - Obstructive sleep apnea (adult) (pediatric) Category: Medical (2) Asthma: Code(s): J45.909 - Unspecified asthma, uncomplicated Category: Medical Qualifiers: Asthma complication type: uncomplicated Asthma persistence: persistent Asthma severity: moderate Qualified Code(s): J45.40 - Moderate persistent asthma, uncomplicated (3) Restless leg syndrome: Code(s): G25.81 - Restless legs syndrome Category: Medical (4) Dyspnea: Code(s): R06.00 - Dyspnea, unspecified Category: Medical Qualifiers: Dyspnea type: dyspnea on exertion Qualified Code(s): R06.00 - Dyspnea, unspecified Plan continue VPAP, 10/9 AHI 0.7 Continue Wixela 500/50 SARA as needed F/U 8-12 months Coding Level of Care Code Est Pt Level 4 (79261) Complex EM visit Add On G2211 Diagnoses ASHLIE treated with BiPAP G47.33 Moderate persistent asthma without complication J45.40 Asthma complication type: uncomplicated Asthma persistence: persistent Asthma severity: moderate Restless leg syndrome G25.81 Dyspnea on exertion R06.00 Dyspnea type: dyspnea on exertion Time Spent (min) 16
--- OUTSIDE RECORDS SUMMARY | 2024-12-08 13:25 | XMS_ITS | Encounter Summary ---
Author Organization [employer] [facility] Address [address] [place] [address] Care Team Providers Care Consumer Analyst Name Role Phone Unavailable Primary Care [...]
== END 2024-12-08 11:44 | disposition home or self-care (01) ==
PROVIDERS: PCP Internal Medicine; Visit Provider Hospitalist
DX: G47.33 Obstructive sleep apnea (adult) (pediatric) (principal); J45.40 Moderate persistent asthma, uncomplicated; G25.81 Restless legs syndrome; R06.00 Dyspnea, unspecified
CPT/HCPCS: 99214; G2211

== ENCOUNTER → 2024-12-08 11:15 | Outpatient (BNVA) | payer MEDICARE, MEDICAID, SELFPAY | PROVIDERS: PCP Internal Medicine; Visit Provider Hospitalist | DX: J44.89 Other specified chronic obstructive pulmonary disease (principal); J45.40 Moderate persistent asthma, uncomplicated; G47.33 Obstructive sleep apnea (adult) (pediatric); G25.81 Restless legs syndrome; R06.00 Dyspnea, unspecified; Z99.89 Dependence on other enabling machines and devices | CPT/HCPCS: 99212 ==

== ENCOUNTER 2025-01-04 10:39 | Outpatient (AMB) | payer MEDICARE, MEDICAID, SELFPAY ==
--- NOTE | 2025-01-04 11:01 | MHC.OFFVIS ---
Intake Visit Reasons: 3m/Testo Intake Note: Patient is present for 3M/TESTO Urology Medication:TESTOSTERONE,TADALAFIL Antibiotic Allergy:AMOXICILLIN,GABAPENTIN Blood Thinner:ASPIRIN Women Specialist Required: No Allergies budesonide (From Symbicort) Allergy (Severe, Verified 01/04/25 11:03) Dizziness formoterol (From Symbicort) Allergy (Severe, Verified 01/04/25 11:03) Dizziness lisinopril (LISINOPRIL) Allergy (Severe, Verified 01/04/25 11:03) Nausea mometasone furoate (From Dulera) Allergy (Severe, Verified 01/04/25 11:03) Nausea amoxicillin Allergy (Mild, Verified 01/04/25 11:03) vertigo gabapentin Allergy (Mild, Verified 01/04/25 11:03) vertigo ENVIRONMENTAL Allergy (Severe, Uncoded 01/04/25 11:03) Rash and Hives Dust Mite Allergy (Intermediate, Uncoded 01/04/25 11:03) Hives Seasonal Allergies Allergy (Intermediate, Uncoded 01/04/25 11:03) Hives and Rash terazosin Allergy (Mild, Uncoded 01/04/25 11:03) vertigo HPI Comments Details: Bladimir is a pleasant male. He is a patient of Dr. Garibay. 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 Low testosterone Failed topical therapy Has needle phobia and is not sure if he could be consistent with weekly testosterone shots Recommend testosterone pellets Diabetic management challenging Testosterone low Based on T4DM study will initiate testosterone gel with target 400-600 Continue with BiPAP Continue daily tadalafil Hypogonadism Labs - 04/27 190, 08/29 T 200 F 4.8, Bioavailable 100, 04/28 T 236 Bio 110, 08/30 T 182, 12/28 T 215 Recurring UTI Diabetic male Presented to emergency room and was treated with Levaquin 01/24 Had been treated previously with terazosin but unable to tolerate due to vertigo No reported bowel issues Normal [facility] Medical History Restless legs syndrome (RLS) Hypertension, essential Dizziness Vertigo Acute depression Anxiety Benign prostatic hyperplasia without lower urinary tract symptoms Hyperlipidemia Type 2 diabetes mellitus with other diabetic kidney complication Diverticulosis Restless leg syndrome CAD (coronary artery disease) Dyspnea ASHLIE treated with BiPAP Asthma Surgical History History of cataract surgery H/O adenoidectomy Hx of tonsillectomy Family History Father Cancer Mother Cancer Sister Acute Crohn's disease Social History Alcohol intake: former Patient Tobacco Use Status: Never used Tobacco Review of Systems Const Denies chills and Denies fever(s) Card Reports no additional complaints and Denies syncope Resp Denies cough GI Denies abdominal pain and Denies heartburn Reports as per HPI and Denies change in libido Neuro Denies syncope Psych Denies change in libido Endo Denies change in libido Physical Exam Const General: cooperative, healthy appearing, comfortable and no acute distress Orientation/consciousness: patient oriented x3 HEENT Face and sinus: Yes normal facial exam Mouth: moist mucous membranes Neck Neck: Yes normal visual inspection, Yes full ROM and Yes trachea midline Chest Chest palpation & inspection: normal inspection of the chest Resp Effort & Inspection: normal respiratory effort, able to speak in complete sentences and no respiratory distress GI Inspection: Yes normal to inspection Back/Spine/Pelvis Cervical Spine: normal cervical lordosis Thoracic/Lumbar Spine: thoracic and lumbar spine normal to inspection Skin General skin exam: no rashes or lesions noted Neuro General: patient oriented x3, gait normal, tone normal and moves all extremities Extrem General: Yes normal to inspection and Yes capillary refill normal Results AMB Urinalysis, Automated UA Leukoctes 0 Andriy/uL Last Edit by LEIGH Kothari on 01/04/25 11:23 UA Nitrite Negative Last Edit by LEIGH Kothari on 01/04/25 11:23 UA Urobilinogen 0.2 mg/dL Last Edit by LEIGH Kothari on 01/04/25 11:23 UA Protein 15 mg/dL Last Edit by LEIGH Kothari on 01/04/25 11:23 UA pH 8.0 Last Edit by LEIGH Kothari on 01/04/25 11:23 UA Blood 0 Sher/uL Last Edit by LEIGH Kothari on 01/04/25 11:23 UA Specific [place] 1.010 Last Edit by LEIGH Kothari on 01/04/25 11:23 UA Ketone Negative Last Edit by LEIGH Kothari on 01/04/25 11:23 UA Bilirubin 1 mg/dL Last Edit by LEIGH Kothari on 01/04/25 11:23 UA Glucose 100 mg/dL Last Edit by LEIGH Kothari on 01/04/25 11:23 Results Reviewed Results Reviewed: Laboratory Last Values Urine pH (Auto) 8.0 01/04/25 11:22 Specific [place] (Auto) 1.010 01/04/25 11:22 Urine Protein (Auto) 15 mg/dL 01/04/25 11:22 Glucose (UA)(Auto) 100 mg/dL 01/04/25 11:22 Urine Ketones (Auto) Negative 01/04/25 11:22 Urine Blood (Auto) 0 Sher/uL 01/04/25 11:22 Urine Nitrite (Auto) Negative 01/04/25 11:22 Urine Bilirubin (Auto) 1 mg/dL 01/04/25 11:22 Urine Urobilinogen (Auto) 0.2 mg/dL 01/04/25 11:22 Leukocyte Esterase (Auto) 0 Andriy/uL 01/04/25 11:22 Assessment & Plan Assessment & Plan (1) Benign prostatic hyperplasia without lower urinary tract symptoms: Code(s): N40.0 - Benign prostatic hyperplasia without lower urinary tract symptoms Category: Medical (2) Hypogonadism in male: Code(s): E29.1 - Testicular hypofunction Category: Medical Plan Recommend testosterone pellet placement Orders: Orders AMB Urinalysis Automated 01/04/25 Z13.9 - Encounter for screening, unspecified Patient Instructions: This note is constructed using voice recognition software. While every effort has been made to ensure accuracy single end sewer errors may have been included. Imaging studies, laboratory and physical exam results were discussed and reviewed in detail. No major barriers to patient understanding were identified. An opportunity to ask questions regarding the treatment plan was provided. All questions were answered. The patient expressed understanding and agreement with the above treatment plan. The patient is aware they should contact our office by phone for worsening of their current condition or the appearance of new urologic symptoms. Compliance is encouraged with any medications and followup testing that is ordered. It is a privilege to participate in the urologic care of your patient. If you have any questions or concerns regarding treatment for the above conditions, or other urologic issues, please do not hesitate to contact me. The office telephone contact is [phone]. Sincerely, Dr Scott Rivera MD, [facility] - Urology Compassionate Specialist Care for the Genitourinary System Coding Level of Care Code Est Pt Level 4 (64435) Diagnoses Benign prostatic hyperplasia without lower urinary tract symptoms N40.0 Hypogonadism in male E29.1
--- OUTSIDE RECORDS SUMMARY | 2025-01-04 11:21 | XMS_ITS | Clinical Summary ---
Author Organization [facility] Address [address] [address] Phone Care Team Providers Care Information Management Officer Name Role Phone Iron Garibay MD Primary Care Provider [phone] Allergies Active Allergy Reactions Criticality Noted Date [...] Active atenolol (TENORMIN) 50 MG tablet 03/27/20 Active Ashwagandha 500 MG capsule Take 500 mg by mouth 1 (one) time each day Active albuterol HFA (PROVENTIL HFA;VENTOLIN HFA) 108 (90 Base) MCG/ACT inhaler Inhale 2 puffs every 6 (six) hours if needed 06/20/20 11 Active indapamide (LOZOL) 2.5 MG tablet TAKE 1 TABLET BY MOUTH EVERY DAY IN THE EVENING 90 tablet 3 08/07/19 25 Active Insulin Lispro (HUMALOG IJ) Inject 60 Units as directed at bed time Active diazePAM (VALIUM) 5 MG tablet Take 5 mg by mouth in the morning and 5 mg in the evening. Active fludrocortiso ne 0.1 MG tabletIndicat ions:Hyperten morris,Proteinu jaime, not otherwise specified TAKE 1 TABLET BY MOUTH EVERY DAY 90 tablet 1 12/26/19 25 Active fludrocortiso ne 0.1 MG tabletIndicat ions:Hyperten morris,Proteinu jaime, not otherwise specified TAKE 1 TABLET BY MOUTH EVERY DAY 90 tablet 1 04/11/20 24 2024 Discontinued Active Problems Problem Noted Date Diagnosed Date Orthostatic hypotension 08/19/2023 Obstructive sleep apnea syndrome 04/30/2023 04/30/2023 Overview (04/30/2023): [place] [facility] [facility] Hypertension 04/30/2023 04/30/2023 Overview (04/30/2023): Cardiac [...] 06/26/2021 04/30/2023 Overview (04/30/2023): Followsw ith neurology (melchionna) Hiatal hernia 02/03/2018 04/30/2023 Diverticular disease 02/03/2018 [...] Encounters Date Type Department Care Team Description 12/23/2024 Refill [facility] [address] [place] [phone] Yasir Santamaria MD Hypertension; Proteinuria, not otherwise specified 11/30/2024 1:30 PM EDT Office Visit [facility] [address] [facility] [address] [place] [phone] Yasir Santamaria MD Orthostatic hypotension (Primary Dx); Type 2 diabetes mellitus with renal manifestations (HCC) from Last 3 Months Immunizations Immunization Administration Dates Next Due Influenza (IM) Preservative Free 05/09/2005 Influenza, MDCK, Quadrivalen t, with preservative 04/23/2022,03/22/2021,03/16/2020 [...] Sign Reading Time Taken Comments Blood Pressure 119/70 11/30/2024 1:34 PM EDT Pulse 121 04/30/2023 10:35 AM EDT Temperature - - Respiratory Rate - - Oxygen Saturation - - Inhaled Oxygen Concentration - - Weight 121 kg (267 lb) 11/30/2024 1:34 PM EDT Height - - Body Mass Index - - Plan of Treatment Upcoming Encounters Date Type Department Care Team (Late st Contact Info) Description 11/29/2025 1:15 PM EDT Office Visit [facility] [address] [phone] Yasir Santamaria MD [address] [phone] Health Maintenance Due Date Last Done Comments Colorectal Cancer Screening: Annual FOBT 12/26/2007 Colorectal Cancer Screening: Colonoscopy 12/26/2007 Colorectal Cancer Screening: Sigmoidoscopy 12/26/2007 Diabetes: Ophthalmology Exam 12/22/2022 Diabetes: Pedal Pulse Checked 12/22/2022 Diabetes: Sensory Foot Exam 12/22/2022 Diabetes: Visual Foot Exam 12/22/2022 Influenza Vaccine (Season Ended) 2025 04/23/2022, 03/22/2021, 03/22/2021, Additional history exists Diabetes: Hemoglobin A1C 03/07/2025 025, 07/29/2024, 04/14/2024, Additional history exists Pneumococcal Vaccine: 50+ Years (4 of 4 - PCV20 or PCV21) 04/23/2027 04/23/2022, 04/03/2021, 03/16/2020, Additional history exists Pneumococcal Vaccine: Peds (0 to 5 Years) and At-Risk Patients (6 to 49 Years) Discontinued 04/23/2022, 04/03/2021, 03/16/2020, Additional history exists Hepatitis B Vaccine Aged Out No longe r eligible based on patient's age to complete this topic Insurance [facility] [place] [id number] [employer] MCR Adv PPO ([id number]) Care Teams Information Management Officer Relationship Specialty Start Date End Date Iron Garibay MD [address] [place] [phone] PCP - General Internal Medicine 04/30/23
--- OUTSIDE RECORDS SUMMARY | 2025-01-04 11:21 | XMS_ITS | Patient Health Record ---
Author Organization [facility] Address [address] [place] [phone] Care Team Providers Care Tractor Mechanic Apprentice Name Role Phone NONE, NONE Primary Care Provider Marcial Bass Unavailable [phone] Reason For Referral No Information Medications Medication SIG (Take, Route, Fr equency, Duration) Notes Start Date End Date Status Omeprazole 20 MG 1 capsule Orally Onc e a day for 90 day(s) 05/26/2012 Active Plan Of Treatment No Information
--- OUTSIDE RECORDS SUMMARY | 2025-01-04 11:21 | XMS_ITS | Encounter Summary ---
Author Organization [facility] Address [address] [facility] [address] [place] [address] Care Team Providers Care Sheetmetal Patternmaker Name Role Phone Unavailable Primary Care Provider [...]
--- OUTSIDE RECORDS SUMMARY | 2025-01-04 11:21 | XMS_ITS | Clinical Summary ---
Author Organization [facility] Address [address] [place] [address] Care Team Providers Care Loading Unit Operator Name Role Phone Iron Garibay MD Primary Care Provider Allergies Active Allergy Reactions Criticality Noted Date [...] 400 mg by mouth daily. 0 Active Putnam-3 Fatty Acids (FISH OIL) 1200 MG CAPS [...] 2008 Fall Risk Assessment 12/26/2023 Influenza Vaccine (Season Ended) 2025 RSV Adult > 60+ Yrs or Pregn ant (1 - 1-dose 75+ series) 2033 Hepatitis B Vaccines Aged Out No long er eligible based on patient's age to complete this topic RSV Ped < 20 months Aged Out No longe r eligible based on patient's age to complete this topic Care Teams Loading Unit Operator Relationship Specialty Start Date End Date Iron Garibay MD PCP - General Internal Medicine 05/22/17
--- OUTSIDE RECORDS SUMMARY | 2025-01-04 11:21 | XMS_ITS | Clinical Summary ---
Author Organization [facility] [address] [place] [address] [place] [phone] Phone Care Team Providers Care Passenger Car Cleaning Supervisor Name Role Phone Iron Garibay MD Primary Care Provider [phone] Allergies Active Allergy Reactions Criticality Noted Date [...] tablet Take 200 mcg by mouth. Active UNABLE TO FIND 13 cm by Nasal route at bedtime. [employer]/bipap Active magnesium oxide (MAG-OX) 400 mg magnesium tablet Take 1 Cap by mouth daily. Active DAILY MULTI-VITAMIN ORAL Take by mouth daily. Active blood sugar diagnostic (ONETOUCH ULTRA BLUE TEST STRIP [facility]) Use to test blood sugar once daily. Active albuterol HFA (PROAIR HFA ; PROVENTIL HFA ; VENTOLIN HFA) 90 mcg/actuation inhaler Inhale 2 Puffs into the lungs every 4 hours as needed for Cough or Wheezing. Active arginine HCl, L-arginine, 1,000 mg tablet Take 1,000 mg by mouth daily. Active aspirin 81 mg EC tablet Take 81 mg by mouth daily. Active diphenhydrAMINE (BENADRYL) 25 mg capsule Take 25 mg by mouth daily. Active lutein 6 mg capsule Take 1 Cap by mouth daily. Active tadalafiL (CIALIS) 5 mg tablet Take 1 Tablet by mouth once as needed. For sexual activity Active venlafaxine 150 mg 24 hr tablet Take 2 Tablets by mouth daily. Active coenzyme Q-10 100 mg capsule Take 100 mg by mouth daily. Active isosorbide dinitrate (ISORDIL) 10 mg tablet Take 1 tablet (10 mg total) by mouth 2 (two) times a day. 12/21/19 23 Active flash glucose sensor (FreeStyle Manny 2 Sensor) kit Change sensor every 14 days 2 EA 07/14/19 25 Active glucose blood test stripIndications :Type 2 diabetes mellitus with diabetic microalbuminuria , with long-term current use of insulin ([facility] V24, [facility] V28) Use to test blood sugar twice a day.E11.29 300 each 2 07/20/19 25 026 Active lancets 30 gauge miscIndications: Type 2 diabetes mellitus with diabetic microalbuminuria , with long-term current use of insulin ([facility] V24, [facility] V28) Check blood sugar three times a day.E11.29 100 each 11 07/20/19 25 Active testosterone (ANDROGEL) 1 % (50 mg/5 gram) gel in packet Place 1 packet (50 mg of testosterone total) on the skin 1 (one) time each day. 09/08/19 25 Active indapamide (LOZOL) 2.5 mg tablet Take 1 tablet (2.5 mg total) by mouth 1 (one) time each day. at bedtime. 90 tablet 10/08/19 25 Active insulin syringe-needle U-100 0.5 mL 29 gauge x 1/2 syringe To using with insulin bid 100 each 11 10/12/19 25 Active dextrose 40 % gel Take 15 g by mouth if needed for low blood sugar. Each tube of gel contains 15 g of glucose. 15 g 11/04/19 25 Active glucose (TRUEplus Glucose) 4 gram chewable tablet Chew 4 tablets (16 g total) if needed for low blood sugar. 50 tablet 11/04/19 25 026 Active diazePAM (VALIUM) 5 mg tablet Take 1 tablet (5 mg total) by mouth 2 (two) times a day. 60 tablet 11/22/19 25 Active pregabalin (LYRICA) 75 mg capsuleIndicatio ns:Electric shock-type pain Take 1 capsule (75 mg total) by mouth 2 (two) times a day. Max Daily Amount: 150 mg 60 each 11/22/19 25 025 Active insulin syringe-needle U-100 (BD Insulin Syringe Ultra-Fine) 1 mL 30 gauge x 1/2 syringe Use to inject 1-4 times daily as directed 100 each 11/23/19 Active metFORMIN (GLUCOPHAGE) 500 mg tablet Take 2 tablets (1,000 mg total) by mouth 2 (two) times a day with meals. 360 tablet 12/01/19 25 Active montelukast (SINGULAIR) 10 mg tablet Take 1 tablet (10 mg total) by mouth at bedtime. 90 tablet 12/01/19 25 Active rOPINIRole (REQUIP) 2 mg tabletIndication s:restless leg syndrome Take 1 tablet (2 mg total) by mouth at bedtime. 90 tablet 12/01/19 25 Active omeprazole (PriLOSEC) [address] capsule Take 1 capsule (40 mg total) by mouth 1 (one) time each day. Do not crush or chew. 90 capsule 12/01/19 25 Active losartan (COZAAR) 100 mg tablet Take 1 tablet (100 mg total) by mouth 1 (one) time each day. 90 tablet 1 12/01/19 25 Active atenoloL (TENORMIN) 50 mg tablet Take 1 tablet (50 mg total) by mouth 1 (one) time each day. 90 tablet 1 12/01/19 25 Active meclizine (ANTIVERT) 25 mg tablet Take 1 tablet (25 mg total) by mouth 3 (three) times a day if needed for dizziness. 90 tablet 12/01/19 25 Active docusate sodium (Colace) 100 mg capsuleIndicatio ns:Iron deficiency anemia, unspecified iron deficiency anemia type Take 1 capsule (100 mg total) by mouth 1 (one) time each day. 90 each 1 05/ 025 Active ferrous sulfate 325 mg (65 mg iron) EC tabletIndication s:Iron deficiency anemia, unspecified iron deficiency anemia type Take 1 tablet (325 mg total) by mouth 1 (one) time each day with breakfast. Do not crush, chew, or split. 90 each 1 12/01/19 25 Active fludrocortisone (FLORINEF) 0.1 mg tablet Take 1 tablet (0.1 mg total) by mouth 1 (one) time each day. 09/27/19 25 Active insulin NPH-insulin regular (HumuLIN,NovoLIN 70/30) 100 unit/mL (70-30) injection Inject 64 Units under the skin 2 (two) times a day before meals. Inject 1-2 times a day as directed. 100 mL 3 12/09/19 25 Active fluticasone propion-salmeter oL (ADVAIR DISKUS) 500-50 mcg/dose diskus inhaler Inhale 1 Puff into the lungs every 12 hours for 90 days. 025 Discontin ued(Alter taylor therapy) insulin NPH-insulin regular (HumuLIN 70/30 U-100 Insulin) 100 unit/mL (70-30) injectionIndicat ions:Type 2 diabetes mellitus with other diabetic kidney complication ([facility] V24, [facility] V28) Take 62 Units subcutaneously twice daily. 120 mL 3 11/10/19 25 025 Discontin ued(Dupli kyung order) insulin NPH-insulin regular (HumuLIN,NovoLIN 70/30) 100 unit/mL (70-30) injection Inject 62 units subcutaneously twice daily before meals. 100 mL 3 11/23/19 25 025 Discontin ued(Dupli kyung order) insulin NPH-insulin regular (HumuLIN,NovoLIN 70/30) 100 unit/mL (70-30) injection Inject 62 Units under the skin 2 (two) times a day before meals. Inject 1-2 times a day as directed. 100 mL 3 12/02/19 25 025 Discontin ued(Reord er) Active Problems Problem Noted Date Diagnosed Date Iron deficiency anemia 08/01/2024 Mild CAD 07/30/2024 Assessment & Plan (07/30/2024 9:11 AM EST): Continue cardiology follow up Continue isosorbide dinitrate BID and aspirin 81mg daily ASHLIE (obstructive sleep apnea) 04/22/2024 Overview (04/22/2024): [facility] with [facility] Assessment & Plan (07/30/2024 9:11 AM [...] (04/22/2024): US Abdomen 09/23/21 Ascending aorta dilatation (CMS/HCC V24) 022 RLS (restless legs syndrome) 06/26/2021 Overview (04/22/2024): Follow[facility] neurolog[facility] ([facility]) Assessment & Plan (07/30/2024 9:11 AM EST): continue ropinirole nightly Vertigo 06/26/2021 Overview (04/22/2024): Following with neurology ([facility] Til test ordered. 06/2021 Last Assessment & [...] 02/03/2018 Diverticulosis 02/03/2018 Type 2 diabetes mellitus wit h renal manifestations ([facility] V24, [facility] V28) 07/30/2017 Assessment & Plan (07/30/2024 9:11 AM [...] Encounters Date Type Department Care Team Description 12/08/2024 9:30 AM EDT Office Visit Endocrinology - [address] [phone] Trinh Meeks PA Type 2 diabetes mellitus with other diabetic kidney complication, with long-term current use of insulin ([facility] V24, [facility] V28) (Primary Dx); Secondary hypertension; Hyperlipidemia, unspecified hyperlipidemia type 11/22/2024 Telephone Endocrinology - [address] [phone] Trinh Meeks PA MEDICATION 11/07/2024 Telephone Endocrinology - [place] [address] [place] [phone] Trinh Meeks PA patient walked in (To see a nurse in Endo) 10/20/2024 Telephone Endocrinology - [place] [id number] [place] [phone] Trinh Meeks PA prior authorization 10/06/[address] [phone] Trinh Meeks PA Medication Problem from Last 3 Months Immunizations Name Administration Dates Next Due Influenza Quadravalent, MDCK , 0.5ml, with preservative (Flucelvax) 6mo and older 04/23/2022,03/22/2021,03/16/2020 Influenza trivalent, 0.5mL, preservative free (Fluarix; FluLaval; Fluzone) ages 6mo and older (Afluria) 3 years and older 05/09/2005 Pfizer (ages 12 & older) Bivalent, COVID-19 /11/2022 Pneumococcal conjugate 13 va lent (Prevnar 13, [...] o/w normal UPPER GASTROINTESTINAL ENDOSCOPY 01/21/2010 PROCEDURE: SD UPPER GI ENDOSCOPY PERFORMED; COMMENT: Dr Perez - erosive esophagitis, HH, otherwise normal OTHER SURGICAL HISTORY 10/07/2011 PROCEDURE: HISTORY OTHER; COMMENT: UPPP and T & A CATARACT EXTRACTION 2014 Bilateral PROCEDURE: HISTORICAL CATARACT REMOVAL HAND SURGERY 11/2015 Left PROCEDURE: HISTORICAL HAND SURGERY ESOPHAGOGASTRODUODENOSCOPY 05/20/2018 PROCEDURE: SD EGD TRANSORAL BIOPSY SINGLE/MULTIPLE; COMMENT: Esophagus suspicious for EOE. Esophagus dilated to 60 [place]. Normal duodenum and stomach. Biopsies obtained. Pathology normal. Medical History Medical History Date Comments ASHLIE (obstructive sleep apnea) DX :ASHLIE (obstructive sleep apnea) Anxiety DX:Anxiety Depression DX:Depression GERD (gastroesophageal reflu x disease) DX:GERD (gastroesophageal re flux disease) Asthma DX:Asthma Spermatocele of epididymis 04/27/2012 DX:Sp ermatocele of epididymis DM (diabetes mellitus) type II controlled, neurological manifestation (CMS/HCC V24, CMS/HCC V28) 05/27/2013 DX:DM (diabetes mellitus) ty pe II controlled, neurological manifestation (HCC) Hypertension DX:Hypertension Obesity 05/11/2013 DX:Obesity Type 2 diabetes mellitus wit h renal manifestations (CMS/HCC V24, CMS/HCC V28) 07/30/2017 DX:Type 2 diabetes mellitus with renal [...] Sign Reading Time Taken Comments Blood Pressure 112/82 12/08/2024 9:57 AM EDT C Pulse 77 12/08/2024 9:57 AM EDT Temperature 36.2 C (97.2 F) 12/08/2024 9:57 AM EDT Respiratory Rate 19 09/20/2024 8:10 AM EDT Oxygen Saturation 98% 09/14/2024 8:07 AM EDT Inhaled Oxygen Concentration - - Weight 120 kg (265 lb) 12/08/2024 9:57 AM EDT Height 193.7 cm (6' 4.25 ) 12/08/2024 9:57 AM ED T Body Mass Index 32.05 12/08/2024 9:57 AM EDT Plan of Treatment Upcoming Encounters Date Type Department Care Team (Late st Contact Info) Description 01/17/2025 9:30 AM EDT Office Visit Adult Medicine [facility] [address], [place] [phone] Cristina Chavez DEPUTY SHERIFF/INVESTIGATOR [address] [place] [address] Health Maintenance Due Date Last Done Comments Diabetes: Annual Foot Exam 1968 Hepatitis A Vaccines (1 of 2 - Risk 2-dose series) 1977 Hepatitis B Vaccines (1 of 3 - Risk 3-dose series) 2018 RSV Immunization Adult Patients (1 - Risk 60-74 years 1-dose series) 2018 Depression Screening 06/14/2022 Medicare Annual Wellness Visit 06/14/2022 Social Influencers of Health Screening 06/14/2022 Falls Risk Assessment 12/26/2023 Diabetes: Annual Urine Albumin-Creatinine Ratio (uACR) 12/06/2024 12/07/2023 COVID-19 Vaccine ( season) 2024 06/15/2024, 09/22/2023, 03/23/2023, Additional history exists Colorectal Cancer Screening: Colonoscopy 01/02/2025 10/03/2019 Diabetes: Blood Sugar Control Test (HGBA1C) 06/06/2025 12/05/2024, 07/29/2024, 04/14/2024, Additional history exists Diabetes: Annual Retina [...] history exists Zoster Vaccines Completed 10/17/2022, 07/19/2022 Influenza Vaccine Completed 06/15/2024, , 03/23/2023, Additional [...] age to complete this topic Meningococcal B Vaccine Aged Out No l onger eligible based on patient's age to complete this topic RSV Immunization Patients Under 20 months Aged Out No longer eligible based on patient's age to complete this topic Varicella Vaccines Aged Out No longer eligible based on patient's age to complete this topic Procedures Procedure Name Priority Date/Time Associated Diagnosis Comments TESTOSTERONE FREE, BIOAVAILABLE AND TOTAL Routine 12/26/2024 8:17 AM EDT Testicular hypofunction HEMOGLOBIN A1C Routine 12/05/2024 8:22 AM EDT Type 2 diabetes mellitus with diabetic chronic kidney disease, unspecified CKD stage, unspecified whether ferry terminal supervisor insulin use ([facility] V24, [facility] V28) LAB COLOGUARD COLON CANCER SCREEN Routine 10/21/2024 2:50 PM EDT Encounter for screening for malignant neoplasm of colon BASIC METABOLIC PANEL Routine 07/29/2024 11:29 AM EST Preop cardiovascular exam URINE ALBUMIN CREATININE RATIO Routine 12/07/2023 LIPID PANEL Routine 12/07/2023 HEPATITIS C SCREENING Routine 03/01/2020 COLONOSCOPY Routine 10/03/2019 from Last 3 Months or Most Recently Relevant to Health Maintenance Results * (ABNORMAL) Testosterone free, bioavailable and total (12/26/2024 8:17 AM EDT) Testosterone 215(L) 229 - 902 ng/dL LAB [facility] Test[facility], Free 4.4(L) 4.6 - 22.4 ng/dL LAB CHE[facility]STR[facility] METHOD [facility] Testosterone, Bioavailable 85(L) 110 - 575 ng/dL LAB CHEMISTRY METHOD 12/26/2024 12:45 PM EDT [facility] Sex Hormone Binding 33.6 See Comment nmol/L LAB CHEMISTRY METHOD 12/26/2024 12:45 PM EDT [facility] Comment: FEMALES: pre-menopausal 10.8 - >180 post-menopausal 23.2 - 159.1 MALES: 21-49 years 14.6 - 94.6 50-89 years 21.6 - 113.1 CHILDREN: No established reference range Over the counter supplements containing high doses of biotin may interfere with this assay. If interference is suspected, patients should be retested after refraining from biotin supplements for 72 hours. Albumin 3.5 3.2 - 5.0 g/dL LAB CHEMISTRY METHOD 12/26/2024 12:45 PM EDT [facility] Blood Venous blood specimen / Unknown Venipuncture / Unknown 12/26/2024 8:17 AM EDT 12/26/2024 8:17 AM EDT Scott Rivera MD LAB BLOOD ORDERABLES Final Re sult Performing Organization Address [facility]/ZIP Co de Phone Number [facility] [address] [place] [address], [place] [phone] * (ABNORMAL) Hemoglobin A1c (12/05/2024 8:22 AM EDT) Pathologist [facility] Hemoglobin A1C 8.8(H) <6.5 % LAB CHEMISTRY METHOD 12/05/2024 1:31 PM EDT [facility] Mean Bld Glu Estim. 206 mg/dL LAB CHEMISTRY METHOD 12/05/2024 1:31 PM EDT [facility] Blood Venous blood specimen / Unknown Venipuncture / Unknown 12/05/2024 8:22 AM EDT 12/05/2024 8:22 AM EDT Trinh DYE LAB BLOOD ORDERABLES Final Result Performing Organization Address [facility] de Phone Number [facility] [address] [place] [address], [place] [phone] * Cologuard?? colon cancer screening (10/21/2024 2:50 PM EDT) Pathologist [facility] COLOGUARD Negative Negative [facility] Comment: The Cologuard (TM) test was performed on this specimen. NEGATIVE TEST RESULT. A negative Cologuard result indicates a low likelihood that a colorectal cancer (CRC) or advanced adenoma (adenomatous polyps with more advanced pre-malignant features) is present. The chance that a person with a negative Cologuard test has a colorectal cancer is less than 1 in 1500 (negative predictive value >99.9%) or has an advanced adenoma is less than 5.3% (negative predictive value 94.7%). These data are based on a prospective cross-sectional study of 10,000 individuals at average risk for colorectal cancer who were screened with both Cologuard and colonoscopy. (Ancelmo Ferris al, N Engl J Med 2014;370(14):1286- 1297) The normal value (reference range) for this assay is negative. COLOGUARD RE-SCREENING RECOMMENDATION: Periodic colorectal cancer screening is an important part of preventive healthcare for asymptomatic individuals at average risk for colorectal cancer. Following a negative Cologuard result, the [place] [employer] and U.S. Multi-Society Task Force screening guidelines recommend a Cologuard re-screening interval of 3 years. References: [place] [employer] Guideline for Colorectal Cancer Screening: https://www.cancer.org/cancer/qpwmx-cugtsg-xqrseg/ytymattyo-ftesuhhjg-robgqed/ac s-rec ommendations.html.; Scott DK, Abilio SANCHES, Chantel GreshamK, Colorectal Cancer Screening: Recommendations for Physicians and Patients from the U.S. Multi-Society Task Force on Colorectal Cancer Screening , Am J Gastroenterology 2017; 112:7078-0678. TEST DESCRIPTION: Composite algorithmic analysis of stool DNA-biomarkers with hemoglobin immunoassay. Quantitative values of individual biomarkers are not reportable and are not associated with individual biomarker result reference ranges. Cologuard is intended for colorectal cancer screening of adults of either sex, 45 years or older, who are at average-risk for colorectal cancer (CRC). Cologuard has been approved for use by the U.S. FDA. The performance of Cologuard was established in a cross sectional study of average-risk adults aged 50-84. Cologuard performance in patients ages 45 to 49 years was estimated by sub-group analysis of near-age groups. Colonoscopies performed for a positive result may find as the most clinically significant lesion: colorectal cancer [4.0%], advanced adenoma (including sessile serrated polyps greater than or equal to 1cm diameter) [20%] or non- advanced adenoma [31%]; or no colorectal neoplasia [45%]. These estimates are derived from a prospective cross-sectional screening study of 10,000 individuals at average risk for colorectal cancer who were screened with both Cologuard and colonoscopy. (Ancelmo Ferris al, N Engl J Med 2014;370(14):4863-9800.) Cologuard may produce a false negative or false positive result (no colorectal cancer or precancerous polyp present at colonoscopy follow up). A negative Cologuard test result does not guarantee the absence of CRC or advanced adenoma (pre-cancer). The current Cologuard screening interval is every 3 years. ([place] [employer] and U.S. Multi-Society Task Force). Cologuard performance data in a 10,000 patient pivotal study using colonoscopy as the reference method can be accessed at the following location: www.Pitzi.flyRuby.com/results. Additional description of the Cologuard test process, warnings and precautions can be found at www.[email or web address] [email or web address].[email or web address].[email or web address]. Stool 10/21/2024 2:50 PM EDT 10/22/2024 12:13 PM EDT Iron Garibay MD LAB MOLECULAR DIAGNOSTICS ORDER VIRAL Final Result [facility] [address] [address] [facility] [address] [place] [address] * (ABNORMAL) Basic metabolic panel (07/29/2024 11:29 AM EST) Sodium 135 133 - 145 mmol/L LAB CHEMISTRY METHOD 07/29/2024 4:[address] [facility] Potassium 4.1 3.5 - 5.5 mmol/L LAB CHEMISTRY METHOD 07/29/2024 4:[address] [facility] Chloride 99 96 - 110 mmol/L LAB CHEMISTRY METHOD 07/29/2024 4:[address] [facility] CO2 32 21 - 32 mmol/L LAB CHEMISTRY METHOD 07/29/2024 4:[address] [facility] Anion Gap 4 3 - 11 LAB CHEMISTRY METHOD 07/29/2024 4:[address] [facility] Glucose 127(H) 70 - 100 mg/dL LAB CHEMISTRY METHOD 07/29/2024 4:[address] [facility] BUN 24 5 - 25 mg/dL LAB CHEMISTRY METHOD 07/29/2024 4:[address] [facility] Creatinine 1.10 0.70 - 1.30 mg/dL LAB CHEMISTRY METHOD 07/29/2024 4:[address] [facility] eGFR 74 >=60 mL/min/1. 73m2 LAB CHEMISTRY METHOD 07/29/2024 4:[address] [facility] Comment:Calculation based on the Chronic Kidney Disease Epidemiology Collaboration (CKD-EPI) equation refit without adjustment for race. BUN/Creatinine Ratio 21.8 LAB CHEMISTRY METHOD 07/29/2024 4:[address] [facility] Calcium 9.4 8.5 - 10.5 mg/dL LAB CHEMISTRY METHOD 07/29/2024 4:[address] [facility] Blood Venous blood specimen / Unknown Venipuncture / Unknown 07/29/2024 11:29 AM EST 07/29/2024 11:29 AM EST Hermilo Hargrove MD LAB BLOOD ORDERA BLES Final Result [facility] [address] [place] [address], * Urine Albumin Creatinine Ratio (12/07/2023) Pathologist [facility] Urine Albumin Creatinine Ratio abstracted Historical Provider HEALTH MAINTENANCE Final Result * (ABNORMAL) Lipid panel (12/07/2023) LDL/HDL Ratio 5(A) 0 - 4 Triglycerides 232(A) 0 - 150 mg/dL Cholesterol 186 0 - 200 mg/dL HDL 40 >=40 mg/dL LDL Cholesterol 100 0 - 100 mg/dL Blood Venous blood specimen / Unknown Historical Provider LAB BLOOD ORDERABLES Catarina l Result * Hepatitis C Screening (03/01/2020) Hepatitis C Screening abstracted Historical Provider HEALTH MAINTENANCE Final Result * Colonoscopy (10/03/2019) Colonoscopy no interpretation abstracted Anatomical Region Laterality Modality Other Historical Provider HEALTH MAINTENANCE Final Result from Last 3 Months or Most Recently Relevant to Health Maintenance Insurance [employer] MED[employer]ARE ADVANTAGE Advance Directives Documents on File Type Date Recorded 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
== END 2025-01-04 11:56 | disposition home or self-care (01) ==
LOC: HO.HUSH 10:40
PROVIDERS: PCP Internal Medicine; Visit Provider Urology
DX: Z13.9 Encounter for screening, unspecified (principal)
CPT/HCPCS: 99214

== ENCOUNTER → 2025-01-04 10:39 | Outpatient (BNVA) | payer MEDICARE, MEDICAID, SELFPAY | PROVIDERS: PCP Internal Medicine; Visit Provider Urology | DX: N40.0 Benign prostatic hyperplasia without lower urinary tract symptoms (principal); E29.1 Testicular hypofunction | CPT/HCPCS: 81003; 99212 ==

== ENCOUNTER 2025-02-17 09:19 | Outpatient (AMB) | payer MEDICARE, MEDICAID, SELFPAY ==
--- NOTE | 2025-02-17 09:32 | A.OFFVIS_ITS ---
Intake Visit Reasons: testopel Intake Note: Patient is present for: TESTOPEL Urology Medication:TESTOSTERONE,TADALAFIL Blood Thinner:ASPIRIN Signaler Required: No Accompanied by: Self / Same As Patient Allergies budesonide (From Symbicort) Allergy (Severe, Verified 02/17/25 09:33) Dizziness formoterol (From Symbicort) Allergy (Severe, Verified 02/17/25 09:33) Dizziness lisinopril (LISINOPRIL) Allergy (Severe, Verified 02/17/25 09:33) Nausea mometasone furoate (From Dulera) Allergy (Severe, Verified 02/17/25 09:33) Nausea amoxicillin Allergy (Mild, Verified 02/17/25 09:33) vertigo gabapentin Allergy (Mild, Verified 02/17/25 09:33) vertigo ENVIRONMENTAL Allergy (Severe, Uncoded 02/17/25 09:33) Rash and Hives Dust Mite Allergy (Intermediate, Uncoded 02/17/25 09:33) Hives Seasonal Allergies Allergy (Intermediate, Uncoded 02/17/25 09:33) Hives and Rash terazosin Allergy (Mild, Uncoded 02/17/25 09:33) vertigo HPI Comments Details: Bladimir is a pleasant male. He is a patient of Dr. Garibay. 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 Testosterone pellets placed today Plan 2 week - 10 week testosterone Diabetic management challenging Testosterone low Based on T4DM study will initiate testosterone gel with target 400-600 Continue with BiPAP Continue daily tadalafil Hypogonadism Labs - 04/27 190, 08/29 T 200 F 4.8, Bioavailable 100, 04/28 T 236 Bio 110, 08/30 T 182, 12/28 T 215 Recurring UTI Diabetic male Presented to emergency room and was treated with Levaquin 01/24 Had been treated previously with terazosin but unable to tolerate due to vertigo No reported bowel issues Normal CAROLYN PFSH Medical History Restless legs syndrome (RLS) Hypertension, essential Dizziness Vertigo Acute depression Anxiety Benign prostatic hyperplasia without lower urinary tract symptoms Hyperlipidemia Type 2 diabetes mellitus with other diabetic kidney complication Diverticulosis Restless leg syndrome CAD (coronary artery disease) Dyspnea ASHLIE treated with BiPAP Asthma Surgical History History of cataract surgery H/O adenoidectomy Hx of tonsillectomy Family History Father Cancer Mother Cancer Sister Acute Crohn's disease Social History Alcohol intake: former Patient Tobacco Use Status: Never used Tobacco Review of Systems Const Denies chills and Denies fever(s) Card Reports no additional complaints and Denies syncope Resp Denies cough GI Denies abdominal pain and Denies heartburn Reports as per HPI and Denies change in libido Neuro Denies syncope Psych Denies change in libido Endo Denies change in libido Physical Exam Const General: cooperative, healthy appearing, comfortable and no acute distress Orientation/consciousness: patient oriented x3 HEENT Face and sinus: Yes normal facial exam Mouth: moist mucous membranes Neck Neck: Yes normal visual inspection, Yes full ROM and Yes trachea midline Chest Chest palpation & inspection: normal inspection of the chest Resp Effort & Inspection: normal respiratory effort, able to speak in complete sentences and no respiratory distress GI Inspection: Yes normal to inspection Back/Spine/Pelvis Cervical Spine: normal cervical lordosis Thoracic/Lumbar Spine: thoracic and lumbar spine normal to inspection Skin General skin exam: no rashes or lesions noted Neuro General: patient oriented x3, gait normal, tone normal and moves all extremities Extrem General: Yes normal to inspection and Yes capillary refill normal Office Procedures AMB Testopel Details: Testopel Placement Pre Op Diagnosis - Low testosterone Post Op Diagnosis - Low Testosterone Procedure: Testopel Insertion Testopel was prepared for insertion. Six Testopel pellets were removed from the individual glass containers and placed in a sterile container. The patient was placed in left lateral position with left side down and right side up. The area over the right hip was cleaned with Betadine. A fenestrated drape was placed over the area. Lidocaine 2% was injected first as a skin wheal and then into the subcutaneous tissue directed in a fashion down towards the femur in the subcutaneous space to perform hydrodissection. The purpose of the injection is to numb the length of the trocar track. A 15 Blade scapel was used to make a puncture incision into the subcutaneous space. Trocar with sharp-ended stylet inserted through stab incision at a 45? angle and into the subcutaneous fat layer. The needle was flatten out and advanced leaving the pellet loading area exposed. 6 pellets were inserted using Adson forceps into the loading trocar in a V pattern. The blunt stylet was used to advance pellets into the tract while withdrawing the trocar - 4 pellets and 2 pellets placed in each arm of the V. Once completed the area was wiped with alchohol. The trocar insertion site was closed with multiple steristrips and a 2x2 gauze placed with a tegaderm dressing placed. CPT 40390 J3490 Subcutaneous Hormone Pellet Insertion: 61526 Subq Hormone Pellet Insertion Office Meds Testopel 75 mg implant pellet Performing Provider: Scott Rivera MD Performing Location: [facility] Administered by: Nancy Hughes RN on 02/17/25 09:51 Dose Route Admin Location Dispensed Lot Number Expiration Date ND Chief Librarian Music Department 75 mg implant 6 ea 2 Total Dispensed Waste 6 ea 0 % lidocaine HCl 20 mg/mL (2 %) injection solution Performing Provider: Scott Rivera MD Performing Location: [facility] Administered by: Nancy Hughes RN on 02/17/25 09:51 Dose Route Admin Location Dispensed Lot Number Expiration Date NDC Chief Librarian Music Department 10 mL subcut 10 mL Total Dispensed Waste 10 mL 0 % Assessment & Plan Assessment & Plan (1) Benign prostatic hyperplasia without lower urinary tract symptoms: Code(s): N40.0 - Benign prostatic hyperplasia without lower urinary tract symptoms Category: Medical (2) Hypogonadism in male: Code(s): E29.1 - Testicular hypofunction Category: Medical Plan Repeat lab work, 12 week follow-up repeat pellets Orders: Orders AMB Testosterone Pellet Implant Today E29.1 - Testicular hypofunction Testosterone, Total 2 Weeks E29.1 - Testicular hypofunction Testosterone, Total 10 Weeks E29.1 - Testicular hypofunction Medications: New testosterone (Testopel) 75 mg implant ONCE 6 ea 3RF 12 weeks Patient Instructions: This note is constructed using voice recognition software. While every effort has been made to ensure accuracy supervisor plastering errors may have been included. Imaging studies, laboratory and physical exam results were discussed and reviewed in detail. No major barriers to patient understanding were identified. An opportunity to ask questions regarding the treatment plan was provided. All questions were answered. The patient expressed understanding and agreement with the above treatment plan. The patient is aware they should contact our office by phone for worsening of their current condition or the appearance of new urologic symptoms. Compliance is encouraged with any medications and followup testing that is ordered. It is a privilege to participate in the urologic care of your patient. If you h ave any questions or concerns regarding treatment for the above conditions, or other urologic issues, please do not hesitate to contact me. The office telephone contact is [phone]. Sincerely, Dr Scott Rivera MD, [facility] - Urology Compassionate Specialist Care for the Genitourinary System Coding Level of Care Code Est Pt Level 3 (23933) Procedure Only Diagnoses Benign prostatic hyperplasia without lower urinary tract symptoms N40.0 Hypogonadism in male E29.1
--- OUTSIDE RECORDS SUMMARY | 2025-02-17 09:34 | XMS_ITS | Patient Health Record ---
Author Organization [facility] Address [address] [place] [phone] Care Team Providers Care Envelope Adjuster Name Role Phone NONE, NONE Primary Care Provider Marcial Bass Unavailable [phone] Reason For Referral No Information Medications Medication SIG (Take, Route, Fr equency, Duration) Notes Start Date End Date Status Omeprazole 20 MG 1 capsule Orally Onc e a day for 90 day(s) 05/26/2012 Active Plan Of Treatment No Information
--- OUTSIDE RECORDS SUMMARY | 2025-02-17 09:34 | XMS_ITS | Clinical Summary ---
Author Organization [facility] Address [address] [place] [address] Care Team Providers Care Design Checker Name Role Phone Iron Garibay MD Primary Care Provider [phone] Allergies Active Allergy Reactions Criticality Noted Date [...] 400 mg by mouth daily. 0 Active [place]-3 Fatty Acids (FISH OIL) 1200 MG CAPS [...] Fall Risk Assessment 12/26/2023 Influenza Vaccine (#1) 2025 RSV Adult > 60+ Yrs or Pregn ant (1 - 1-dose 75+ series) 2033 Hepatitis B Vaccines Aged Out No long er eligible based on patient's age to complete this topic RSV Ped < 20 months Aged Out No longe r eligible based on patient's age to complete this topic Care Teams Design Checker Relationship Specialty Start Date End Date Iron Garibay MD PCP - General Internal Medicine 05/22/17
--- OUTSIDE RECORDS SUMMARY | 2025-02-17 09:34 | XMS_ITS | Clinical Summary ---
Author Organization [facility] Address [address] [address] Phone Care Team Providers Care Track Liner Operator Name Role Phone Iron Garibay MD Primary Care Provider [phone] Allergies Active Allergy Reactions Criticality Noted Date [...] 6 (six) hours if needed 1 Active indapamide (LOZOL) 2.5 MG tablet TAKE 1 TABLET BY MOUTH EVERY DAY IN THE EVENING 90 tablet 3 5 Active Insulin Lispro (HUMALOG IJ) Inject 60 Units as directed at bed time Active diazePAM (VALIUM) 5 MG tablet Take 5 mg by mouth in the morning and 5 mg in the evening. Active fludrocortison e 0.1 MG tabletIndicati ons:Hypertensi on,Proteinuria , not otherwise specified TAKE 1 TABLET BY MOUTH EVERY DAY 90 tablet 1 5 Active Active Problems Problem Noted Date Diagnosed Date Orthostatic hypotension 08/19/2023 Obstructive sleep apnea syndrome 04/30/2023 04/30/2023 Overview (04/30/2023): Follows with [facility] Pulm Hypertension 04/30/2023 04/30/2023 Overview (04/30/2023): Cardiac [...] Restless legs 06/26/2021 04/30/2023 Overview (04/30/2023): [facility] neurology ([place]) Hiatal hernia 02/03/2018 04/30/2023 Diverticular [...] [facility] [address] [facility] [address] [place] [address] Yasir Santamaria MD Hypertension; Proteinuria, not otherwise specified 11/30/2024 1:30 PM EDT Office Visit [facility] [address] [facility] [address] [place] [address] Yasir Santamaria MD Orthostatic hypotension (Primary Dx); Type 2 diabetes mellitus with renal manifestations (HCC) from Last 3 Months Immunizations Immunization Administration Dates Next Due Influenza (IM) Preservative Free 05/09/2005 Influenza, MDCK, Quadrivalen t, with preservative 04/23/2022,03/22/2021,03/16/2020 Influenza, Unspecified 03/22/2021,05/09/2005 Squirrly SARS-COV-2 06/16/2021,10/10/2020 Pfizer SARS-CoV-2 Bivalent 30 mcg/0.3 [...] Office Visit [facility] [address] [phone] Yasir Santamaria MD [address] [phone] Health Maintenance Due Date Last Done Comments Colorectal Cancer Screening: Annual FOBT 12/26/2007 Colorectal Cancer Screening: Colonoscopy 12/26/2007 Colorectal Cancer Screening: Sigmoidoscopy 12/26/2007 Diabetes: Ophthalmology Exam 12/22/2022 Diabetes: Pedal Pulse Checked 12/22/2022 Diabetes: Sensory Foot Exam 12/22/2022 Diabetes: Visual Foot Exam 12/22/2022 Influenza Vaccine (#1) 2025 , 03/22/2021, 03/22/2021, Additional history exists Diabetes: Hemoglobin A1C 03/07/20252 025, 07/29/2024, 04/14/2024, Additional history exists Pneumococcal Vaccine: 50+ Years (4 of 4 - PCV20 or PCV21) 04/23/2027 04/23/2022, 04/03/2021, 03/16/2020, Additional history exists Pneumococcal Vaccine: Peds (0 to 5 Years) and At-Risk Patients (6 to 49 Years) Discontinued 04/23/2022, 04/03/2021, 03/16/2020, Additional history exists Hepatitis B Vaccine Aged Out No longe r eligible based on patient's age to complete this topic Insurance [employer] MCR Adv PPO ([id number]) Care Teams Track Liner Operator Relationship Specialty Start Date End Date Iron Garibay MD [address] [place], [place] [address] [address] PCP - General Internal Medicine 04/30/23
--- OUTSIDE RECORDS SUMMARY | 2025-02-17 09:34 | XMS_ITS | Encounter Summary ---
Author Organization [facility] Address [address] [facility] [address] [place] [address] Care Team Providers Care Precision Jig Grinder Name Role Phone Unavailable Primary Care Provider [...]
== END 2025-02-17 10:45 | disposition home or self-care (01) ==
LOC: HO.HUSH 09:20
PROVIDERS: PCP Internal Medicine; Visit Provider Urology
DX: N40.0 Benign prostatic hyperplasia without lower urinary tract symptoms (principal); E29.1 Testicular hypofunction
CPT/HCPCS: 11980; 99213

== ENCOUNTER → 2025-02-17 09:19 | Outpatient (BNVA) | payer MEDICARE, MEDICAID, SELFPAY | PROVIDERS: PCP Internal Medicine; Visit Provider Urology | DX: E29.1 Testicular hypofunction (principal); N40.0 Benign prostatic hyperplasia without lower urinary tract symptoms | CPT/HCPCS: 11980; 99212; J2003; J3490 ==

== ENCOUNTER 2025-05-11 10:23 | Outpatient (AMB) | payer MEDICARE, MEDICAID, SELFPAY ==
--- NOTE | 2025-05-11 10:52 | MHC.OFFVIS ---
Intake Visit Reasons: Testopel insertion/labs Intake Note: Patient is present for: TESTOPEL Urology Medication:TESTOSTERONE,TADALAFIL Blood Thinner:ASPIRIN Labs done 04/28/25 : Total Testosterone 175 Plan Manager Required: No Accompanied by: Self / Same As Patient Allergies budesonide (From Symbicort) Allergy (Severe, Verified 05/11/25 11:05) Dizziness formoterol (From Symbicort) Allergy (Severe, Verified 05/11/25 11:05) Dizziness lisinopril (LISINOPRIL) Allergy (Severe, Verified 05/11/25 11:05) Nausea mometasone furoate (From Dulera) Allergy (Severe, Verified 05/11/25 11:05) Nausea amoxicillin Allergy (Mild, Verified 05/11/25 11:05) vertigo gabapentin Allergy (Mild, Verified 05/11/25 11:05) vertigo ENVIRONMENTAL Allergy (Severe, Uncoded 02/17/25 09:33) Rash and Hives Dust Mite Allergy (Intermediate, Uncoded 02/17/25 09:33) Hives Seasonal Allergies Allergy (Intermediate, Uncoded 02/17/25 09:33) Hives and Rash terazosin Allergy (Mild, Uncoded 02/17/25 09:33) vertigo HPI Comments Details: Bladimir is a pleasant male. He is a patient of Dr. Garibay. 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 Three-month follow-up repeat pellet placement Cycle 1 450 175 Diabetic management challenging Testosterone low Based on T4DM study will initiate testosterone gel with target 400-600 Continue with BiPAP Continue daily tadalafil Hypogonadism Labs - 04/27 190, 08/29 T 200 F 4.8, Bioavailable 100, 04/28 T 236 Bio 110, 08/30 T 182, 12/28 T 215 Recurring UTI Diabetic male Presented to emergency room and was treated with Levaquin 01/24 Had been treated previously with terazosin but unable to tolerate due to vertigo No reported bowel issues Normal CAROLYN PFSH Medical History Restless legs syndrome (RLS) Hypertension, essential Dizziness Vertigo Acute depression Anxiety Benign prostatic hyperplasia without lower urinary tract symptoms Hyperlipidemia Type 2 diabetes mellitus with other diabetic kidney complication Diverticulosis Restless leg syndrome CAD (coronary artery disease) Dyspnea ASHLIE treated with BiPAP Asthma Surgical History History of cataract surgery H/O adenoidectomy Hx of tonsillectomy Family History Father Cancer Mother Cancer Sister Acute Crohn's disease Social History Alcohol intake: former Patient Tobacco Use Status: Never used Tobacco Review of Systems Const Denies chills and Denies fever(s) Card Reports no additional complaints and Denies syncope Resp Denies cough GI Denies abdominal pain and Denies heartburn Reports as per HPI and Denies change in libido Neuro Denies syncope Psych Denies change in libido Endo Denies change in libido Physical Exam Const General: cooperative, healthy appearing, comfortable and no acute distress Orientation/consciousness: patient oriented x3 HEENT Face and sinus: Yes normal facial exam Mouth: moist mucous membranes Neck Neck: Yes normal visual inspection, Yes full ROM and Yes trachea midline Chest Chest palpation & inspection: normal inspection of the chest Resp Effort & Inspection: normal respiratory effort, able to speak in complete sentences and no respiratory distress GI Inspection: Yes normal to inspection Back/Spine/Pelvis Cervical Spine: normal cervical lordosis Thoracic/Lumbar Spine: thoracic and lumbar spine normal to inspection Skin General skin exam: no rashes or lesions noted Neuro General: patient oriented x3, gait normal, tone normal and moves all extremities Extrem General: Yes normal to inspection and Yes capillary refill normal Office Procedures AMB Testopel Details: Testopel Placement Pre Op Diagnosis - Low testosterone Post Op Diagnosis - Low Testosterone Procedure: Testopel Insertion The patient was placed in right lateral position with right side down and left side up. The area over the right hip was cleaned with Betadine. A fenestrated drape was placed over the area. Lidocaine 2% was injected first as a skin wheal and then into the subcutaneous tissue directed in a fashion down towards the femur in the subcutaneous space to perform hydrodissection. The purpose of the injection is to numb the length of the trocar track. Testopel was prepared for insertion. Six Testopel pellets were removed from the individual glass containers and placed in a sterile container. This gave time for the lidocaine to work. A 11 Blade scapel was used to make a puncture incision into the subcutaneous space. The trocar with a sharp-ended stylet was inserted through the stab incision at a 45? angle and into the subcutaneous fat layer. The needle was flatten out and advanced leaving the pellet loading area exposed. 6 pellets were inserted using Adson forceps into the loading trocar in a V pattern. The blunt stylet was used to advance pellets into the tract while withdrawing the trocar - 4 pellets and 2 pellets placed in each arm of the V. Once completed the area was wiped with alchohol. Pressure was applied with a small gauze for 2-3 minutes. The trocar insertion site was closed with multiple steristrips and a 2x2 gauze placed with a tegaderm dressing placed. He tolerated the procedure well and was given instructions to remove the Tegaderm dressing in 48 hours. CPT 06413 J3490 Office Meds Testopel 75 mg implant pellet Performing Provider: Scott Rivera MD Performing Location: [facility] Administered by: Scott Rivera MD on 05/11/25 11:29 Dose Route Admin Location Dispensed Lot Number Expiration Date [facility] Inflated Ball Molder 75 mg implant 6 ea Total Dispensed Waste 6 ea 0 % lidocaine HCl 20 mg/mL (2 %) injection solution Performing Provider: Scott Rivera MD Performing Location: [facility] Administered by: Scott Rivera MD on 05/11/25 11:29 Dose Route Admin Location Dispensed Lot Number Expiration Date ND Inflated Ball Molder 10 mL subcut 10 mL Total Dispensed Waste 10 mL 0 % Assessment & Plan Assessment & Plan (1) Hypogonadism in male: Code(s): E29.1 - Testicular hypofunction Category: Medical Plan Twelve week follow-up repeat pellet Orders: Orders Testosterone, Total 2 Weeks E29.1 - Testicular hypofunction Testosterone, Total 10 Weeks E29.1 - Testicular hypofunction AMB Testosterone Pellet Implant Today E29.1 - Testicular hypofunction Medications: Changed From testosterone (Testopel) 75 mg implant ONCE 12 weeks 6 ea 3RF To testosterone (Testopel) . 75 mg implant ONCE 6 ea 3RF 12 weeks Patient Instructions: This note is constructed using voice recognition software. While every effort has been made to ensure accuracy mud analysis operator errors may have been included. Imaging studies, laboratory and physical exam results were discussed and reviewed in detail. No major barriers to patient understanding were identified. An opportunity to ask questions regarding the treatment plan was provided. All questions were answered. The patient expressed understanding and agreement with the above treatment plan. The patient is aware they should contact our office by phone for worsening of their current condition or the appearance of new urologic symptoms. Compliance is encouraged with any medications and followup testing that is ordered. It is a privilege to participate in the urologic care of your patient. If you have any questions or concerns regarding treatment for the above conditions, or other urologic issues, please do not hesitate to contact me. The office telephone contact is [phone]. Sincerely, Dr Scott Rivera MD, [facility] - Urology Compassionate Specialist Care for the Genitourinary System Coding Level of Care Code Est Pt Level 3 (41204) Complex EM visit Add On G2211 Diagnoses Hypogonadism in male E29.1
--- OUTSIDE RECORDS SUMMARY | 2025-05-11 12:16 | XMS_ITS | Encounter Summary ---
Author Organization [employer] Address [address] [place] [address] Care Team Providers Care Corporate Sales Manager Name Role Phone Unavailable Primary Care Provider Unavailabl e Encounter Details Date Type Department Care Team (Late st Contact Info) Description 07/29/2024 Telephone [facility] [address] [place] [address] Jennifer Butterfield DDS Social History Tobacco Use Types Packs/Day [...]
--- OUTSIDE RECORDS SUMMARY | 2025-05-11 12:16 | XMS_ITS | Encounter Summary ---
Author Organization [facility] Address [address] [place] [address] Care Team Providers Care Finishing Range Supervisor Name Role Phone Iron Garibay MD Primary Care Provider [phone] Reason for Visit * Reason Onset Date Comments Med Refill 05/11/2025 Encounter Details Date Type Department Care Team ([facility] st Contact Info) Description 05/11/2025 Telephone Adult Medicine [address] [place] [phone] Luna Klein MA Social History Tobacco Use Types Packs/Day Years [...] as of this encounter Progress Notes * Luna Klein MA - 05/11/2025 10:57 AM EST Refills on Current Medication List MED NAME:ONE TOUCH ULTRA ULTRA TEST STRIPS PREFERRED PHARMACY: [facility]/pharmacy #[id number] - [place] - [address] [facility] [place] [address] PATIENT STATES ENDOCRINE WILL NOT REFILL THE TEST STRIPS. Patient would like script to be: E-PRESCRIBED/FAXED TO PHARM[facility]Y [facility] WHEN WAS THE PATIENT'S LAST APPOINTMENT IN ADULT MEDICINE? 04/14/25 WHEN WAS THE LAST TIME THE PATIENT SAW THEIR PCP? Same as above Does patient have an upcoming appointment? Yes 05/24/25 (THE MEDICATION REQUESTED IS ON THE MED LIST ABOVE) All of the medications requested were on the CURRENT MEDS list Did you check the Pharmacy information above?: yes Patient wants: 90-day supply Is this a mail order prescription request?: no If the refill is from a FAXED refill request what is the RX # listed on the fax? not applicable Patients current insurance carrier is: Payor: [employer] aka [employer]AGE / Plan: [employer]AY MEDICARE ADVANTAGE / Product Type: *No Product type* / Insurance ID #: @[id number]@ documented in this encounter Plan of Treatment Upcoming Encounters Date Type Department Care Team (Late st Contact Info) Description 05/24/2025 11:00 AM EST Office Visit Adult Medicine [address] [phone] Miri Schumacher PA [address] [place] [address] 10/17/2025 8:30 AM EDT Office Visit Adult Medicine [address] [phone] Iron Garibay MD [address] [place] [address] documented as of this encounter Visit Diagnoses Not on filedocumented in this encounter Care Teams Finishing Range Supervisor Relationship Specialty Start Date End Date Iron Garibay MD [address] [place] [address] PCP - General Internal Medicine 05/11/24 documented as of this encounter
--- OUTSIDE RECORDS SUMMARY | 2025-05-11 12:16 | XMS_ITS | Encounter Summary ---
Author Organization [employer] [facility] Address [address] [facility] [address] [place] [address] Care Team Providers Care Medical Logistics Specialist Name Role Phone Unavailable Primary Care Provider Unavailabl e Encounter Details Date Type Department Care Team (Latest Contact Info) Description 12/20/2018 Abstract [facility] CONVERSION[facility] Dental, Provider, DDS Social [...]
--- OUTSIDE RECORDS SUMMARY | 2025-05-11 12:16 | XMS_ITS | Encounter Summary ---
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
--- OUTSIDE RECORDS SUMMARY | 2025-05-11 12:16 | XMS_ITS | Encounter Summary ---
Author Organization [employer] [facility] Address [address] [facility] [address] [place] [address] Care Team Providers Care Facilities Mechanical Design Engineer Name Role Phone Unavailable Primary Care [...]
--- OUTSIDE RECORDS SUMMARY | 2025-05-11 12:16 | XMS_ITS | Encounter Summary ---
Author Organization [facility] Address [address] [place] [address] Care Team Providers Care Recycling Operations Manager Name Role Phone Iron Garibay MD Primary Care Provider [phone] Encounter Details Date Type Department Care Team (Late Contact Info) Description 05/02/2025 Results Follow-Up [address] [phone] Iron Garibay MD [address] [place] [address] Social History Tobacco Use Types Packs/Day Years [...] PM EST documented as of this encounter Plan of Treatment Upcoming Encounters Date Type Department Care Team (Late Contact Info) Description 05/24/2025 11:00 AM EST Office Visit Adult [address] [phone] Miri Schumacher PA [address] [place] [address] 10/17/2025 8:30 AM EDT Office Visit Adult Medicine [facility] [address] [place] [address] Iron Garibay MD [address] [place] [address] documented as of this encounter Visit Diagnoses Not on filedocumented in this encounter Care Teams Recycling Operations Manager Relationship Specialty Start Date End Date Iron Garibay MD [address] [place] [address] PCP - General Internal Medicine 05/11/24 documented as of this encounter
--- OUTSIDE RECORDS SUMMARY | 2025-05-11 12:16 | XMS_ITS | Clinical Summary ---
Author Organization [facility] Address [address] [place] [address] Care Team Providers Care Adult Basic Education Instructor Name Role Phone Iron Garibay MD Primary Care Provider [phone] Allergies Active Allergy Reactions Criticality Noted Date [...] 400 mg by mouth daily. 0 Active [place]-3 Fatty Acids (FISH OIL) 1200 MG CAPS [...] age to complete this topic Care Teams Adult Basic Education Instructor Relationship Specialty Start Date End Date Iron Garibay MD PCP - General Internal Medicine 05/22/17
--- OUTSIDE RECORDS SUMMARY | 2025-05-11 12:16 | XMS_ITS | Encounter Summary ---
Author Organization [email or web address] Address [address] [place] [address] Care Team Providers Care Pharmacy Specialist Name Role Phone Unavailable Primary Care Provider Unavailabl e Reason for Visit * Reason Onset Date Comments appt 01/20/2024 Encounter Details Date Type Department Care Team ([facility] st Contact Info) Description 01/20/2024 Telephone [facility] [address] [place] [address] Jennifer Butterfield DDS appt Social History Tobacco Use Types Packs/Day [...] He'd like to be scheduling for his temple appts. Morning or afternoon does not matter to him documented in this encounter Plan of Treatment Not on file documented as of this encounter Visit Diagnoses Not on filedocumented in this encounter
--- OUTSIDE RECORDS SUMMARY | 2025-05-11 12:16 | XMS_ITS | Clinical Summary ---
Author Organization [facility] [address] [place] [address] [place] [phone] Phone Care Team Providers Care [employer] Supervisor Name Role Phone Iron Garibay MD [...] sugar diagnostic (ONETOUCH ULTRA BLUE TEST STRIP [facility]) Use to test blood sugar once daily. [...] (two) times a day. 12/21/19 23 Active lancets 30 gauge miscIndications :Type 2 diabetes mellitus with diabetic microalbuminuri a, with long-term current use of insulin ([facility] V24, [facility] V28) Check blood sugar three times a day.E11.29 100 each 07/20/19 25 Active testosterone (ANDROGEL) 1 % (50 mg/5 gram) gel in packet Place 1 packet (50 mg of testosterone total) on the skin 1 (one) time each day. 09/08/19 25 Active indapamide (LOZOL) 2.5 mg tablet Take 1 tablet (2.5 mg total) by mouth 1 (one) time each day. at bedtime. 90 tablet 10/08/19 25 Active dextrose 40 % gel Take 15 g by mouth if needed for low blood sugar. Each tube of gel contains 15 g of glucose. 15 g 11/04/19 25 Active glucose (TRUEplus Glucose) 4 gram chewable tablet Chew 4 tablets (16 g total) if needed for low blood sugar. 50 tablet 11 11/04/19 25 026 Active pregabalin (LYRICA) 75 mg capsuleIndicati ons:Electric shock-type pain Take 1 capsule (75 mg total) by mouth 2 (two) times a day. Max Daily Amount: 150 mg 60 each 5 11/22/19 25 025 Active metFORMIN (GLUCOPHAGE) 500 mg tablet Take 2 tablets (1,000 mg total) by mouth 2 (two) times a day with meals. 360 tablet 1 12/01/19 25 Active montelukast (SINGULAIR) 10 mg tablet Take 1 tablet (10 mg total) by mouth at bedtime. 90 tablet 1 12/01/19 25 Active rOPINIRole (REQUIP) 2 mg tabletIndicatio ns:restless leg syndrome Take 1 tablet (2 mg total) by mouth at bedtime. 90 tablet 1 12/01/19 25 Active omeprazole (PriLOSEC) [address] capsule Take 1 capsule (40 mg total) by mouth 1 (one) time each day. Do not crush or chew. 90 capsule 1 12/01/19 25 Active losartan (COZAAR) 100 mg tablet Take 1 tablet (100 mg total) by mouth 1 (one) time each day. 90 tablet 1 12/01/19 25 Active atenoloL (TENORMIN) 50 mg tablet Take 1 tablet (50 mg total) by mouth 1 (one) time each day. 90 tablet 1 12/01/19 25 Active docusate sodium (Colace) 100 mg capsuleIndicati ons:Iron deficiency anemia, unspecified iron deficiency anemia type Take 1 capsule (100 mg total) by mouth 1 (one) time each day. 90 each 1 12/01/19 25 025 Active ferrous sulfate 325 mg (65 mg iron) EC tabletIndicatio ns:Iron deficiency anemia, unspecified iron deficiency anemia type Take 1 tablet (325 mg total) by mouth 1 (one) time each day with breakfast. Do not crush, chew, or split. 90 each 1 12/01/19 25 025 Active fludrocortisone (FLORINEF) 0.1 mg tablet Take 1 tablet (0.1 mg total) by mouth 1 (one) time each day. 09/27/19 25 Active insulin NPH-insulin regular (HumuLIN,NovoLI N 70/30) 100 unit/mL (70-30) injection Inject 64 Units under the skin 2 (two) times a day before meals. Inject 1-2 times a day as directed. 100 mL 3 12/09/19 25 Active BD Insulin Syringe Ultra-Fine 0.5 mL 30 gauge x 1/2 syringe USE TO ADMINISTER INSULIN TWICE A DAY 200 each 01/31/20 25 Active insulin syr/ndl U100 half aric 0.5 mL 31 gauge x 5/16 syringe Use twice daily 100 each 02/01/20 25 Active meclizine (ANTIVERT) 25 mg tablet TAKE 1 TABLET BY MOUTH 3 TIMES A DAY IF NEEDED FOR DIZZINESS. 90 tablet 02/11/20 25 Active blood-glucose sensor (FreeStyle Manny 2 Plus Sensor) device Dispense sensor every 15 days. 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 02/17/20 25 Active diazePAM (VALIUM) 5 mg tabletIndicatio ns:Anxiety Take 1 tablet (5 mg total) by mouth 2 (two) times a day. 60 tablet 05/09/20 25 Active diazePAM (VALIUM) 5 mg tablet Take 1 tablet (5 mg total) by mouth 2 (two) times a day. 60 tablet 03/29/20 25 025 Discontin ued(Reord er) Active Problems Problem Noted Date Diagnosed Date Iron deficiency anemia 08/01/2024 Mild CAD 07/30/2024 Assessment & Plan (07/30/2024 9:11 AM EST): Continue cardiology follow up Continue isosorbide dinitrate BID and aspirin 81mg daily ASHLIE (obstructive sleep apnea) 04/22/2024 Overview (04/22/2024): Follows with [facility] Pul Assessment & Plan (07/30/2024 9:11 AM EST): [...] (restless legs syndrome) 06/26/2021 Overview (04/22/2024): Followsw [facility] neurology (josué) Assessment & Plan (07/30/2024 9:11 AM EST): continue ropinirole nightly Vertigo 06/26/2021 Overview (04/22/2024): Following with neurology (Brandie). Til test ordered. 06/2021 Last Assessment & Plan: I reviewed the MRI findings in detail with Mr. Cuevas and there are no acute findings. Specifically, [...] 2 diabetes mellitus wit h renal manifestations ([facility] V24, [facility] V28) 07/30/2017 Assessment & Plan (07/30/2024 9:11 [...] Encounters Date Type Department Care Team Description 05/11/2025 Telephone Adult Medicine [address] [phone] Luna Klein [place] 05/02/2025 Results Follow-Up Adult [address] [phone] Iron Garibay MD 04/18/2025 1:52 PM EDT - 04/18/2025 11:59 PM EDT Hospital Encounter [address] [phone] Chronic cough Discharge Disposition: Home or Self Care 04/14/2025 4:30 PM EDT Office Visit Adult [address] [phone] Iron Garibay MD Dysphagia, unspecified type (Primary Dx); Type 2 diabetes mellitus with other diabetic kidney complication, with long-term current use of insulin ([facility] V24, [facility] V28); Chronic cough; B12 deficiency; Dry mouth; Hoarseness; ASHLIE (obstructive sleep apnea); Primary hypertension 03/03/2025 Telephone Adult Medicine [address] [phone] Iron Garibay MD 02/20/[address] [phone] Trinh Meeks PA 02/15/2025 9:00 AM EDT Office Visit Adult Medicine [address] [phone] Miri Schumacher PA Vertigo (Primary Dx); RLS (restless legs syndrome); Type 2 diabetes mellitus with other diabetic kidney complication, with long-term current use of insulin ([facility] V24, [facility] V28) from Last 3 Months Immunizations Immunization Administration Dates Next Due Influenza Quadravalent, MDCK , 0.5ml, preservative free (Flucelvax) 6mo and older 03/23/2023 Influenza Quadravalent, MDCK , 0.5ml, with preservative (Flucelvax) 6mo and older 04/23/2022,03/22/2021,03/16/2020 Influenza Quadrivalent, 0.5m l, preservative free (Fluarix; FluLaval; Fluzone) ages 6mo and older (Afluria) 3yo and older 04/23/2022,03/22/2021,03/16/2020 Influenza trivalent, 0.5mL ( Fluzone High-dose) 65yo and older 02/22/2025,06/15/2024,02/26/2024 Influenza trivalent, 0.5mL, preservative free (Fluarix; FluLaval; Fluzone) ages 6mo and older (Afluria) 3 years and older 05/09/2005 Influenza, Unspecified 05/09/2005 Pfizer (ages 12 & older) Bivalent, COVID-19 11/2022 Pneumococcal Conjugate Vaccine, 7 Valent 022 Pneumococcal conjugate 13 va lent (Prevnar 13, PCV13) 2mo and older 03/16/2020 Pneumococcal conjugate 20 va lent (Prevnar 20, PCV 20) 2mo and older 04/23/2022 Pneumococcal polysaccharide 23 valent (Pneumovax 23) 2yo and older 04/03/2021,01/15/2009 RSV, bivalent, protein subun it RSVpreF, 0.5mL, Preservative Free (Arexvy) 50yo and older 02/17/2025 Td Tetanus diptheria (Tdvax) 7yo and older 09/21 Tdap Tetanus diptheria acell ular pertussis (Boostrix; Adacel) 7yo and older 02/26/2024,09/12/2010 Zoster recombinant (Shingrix ) 19yo and older [...] o/w normal UPPER GASTROINTESTINAL ENDOSCOPY 01/21/2010 PROCEDURE: MT UPPER GI ENDOSCOPY PERFORMED; COMMENT: Dr Perez - erosive esophagitis, HH, otherwise normal OTHER SURGICAL HISTORY 10/07/2011 PROCEDURE: HISTORY OTHER; COMMENT: UPPP and T & A CATARACT EXTRACTION 2014 Bilateral PROCEDURE: HISTORICAL CATARACT REMOVAL HAND SURGERY 11/2015 Left PROCEDURE: HISTORICAL HAND SURGERY ESOPHAGOGASTRODUODENOSCOPY 05/20/2018 PROCEDURE: MT EGD TRANSORAL BIOPSY SINGLE/MULTIPLE; COMMENT: Esophagus suspicious for EOE. Esophagus dilated to 60 Q[address]. Normal duodenum and stomach. Biopsies obtained. Pathology normal. Medical History Medical History Date Comments ASHLIE (obstructive sleep apnea) DX :ASHLIE (obstructive sleep apnea) Anxiety DX:Anxiety Depression DX:Depression GERD (gastroesophageal reflu x disease) DX:GERD (gastroesophageal re flux disease) Asthma DX:Asthma Spermatocele of epididymis 04/27/2012 DX:Sp ermatocele of epididymis DM (diabetes mellitus) type II controlled, neurological manifestation (CMS/HCC V24, CMS/[facility] V28) 05/27/2013 DX:DM (diabetes mellitus) ty pe II controlled, neurological manifestation (HCC) Hypertension DX:Hypertension Obesity 05/11/2013 DX:Obesity Type 2 diabetes mellitus wit h renal manifestations (CMS/[facility] V24, CMS/HCC V28) 07/30/2017 DX:Type 2 diabetes [...] Sign Reading Time Taken Comments Blood Pressure 138/88 04/14/2025 4:44 PM EDT Pulse 78 04/14/2025 4:44 PM EDT Temperature 36.6 C (97.8 F) 04/14/2025 4:44 PM EDT Respiratory Rate 14 04/14/2025 4:44 PM EDT Oxygen Saturation 98% 04/14/2025 4:44 PM EDT Inhaled Oxygen Concentration - - Weight 120 kg (264 lb) 04/14/2025 4:44 PM EDT Height 193 cm (6' 4 ) 04/14/2025 4:44 PM EDT Body Mass Index 32.14 04/14/2025 4:44 PM EDT Plan of Treatment Upcoming Encounters Date Type Department Care Team (Late st Contact Info) Description 05/24/2025 11:00 AM EST Office Visit Adult Medicine [address] [phone] Miri Schumacher PA [address] [place], [place] 10/17/2025 8:30 AM EDT Office Visit Adult Medicine [address] [phone] Iron Garibay MD [address] [place] [address] Health Maintenance Due Date Last Done Comments Diabetes: Annual Foot Exam 1968 Hepatitis A Vaccines (1 of 2 - Risk 2-dose series) 1977 Hepatitis B Vaccines (1 of 3 - Risk 3-dose series) 2018 Medicare Annual Wellness Visit 06/14/2022 Social Influencers of Health Screening 06/14/2022 Falls Risk Assessment 12/26/2023 Depression Screening 07/06/2024 Diabetes: Annual Urine Albumin-Creatinine Ratio (uACR) 12/06/2024 12/07/2023 Colorectal Cancer Screening: Colonoscopy 01/02/2025 10/03/2019 COVID-19 Vaccine ( season) 2025 06/15/2024, 09/22/2023, 03/23/2023, Additional history exists Diabetes: Annual Retina Eye Exam 06/14/2025 06/14/2024 Diabetes: Annual GFR (Glomerular Filtration Rate) 07/29/2025 07/29/2024, 05/19/2024, 12/07/2023, Additional history exists Hypertension/CHF/CAD Annual BMP Blood Test 07/29/2025 07/29/2024, 05/19/2024, 12/07/2023, Additional history exists Diabetes: Blood Sugar Control Test (HGBA1C) 09/02/2025 03/03/2025, 12/05/2024, 07/29/2024, Additional history exists Cholesterol Screening (Lipid Panel) 12/06/2028 12/07/2023, 12/07/2023 DTaP,Tdap,and Td Vaccines (4 - Td or Tdap) 02/25/2034 02/26/2024, 09/21/2020, 09/12/2010 Hepatitis C Screening Completed 03/01/2020 Pneumococcal Vaccine: 50+ Years Completed 04/23/2022, 04/03/2021, 03/16/2020, Additional history exists Zoster Vaccines Completed 10/17/2022, 07/19/2022 RSV Immunization Adult Patients Completed 02/17/2025 Influenza Vaccine Completed 02/22/2025, , 02/26/2024, Additional history exists HIB Vaccines Aged Out [...] Procedure Name Priority Date/Time Associated Diagnosis Comments TESTOSTERONE, TOTAL Routine 04/28/2025 2 :13 PM EDT Testicular hypofunction XR CHEST 2 VIEWS Routine 04/18/2025 1:59 PM EDT Chronic cough CBC WITH AUTO DIFFERENTIAL Routine 04/18/2025 1:49 PM EDT Chronic cough CBC AND DIFFERENTIAL Routine 04/18/2025 1:49 PM EDT Chronic cough VITAMIN B12 Routine 04/18/2025 1:49 PM EDT B12 deficiency SJOGRENS ANTIBODIES, SSA AND SSB Routine 04/18/2025 1:49 PM EDT Dry mouth TESTOSTERONE, TOTAL Routine 03/03/2025 9 :24 AM EDT Testicular failure HEMOGLOBIN A1C Routine 03/03/2025 9:24 AM EDT Type 2 diabetes mellitus with other diabetic kidney complication, with long-term current use of insulin ([facility] V24, [facility] V28) BASIC METABOLIC PANEL Routine 07/29/2024 11:29 AM EST Preop cardiovascular exam HM URINE ALBUMIN CREATININE RATIO Routine 12/07/2023 LIPID PANEL Routine 12/07/2023 HEPATITIS C SCREENING Routine 03/01/2020 HM COLONOSCOPY Routine 10/03/2019 from Last 3 Months or Most Recently Relevant to Health Maintenance Results * (ABNORMAL) Testosterone, total (04/28/2025 2:13 PM EDT) Only the most recent of2 resultswithin the time period is included. Testosterone 175(L) 229 - 902 ng/dL LAB CHEMISTRY METHOD 04/28/2025 6:05 PM EDT [facility] Blood Venous blood specimen / Unknown Venipuncture / Unknown 04/28/2025 2:13 PM EDT 04/28/2025 2:13 PM EDT us Scott Rivera MD LAB BLOOD ORDERABLES Final Re sult [facility] [address] [place] [address], * XR Chest 2 Views (04/18/2025 1:59 PM EDT) Anatomical Region Laterality Modality Body Radiographic Ting ging 04/18/2025 2:20 PM EDT Impressions 04/18/2025 2:22 PM EDT No acute pulmonary pathology. -------- FINAL REPORT -------- Dictated By: Libertad Mohan Dictated Date: 04/18/2025 14:20 ET Assigned Physician: Libertad Mohan Reviewed and Electronically Signed By: Libertad Mohan Signed Date: 04/18/2025 14:22 ET Workstation ID: [id number] Transcribed By: Self Edit Transcribed Date: 04/18/2025 14:20 ET Narrative 04/18/2025 2:22 PM EDT CHEST, TWO VIEWS HISTORY: Cough . TECHNIQUE: Frontal and lateral views of the chest. PRIOR: Chest x-ray 04/29/2022. FINDINGS: The lungs are clear. No pleural effusion is seen. No pneumothorax is seen. The cardiac diameter is within normal limits. No acute or aggressive appearing bony abnormalities are seen. There are bridging osteophytes of the spine. Procedure Note Libertad Mohan MD - 04/18/2025 CHEST, TWO VIEWS HISTORY: Cough . TECHNIQUE: Frontal and lateral views of the chest. PRIOR: Chest x-ray 04/29/2022. FINDINGS: The lungs are clear. No pleural effusion is seen. No pneumothorax is seen. The cardiac diameter is within normal limits. No acute or aggressive appearing bony abnormalities are seen. There arebridging osteophytes of the spine. IMPRESSION: No acute pulmonary pathology. -------- FINAL REPORT -------- Dictated By: Libertad Mohan Dictated Date: 04/18/2025 14:20 ET Assigned Physician: Libertad Mohan Reviewed and Electronically Signed By: Libertad Mohan Signed Date: 04/18/2025 14:22 ET Workstation ID: [id number] Transcribed By: Self Edit Transcribed Date: 04/18/2025 14:20 ET us Iron Garibay MD IMG XR PROCEDURES Final Result * Sjogrens antibodies, SSA and SSB (04/18/2025 1:49 PM EDT) Sjogren's SS-A (Ro) Ab Quant 3 <20 units LAB CHEMISTRY METHOD 04/23/2025 9:44 AM EDT [facility] Sjogren's SS-A (Ro) Ab Negative Negative LAB CHEMISTRY METHOD 04/23/2025 9:44 AM EDT [facility] Sjogren's SS-B (La) Ab Quant 2 <20 units LAB CHEMISTRY METHOD 04/23/2025 9:44 AM EDT [facility] Sjogren's SS-B (La) Ab Negative Negative LAB CHEMISTRY METHOD 04/23/2025 9:44 AM EDT [facility] Blood Venous blood specimen / Unknown Venipuncture / Unknown 04/18/2025 1:49 PM EDT 04/18/2025 1:49 PM EDT us Iron Garibay MD LAB BLOOD ORDERABLES Final Resu lt [facility] [address] [place] [address], [place] [phone] * (ABNORMAL) CBC auto differential (04/18/2025 1:49 PM EDT) WBC 9.2 4.8 - 10.8 K/mcL LAB HEMETOLOGY METHOD 04/18/2025 4:30 PM EDT [facility] RBC 4.40(L) 4.50 - 5.50 M/mcL LAB HEMETOLOGY METHOD 04/18/2025 4:30 PM EDT [facility] Hemoglobin 12.0(L) 13.5 - 17.5 g/dL LAB HEMETOLOGY METHOD 04/18/2025 4:30 PM EDT [facility] Hematocrit 38.7(L) 42.0 - 54.0 % LAB HEMETOLOGY METHOD 04/18/2025 4:30 PM EDT [facility] MCV 89.0 79.0 - 98.0 FL LAB HEMETOLOGY METHOD 04/18/2025 4:30 PM EDT [facility] MCH 27.6 27.0 - 32.0 pcg LAB HEMETOLOGY METHOD 04/18/2025 4:30 PM EDT [facility] MCHC 31.0(L) 32.0 - 37.0 g/dL LAB HEMETOLOGY METHOD 04/18/2025 4:30 PM EDT [facility] RDW 14.2 11.0 - 15.0 % LAB HEMETOLOGY METHOD 04/18/2025 4:30 PM EDT [facility] Platelets 327 130 - 400 K/mcL LAB HEMETOLOGY METHOD 04/18/2025 4:30 PM EDT [facility] MPV 11.1(H) 7.0 - 11.0 FL LAB HEMETOLOGY METHOD 04/18/2025 4:30 PM EDT [facility] NRBC 0.0 <1.0 % LAB HEMETOLOGY [facility]/18[facility]25 [facility] NRBC Absolute 0.00 <0.10 K/mcL LAB HEMETOLOGY METHOD 04/18/2025 4:30 PM EDT [facility] Neutrophils Relative 67.4 % LAB HEMETOLOGY METHOD 04/18/2025 4:30 PM EDT [facility] Lymphocytes Relative 21.9 % LAB HEMETOLOGY METHOD 04/18[facility]2025 4[facility] Monocytes Relative 7.1 % LAB HEMETOLOGY METHOD 04/18/2025 4:[facility] Eosinophils Relative 2.3 % LAB HEMETOLOGY METHOD 04/18/2025 4:30 PM EDT [facility] Basophils Relative 0.8 % LAB HEMETOLOGY METHOD 04/18/2025 4:30 PM EDT [facility] Immature Granulocytes Relative 0.5 % LAB HEMETOLOGY METHOD 04/18/2025 4:[facility] Neutrophils Absolute 6.17 1.50 - 7.00 K/mcL LAB HEMETOLOGY METHOD 04/18/2025 4:30 PM EDT [facility] Lymphocytes Absolute 2.01 1.00 - 5.00 K/mcL LAB HEMETOLOGY METHOD 04/18/2025 4:30 PM EDT [facility] Monocytes Absolute 0.65 0.20 - 1.00 K/[facility] LAB HEMETOLOGY METHOD 04/18/2025 4:30 PM EDT [facility] Eosinophils Absolute 0.21 0.00 - 0.50 K/[facility] LAB HEMETOLOGY METHOD 04/18/2025 4:30 PM EDT [facility] Basophils Absolute 0.07 0.00 - 0.20 K/[facility] LAB HEMETOLOGY METHOD 04/18/2025 4:30 PM EDT [facility] Immature Granulocytes Absolute 0.05(H) 0.00 - 0.03 K/[facility] LAB HEMETOLOGY METHOD 04/18/2025 4:30 PM EDT [facility] Blood Venous blood specimen / Unknown Venipuncture / Unknown 04/18/2025 1:49 PM EDT 04/18/2025 1:49 PM EDT us Iron Garibay MD LAB BLOOD ORDERABLES Final Resu lt [facility] [address] [place] [address], * (ABNORMAL) Vitamin B12 (04/18/2025 1:49 PM EDT) Vitamin B-12 >2,000(H) 250 - 900 pcg/mL LAB CHEMISTRY METHOD 04/18/2025 8:36 PM EDT [facility] Blood Venous blood specimen / Unknown Venipuncture / Unknown 04/18/2025 1:49 PM EDT 04/18/2025 1:49 PM EDT us Iron Garibay MD LAB BLOOD ORDERABLES Final Resu lt [facility] [address] [place] [address], [place] [phone] * (ABNORMAL) Hemoglobin A1c (03/03/2025 9:24 AM EDT) Pathologist [facility] Hemoglobin A1C 8.9(H) <6.5 % LAB CHEMISTRY METHOD 03/03/2025 1:37 PM EDT [facility] Mean Bld Glu Estim. 209 mg/dL LAB CHEMISTRY METHOD 03/03/2025 1:37 PM EDT [facility] Blood Venous blood specimen / Unknown Venipuncture / Unknown 03/03/2025 9:24 AM EDT 03/03/2025 9:24 AM EDT Trinh DYE LAB BLOOD ORDERABLES Final Result [facility] [address] [place] [address], [place] [phone] * (ABNORMAL) Basic metabolic panel (07/29/2024 11:29 AM EST) [facility] Sodium 135 133 - 145 mmol/L LAB CHEMISTRY METHOD 07/29/2024 4:58 PM [facility] Potassium 4.1 3.5 - 5.5 mmol/L LAB CHEMISTRY METHOD 07/29/2024 4:58 PM [facility] Chloride 99 96 - 110 mmol/L LAB CHEMISTRY METHOD 07/29/2024 4:58 PM [facility] CO2 32 21 - 32 mmol/L LAB CHEMISTRY METHOD 07/29/2024 4:58 PM [facility] Anion Gap 4 3 - 11 LAB CHEMISTRY METHOD 07/29/2024 4:58 PM [facility] Glucose 127(H) 70 - 100 mg/dL LAB CHEMISTRY METHOD 07/29/2024 4:58 PM [facility] BUN 24 5 - 25 mg/dL LAB CHEMISTRY METHOD 07/29/2024 4:58 PM [facility] Creatinine 1.10 0.70 - 1.30 mg/dL LAB CHEMISTRY METHOD 07/29/2024 4:58 PM [facility] eGFR 74 >=60 mL/min/1. 73m2 LAB CHEMISTRY METHOD 07/29/2024 4:58 PM [facility] Comment:Calculation based on the Chronic Kidney Disease Epidemiology Collaboration (CKD-EPI) equation refit without adjustment for race. BUN/Creatinine Ratio 21.8 LAB CHEMISTRY METHOD 07/29/2024 4:58 PM [facility] Calcium 9.4 8.5 - 10.5 mg/dL LAB CHEMISTRY METHOD 07/29/2024 4:58 PM [facility] Blood Venous blood specimen / Unknown Venipuncture / Unknown 07/29/2024 11:29 AM EST 07/29/2024 11:29 AM EST Hermilo Hargrove MD LAB BLOOD ORDERA BLES Final Result [facility] [address] [place] [address], * Urine Albumin Creatinine Ratio (12/07/2023) [facility] Urine Albumin Creatinine Ratio abstracted Historical Provider HEALTH MAINTENANCE Final Result * (ABNORMAL) Lipid panel (12/07/2023) [facility] LDL/HDL Ratio 5(A) 0 - 4 Triglycerides 232(A) 0 - 150 mg/dL Cholesterol 186 0 - 200 mg/dL HDL 40 >=40 mg/dL LDL Cholesterol 100 0 - 100 mg/dL Blood Venous blood specimen / Unknown Historical Provider LAB BLOOD ORDERABLES Catarina l Result * Hepatitis C Screening (03/01/2020) [facility] Hepatitis C Screening abstracted Historical Provider HEALTH MAINTENANCE Final Result * Colonoscopy (10/03/2019) Colonoscopy no interpretation abstracted Anatomical Region Laterality Modality Other us Historical Provider HEALTH MAINTENANCE Final Result from Last 3 Months or Most Recently Relevant to Health Maintenance Insurance [place] MEDIC[place] ADVANTAGE Advance Directives Documents on File Type Date 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
--- OUTSIDE RECORDS SUMMARY | 2025-05-11 12:16 | XMS_ITS | Clinical Summary ---
Author Organization [employer] Address [address] [place] [address] [address] [place] [address] Care Team Providers Care Drop Board Worker Name Role Phone Unavailable Primary Care [...] (PreviDent 5000 Booster Plus) 1.1 % paste [place] for two minute rinse but dont spit [...] apnea syndrome 04/30/2023 Overview (09/02/2024): [place] [facility] Nonalcoholic fatty liver disease 10/03/2021 Overview (09/02/2024): US Abdomen 09/23/21 Ascending aorta dilatation 09/26/2021 Restless legs syndrome 06/26/2021 Overview (09/02/2024): Follow[facility] neurology ([facility]) [...] of epididymis 04/27/2012 Overview (09/02/2024): Us 04/14 Social History Tobacco Use Types Packs/Day Years [...] Sign Reading Time Taken Comments Blood Pressure 120/70 10/25/2024 10:04 AM EDT Pulse 65 11/25/2023 2:04 PM EDT Temperature - - Respiratory Rate - - Oxygen Saturation - - Inhaled Oxygen Concentration - - Weight - - Height - - Body Mass Index - - Plan of Treatment Health Maintenance Due Date Last Done Comments CT Colonography 1958 Colonoscopy 1958 Depression Screening 1958 FIT 1958 Lipid Panel 1958 SDOH Screening 1958 Sigmoidoscopy 1958 Diabetes: Foot Exam 1968 Eye Exam 1968 Alcohol/Substance Use Screening 1970 Hepatitis C Screening 1976 Hepatitis A Vaccines (1 of 2 - Risk 2-dose series) 1977 Hepatitis B Vaccines (1 of 3 - Risk 3-dose series) 2018 Dental Oral Exam 05/28/2024 11/25/2023, , 12/20/2018, Additional history exists Dental Prophylaxis 05/28/2024 11/25/2023, 0 01/29/2021, 07/18/2019, Additional history exists Dental X-Ray: Bitewings 11/25/2024 11/25/19, 01/29/2021, 12/20/2018, Additional history exists COVID-19 Vaccine ( season) 2025 06/15/2024, 09/22/2023, 03/23/2023, Additional history exists Diabetes: Hemoglobin A1C 06/03/2025 025, 12/05/2024, 07/29/2024 FOBT 10/21/2025 10/21/2024 Tobacco Screening 11/15/2025 11/15/2024 Dental X-Ray: Full Mouth 11/25/2026 11/25/2023, 12/05 Colorectal Cancer Screening 10/22/2027 FIT DNA/Cologuard 10/22/2027 10/21/2024 DTaP/Tdap/Td Vaccines (4 - Td or Tdap) 02/25/2034 02/26/2024, 09/21/2020, 09/12/2010 Pneumococcal Vaccine: 50+ Years Completed 04/23/2022, 04/23/2022, 04/03/2021, Additional history exists Zoster Vaccines Completed 10/17/2022, 07/19/2022 RSV Patients and Patients Aged 60 years or older Completed 02/17/2025 Influenza Vaccine Completed 02/22/2025, , [...] Procedure Name Priority Date/Time Associated Diagnosis Comments PROPHYLAXIS - ADULT Routine 11/25/2023 2 :00 PM EDT INTRAORAL - COMPLETE SERIES OF RADIOGRAPHIC IMAGES Routine 11/25/2023 2:00 PM EDT PERIODIC ORAL EVALUATION - ESTABLISHED PATIENT Routine 11/25/2023 2:00 PM EDT from Last 3 Months or Most Recently Relevant to Health Maintenance Insurance DENTAL - HSN FULL (MEDICAID) DENTAL - [employer] DENTAL PPO
--- OUTSIDE RECORDS SUMMARY | 2025-05-11 12:17 | XMS_ITS | Patient Health Record ---
Author Organization [facility] Address [address] [place] [id number] Care Team Providers Care Amusement Park Entertainer Name Role Phone NONE, NONE Primary Care Provider Marcial Bass Unavailable [phone] Reason For Referral No Information Medications Medication SIG (Take, Route, Fr equency, Duration) Notes Start Date End Date Status Omeprazole 20 MG 1 capsule Orally Onc e a day; Duration: 90 day(s) 05/26/2012 Active Plan Of Treatment No Information
== END 2025-05-11 11:51 | disposition home or self-care (01) ==
LOC: HO.HUSH 10:24
PROVIDERS: PCP Internal Medicine; Visit Provider Urology
DX: E29.1 Testicular hypofunction (principal)
CPT/HCPCS: 11980; 99213

== ENCOUNTER → 2025-05-11 10:23 | Outpatient (BNVA) | payer MEDICARE, MEDICAID, SELFPAY | PROVIDERS: PCP Internal Medicine; Visit Provider Urology | DX: E29.1 Testicular hypofunction (principal) | CPT/HCPCS: 11980; 99212; J2003; J3490 ==

== ENCOUNTER 2025-06-08 10:11 | Outpatient (AMB) | payer MEDICARE, MEDICAID, SELFPAY ==
--- NOTE | 2025-06-08 10:25 | MHC.OFFVIS ---
Vital Signs 06/08/25 10:26 Height 6 ft 1 in Weight 272 lb 4 oz BMI 35.9 BP 108/70 Blood Pressure Location Rt brachial Position Sitting Pulse 90 Pulse Source Pulse Oximeter Pulse Oximetry (%) 97 Oxygen Delivery Method Room Air Intake Visit Reasons: 6m follow up Intake Note: Follow up Vertigo, dizziness and giddiness, Restless legs syndrome Home Energy Consultant Supervisor Required: No Accompanied by: Self / Same As Patient Allergies budesonide (From Symbicort) Allergy (Severe, Verified 05/11/25 11:05) Dizziness formoterol (From Symbicort) Allergy (Severe, Verified 05/11/25 11:05) Dizziness lisinopril (LISINOPRIL) Allergy (Severe, Verified 05/11/25 11:05) Nausea mometasone furoate (From Dulera) Allergy (Severe, Verified 05/11/25 11:05) Nausea amoxicillin Allergy (Mild, Verified 05/11/25 11:05) vertigo gabapentin Allergy (Mild, Verified 05/11/25 11:05) vertigo ENVIRONMENTAL Allergy (Severe, Uncoded 02/17/25 09:33) Rash and Hives Dust Mite Allergy (Intermediate, Uncoded 02/17/25 09:33) Hives Seasonal Allergies Allergy (Intermediate, Uncoded 02/17/25 09:33) Hives and Rash terazosin Allergy (Mild, Uncoded 02/17/25 09:33) vertigo Medication List - Last Reconciled 06/08/25 by Raven Andrade MD albuterol sulfate 90 mcg/actuation 2 puffs PO Q6H PRN arginine HCl (L-arginine) mg PO aspirin 81 mg PO DAILY atenolol 50 mg PO DAILY biotin 10,000 mcg PO DAILY blood sugar diagnostic (OneTouch Ultra Test strips) As directed blood-glucose sensor ([place] Manny 2 Plus Sensor device) As directed chromium picolinate 200 mcg PO DAILY coenzyme Q10 100 mg PO DAILY diazepam mg PO docusate sodium 100 mg PO DAILY ferrous sulfate 325 mg PO QAM flash glucose scanning reader (Miyaobabei Manny 2 [place]) As directed fludrocortisone 0.1 mg PO DAILY fluoride (sodium) 1.1% 1 appl dental DAILY glucose (Dex4 Glucose) 4 grams PO Q15M PRN indapamide 2.5 mg PO BEDTIME insulin NPH and regular human 100 unit/mL (70-30) (Novolin 70-30 FlexPen U-100 Insulin) 10 units subcut BID insulin syringe-needle U-100 As directed insulin syringe-needle U-100 As directed isosorbide dinitrate 10 mg PO BID PRN lancets (OneTouch Delica Plus Lancet) As directed lancets (OneTouch Delica Plus Lancet) As directed losartan 100 mg PO DAILY lutein 6 mg PO DAILY magnesium aspart,citrate,oxide (Triple Magnesium Complex) mg PO meclizine 25 mg PO DAILY PRN mecobalamin (vitamin B12) mcg PO metformin 2,000 mg PO .Am and PM montelukast 10 mg PO DAILY 90 days multivitamin 1 tab PO DAILY omeprazole 40 mg PO DAILY pregabalin mg PO psyllium husk (Fiber (psyllium husk)) 0.52 grams PO BEDTIME ropinirole 2 mg PO BEDTIME tadalafil 5 mg PO DAILY 90 days testosterone (Testopel) 75 mg implant ONCE 12 weeks venlafaxine ER mg PO Wixela Inhub 500-50 mcg/dose (fluticasone propion-salmeterol) 1 inh inhalation BID 90 days NS HPI Comments Details: 64y/o male comes for follow up of vertigo and restless legs syndrome. He saw ENT for dysphagia - was told it was normal.He has tonsillectomy adenoidectomy and uvulotomy many years ago. His diabetes is not well controlled .He sees Trinh OLMEDO .He blames it on stopping lorazepam . he was restarted on diazepam . . He still has daily episodes of vertigo - usually mild .He takes meclizine 25 mg bid .He has restless legs and is on requip 1mg qhs and it helps .His restless legs are moderately controlled. He is doing well on BiPAP - f/u Dr. Meeks.But he has severe nocturia which affects his sleep. He follows up with citizen participation specialist - for HTN History from his initial visit -He was followed up by Dr. Valenzuela who had closed his practice since. His vertigo started about 8 years ago . He describe sit as spinning sensation with quick change in head position. Its mostly in sitting or standing position . He also reports lightheadedness while standing .According to the patient he had tilt table testing and was diagnosed with orthostatic hypotension. He denies double vision, tinnitus or hearing loss. He did vestibular therapy - but was told that it was not BPV. He has dysphagia that started 5 years ago, evaluated with barium swallow and is on therapy now. 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 he is on BiPAP for sleep apnea and followed up by Dr. Meeks. He reports mild generalized weakness. He has diabetes and is poorly controlled. His Hg A 1C 8.9 He sees a psychiatrist for depression and anxiety [facility] Medical History Restless legs syndrome (RLS) Hypertension, essential Dizziness Vertigo Acute depression Anxiety Benign prostatic hyperplasia without lower urinary tract symptoms Hyperlipidemia Type 2 diabetes mellitus with other diabetic kidney complication Diverticulosis Restless leg syndrome CAD (coronary artery disease) Dyspnea ASHLIE treated with BiPAP Asthma Surgical History History of cataract surgery H/O adenoidectomy Hx of tonsillectomy Family History Father Cancer Mother Cancer Sister Acute Crohn's disease Social History Alcohol intake: former Patient Tobacco Use Status: Never used Tobacco Physical Exam Vital Signs: Last Vital Signs Pulse 90 06/08/25 10:26 BP 108/70 06/08/25 10:26 Pulse Ox 97 06/08/25 10:26 Oxygen Delivery Method Room Air 06/08/25 10:26 BMI result Body Mass Index 35.9 Const Other: Mood stable speech- normal General: cooperative, healthy appearing and comfortable Nutritional Appearance: average body habitus Orientation/consciousness: patient oriented x3 Neuro General: patient oriented x3, gait normal, tone normal, moves all extremities and no focal motor deficits Cranial nerves: Yes Facial sensation intact/muscles of mastication intact, Yes Bilaterally intact EOM present, Yes Nystagmus not present, Yes Normal facial strength present and Yes Midline tongue present Gait exam (Neuro): Normal gait present Motor exam (neuro): 5/5 motor strength present throughout and Normal motor muscle tone present throughout Assessment & Plan Assessment & Plan (1) Vertigo: Comment: ? vestibular or related to mitochondrial disease Code(s): R42 - Dizziness and giddiness Category: Medical (2) Dizziness: Comment: orthostatic, autonomic dysfunction related to diabetes ? mitochondrial disease Code(s): R42 - Dizziness and giddiness Category: Medical (3) Restless legs syndrome (RLS): Code(s): G25.81 - Restless legs syndrome Category: Medical Plan Continue Ropinirole 2 mg qhs meclizine as needed Good diabetes control to help with autonomic dysfunction . F/u Hypertension specialist F/u Dr Meeks F/U as needed Coding Level of Care Code Est Pt Level 4 (45110) Complex visit Add On G2211 Diagnoses Vertigo R42 Dizziness R42 Restless legs syndrome (RLS) G25.81
[2025-06-08 10:26] VITALS: BP 108/70; PULSE 90; O2SAT 97; BMI 35.9
--- OUTSIDE RECORDS SUMMARY | 2025-06-08 12:11 | XMS_ITS | Clinical Summary ---
Author Organization [employer] Address [address] [place] [address] [address] [place] [address] Care Team Providers Care Automatic Mold Sander Name Role Phone Unavailable Primary Care Provider [...] (PreviDent 5000 Booster Plus) 1.1 % paste [place] for two minute rinse but dont spit [...] apnea syndrome 04/30/2023 Overview (09/02/2024): Follows with [facility] [place]m Nonalcoholic fatty liver disease 10/03/2021 Overview (09/02/2024): US Abdomen 09/23/21 Ascending aorta dilatation 09/26/2021 Restless legs syndrome 06/26/2021 Overview (09/02/2024): [facility] ([facility] Allergic rhinitis 02/03/2018 Hiatal hernia 02/03/2018 Diverticular [...]
--- OUTSIDE RECORDS SUMMARY | 2025-06-08 12:11 | XMS_ITS | Encounter Summary ---
Author Organization [facility] Address [address] [place] [address] Care Team Providers Care Spinner Open End Name Role Phone Iron Garibay MD Primary Care Provider [phone] Encounter Details Date Type Department Care Team (Late Contact Info) Description 05/02/2025 Results Follow-Up Adult [address] [phone] Iron Garibay MD [address] [place] [address] Social History Tobacco Use Types Packs/Day Years [...] Department Care Team (Late Contact Info) Description 07/19/2025 9:00 AM EST Office Visit [address] [phone] Chanelle Rodrigues PA [address] [place] [address] 10/17/2025 8:30 AM EDT Office Visit Adult Medicine [address] [place], [place] [phone] Iron Garibay MD [address] [place] [address] documented as of this encounter Visit Diagnoses Not on filedocumented in this encounter Care Teams Spinner Open End Relationship Specialty Start Date End Date Iron Garibay MD [address] [place] [address] PCP - General Internal Medicine 05/11/24 documented as of this encounter
--- OUTSIDE RECORDS SUMMARY | 2025-06-08 12:11 | XMS_ITS | Encounter Summary ---
Author Organization [employer] Address [address] [place] [address] Care Team Providers Care Film And Video Editor Name Role Phone Unavailable Primary Care Provider Unavailabl e Reason for Visit * Reason Onset Date Comments appt details 12/31/2023 Encounter Details Date Type Department Care Team (Late st Contact Info) Description 12/31/2023 Telephone [facility] [address] [place] [address] Jennifer Butterfield DDS appt details Social History [...] message for him and to let front clerk know that his schedule is tight CS documented in this encounter Plan of Treatment Not on file documented as of this encounter Visit Diagnoses Not on filedocumented in this encounter
--- OUTSIDE RECORDS SUMMARY | 2025-06-08 12:11 | XMS_ITS | Encounter Summary ---
Author Organization [employer] [facility] Address [address] [facility] [address] [place] [address] Care Team Providers Care Roping Machine Tender Name Role Phone Unavailable Primary Care Provider [...]
--- OUTSIDE RECORDS SUMMARY | 2025-06-08 12:11 | XMS_ITS | Clinical Summary ---
Author Organization [facility] [address] [place] [address] [place] [phone] Phone Care Team Providers Care Pulmonary Care Nurse Name Role Phone Iron Garibay MD Primary Care Provider [phone] Allergies Active Allergy Reactions Criticality Noted Date Comments Budesonide 10/15/2021 Formoterol 10/15/2021 Gabapentin 04/29/2022 Hydrochlorothiazide Other 05/26/2018 Excessive urination Levofloxacin 04/29/2022 Lisinopril Cough 09/19/2014 Mometasone-Formoterol 04/29/2022 Other 09/12/2010 Amoxicillin-k Clavulanate-saccharin Dust Mite Symbicort [Budesonide-formoterol Fumarate Dihydrate Pramipexole 04/29/2022 Terazosin 04/29/2022 Medications Autolet lancing device Use to test blood [...] sugar diagnostic (ONETOUCH ULTRA BLUE TEST STRIP [facility]) Use to test blood sugar once daily. Active albuterol HFA (PROAIR HFA ; PROVENTIL HFA ; VENTOLIN HFA) 90 mcg/actuation inhaler Inhale 2 Puffs into the lungs every 4 hours as needed for Cough or Wheezing. Active arginine HCl, L-arginine, 1,000 mg tablet Take 1,000 mg by mouth daily. Active aspirin 81 mg EC tablet Take 81 mg by mouth daily. Active lutein 6 [...] day. 12/21/19 23 Active lancets 30 gauge miscIndication s:Type 2 diabetes mellitus with diabetic microalbuminur ia, with long-term current use of insulin ([facility] V24, [facility] V28) Check blood sugar three times [...] at bedtime. 90 tablet 10/08/19 25 Active glucose (TRUEplus Glucose) 4 gram chewable tablet Chew 4 tablets (16 g total) if needed for low blood sugar. 50 tablet 11 11/04/19 25 2025 Active rOPINIRole (REQUIP) 2 mg tabletIndicati ons:restless leg syndrome Take 1 tablet (2 mg total) by mouth at bedtime. 90 tablet 1 12/01/19 25 Active fludrocortison e (FLORINEF) 0.1 mg tablet Take 1 tablet (0.1 mg total) by mouth 1 (one) time each day. 09/27/19 25 Active insulin NPH-insulin regular (HumuLIN,NovoL IN 70/30) 100 unit/mL (70-30) injection Inject 64 Units under the skin 2 (two) times a day before meals. Inject 1-2 times a day as directed. 100 mL 3 12/09/19 25 Active BD Insulin Syringe Ultra-Fine 0.5 mL 30 gauge x 1/2 syringe USE TO ADMINISTER INSULIN TWICE A DAY 200 each 5 01/31/20 25 Active insulin syr/ndl U100 half aric 0.5 mL 31 gauge x 5/16 syringe Use twice daily 100 each 5 02/01/20 25 Active blood-glucose sensor (FreeStyle Manny 2 Plus Sensor) device Dispense sensor every 15 days. 6 each 3 02/22/20 25 Active blood-glucose sensor (FreeStyle Manny 2 Plus Sensor) deviceIndicati ons:Type 2 diabetes mellitus with other diabetic kidney complication, with long-term current use of insulin ([facility] V24, [facility] V28) Change sensor every 14 days 2 each 11 02/22/20 25 Active blood-glucose meter (Accu-Chek Guide Glucose Meter) miscIndication s:Type 2 diabetes mellitus with diabetic microalbuminur ia, with long-term current use of insulin ([facility] V24, [facility] V28) Use to check BS 2 times a day 1 each 03/30/20 25 Active Wixela Inhub 500-50 mcg/dose diskus inhaler Inhale 1 puff by mouth 2 (two) times a day. 02/17/20 25 Active diazePAM (VALIUM) 5 mg tabletIndicati ons:Anxiety Take 1 tablet (5 mg total) by mouth 2 (two) times a day. 60 tablet 05/09/20 25 Active metFORMIN (GLUCOPHAGE) 500 mg tablet TAKE 2 TABLETS BY MOUTH TWICE A DAY WITH FOOD 360 tablet 1 05/15/20 25 Active docusate sodium (COLACE) 100 mg capsuleIndicat ions:Iron deficiency anemia, unspecified iron deficiency anemia type TAKE 1 CAPSULE BY MOUTH 1 TIME EACH DAY. 90 capsule 1 05/24/20 25 Active pregabalin (LYRICA) 75 mg capsuleIndicat ions:Electric shock-type pain Take 1 capsule (75 mg total) by mouth 2 (two) times a day. Max Daily Amount: 150 mg 60 each 5 05/24/20 25 2025 Active meclizine (ANTIVERT) 25 mg tablet Take 1 tablet (25 mg total) by mouth 3 (three) times a day if needed for dizziness. 90 tablet 1 05/24/20 25 Active losartan (COZAAR) 100 mg tablet Take 1 tablet (100 mg total) by mouth 1 (one) time each day. 90 tablet 1 05/24/20 25 Active atenoloL (TENORMIN) 50 mg tablet Take 1 tablet (50 mg total) by mouth 1 (one) time each day. 90 tablet 1 05/24/20 Active glucose blood test strip Use to check blood sugar 3 times daily. 300 each 3 05/24/20 25 2025 Active montelukast (SINGULAIR) 10 mg tablet TAKE 1 TABLET BY MOUTH EVERYDAY AT BEDTIME 90 tablet 1 05/25/20 Active omeprazole (PriLOSEC) [address] capsule TAKE 1 CAPSULE BY MOUTH 1 TIME EACH DAY. DO NOT CRUSH OR CHEW. 90 capsule 1 05/25/20 Active ashwagandha extract 500 mg capsule Take 500 mg by mouth daily. 2024 Discontinued diphenhydrAMIN E (BENADRYL) 25 mg capsule Take 25 mg by mouth daily. 2024 Discontinued dextrose 40 % gel Take 15 g by mouth if needed for low blood sugar. Each tube of gel contains 15 g of glucose. 15 g 11/04/192024 Discontinued pregabalin (LYRICA) 75 mg capsuleIndicat ions:Electric shock-type pain Take 1 capsule (75 mg total) by mouth 2 (two) times a day. Max Daily Amount: 150 mg 60 each 5 11/22/192024 Discontinued(R eorder) metFORMIN (GLUCOPHAGE) 500 mg tablet Take 2 tablets (1,000 mg total) by mouth 2 (two) times a day with meals. 360 tablet 1 12/01/192024 Discontinued montelukast (SINGULAIR) 10 mg tablet Take 1 tablet (10 mg total) by mouth at bedtime. 90 tablet 1 12/01/192024 Discontinued omeprazole (PriLOSEC) [address] capsule Take 1 capsule (40 mg total) by mouth 1 (one) time each day. Do not crush or chew. 90 capsule 1 12/01/192024 Discontinued losartan (COZAAR) 100 mg tablet Take 1 tablet (100 mg total) by mouth 1 (one) time each day. 90 tablet 1 12/01/192024 Discontinued(R eorder) atenoloL (TENORMIN) 50 mg tablet Take 1 tablet (50 mg total) by mouth 1 (one) time each day. 90 tablet 1 12/01/19 25 2024 Discontinued(R eorder) docusate sodium (Colace) 100 mg capsuleIndicat ions:Iron deficiency anemia, unspecified iron deficiency anemia type Take 1 capsule (100 mg total) by mouth 1 (one) time each day. 90 each 1 12/01/19 25 2024 Discontinued ferrous sulfate 325 mg (65 mg iron) EC tabletIndicati ons:Iron deficiency anemia, unspecified iron deficiency anemia type Take 1 tablet (325 mg total) by mouth 1 (one) time each day with breakfast. Do not crush, chew, or split. 90 each 1 12/01/19 25 2024 meclizine (ANTIVERT) 25 mg tablet TAKE 1 TABLET BY MOUTH 3 TIMES A DAY IF NEEDED FOR DIZZINESS. 90 tablet 02/11/20 25 2024 Discontinued(R eorder) Active Problems Problem Noted Date Diagnosed Date Iron deficiency anemia 08/01/2024 Mild CAD 07/30/2024 Assessment & Plan (07/30/2024 9:11 AM EST): Continue cardiology follow up Continue isosorbide dinitrate BID and aspirin 81mg daily ASHLIE (obstructive sleep apnea) 04/22/2024 Overview (04/22/2024): Follows with [facility] [place] Pul Assessment & Plan (07/30/2024 9:11 AM [...] (04/22/2024): US Abdomen 09/23/21 Ascending aorta dilatation ([facility] V24) 022 RLS (restless legs syndrome) 06/26/2021 Overview (04/22/2024): Followsw [facility]y ([place]) Assessment & Plan (07/30/2024 [...] 2 diabetes mellitus wit h renal manifestations ([facility] V24, [facility] V28) 07/30/2017 Assessment & Plan (07/30/2024 [...] Encounters Date Type Department Care Team Description 06/05/[address] [phone] Chanelle Rodrigues PA 05/26/2025 Telephone Adult Medicine [address] [phone] Iron Garibay MD 05/24/2025 11:55 AM EST Lab Draw Station [address] Anxiety; Depression, unspecified depression type; Encounter for long-term (current) use of medications; Hyperlipidemia, unspecified hyperlipidemia type; Type 2 diabetes mellitus with other diabetic kidney complication, with long-term current use of insulin ([facility] V24, [facility] V28) 05/24/2025 11:00 AM EST Office Visit Adult [address] [phone] Miri Schumacher PA Secondary hypertension (Primary Dx); Hyperlipidemia, unspecified hyperlipidemia type; Type 2 diabetes mellitus with other diabetic kidney complication, with long-term current use of insulin ([facility] V24, [facility] V28); Gastroesophageal reflux disease, unspecified whether esophagitis present; Anxiety; Depression, unspecified depression type; Electric shock-type pain; Encounter for long-term (current) use of medications; Vertigo 05/24/2025 Telephone Adult Medicine [address] [phone] Luna Klein MA 05/23/2025 1:20 PM EST Lab Draw [address] Testicular hypofunction (Primary Dx) 05/11/2025 Telephone Adult [address] [phone] Ernie LunaCADE 05/02/2025 Results Follow-Up [address] [phone] Iron Garibay MD 04/18/2025 1:52 PM EDT - 04/18/2025 11:59 PM EDT Hospital Encounter [address] [phone] Chronic cough Discharge Disposition: Home or Self Care 04/14/2025 4:30 PM EDT Office Visit [address] [phone] Iron Garibay MD Dysphagia, unspecified type (Primary Dx); Type 2 diabetes mellitus with other diabetic kidney complication, with long-term current use of insulin ([facility] V24, [facility] V28); Chronic cough; B12 deficiency; Dry mouth; Hoarseness; ASHLIE (obstructive sleep apnea); Primary hypertension from Last 3 Months Immunizations Immunization Administration [...] o/w normal UPPER GASTROINTESTINAL ENDOSCOPY 01/21/2010 PROCEDURE: NC UPPER GI ENDOSCOPY PERFORMED; COMMENT: Dr Perez - erosive esophagitis, HH, otherwise normal OTHER SURGICAL HISTORY 10/07/2011 PROCEDURE: HISTORY OTHER; COMMENT: UPPP and T & A CATARACT EXTRACTION 2014 Bilateral PROCEDURE: HISTORICAL CATARACT REMOVAL HAND SURGERY 11/2015 Left PROCEDURE: HISTORICAL HAND SURGERY ESOPHAGOGASTRODUODENOSCOPY 05/20/2018 PROCEDURE: NC EGD TRANSORAL BIOPSY SINGLE/MULTIPLE; COMMENT: Esophagus suspicious for EOE. Esophagus dilated to 60 Setswana. Normal duodenum and stomach. Biopsies obtained. Pathology [...] Sign Reading Time Taken Comments Blood Pressure 128/75 05/24/2025 11:03 AM EST A Pulse 76 05/24/2025 11:00 AM EST Temperature 35.6 C (96 F) 05/24/2025 11:00 AM EST Respiratory Rate 14 04/14/2025 4:44 PM EDT Oxygen Saturation 99% 05/24/2025 11:00 AM EST Inhaled Oxygen Concentration - - Weight 122 kg (269 lb 11.2 oz) 05/24/2025 11:00 AM EST Height 193 cm (6' 3.98 ) 05/24/2025 11:00 AM EST Body Mass Index 32.84 05/24/2025 11:00 AM EST Plan of Treatment Upcoming Encounters Date Type Department Care Team (Late st Contact Info) Description 07/19/2025 9:00 AM EST Office Visit Endocrinology [address] [phone] Chanelle Rodrigues PA [address] [place], [place] 10/17/2025 8:30 AM EDT Office Visit Adult Medicine [address] [phone] Iron Garibay MD [address] [place] [address] Health Maintenance Due Date Last Done Comments [...] Annual Retina Eye Exam 06/14/2025 06/14/2024 Diabetes: Blood Sugar Control Test (HGBA1C) 09/02/2025 03/03/2025, 12/05/2024, 07/29/2024, Additional history exists Diabetes: Annual GFR (Glomerular Filtration Rate) 05/24/2026 05/24/2025, 07/29/2024, 05/19/2024, Additional history exists Hypertension/CHF/CAD Annual BMP Blood Test 05/24/2026 05/24/2025, 07/29/2024, 05/19/2024, Additional history exists Cholesterol Screening (Lipid Panel) 05/24/2030 05/24/2025, 12/07/2023, 12/07/2023 DTaP,Tdap,and Td Vaccines (4 - [...] Procedure Name Priority Date/Time Associated Diagnosis Comments BASIC METABOLIC PANEL Routine 05/24/2025 12:01 PM EST Type 2 diabetes mellitus with other diabetic kidney complication, with long-term current use of insulin ([facility] V24, [facility] V28) LIPID PANEL WITH REFLEX TO DIRECT LDL Routine 05/24/2025 12:01 PM EST Hyperlipidemia, unspecified hyperlipidemia type Type 2 diabetes mellitus with other diabetic kidney complication, with long-term current use of insulin ([facility] V24, [facility] V28) DRUG ABUSE SCREEN 8A PANEL, URINE Routine 05/24/2025 12:01 PM EST Anxiety Depression, unspecified depression type Encounter for long-term (current) use of medications TESTOSTERONE, TOTAL Routine 05/23/2025 1 :21 PM EST Testicular hypofunction TESTOSTERONE, TOTAL Routine 04/28/2025 2 :13 PM EDT Testicular hypofunction XR CHEST 2 VIEWS Routine 04/18/2025 1:59 PM EDT Chronic cough CBC WITH AUTO DIFFERENTIAL Routine 04/18/2025 1:49 PM EDT Chronic cough CBC AND DIFFERENTIAL Routine 04/18/2025 1:49 PM EDT Chronic cough VITAMIN B12 Routine 04/18/2025 1:49 PM EDT B12 deficiency SJOGRENS ANTIBODIES, SSA AND SSB Routine 04/18/2025 1:49 PM EDT Dry mouth HEMOGLOBIN A1C Routine 03/03/2025 9:24 AM EDT Type 2 diabetes mellitus with other diabetic kidney complication, with long-term current use of insulin ([facility] V24, [facility] V28) URINE ALBUMIN CREATININE RATIO Routine 12/07/2023 HEPATITIS C SCREENING Routine 03/01/2020 COLONOSCOPY Routine 10/03/2019 from Last 3 Months or Most Recently Relevant to Health Maintenance Results * (ABNORMAL) Lipid panel with reflex to direct LDL (05/24/2025 12:01 PM EST) Cholesterol 198 0 - 200 mg/dL 05/24/2025 4:43 PM EST [facility] Triglycerides 366(H) 0 - 150 mg/dL 05/24/2025 4:43 PM EST [facility] HDL 38(L) >=40 mg/dL 05/24/2025 4:43 PM [facility] LDL Calculated 87 0 - 100 mg/dL 05/24/2025 4:43 PM [facility] Comment:Estimated LDL Calcul ated using equation: Total cholesterol - HDL cholesterol - (Triglycerides/5) VLDL Cholesterol Yohan 73.2 mg/dL 05/24/2025 4:43 PM [facility] Non HDL Chol. (LDL+VLDL) 160(H) <145 mg/dL 05/24/2025 4:43 PM [facility] Chol/HDL Ratio 5.2(H) 0.0 - 4.4 05/24/2025 4:43 PM [facility] Blood Venous blood specimen / Unknown Venipuncture / Unknown 05/24/2025 12:01 PM EST 05/24/2025 12:01 PM EST Miri DYE LAB BLOOD ORDERABLES Fi nal Result [facility] [address] [place] [address], * (ABNORMAL) Drug abuse screen 8a panel, urine (05/24/2025 12:01 PM EST) Amphetamine Screen, Ur Negative Negative 05/24/2025 5:31 PM [facility] Comment:Certain OTC medicati ons containing ephedrine, phenylephrine, pseudoephedrine and phenylpropanolamine can cause false positive results. Barbiturate Screen, Ur Negative Negative 05/24/2025 5:31 PM [facility] Benzodiazepine Screen, Ur Positive(A ) Negative 05/24/2025 5:31 PM [facility] Cocaine Screen, Ur Negative Negative 2024 5:31 PM [facility] Opiate Screen, Ur Negative Negative 025 5:31 PM EST [facility] Cannabinoid (THC) Screen, Ur Negative Negative 05/24/2025 5:31 PM EST [facility] Comment:Specimens from patie nts taking pantoprazole sodium (Protonix) have been shown to produce false positive results. Oxycodone Screen, Ur Negative Negative 05/06 5:31 PM EST [facility] Fentanyl, Ur Negative Negative 05/24/2025 5:31 PM [facility] Urine Urine specimen obtained by clean catch procedure / Unknown Non-blood Collection / Unknown 05/24/2025 12:01 PM EST 05/24/2025 12:[address] [facility] - 05/24/2025 5:31 PM EST Assay cutoffs: Amphetamines 1000 ng/mL Barbiturates 200 ng/mL Benzodiazepines 200 ng/mL Cocaine 300 ng/mL Fentanyl 1 ng/mL Opiates 300 ng/mL Oxycodone 100 ng/mL THC 50 ng/mL Semi-quantitative assay for screening purposes only. Unconfirmed screening result should not be used for non-medical purposes. *ALTERNATE METHOD CONFIRMATION DONE UPON REQUEST ONLY* Miri DYE LAB URINE ORDERABLES Fi nal Result [facility] [address] [place] [address], * (ABNORMAL) Basic metabolic panel (05/24/2025 12:01 PM EST) Sodium 138 133 - 145 mmol/L 05/24/2025 4:41 PM [facility] Potassium 4.1 3.5 - 5.5 mmol/L 05/24/2025 4:41 PM [facility] Chloride 98 96 - 110 mmol/L 05/24/2025 4:41 PM [facility] CO2 31 21 - 32 mmol/L 05/24/2025 4:41 PM [facility] Anion Gap 9 3 - 11 05/24/2025 4:41 PM [facility] Glucose 185(H) 70 - 100 mg/dL 05/24/2025 4:41 PM [facility] BUN 27(H) 5 - 25 mg/dL 05/24/2025 4:41 PM [facility] Creatinine 1.14 0.70 - 1.30 mg/dL 05/24/2025 4:41 PM [facility] eGFR 71 >=60 mL/min/1. 73m2 05/24/2025 4:41 PM [facility] Comment:Calculation based on the Chronic Kidney Disease Epidemiology Collaboration (CKD-EPI) equation refit without adjustment for race. BUN/Creatinine Ratio 23.7 05/24/2025 4:41 PM [facility] Calcium 9.9 8.5 - 10.5 mg/dL 05/24/2025 4:41 PM [facility] Blood Venous blood specimen / Unknown Venipuncture / Unknown 05/24/2025 12:01 PM EST 05/24/2025 12:01 PM EST Miri DYE LAB BLOOD ORDERABLES Fi nal Result [facility] [address] [place] [address], * (ABNORMAL) Testosterone, total (05/23/2025 1:21 PM EST) Only the most recent of2 resultswithin the time period is included. Testosterone 209(L) 229 - 902 ng/dL 05/23/2025 5:40 PM [facility] Blood Venous blood specimen / Unknown Venipuncture / Unknown 05/23/2025 1:21 PM EST 05/23/2025 1:21 PM EST Narrative [facility] - 05/23/2025 5:40 PM EST Over the counter supplements containing high doses of biotin may interfere with this assay. If interference is suspected, patients shoud be retested after refraining from biotin supplements for 72 hours. us Scott Rivera MD LAB BLOOD ORDERABLES Final Re sult [facility] [address] [place] [address], [place] [phone] * XR Chest 2 Views (04/18/2025 1:59 PM EDT) Anatomical Region Laterality Modality Body Radiographic Ting ging 04/18/2025 2:20 PM EDT Impressions 04/18/2025 2:22 PM EDT No acute pulmonary pathology. -------- FINAL REPORT -------- Dictated By: Libertad Mohan Dictated Date: 04/18/2025 14:20 ET Assigned Physician: Libertad Mohan Reviewed and Electronically Signed By: Libertad Mohan Signed Date: 04/18/2025 14:22 ET Workstation ID: [id number] Transcribed By: Self Edit Transcribed Date: 04/18/2025 [...] Signed Date: 04/18/2025 14:22 ET Workstation ID: [id number] Transcribed By: Self Edit Transcribed Date: 04/18/2025 14:20 ET us Iron Garibay MD IMG XR PROCEDURES Final Result * Sjogrens antibodies, SSA and SSB (04/18/2025 1:49 PM EDT) [facility] Sjogren's SS-A (Ro) Ab Quant 3 <20 units LAB CHEMISTRY METHOD 04/23/2025 9:44 AM EDT [facility] Sjogren's SS-A (Ro) Ab Negative Negative LAB CHEMISTRY METHOD 04/23/2025 9:44 AM EDT [facility] Sjogren's SS-B (La) Ab Quant 2 <20 units LAB CHEMISTRY METHOD 04/23/2025 9:44 AM EDT [facility] Sjogren's SS-B (La) Ab Negative Negative LAB CHEMISTRY METHOD 04/23/2025 9:44 AM EDT [facility] Blood Venous blood specimen / Unknown Venipuncture / Unknown 04/18/2025 1:49 PM EDT 04/18/2025 1:49 PM EDT us Iron Garibay MD LAB BLOOD ORDERABLES Final Resu lt [facility] [address] [place] [address], [place] [phone] * (ABNORMAL) CBC auto differential (04/18/2025 1:49 PM EDT) [facility] WBC 9.2 4.8 - 10.8 K/[facility] LAB HEMETOLOGY METHOD 04/18/2025 4:30 PM EDT [facility] RBC 4.40(L) 4.50 - 5.50 M/mcL LAB HEMETOLOGY METHOD 04/18/2025 4:30 PM EDT [facility] Hemoglobin 12.0(L) 13.5 - 17.5 g/dL LAB HEMETOLOGY METHOD 04/18/2025 4:30 PM EDT [facility] Hematocrit 38.7(L) 42.0 - 54.0 % LAB HEMETOLOGY METHOD 04/18/2025 4:30 PM EDT [facility] MCV 89.0 79.0 - 98.0 FL LAB HEMETOLOGY [facility] MCH 27.6 27.0 - 32.0 pcg LAB HEMETOLOGY METHOD 04/18/2025 4:30 PM EDT [facility] MCHC 31.0(L) 32.0 - 37.0 g/dL LAB HEMETOLOGY METHOD 04/18/2025 4:30 PM EDT [facility] RDW 14.2 11.0 - 15.0 % LAB HEMETOLOGY METHOD 04/18/2025 4:30 PM EDT [facility] Platelets 327 130 - 400 K/[facility] LAB HEMETOLOGY METHOD 04/18/2025 4:30 PM EDT [facility] MPV 11.1(H) 7.0 - 11.0 FL LAB HEMETOLOGY METHOD 04/18/2025 4:30 PM EDT [facility] NRBC 0.0 <1.0 % LAB HEMETOLOGY METHOD 04/18/2025 4:30 PM EDT [facility] NRBC Absolute 0.00 <0.10 K/[facility] LAB HEMETOLOGY METHOD 04/18/2025 4:30 PM EDT [facility] Neutrophils Relative 67.4 % LAB HEMETOLOGY METHOD 04/18/2025 4:30 PM EDT [facility] Lymphocytes Relative 21.9 % LAB HEMETOLOGY METHOD 04/18/2025 4:30 PM [facility] Monocytes Relative 7.1 % LAB HEMETOLOGY METHOD 04/18/2025 4:30 PM EDT [facility] Eosinophils Relative 2.3 % LAB HEMETOLOGY METHOD 04/18/2025 4:30 PM EDT [facility] Basophils Relative 0.8 % LAB HEMETOLOGY METHOD 04/18/2025 4:30 PM [facility] Immature Granulocytes Relative 0.5 % LAB HEMETOLOGY METHOD 04/18/2025 4:30 PM [facility] Neutrophils Absolute 6.17 1.50 - 7.00 K/mcL LAB HEMETOLOGY METHOD [facility]/18[facility] Lymphocytes Absolute 2.01 1.00 - 5.00 K/mcL LAB HEMETOLOGY METHOD 04/18/2025 4:30 PM [facility] Monocytes Absolute 0.65 0.20 - 1.00 K/mcL LAB HEMETOLOGY METHOD 04/18/2025 4:30 PM [facility] Eosinophils Absolute 0.21 0.00 - 0.50 K/mcL LAB HEMETOLOGY METHOD 04/18/2025 4:30 PM T [facility] Basophils Absolute 0.07 0.00 - 0.20 K/mcL LAB HEMETOLOGY METHOD 04/18/2025 4:30 PM [facility] Immature Granulocytes Absolute 0.05(H) 0.00 - 0.03 K/mcL LAB HEMETOLOGY METHOD 04/18/2025 4:30 PM [facility] Blood Venous blood specimen / Unknown Venipuncture / Unknown 04/18/2025 1:49 PM EDT 04/18/2025 1:49 PM EDT us Iron Garibay MD LAB BLOOD ORDERABLES Final Resu lt [facility] [address] [place] [address], [place] [phone] * (ABNORMAL) Vitamin B12 (04/18/2025 1:49 PM EDT) Pathologist [facility] Vitamin B-12 >2,000(H) 250 - 900 pcg/mL LAB CHEMISTRY METHOD 04/18/2025 8:36 PM EDT [facility] Blood Venous blood specimen / Unknown Venipuncture / Unknown 04/18/2025 1:49 PM EDT 04/18/2025 1:49 PM EDT us Iron Garibay MD LAB BLOOD ORDERABLES Final Resu lt Performing Organization Address [facility]/ZIP Co de Phone Number [facility] [address] [place] [address], [place] [phone] * (ABNORMAL) Hemoglobin A1c (03/03/2025 9:24 AM EDT) Pathologist [facility] Hemoglobin A1C 8.9(H) <6.5 % LAB CHEMISTRY METHOD 03/03/2025 1:37 PM EDT [facility] Mean Bld Glu Estim. 209 mg/dL LAB CHEMISTRY METHOD 03/03/2025 1:37 PM EDT [facility] LAB Blood Venous blood specimen / Unknown Venipuncture / Unknown 03/03/2025 9:24 AM EDT 03/03/2025 9:24 AM EDT Trin[facility]YE LAB BLOOD ORDERABLES Final Result Performing Organization Address City/[facility]/ZIP Co de Phone Number [facility] [address] [place] [address], [place] [phone] * Urine Albumin Creatinine Ratio (12/07/2023) Urine Albumin Creatinine Ratio abstracted Historical Provider HEALTH MAINTENANCE Final Result * Hepatitis C Screening (03/01/2020) Hepatitis C Screening abstracted Historical Provider HEALTH MAINTENANCE Final Result * Colonoscopy (10/03/2019) Colonoscopy no interpretation abstracted Anatomical Region Laterality Modality Other Historical Provider HEALTH MAINTENANCE Final Result from Last 3 Months or Most Recently Relevant to Health Maintenance Insurance [employer] MEDICARE ADVANTAGE [place]ICAID [place] Advance Directives Documents on File Type Date Recorded 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
--- OUTSIDE RECORDS SUMMARY | 2025-06-08 12:11 | XMS_ITS | Encounter Summary ---
Author Organization [facility] Address [address] [place] [address] Care Team Providers Care Project Director Name Role Phone Iron Garibay MD Primary Care Provider [phone] Reason for Visit * Reason Onset Date Comments requesting labs 06/05/2025 Encounter Details Date Type Department Care Team ([facility] st Contact Info) Description 06/05/2025 Telephone [facility] [address] [place] [address] Chanelle Rodrigues PA [address] [place] [address] Social History Tobacco Use Types Packs/Day Years [...] as of this encounter Progress Notes * Debra Sagastume MA - 06/06/2025 8:52 AM EST Pt notified * MARNIE Randle - 06/05/2025 4:15 PM EST Ordered. Patient can wait to do the A1c into our appointment with me next month. * Li Sharonlalyindio - 06/05/2025 8:23 AM EST Endocrine Call Primary endocrine provider: Chanelle Rodrigues PA-C Is the endocrine provider in the office toady?: yes Who is calling? The patient. If not the patient or parent/guardian please check for authorization to share/verbal release. Why is the person calling? Orders (labs or imaging). Patient wanting labs/images ordered. Please send directly to endocrine provider. Which labs/images: A1C labs sent to the lab urgently. documented in this encounter Plan of Treatment Upcoming Encounters Date Type Department Care Team (Late st Contact Info) Description 07/19/2025 9:00 AM EST Office Visit [address] [phone] Chanelle Rodrigues PA [address] [place] [address] 10/17/2025 8:30 AM EDT Office Visit Adult Medicine [address] [phone] Iron Garibay MD [address] [place] [address] Scheduled Orders Name Type Priority Associated Diagnoses Orde r Schedule Hemoglobin A1c Lab Routine Type 2 diabetes mellitus with other diabetic kidney complication, with long-term current use of insulin (CMS/HCC V24, CMS/HCC V28) Expected: 06/05/2025, Expires: 06/05/2026 documented as of this encounter Visit Diagnoses Diagnosis Type 2 diabetes mellitus with other diabetic kidney complication, with long-term current use of insulin (CMS/HCC V24, CMS/HCC V28)- Primary documented in this encounter Care Teams Project Director Relationship Specialty Start Date End Date Iron Garibay MD [address] [place] [address] PCP - General Internal Medicine 05/11/24 documented as of this encounter
--- OUTSIDE RECORDS SUMMARY | 2025-06-08 12:11 | XMS_ITS | Encounter Summary ---
Author Organization [employer] Address [address] [place] [address] Care Team Providers Care Workplace Trainer And Assessor Name Role Phone Unavailable Primary Care Provider Unavailabl e Reason for Visit * Reason Onset Date Comments appt 01/20/2024 Encounter Details Date Type Department Care Team ([facility] st Contact Info) Description 01/20/2024 Telephone [facility] [address] [place] [id number] Jennifer Butterfield DDS appt Social History Tobacco [...]
--- OUTSIDE RECORDS SUMMARY | 2025-06-08 12:11 | XMS_ITS | Encounter Summary ---
Author Organization [employer] [facility] Address [address] [place] [address] Care Team Providers Care [place] Redevelopment Site Manager Name Role Phone Unavailable Primary Care [...]
--- OUTSIDE RECORDS SUMMARY | 2025-06-08 12:12 | XMS_ITS | Patient Health Record ---
Author Organization [facility] Address [address] [place] [phone] Care Team Providers Care Wood Flooring Specialist Name Role Phone NONE, NONE Primary Care Provider Marcial Bass [phone] Reason For Referral No Information Medications Medication SIG (Take, Route, Frequency, Duration) Notes Start Date End Date Status Omeprazole 20 MG Capsule Delayed Release 1 capsule Orally Once a day; Duration: 90 day(s) 05/26/2012 Active Plan Of Treatment No Information
--- OUTSIDE RECORDS SUMMARY | 2025-06-08 12:12 | XMS_ITS | Clinical Summary ---
Author Organization [facility] Prior to 12/03/[address] [place] [address] Care Team Providers Care Telegraph Service Rater Name Role Phone Iron Garibay MD Primary Care Provider [phone] Allergies Active Allergy Reactions Criticality Noted Date [...] 400 mg by mouth daily. 0 Active [place]-3 Fatty Acids (FISH OIL) 1200 MG [...] age to complete this topic Care Teams Telegraph Service Rater Relationship Specialty Start Date End Date Iron Garibay MD PCP - General Internal Medicine 05/22/17
--- OUTSIDE RECORDS SUMMARY | 2025-06-08 12:12 | XMS_ITS | Encounter Summary ---
Author Organization [employer] Address [address] [place] [address] Care Team Providers Care Exercise Planner Name Role Phone Unavailable Primary Care Provider Unavailabl e Encounter Details Date Type Department Care Team (Late st Contact Info) Description 07/29/2024 Telephone [facility] [address] [place] [address] Jennifer Butterfield DDS Social History Tobacco Use [...]
== END 2025-06-08 11:20 | disposition home or self-care (01) ==
LOC: HO.HSMS 10:11
PROVIDERS: PCP Internal Medicine; Visit Provider Psychiatry & Neurology Neurology
DX: R42 Dizziness and giddiness (principal); G25.81 Restless legs syndrome
CPT/HCPCS: 99214; G2211

== ENCOUNTER → 2025-06-08 10:11 | Outpatient (BNVA) | payer MEDICARE, MEDICAID, SELFPAY | PROVIDERS: PCP Internal Medicine; Visit Provider Psychiatry & Neurology Neurology | DX: R42 Dizziness and giddiness (principal); G25.81 Restless legs syndrome | CPT/HCPCS: 99212 ==